=== PATIENT | male | born 1950 | race Caucasian/White ===

== ENCOUNTER 2018-08-21 12:57 | Inpatient (IN) | payer MEDICARE, BC, MEDICAID ==
[2018-08-21] MEDS ORDERED: Sodium Chloride 0.9% 10 ML Syringe FLUSH PRN (13:40)
[2018-08-21] MEDS ORDERED: Acetaminophen 325 MG/10.15 ML ML PO ONE (13:42)
--- NOTE | 2018-08-21 13:43 | EDM.PDOC ---
ED HPI GENERAL MEDICAL PROBLEM - General Chief Complaint: Respiratory Problem Stated Complaint: [facility] Time Seen by Provider: 08/21/18 13:34 Source of Information: Reports: Patient, EMS, Family, Jail Records, RN Notes Reviewed - History of Present Illness INITIAL COMMENTS - FREE TEXT/NARRATIVE: 67-year-old male has been brought here from [facility] for evaluation of high fever. This started earlier today and was over 103 at time of transfer. 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 He has had occasional cough. Have a chronic indwelling Morgan catheter. The daughter states that he is susceptible to pneumonia and [facility]dc staff state that he may have "aspirated yesterday". - Related Data Allergies Allergy/AdvReac Type Severity Reaction Status Date / Time lithium Allergy Other Verified 08/21/18 13:15 NSAIDS (Non-Steroidal Allergy Other Verified 08/21/18 13:15 Anti-Inflamma sulfamethoxazole Allergy Rash Verified 08/21/18 13:15 [From Bactrim] trimethoprim [From Bactrim] Allergy Rash Verified 08/21/18 13:15 Home Meds: Home Meds . [No Known Home Meds] 09/07/17 [History] Past Medical History HEENT History: Reports: None Cardiovascular History: Reports: None Respiratory History: Reports: None Gastrointestinal History: Reports: None Genitourinary History: Reports: None Musculoskeletal History: Reports: None Neurological History: Reports: None Psychiatric History: Reports: None Endocrine/Metabolic History: Reports: None Hematologic History: Reports: None Immunologic History: Reports: None Oncologic (Cancer) History: Reports: None Dermatologic History: Reports: None - Infectious Disease History Infectious Disease History: Reports: None - Past Surgical History Head Surgeries/Procedures: Reports: None Social & Family History - Family History Family Medical History: Noncontributory - Caffeine Use Caffeine Use: Reports: Coffee ED ROS GENERAL - Review of Systems Review Of Systems: See Below Constitutional: Reports: Fever HEENT: Denies: Sinus Problem, Throat Pain Respiratory: Reports: Shortness of Breath GI/Abdominal: Denies: Abdominal Pain : Reports: Other (Patient has indwelling Morgan catheter with cruddy looking urine) Musculoskeletal: Reports: No Symptoms Skin: Denies: Rash Neurological: Reports: Weakness (Generalized, chronic) ED EXAM, GENERAL - Physical Exam Exam: See Below General Appearance: Alert, Mild Distress, Other Eye Exam: Bilateral Eye: PERRL Throat/Mouth: Other Head: No: Facial Swelling (Onychosis somewhat dry pharynx not inflamed) Neck: Supple, Full Range of Motion, Other (No JVD) Respiratory/Chest: Respiratory Distress (Mild tachypnea) Cardiovascular: Tachycardia GI/Abdominal: Soft, Non-Tender Back Exam: No: CVA Tenderness (L), CVA Tenderness (R) Extremities: Other (there is bilat muscle wasting). No: Leg Pain Neurological: Alert, No Motor/Sensory Deficits, Other (speech is weak voice but appropriate) Skin Exam: Warm, Dry, Normal Color Course - Vital Signs Last Recorded V/S: Last Vital Signs Temp 104.9 F H 08/21/18 15:13 Pulse 101 H 08/21/18 15:13 Resp 16 08/21/18 15:13 BP 125/78 08/21/18 15:13 Pulse Ox 91 L 08/21/18 15:13 - Orders/Labs/Meds Orders: Active Orders 24 hr Category Date Time Status Peripheral IV Care [RC] . DIRECTED Care 08/21/18 13:42 Active CULTURE BLOOD [BC] Stat Lab 08/21/18 13:50 Received CULTURE BLOOD [BC] Stat Lab 08/21/18 14:25 Received Sodium Chloride 0.9% [Normal Saline] 1,000 ml Med 08/21/18 13:45 Active IV ONETIME Sodium Chloride 0.9% [Saline Flush] Med 08/21/18 13:40 Active 10 ml FLUSH ASDIRECTED PRN Peripheral IV Insertion Adult [OM.PC] Stat Oth 08/21/18 13:41 Ordered Medication Orders Sodium Chloride (Normal Saline) 1,000 mls @ 999 mls/hr IV ONETIME [facility] Last Admin: 08/21/18 14:25 Dose: 999 mls/hr Sodium Chloride (Saline Flush) 10 ml FLUSH ASDIRECTED PRN PRN Reason: Keep Vein Open Last Admin: 08/21/18 13:50 Dose: 10 ml Labs: Laboratory Tests 08/21/18 08/21/18 08/21/18 Range/Units 13:50 13:50 13:50 WBC 10.25 H (4.23-9.07) K/mm3 RBC 4.37 L (4.63-6.08) M/mm3 Hgb 13.6 L (13.7-17.5) gm/L Hct 42.1 (40.1-51.0) % MCV 96.3 H (79.0-92.2) fl MCH 31.1 (25.7-32.2) pg MCHC 32.3 (32.2-35.5) g/dl RDW Std Deviation 47.8 H (35.1-43.9) fL Plt Count 234 (163-337) K/mm3 MPV 8.3 L (9.4-12.3) fl Neutrophils % (Manual) 89 H (40-60) % Band Neutrophils % 0 (0-10) % Lymphocytes % (Manual) 6 L (20-40) % Atypical Lymphs % 0 % Monocytes % (Manual) 3 (2-10) % Eosinophils % (Manual) 2 (0.8-7.0) % Basophils % (Manual) 0 L (0.2-1.2) Platelet Estimate Adequate RBC Morph Comment Normal Sodium 144 (136-145) mEq/L Potassium 4.1 (3.5-5.1) mEq/L Chloride 107 (98-107) mEq/L Carbon Dioxide 29 (21-32) mEq/L Anion Gap 12.1 (5-15) BUN 13 (7-18) mg/dL Creatinine 1.1 (0.7-1.3) mg/dL Est Cr Clr Drug Dosing 66.95 mL/min Estimated GFR (MDRD) > 60 (>60) mL/min BUN/Creatinine Ratio 11.8 L (14-18) Glucose 93 (80-115) mg/dL Lactic Acid (0.4-2.0) mmol/L Calcium 10.3 H (8.5-10.1) mg/dL Total Bilirubin 0.2 (0.2-1.0) mg/dL AST 17 (15-37) U/L ALT 24 (16-63) U/L Alkaline Phosphatase 77 (46-116) U/L C-Reactive Protein 4.5 H* (<1.0) mg/dL Total Protein 6.8 (6.4-8.2) g/dl Albumin 3.2 L (3.4-5.0) g/dl Globulin 3.6 gm/dL Albumin/Globulin Ratio 0.9 L (1-2) Urine Color (Yellow) Urine Appearance (Clear) Urine pH (5.0-8.0) Ur Specific [place] (1.005-1.030) Urine Protein (Negative) Urine Glucose (UA) (Negative) Urine Ketones (Negative) Urine Occult Blood (Negative) Urine Nitrite (Negative) Urine Bilirubin (Negative) Urine Urobilinogen (0.2-1.0) Ur Leukocyte Esterase (Negative) Urine RBC (0-5) /hpf Urine WBC (0-5) /hpf Ur Epithelial Cells (0-5) /hpf Urine Bacteria (FEW) /hpf Urine Mucus (FEW) /hpf 08/21/18 08/21/18 Range/Units 13:50 14:30 WBC (4.23-9.07) K/mm3 RBC (4.63-6.08) M/mm3 Hgb (13.7-17.5) gm/L Hct (40.1-51.0) % MCV (79.0-92.2) fl MCH (25.7-32.2) pg MCHC (32.2-35.5) g/dl RDW Std Deviation (35.1-43.9) fL Plt Count (163-337) K/mm3 MPV (9.4-12.3) fl Neutrophils % (Manual) (40-60) % Band Neutrophils % (0-10) % Lymphocytes % (Manual) (20-40) % Atypical Lymphs % % Monocytes % (Manual) (2-10) % Eosinophils % (Manual) (0.8-7.0) % Basophils % (Manual) (0.2-1.2) Platelet Estimate RBC Morph Comment Sodium (136-145) mEq/L Potassium (3.5-5.1) mEq/L Chloride (98-107) mEq/L Carbon Dioxide (21-32) mEq/L Anion Gap (5-15) BUN (7-18) mg/dL Creatinine (0.7-1.3) mg/dL Est Cr Clr Drug Dosing mL/min Estimated GFR (MDRD) (>60) mL/min BUN/Creatinine Ratio (14-18) Glucose (80-115) mg/dL Lactic Acid 0.7 (0.4-2.0) mmol/L Calcium (8.5-10.1) mg/dL Total Bilirubin (0.2-1.0) mg/dL AST (15-37) U/L ALT (16-63) U/L Alkaline Phosphatase (46-116) U/L C-Reactive Protein (<1.0) mg/dL Total Protein (6.4-8.2) g/dl Albumin (3.4-5.0) g/dl Globulin gm/dL Albumin/Globulin Ratio (1-2) Urine Color Yellow (Yellow) Urine Appearance Slt cloudy H (Clear) Urine pH 8.0 (5.0-8.0) Ur Specific [place] 1.020 (1.005-1.030) Urine Protein Negative (Negative) Urine Glucose (UA) Negative (Negative) Urine Ketones Negative (Negative) Urine Occult Blood 2+ H (Negative) Urine Nitrite Positive H (Negative) Urine Bilirubin Negative (Negative) Urine Urobilinogen 1.0 (0.2-1.0) Ur Leukocyte Esterase 1+ H (Negative) Urine RBC 30-40 H (0-5) /hpf Urine WBC 5-10 H (0-5) /hpf Ur Epithelial Cells 0-5 (0-5) /hpf Urine Bacteria Few (FEW) /hpf Urine Mucus Few (FEW) /hpf Meds: Medications Generic Name Dose Route Start Last Admin Trade Name Freq PRN Reason Stop Dose Admin Sodium Chloride 1,000 mls @ 999 mls/hr 08/21/18 13:45 08/21/18 14:25 Normal Saline IV 999 mls/hr ONETIME [facility] Administration Sodium Chloride 10 ml 08/21/18 13:40 08/21/18 13:50 Saline Flush FLUSH 10 ml ASDIRECTED PRN Administration Keep Vein Open Discontinued Medications Generic Name Dose Route Start Last Admin Trade Name Freq PRN Reason Stop Dose Admin Acetaminophen 640 mg 08/21/18 13:42 08/21/18 14:27 Tylenol PO 08/21/18 13:43 640 mg ONETIME ONE Administration Piperacillin Sod/Tazobactam 100 mls @ 200 mls/hr 08/21/18 14:51 08/21/18 15: 10 Sod 4.5 gm/ Sodium Chloride IV 08/21/18 15:20 200 mls/hr ONETIME ONE Administration - Re-Assessments/Exams Free Text/Narrative Re-Assessment/Exam: 08/21/18 16:35 chest x-ray does not show obvious infiltrates, Dr. Watson has read the x-ray and does question the possibility of a small parahilar infiltrate , rule out pneumonia, clinical correlation necessary. His white blood count and C-reactive protein did come back elevated as expected. UTI is quite strongly infected. I do believe that is the major source of his infection. He may have pyelonephritis was sats temp of 103.8 on arrival and he also may be septic, blood cultures 2 obtained. Urine culture also will be entered. Did start him on Zosyn 4.5 g IV quite a while ago. He did get 1 L of fluid bolus. Other labs as documented. He will be admitted for further treatment. Departure - Departure Time of Disposition: 15:50 Disposition: Admitted As Inpatient 68 Condition: Serious Clinical Impression: Pyelonephritis - Discharge Information ED Communication - Discussed Case With (1) Discussed Case With (1): Admitting Provider (Dr Aguiar, decision to admit at about 15:50) - My Orders Last 24 Hours: My Active Orders 08/21/18 13:40 Sodium Chloride 0.9% [Saline Flush] 10 ml FLUSH ASDIRECTED PRN 08/21/18 13:41 Peripheral IV Insertion Adult [OM.PC] Stat 08/21/18 13:42 Peripheral IV Care [RC] . DIRECTED 08/21/18 13:45 Sodium Chloride 0.9% [Normal Saline] 1,000 ml IV ONETIME 08/21/18 13:50 CULTURE BLOOD [BC] Stat 08/21/18 14:25 CULTURE BLOOD [BC] Stat - Assessment/Plan Last 24 Hours: My Active Orders 08/21/18 13:40 Sodium Chloride 0.9% [Saline Flush] 10 ml FLUSH ASDIRECTED PRN 08/21/18 13:41 Peripheral IV Insertion Adult [OM.PC] Stat 08/21/18 13:42 Peripheral IV Care [RC] . DIRECTED 08/21/18 13:45 Sodium Chloride 0.9% [Normal Saline] 1,000 ml IV ONETIME 08/21/18 13:50 CULTURE BLOOD [BC] Stat 08/21/18 14:25 CULTURE BLOOD [BC] Stat
[2018-08-21] MEDS ORDERED: Sodium Chloride 0.9% 1,000 ML IV SCH (13:45)
--- NOTE | 2018-08-21 14:37 | CR ---
Chest: Portable view of the chest was obtained. Comparison: No previous study. Heart size and mediastinum are normal. Consolidation is seen within the left base behind the left heart. Lungs otherwise are clear. Bony structures are grossly intact. Impression: 1. Left retrocardiac consolidation. Differential includes atelectasis, chronic changes as well as pneumonia if patient has infectious symptoms. Diagnostic code #3
[2018-08-21] MEDS ORDERED: Furosemide 40 MG/4 ML VIAL IVPUSH ONE (14:45)
[2018-08-21] MEDS ORDERED: Piperacillin/Tazobactam 4.5 GM in Sodium Chloride 0.9% 100 ML IV ONE (14:51)
[2018-08-21] MEDS ORDERED: Ondansetron 4 MG/2 ML SDV IV PRN (17:51)
[2018-08-21] MEDS ORDERED: Ondansetron 4 MG Tab.DIS PO PRN (17:51)
[2018-08-21] MEDS ORDERED: Bisacodyl 5 MG Tab PO PRN (17:51)
[2018-08-21] MEDS ORDERED: Acetaminophen/HYDROcodone 325-5 MG Tab PO PRN (17:51)
[2018-08-21] MEDS ORDERED: Polyethylene Glycol 3350 Powder 17 GM Packet PO PRN (17:51)
[2018-08-21] MEDS ORDERED: Docusate Sodium 100 MG Cap PO PRN (17:51)
[2018-08-21] MEDS ORDERED: Acetaminophen 325 MG Tab PO PRN (17:51)
[2018-08-21] MEDS ORDERED: Temazepam 7.5 MG Cap PO PRN (17:51)
[2018-08-21] MEDS ORDERED: Magnesium Hydroxide 400 MG/5 ML Susp 30 ML Cup PO PRN (17:51)
[2018-08-21] MEDS: Dextrose 5%-0.9% NaCl 1,000 ML IV SCH (18:04)
[2018-08-21] MEDS: Morphine 2 MG/ML Syringe IVPUSH PRN ×2 (18:43→21:27)
[2018-08-21] MEDS ORDERED: ClonazePAM 0.5 MG Tab GTUBE PRN (19:53)
[2018-08-21] MEDS ORDERED: Albuterol 0.083% 2.5 MG/3 ML Neb Soln INH PRN (19:53)
[2018-08-21] MEDS ORDERED: Diclofenac Sodium 1% Gel 100 GM Tube TOP PRN (19:53)
[2018-08-21] MEDS ORDERED: Non-Formulary Medication 1 Each (Albuterol 2 PUFF) IH PRN (19:53)
--- NOTE | 2018-08-21 20:20 | PCM.HP ---
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 , Spasmodic torticollis, Cluster TOUSSAINT, COPD, GERD, Cervical Disc Degeneration, Dysphagia who comes in for UTI and possible PNA. Pt c/o Fever, SOB, and productive cough. He denies Chills, N/V/D, decreased appetite, constipation, abdominal pain, other GI/ symptoms. His initial workup in the ED showed a CBC remarkable for WBC 10.25, RBC 4.37, Hgb 13.6, MCV 96.3, RDW 47.8, MPV 8.3, Neut 89% with no bandemia, Lymph 6%. His chemistry is remarkable for Calcium 10.3, CRP 4.5, Albumin 3.2. UA is impressive for UTI. CXR shows left retrocardiac consolidation; Differential includes atelectasis, chronic changes as well as pneumonia if patient has infectious symptoms. Temperature of 104.9 in ED. He is subsequently admitted to the medical floor. He is a Full Code. His PCP is Dr. Enamorado. He is from [facility]. Left Neck Pain Score (Numeric/FACES): 9 - Related Data Allergies/Adverse Reactions: Allergies Allergy/AdvReac Type Severity Reaction Status Date / Time lithium Allergy Other Verified 08/21/18 17:51 NSAIDS (Non-Steroidal Allergy Other Verified 08/21/18 17:51 Anti-Inflamma sulfamethoxazole Allergy Rash Verified 08/21/18 17:51 [From Bactrim] trimethoprim [From Bactrim] Allergy Rash Verified 08/21/18 17:51 Home Medications: Home Meds Acetaminophen [Pain Relief] 650 mg GTUBE Q6H PRN 08/21/18 [History] Albuterol Sulfate 2.5 mg IH Q4H PRN 08/21/18 [History] Albuterol [Ventolin HFA] 2 puff IH Q4H PRN 08/21/18 [History] Aspirin 81 mg GTUBE DAILY 08/21/18 [History] Budesonide/Formoterol [Symbicort 160-4.5 MCG] 2 puff IH BID 08/21/18 [History] Carisoprodol 350 mg GTUBE QID 08/21/18 [History] ClonazePAM [KlonoPIN] 0.5 mg GTUBE TID PRN 08/21/18 [History] Diclofenac Sodium [Voltaren 1% Gel] 1 applic TOP QID PRN 08/21/18 [History] Famotidine [Pepcid] 20 mg GTUBE BID 08/21/18 [History] Finasteride 5 mg GTUBE DAILY 08/21/18 [History] Gabapentin 900 mg GTUBE TID 08/21/18 [History] Hydrocortisone [Hydrocortisone 1% Crm] 1 applic TOP TID PRN 08/21/18 [History] Lidocaine 4% [Xylocaine 4% Top Soln] 1 applic TOP TID 08/21/18 [History] Melatonin 15 mg GTUBE BEDTIME 08/21/18 [History] Meloxicam [Mobic] 15 mg GTUBE DAILY 08/21/18 [History] Montelukast [Singulair] 10 mg GTUBE DAILY 08/21/18 [History] Morphine [Morphine 10 MG/5 ML] 0.5 ml GTUBE Q4HR PRN 08/21/18 [History] Multivitamin [My Favorite Multiple] 30 ml GTUBE DAILY 08/21/18 [History] Nystatin [Nyata] 1 applic TOP BID 08/21/18 [History] OLANZapine [ZyPREXA] 10 mg GTUBE DAILY 08/21/18 [History] Polyethylene Glycol 3350 [MiraLAX] 17 gm GTUBE DAILY 08/21/18 [History] Thiamine HCl [Vitamin B-1] 300 mg GTUBE DAILY 08/21/18 [History] Umeclidinium Brm/Vilanterol Tr [Anoro Ellipta 62.5-25 MCG] 6.25 - 25 mcg IH DAILY 08/21/18 [History] Verapamil [Calan] 160 mg GTUBE TID 08/21/18 [History] traZODone HCl [Trazodone HCl] 100 mg GTUBE BEDTIME 08/21/18 [History] Past Medical History HEENT History: Reports: None Cardiovascular History: Reports: Hypertension Respiratory History: Reports: COPD Gastrointestinal History: Reports: GERD, Other (See Below) Other Gastrointestinal History: dysphagia Genitourinary History: Reports: Retention, Urinary Musculoskeletal History: Reports: Other (See Below) Other Musculoskeletal History: spasmodic torticollis, cervical disc degeneration , weakness Neurological History: Reports: None Other Neuro History: cluster headaches, neural disease Psychiatric History: Reports: Bipolar Endocrine/Metabolic History: Reports: None, Other (See Below) Other Endocrine/Metabolic History: diabetes insipidus Hematologic History: Reports: Anemia Immunologic History: Reports: None Oncologic (Cancer) History: Reports: None Dermatologic History: Reports: None - Infectious Disease History Infectious Disease History: Reports: None - Past Surgical History Head Surgeries/Procedures: Reports: None GI Surgical History: Reports: Other (See Below) Other GI Surgeries/Procedures: PEG tube Social & Family History - Family History Family Medical History: Noncontributory - Tobacco Use Smoking Status *Q: Unknown Ever Smoked Second Hand Smoke Exposure: No - Caffeine Use Caffeine Use: Reports: Coffee - Recreational Drug Use Recreational Drug Use: No H&P Review of Systems - Review of Systems: Review Of Systems: See Below General: Reports: Fever, Chills, Weakness. Denies: Decreased Appetite HEENT: Reports: Dysphasia. Denies: Visual Changes Pulmonary: Reports: Shortness of Breath, Cough, Sputum (does not know the color) Cardiovascular: Reports: Blood Pressure Problem. Denies: Chest Pain, Dyspnea on Exertion, Edema Gastrointestinal: Reports: No Symptoms. Denies: Abdominal Pain, Diarrhea, Decreased Appetite, Nausea, Vomiting Genitourinary: Reports: Other (Chronic indwelling catheter). Denies: Dysuria, Frequency, Burning, Pain Musculoskeletal: Reports: Neck Pain (left-sided that radiates to forehead; chronic per pt) Skin: Reports: No Symptoms Psychiatric: Reports: No Symptoms Neurological: Reports: Pre-Existing Deficit, Trouble Speaking (d/t neurological condition), Difficulty Walking (d/t neurological condition), Gait Disturbance. Denies: Confusion, Dizziness, Headache Hematologic/Lymphatic: Reports: No Symptoms Immunologic: Reports: No Symptoms Exam - Exam Exam: See Below - Vital Signs Vital Signs: Last Vital Signs Temp 98.1 F 08/21/18 17:06 Pulse 90 08/21/18 17:06 Resp 16 08/21/18 17:06 BP 137/87 08/21/18 17:06 Pulse Ox 94 L 08/21/18 17:06 Weight: 158 lb 14.4 oz - Exam Quality Assessment: Supplemental Oxygen (2L NC), DVT Prophylaxis General: Alert, Oriented, Cooperative, Mild Distress HEENT: Conjunctiva Clear, EACs Clear, EOMI, Hearing Intact, Mucosa Moist & [place] , Nares Patent, Normal Nasal Septum, Posterior Pharynx Clear, PERRLA Neck: Supple, Trachea Midline, Other (pt has h/o spasmodic torticollis and his head is tilted toward his right shoulder). No: Full Range of Motion Lungs: Normal Respiratory Effort (unable to take deep breaths; likely 2/2 neurological condition), Decreased Breath Sounds Cardiovascular: Regular Rate, Regular Rhythm, Other (distant heart sounds) GI/Abdominal Exam: Normal Bowel Sounds, Soft, Non-Tender, No Organomegaly, No Distention, No Abnormal Bruit, No Mass, Pelvis Stable (Male) Exam: Deferred Rectal (Males) Exam: Deferred Back Exam: Decreased Range of Motion, Other (head is tilted to the right side chronically) Extremities: Normal Inspection, Normal Range of Motion, Non-Tender, No Pedal Edema, Normal Capillary Refill, Other (some atrophy present bilaterally) Peripheral Pulses: 1+: Posterior Tibial (L), Posterior Tibial (R), Dorsalis Pedis (L), Dorsalis Pedis (R) Skin: Warm, Dry, Intact Neurological: Abnormal Gait. No: Normal Gait, Normal Speech, Normal Tone Neuro Extensive - Mental Status: Alert, Oriented x3, Normal Mood/Affect, Normal Cognition, Memory Intact Psychiatric: Alert, Normal Affect, Normal Mood - Patient Data Lab Results Last 24 hrs: Laboratory Results - last 24 hr 08/21/18 08/21/18 08/21/18 Range/Units 13:50 13:50 13:50 WBC 10.25 H (4.23-9.07) K/mm3 RBC 4.37 L (4.63-6.08) M/mm3 Hgb 13.6 L (13.7-17.5) gm/L Hct 42.1 (40.1-51.0) % MCV 96.3 H (79.0-92.2) fl MCH 31.1 (25.7-32.2) pg MCHC 32.3 (32.2-35.5) g/dl RDW Std Deviation 47.8 H (35.1-43.9) fL Plt Count 234 (163-337) K/mm3 MPV 8.3 L (9.4-12.3) fl Neutrophils % (Manual) 89 H (40-60) % Band Neutrophils % 0 (0-10) % Lymphocytes % (Manual) 6 L (20-40) % Atypical Lymphs % 0 % Monocytes % (Manual) 3 (2-10) % Eosinophils % (Manual) 2 (0.8-7.0) % Basophils % (Manual) 0 L (0.2-1.2) Platelet Estimate Adequate RBC Morph Comment Normal Sodium 144 (136-145) mEq/L Potassium 4.1 (3.5-5.1) mEq/L Chloride 107 (98-107) mEq/L Carbon Dioxide 29 (21-32) mEq/L Anion Gap 12.1 (5-15) BUN 13 (7-18) mg/dL Creatinine 1.1 (0.7-1.3) mg/dL Est Cr Clr Drug Dosing 66.95 mL/min Estimated GFR (MDRD) > 60 (>60) mL/min BUN/Creatinine Ratio 11.8 L (14-18) Glucose 93 (80-115) mg/dL Lactic Acid (0.4-2.0) mmol/L Calcium 10.3 H (8.5-10.1) mg/dL Total Bilirubin 0.2 (0.2-1.0) mg/dL AST 17 (15-37) U/L ALT 24 (16-63) U/L Alkaline Phosphatase 77 (46-116) U/L C-Reactive Protein 4.5 H* (<1.0) mg/dL Total Protein 6.8 (6.4-8.2) g/dl Albumin 3.2 L (3.4-5.0) g/dl Globulin 3.6 gm/dL Albumin/Globulin Ratio 0.9 L (1-2) Urine Color (Yellow) Urine Appearance (Clear) Urine pH (5.0-8.0) Ur Specific [place] (1.005-1.030) Urine Protein (Negative) Urine Glucose (UA) (Negative) Urine Ketones (Negative) Urine Occult Blood (Negative) Urine Nitrite (Negative) Urine Bilirubin (Negative) Urine Urobilinogen (0.2-1.0) Ur Leukocyte Esterase (Negative) Urine RBC (0-5) /hpf Urine WBC (0-5) /hpf Ur Epithelial Cells (0-5) /hpf Urine Bacteria (FEW) /hpf Urine Mucus (FEW) /hpf 08/21/18 08/21/18 Range/Units 13:50 14:30 WBC (4.23-9.07) K/mm3 RBC (4.63-6.08) M/mm3 Hgb (13.7-17.5) gm/L Hct (40.1-51.0) % MCV (79.0-92.2) fl MCH (25.7-32.2) pg MCHC (32.2-35.5) g/dl RDW Std Deviation (35.1-43.9) fL Plt Count (163-337) K/mm3 MPV (9.4-12.3) fl Neutrophils % (Manual) (40-60) % Band Neutrophils % (0-10) % Lymphocytes % (Manual) (20-40) % Atypical Lymphs % % Monocytes % (Manual) (2-10) % Eosinophils % (Manual) (0.8-7.0) % Basophils % (Manual) (0.2-1.2) Platelet Estimate RBC Morph Comment Sodium (136-145) mEq/L Potassium (3.5-5.1) mEq/L Chloride (98-107) mEq/L Carbon Dioxide (21-32) mEq/L Anion Gap (5-15) BUN (7-18) mg/dL Creatinine (0.7-1.3) mg/dL Est Cr Clr Drug Dosing mL/min Estimated GFR (MDRD) (>60) mL/min BUN/Creatinine Ratio (14-18) Glucose (80-115) mg/dL Lactic Acid 0.7 (0.4-2.0) mmol/L Calcium (8.5-10.1) mg/dL Total Bilirubin (0.2-1.0) mg/dL AST (15-37) U/L ALT (16-63) U/L Alkaline Phosphatase (46-116) U/L C-Reactive Protein (<1.0) mg/dL Total Protein (6.4-8.2) g/dl Albumin (3.4-5.0) g/dl Globulin gm/dL Albumin/Globulin Ratio (1-2) Urine Color Yellow (Yellow) Urine Appearance Slt cloudy H (Clear) Urine pH 8.0 (5.0-8.0) Ur Specific [place] 1.020 (1.005-1.030) Urine Protein Negative (Negative) Urine Glucose (UA) Negative (Negative) Urine Ketones Negative (Negative) Urine Occult Blood 2+ H (Negative) Urine Nitrite Positive H (Negative) Urine Bilirubin Negative (Negative) Urine Urobilinogen 1.0 (0.2-1.0) Ur Leukocyte Esterase 1+ H (Negative) Urine RBC 30-40 H (0-5) /hpf Urine WBC 5-10 H (0-5) /hpf Ur Epithelial Cells 0-5 (0-5) /hpf Urine Bacteria Few (FEW) /hpf Urine Mucus Few (FEW) /hpf Result Diagrams: 08/21/18 13:50 08/21/18 13:50 - Problem List (1) Pyelonephritis SNOMED Code(s): 20050957 ICD Code: N12 - TUBULO-INTERSTITIAL NEPHRITIS, NOT SPCF ACUTE OR CHRONIC Status: Acute Priority: High Current Visit: Yes (2) Cervical spine disease SNOMED Code(s): 473096353 ICD Code: M48.9 - SPONDYLOPATHY, UNSPECIFIED Status: Chronic Priority: Low Current Visit: Yes Problem List Initiated/Reviewed/Updated: Yes Orders Last 24hrs: Active Orders 24 hr Category Date Time Status Patient Status [ADT] Routine ADT 08/21/18 17:48 Active Blood Glucose Check, Bedside [RC] Q6HR Care 08/21/18 21:00 Ordered Blood Glucose Check, Bedside [RC] QIDACANDBED Care 08/21/18 17:48 Active Height and Weight [RC] DAILY Care 08/21/18 17:51 Active Insert Morgan Catheter [Insert Urinary Catheter] [OM.PC] Care 08/21/18 14:30 Ordered Stat Intake and Output [RC] QSHIFT Care 08/21/18 17:51 Active Urinary Catheter Assessment [RC] ASDIRECTED Care 08/21/18 14:30 Active Urinary Catheter Removal [RC] Per Unit Routine Care 08/21/18 14:30 Active VTE/DVT Education [RC] Care 08/21/18 17:48 Active Vital Signs [RC] Q4HR Care 08/21/18 17:48 Active Wound Care [RC] DAILY Care 08/21/18 18:42 Active Consult to Case Management/Cushion Mat Maker [CONS] Cons 08/21/18 17:59 Active Routine Consult to Speech Language Pathology [NANOTECHNOLOGY TECHNICIAN Evaluation Cons 08/21/18 17:45 Active and Treatment] [CONS] Routine OT Evaluation and Treatment [CONS] Routine Cons 08/21/18 17:59 Active PT Evaluation and Treatment [CONS] Routine Cons 08/21/18 17:59 Active Nothing per Oral Now Diet [DIET] Diet 08/21/18 Dinner Active BASIC METABOLIC PANEL,BMP [CHEM] AM Lab 08/26/18 05:11 Ordered BASIC METABOLIC PANEL,BMP [CHEM] AM Lab 08/22/18 05:11 Ordered BASIC METABOLIC PANEL,BMP [CHEM] AM Lab 08/23/18 05:11 Ordered BASIC METABOLIC PANEL,BMP [CHEM] AM Lab 08/24/18 05:11 Ordered BASIC METABOLIC PANEL,BMP [CHEM] AM Lab 08/25/18 05:11 Ordered C-REACTIVE PROTEIN [CHEM] AM Lab 08/26/18 05:11 Ordered C-REACTIVE PROTEIN [CHEM] AM Lab 08/22/18 05:11 Ordered C-REACTIVE PROTEIN [CHEM] AM Lab 08/23/18 05:11 Ordered C-REACTIVE PROTEIN [CHEM] AM Lab 08/24/18 05:11 Ordered C-REACTIVE PROTEIN [CHEM] AM Lab 08/25/18 05:11 Ordered CBC WITH AUTO DIFF [HEME] AM Lab 08/26/18 05:11 Ordered CBC WITH AUTO DIFF [HEME] AM Lab 08/22/18 05:11 Ordered CBC WITH AUTO DIFF [HEME] AM Lab 08/23/18 05:11 Ordered CBC WITH AUTO DIFF [HEME] AM Lab 08/24/18 05:11 Ordered CBC WITH AUTO DIFF [HEME] AM Lab 08/25/18 05:11 Ordered CULTURE BLOOD [BC] Stat Lab 08/21/18 13:50 Received CULTURE BLOOD [BC] Stat Lab 08/21/18 14:25 Received CULTURE URINE [RM] Routine Lab 08/21/18 14:30 Received MAGNESIUM [CHEM] AM Lab 08/26/18 05:11 Ordered MAGNESIUM [CHEM] AM Lab 08/22/18 05:11 Ordered MAGNESIUM [CHEM] AM Lab 08/23/18 05:11 Ordered MAGNESIUM [CHEM] AM Lab 08/24/18 05:11 Ordered MAGNESIUM [CHEM] AM Lab 08/25/18 05:11 Ordered METH-RESIST S.AUR,MRSA BY PCR [MOLEC] Routine Lab 08/21/18 20:07 Ordered Acetaminophen [Tylenol] Med 08/21/18 17:51 Active 650 mg PO Q4H PRN Acetaminophen/HYDROcodone [[place] 325-5 MG] Med 08/21/18 17:51 Active 1 tab PO Q4H PRN Albuterol Med 08/21/18 19:53 Ordered 2 puff IH Q4H PRN Albuterol [Proventil Neb Soln] Med 08/21/18 19:53 Ordered 2.5 mg INH Q4H PRN Aspirin Med 08/22/18 09:00 Ordered 81 mg GTUBE DAILY Bisacodyl [Dulcolax] Med 08/21/18 17:51 Active 5 mg PO DAILY PRN Budesonide/Formoterol Med 08/21/18 21:00 Ordered 2 puff IH BID Carisoprodol Med 08/21/18 21:00 Ordered 350 mg GTUBE QID ClonazePAM [KlonoPIN] Med 08/21/18 19:53 Ordered 0.5 mg GTUBE TID PRN Dextrose 5%-0.9% NaCl [Dextrose 5%-Normal Saline] 1,000 Med 08/21/18 18:00 Active ml IV ASDIRECTED Diclofenac Sodium [Voltaren 1% Gel] Med 08/21/18 19:53 Ordered 1 applic TOP QID PRN Docusate Sodium [Colace] Med 08/21/18 17:51 Active 100 mg PO BID PRN Docusate Sodium/Sennosides [Senna Plus] Med 08/21/18 17:51 Active 1 tab PO BID PRN Enoxaparin [Lovenox] Med 08/22/18 09:00 Active 40 mg SUBCUT DAILY Famotidine [Pepcid] Med 08/21/18 21:00 Ordered 20 mg GTUBE BID Finasteride [Proscar] Med 08/22/18 09:00 Ordered 5 mg .XX DAILY Gabapentin [Gabapentin] Med 08/21/18 21:00 Ordered 900 mg GTUBE TID Insulin Lispro [HumaLOG] Med 08/21/18 22:00 Active See Protocol SUBCUT QIDACANDBED Magnesium Hydroxide [Milk of Magnesia] Med 08/21/18 17:51 Active 30 ml PO Q12H PRN Meloxicam Med 08/22/18 09:00 Ordered 15 mg GTUBE DAILY Montelukast [Singulair] Med 08/22/18 09:00 Ordered 10 mg GTUBE DAILY Morphine Med 08/21/18 17:51 Active 2 mg IVPUSH Q2H PRN Multivitamin Med 08/22/18 09:00 Ordered 30 ml GTUBE DAILY OLANZapine Med 08/22/18 09:00 Ordered 10 mg GTUBE DAILY Ondansetron [Zofran ODT] Med 08/21/18 17:51 Active 4 mg PO Q4H PRN Ondansetron [Zofran] Med 08/21/18 17:51 Active 4 mg IV Q4H PRN Piperacillin/Tazobactam [Zosyn] 4.5 gm Med 08/21/18 21:00 Ordered Sodium Chloride 0.9% [Normal Saline] 100 ml IV Q8H Polyethylene Glycol 3350 [MiraLAX] Med 08/22/18 09:00 Ordered 17 gm GTUBE DAILY Polyethylene Glycol 3350 [MiraLAX] Med 08/21/18 17:51 Active 17 gm PO DAILY PRN Saccharomyces Boulardii [Florastor] Med 08/21/18 21:00 Active 250 mg PO BID Sodium Chloride 0.9% [Normal Saline] 1,000 ml Med 08/21/18 13:45 Active IV ONETIME Sodium Chloride 0.9% [Saline Flush] Med 08/21/18 13:40 Active 10 ml FLUSH ASDIRECTED PRN Temazepam [Restoril] Med 08/21/18 17:51 Active 7.5 mg PO BEDTIME PRN Thiamine [Vitamin B-1] Med 08/22/18 09:00 Ordered 300 mg GTUBE DAILY Umeclidinium Brm/Vilanterol Tr Med 08/22/18 09:00 Ordered 6.25 - 25 mcg IH DAILY Verapamil [Calan] Med 08/21/18 21:00 Ordered 160 mg GTUBE TID cefTRIAXone [Rocephin] Med 08/22/18 08:00 Active 2 gm IVPUSH Q24H traZODone HCl [Trazodone HCl] Med 08/21/18 21:00 Ordered 100 mg PO BEDTIME Peripheral IV Insertion Adult [OM.PC] Stat Oth 08/21/18 13:41 Ordered Resuscitation Status Routine Resus Stat 08/21/18 17:50 Ordered Medication Orders Acetaminophen (Tylenol) 650 mg PO Q4H PRN PRN Reason: Pain (Mild 1-3)/fever Hydrocodone Bitart/Acetaminophen ([place] 325-5 Mg) 1 tab PO Q4H PRN PRN Reason: Pain (moderate 4-6) Albuterol (Proventil Neb Soln) 2.5 mg INH Q4H PRN PRN Reason: Shortness of Breath Aspirin (Aspirin) 81 mg GTUBE DAILY STELLA Bisacodyl (Dulcolax) 5 mg PO DAILY PRN PRN Reason: Constipation Ceftriaxone Sodium (Rocephin) 2 gm IVPUSH Q24H STELLA Clonazepam (Klonopin) 0.5 mg GTUBE TID PRN PRN Reason: Anxiety Diclofenac Sodium (Voltaren 1% Gel) 0 gm TOP QID PRN PRN Reason: Pain Docusate Sodium (Colace) 100 mg PO BID PRN PRN Reason: Constipation Enoxaparin Sodium (Lovenox) 40 mg SUBCUT DAILY COUNTS INCLUDE 234 BEDS AT THE [facility] Famotidine (Pepcid) 20 mg GTUBE BID COUNTS INCLUDE 234 BEDS AT THE [facility] Finasteride (Proscar) 5 mg .XX DAILY COUNTS INCLUDE 234 BEDS AT THE [facility] Sodium Chloride (Normal Saline) 1,000 mls @ 999 mls/hr IV ONETIME COUNTS INCLUDE 234 BEDS AT THE [facility] Last Admin: 08/21/18 14:25 Dose: 999 mls/hr Dextrose/Sodium Chloride (Dextrose 5%-Normal Saline) 1,000 mls @ 75 mls/hr IV ASDIRECTED COUNTS INCLUDE 234 BEDS AT THE [facility] Last Admin: 08/21/18 18:04 Dose: 75 mls/hr Piperacillin Sod/Tazobactam (Sod 4.5 gm/ Sodium Chloride) 100 mls @ 25 mls/hr IV Q8H COUNTS INCLUDE 234 BEDS AT THE [facility] Insulin Human Lispro (Humalog) 0 unit SUBCUT QIDACANDBED COUNTS INCLUDE 234 BEDS AT THE [facility]; Protocol Magnesium Hydroxide (Milk Of Magnesia) 30 ml PO Q12H PRN PRN Reason: Constipation Montelukast Sodium (Singulair) 10 mg GTUBE DAILY COUNTS INCLUDE 234 BEDS AT THE [facility] Morphine Sulfate (Morphine) 2 mg IVPUSH Q2H PRN PRN Reason: Pain (severe 7-10) Stop: 08/22/18 17:53 Last Admin: 08/21/18 18:43 Dose: 2 mg Non-Formulary Medication (Albuterol) 2 puff IH Q4H PRN PRN Reason: Shortness of Breath Non-Formulary Medication (Budesonide/Formoterol) 2 puff IH BID COUNTS INCLUDE 234 BEDS AT THE [facility] Non-Formulary Medication (Carisoprodol) 350 mg GTUBE QID COUNTS INCLUDE 234 BEDS AT THE [facility] Non-Formulary Medication (Gabapentin [Gabapentin]) 900 mg GTUBE TID COUNTS INCLUDE 234 BEDS AT THE [facility] Non-Formulary Medication (Meloxicam) 15 mg GTUBE DAILY COUNTS INCLUDE 234 BEDS AT THE [facility] Non-Formulary Medication (Multivitamin) 30 ml GTUBE DAILY COUNTS INCLUDE 234 BEDS AT THE [facility] Non-Formulary Medication (Olanzapine) 10 mg GTUBE DAILY COUNTS INCLUDE 234 BEDS AT THE [facility] Non-Formulary Medication (Umeclidinium Brm/Vilanterol Tr) 6.25 - 25 mcg IH DAILY COUNTS INCLUDE 234 BEDS AT THE [facility] Ondansetron HCl (Zofran Odt) 4 mg PO Q4H PRN PRN Reason: nausea, able to take PO Ondansetron HCl (Zofran) 4 mg IV Q4H PRN PRN Reason: Nausea/Vomiting Polyethylene Glycol (Miralax) 17 gm PO DAILY PRN PRN Reason: Constipation Polyethylene Glycol (Miralax) 17 gm GTUBE DAILY COUNTS INCLUDE 234 BEDS AT THE [facility] Saccharomyces Boulardii (Florastor) 250 mg PO BID COUNTS INCLUDE 234 BEDS AT THE [facility] Senna/Docusate Sodium (Senna Plus) 1 tab PO BID PRN PRN Reason: Constipation Sodium Chloride (Saline Flush) 10 ml FLUSH ASDIRECTED PRN PRN Reason: Keep Vein Open Last Admin: 08/21/18 13:50 Dose: 10 ml Temazepam (Restoril) 7.5 mg PO BEDTIME PRN PRN Reason: Sleep Thiamine HCl (Vitamin B-1) 300 mg GTUBE DAILY COUNTS INCLUDE 234 BEDS AT THE [facility] Trazodone HCl (Trazodone Hcl) 100 mg PO BEDTIME STELLA Verapamil HCl (Calan) 160 mg GTUBE TID COUNTS INCLUDE 234 BEDS AT THE [facility] Assessment/Plan Comment:: /P: Acute: Productive cough * Differential: Bronchitis vs PNA * Risk Factors: COPD, Lives at [facility] * WBC 10.25, CRP 4.5 * CXR in ED: * Left retrocardiac consolidation. Differential includes atelectasis, chronic changes as well as pneumonia if patient has infectious symptoms. * RVP, Mycoplasma, Strep pneumo, Sputum culture pending * Blood cultures pending * RT/Duonebs/IS/Acapella * Repeat CXR in 48H * Zosyn started in ED--> Continue UTI vs Pyelonephritis * Temperature 101.8 at [facility]; 104.9 in ED * UA impressive for UTI * Zosyn started in ED--> continue * Urine culture pending * Start Rocephin Chronic: HTN PEG tube Weakness Indwelling catheter d/t Urinary retention Neurological disorder NOS- 2/2 [place] overdose? Spasmodic torticollis Cluster [place]OU[place] COPD GERD Cervical Disc Degeneration Dysphagia Plan: Transferred to Medical Floor Droplet precautions, Contact Precautions (pending MRSA) Other orders as indicated above Routine AM labs NPO--> until passes NANOTECHNOLOGY TECHNICIAN swallow evaluation (usually NDD3 w/ pudding thick) PT/OT CM/SW DVT Prophylaxis/GI Prophylaxis Code Status: Full Code; PCP: Dr. Enamorado From [facility]
[2018-08-21] MEDS ORDERED: Albuterol/Ipratropium 3.0-0.5 MG/3 ML Neb Soln NEB PRN (20:57)
[2018-08-21] MEDS ORDERED: Non-Formulary Medication 1 Each (Budesonide/Formoterol 2 PUFF) IH SCH (21:00)
[2018-08-21] MEDS ORDERED: Saccharomyces Boulardii (Probiotic) 250 MG Cap PO SCH (21:00)
[2018-08-21] MEDS ORDERED: Famotidine 20 MG Tab PO SCH (21:00)
[2018-08-21] MEDS ORDERED: traZODone 50 MG Tab PO SCH (21:00)
[2018-08-21] MEDS: Gabapentin 300 MG Cap GTUBE SCH (21:08)
[2018-08-21] MEDS: Verapamil 80 MG Tab GTUBE SCH (21:09)
[2018-08-21] MEDS: Famotidine 20 MG Tab GTUBE SCH (21:09)
[2018-08-21] MEDS: Piperacillin/Tazobactam 4.5 GM in Sodium Chloride 0.9% 100 ML IV SCH (21:18)
[2018-08-21] MEDS ORDERED: Insulin Lispro 100 Unit/ML 3 ML KwikPen SUBCUT SCH (22:00)
[2018-08-21] MEDS: Formoterol/Mometasone 200-5 MCG 8.8 GM Inhaler IH SCH (22:04)
[2018-08-22] MEDS: Insulin Lispro 100 Unit/ML 3 ML KwikPen SUBCUT SCH ×4 (00:05→17:05)
[2018-08-22] MEDS ORDERED: Acetaminophen/HYDROcodone 325-5 MG Tab GTUBE PRN (04:06)
[2018-08-22] MEDS ORDERED: Acetaminophen Soln 650 MG/20.3 ML UD Cup GTUBE PRN (04:06)
[2018-08-22] MEDS ORDERED: Bisacodyl 5 MG Tab PRN (04:07)
[2018-08-22] MEDS: Morphine 2 MG/ML Syringe IVPUSH PRN ×2 (04:08→10:17)
[2018-08-22] MEDS ORDERED: Docusate Sodium 100 MG Cap PRN (04:08)
[2018-08-22] MEDS ORDERED: Magnesium Hydroxide 400 MG/5 ML Susp 30 ML Cup GTUBE PRN (04:09)
[2018-08-22] MEDS ORDERED: Temazepam 7.5 MG Cap GTUBE PRN (04:10)
[2018-08-22] MEDS: Formoterol/Mometasone 200-5 MCG 8.8 GM Inhaler IH SCH ×2 (05:39→20:38)
[2018-08-22] MEDS: Piperacillin/Tazobactam 4.5 GM in Sodium Chloride 0.9% 100 ML IV SCH ×3 (06:10→21:45)
[2018-08-22] MEDS: Dextrose 5%-0.9% NaCl 1,000 ML IV SCH (06:15)
[2018-08-22] MEDS ORDERED: cefTRIAXone 2 GM Vial IVPUSH SCH (08:00)
[2018-08-22] MEDS ORDERED: Aspirin 81 MG Tab.Chew GTUBE SCH (09:00)
[2018-08-22] MEDS ORDERED: Saccharomyces Boulardii (Probiotic) 250 MG Cap GTUBE SCH (09:00)
[2018-08-22] MEDS ORDERED: Finasteride 5 MG Tab SCH (09:00)
[2018-08-22] MEDS ORDERED: Multivitamins,Therapeutic Tab SCH (09:00)
[2018-08-22] MEDS ORDERED: Thiamine 100 MG Tab GTUBE SCH (09:00)
[2018-08-22] MEDS ORDERED: Montelukast 10 MG Tab GTUBE SCH (09:00)
[2018-08-22] MEDS ORDERED: OLANZapine 5 MG Tab GTUBE SCH (09:00)
[2018-08-22] MEDS: cefTRIAXone 2 GM in Sodium Chloride 0.9% 100 ML IV SCH (09:03)
[2018-08-22] MEDS: Famotidine 20 MG Tab GTUBE SCH (09:14)
[2018-08-22] MEDS: Enoxaparin 40 MG/0.4 ML Syringe SUBCUT SCH (09:15)
[2018-08-22] MEDS: Gabapentin 300 MG Cap GTUBE SCH (09:15)
[2018-08-22] MEDS: Verapamil 80 MG Tab GTUBE SCH (09:15)
[2018-08-22] MEDS: UMECLIDINIUM BRM INH SCH (09:17)
[2018-08-22] MEDS: VILANTEROL TR INH SCH (09:17)
[2018-08-22] MEDS: Polyethylene Glycol 3350 Powder 17 GM Packet GTUBE SCH ×2 (09:18→09:19)
[2018-08-22] MEDS ORDERED: Acetaminophen Soln 650 MG/20.3 ML UD Cup PO PRN (09:36)
[2018-08-22] MEDS ORDERED: Bisacodyl 5 MG Tab PO PRN (09:39)
[2018-08-22] MEDS ORDERED: Docusate Sodium 100 MG Cap PO PRN (09:40)
[2018-08-22] MEDS ORDERED: Magnesium Hydroxide 400 MG/5 ML Susp 30 ML Cup PO PRN (09:42)
[2018-08-22] MEDS ORDERED: Temazepam 7.5 MG Cap PO PRN (09:46)
[2018-08-22] MEDS ORDERED: Morphine 10 MG/0.5 ML Oral Syringe PO PRN (13:25)
[2018-08-22] MEDS: Verapamil 80 MG Tab PO SCH ×3 (14:34→21:01)
[2018-08-22] MEDS: Gabapentin 300 MG Cap PO SCH ×2 (14:34→21:00)
[2018-08-22] MEDS: Morphine 10 MG/0.5 ML Oral Syringe PO PRN ×2 (14:35→21:02)
[2018-08-22] MEDS ORDERED: Magnesium Oxide 400 MG Tab PO ONE (16:07)
--- NOTE | 2018-08-22 16:19 | PCM.PN ---
- General Info Date of Service: 08/22/18 Admission Dx/Problem (Free Text): Admission Diagnosis/Problem Admission Diagnosis/Problem Urinary tract infection Subjective Update: In to see Ramu. He is sitting in a chair and was talking on the phone before I walked in. He is in good spirits today and states he is already feeling much better. I went over his lab results and that he seems to be improving, but we are still awaiting PNA workup results and sensitivities to his urine culture therefore we will keep him on the broad spectrum antibiotics for now. He states he understands. All questions and concerns were answered. No concerns from nursing. He did walk today per nursing, with assistance, but is very weak d/t his neurological disorder. He states he usually uses a wheelchair or walker. Functional Status: Reports: Pain Controlled, Tolerating Diet, Ambulating, Urinating, Incentive Spirometry - Review of Systems General: Reports: No Symptoms. Denies: Fever, Chills HEENT: Reports: No Symptoms Pulmonary: Reports: Shortness of Breath (improving), Cough, Sputum Cardiovascular: Reports: No Symptoms. Denies: Chest Pain Gastrointestinal: Reports: No Symptoms. Denies: Abdominal Pain, Diarrhea, Nausea, Vomiting Genitourinary: Reports: No Symptoms Musculoskeletal: Reports: No Symptoms Skin: Reports: No Symptoms Neurological: Reports: Pre-Existing Deficit, Trouble Speaking, Difficulty Walking, Gait Disturbance Psychiatric: Reports: No Symptoms - Patient Data Vitals - Most Recent: Last Vital Signs Temp 98.4 F 08/22/18 11:05 Pulse 56 L 08/22/18 11:05 Resp 16 08/22/18 11:05 BP 99/54 L 08/22/18 14:38 Pulse Ox 97 08/22/18 11:05 Weight - Most Recent: 160 lb 11.189 oz I&O - Last 24 Hours: Intake & Output 08/22/18 08/22/18 08/22/18 06:59 14:59 22:59 Intake Total 1260 300 Output Total 950 Balance 310 300 Lab Results Last 24 Hours: Laboratory Results - last 24 hr 08/21/18 08/21/18 08/22/18 Range/Units 13:50 18:25 00:04 WBC (4.23-9.07) K/mm3 RBC (4.63-6.08) M/mm3 Hgb (13.7-17.5) gm/L Hct (40.1-51.0) % MCV (79.0-92.2) fl MCH (25.7-32.2) pg MCHC (32.2-35.5) g/dl RDW Std Deviation (35.1-43.9) fL Plt Count (163-337) K/mm3 MPV (9.4-12.3) fl Neut % (Auto) (34.0-67.9) % Lymph % (Auto) (21.8-53.1) % [place] % (Auto) (5.3-12.2) % Eos % (Auto) (0.8-7.0) Baso % (Auto) (0.1-1.2) % Neut # (Auto) (1.78-5.38) K/mm3 Lymph # (Auto) (1.32-3.57) K/mm3 [place] # (Auto) (0.30-0.82) K/mm3 Eos # (Auto) (0.04-0.54) K/mm3 Baso # (Auto) (0.01-0.08) K/mm3 Sodium (136-145) mEq/L Potassium (3.5-5.1) mEq/L Chloride (98-107) mEq/L Carbon Dioxide (21-32) mEq/L Anion Gap (5-15) BUN (7-18) mg/dL Creatinine (0.7-1.3) mg/dL Est Cr Clr Drug Dosing mL/min Estimated GFR (MDRD) (>60) mL/min BUN/Creatinine Ratio (14-18) Glucose (80-115) mg/dL POC Glucose 131 H (80-115) mg/dL Calcium (8.5-10.1) mg/dL Magnesium (1.8-2.4) mg/dl C-Reactive Protein (<1.0) mg/dL Mycoplasma pneumon IgM Negative (NEGATIVE) MRSA (PCR) Positive H 08/22/18 08/22/18 08/22/18 Range/Units 05:55 05:55 06:09 WBC 6.37 (4.23-9.07) K/mm3 RBC 3.45 L (4.63-6.08) M/mm3 Hgb 10.6 L (13.7-17.5) gm/L Hct 33.9 L (40.1-51.0) % MCV 98.3 H (79.0-92.2) fl MCH 30.7 (25.7-32.2) pg MCHC 31.3 L (32.2-35.5) g/dl RDW Std Deviation 47.2 H (35.1-43.9) fL Plt Count 188 (163-337) K/mm3 MPV 8.8 L (9.4-12.3) fl Neut % (Auto) 75.3 H (34.0-67.9) % Lymph % (Auto) 11.5 L (21.8-53.1) % [place] % (Auto) 8.2 (5.3-12.2) % Eos % (Auto) 4.6 (0.8-7.0) Baso % (Auto) 0.2 (0.1-1.2) % Neut # (Auto) 4.81 (1.78-5.38) K/mm3 Lymph # (Auto) 0.73 L (1.32-3.57) K/mm3 [place]och # (Auto) 0.52 (0.30-0.82) K/mm3 Eos # (Auto) 0.29 (0.04-0.54) K/mm3 Baso # (Auto) 0.01 (0.01-0.08) K/mm3 Sodium 144 (136-145) mEq/L Potassium 3.6 (3.5-5.1) mEq/L Chloride 111 H (98-107) mEq/L Carbon Dioxide 28 (21-32) mEq/L Anion Gap 8.6 (5-15) BUN 16 (7-18) mg/dL Creatinine 1.1 (0.7-1.3) mg/dL Est Cr Clr Drug Dosing 66.95 mL/min Estimated GFR (MDRD) > 60 (>60) mL/min BUN/Creatinine Ratio 14.5 (14-18) Glucose 102 (80-115) mg/dL POC Glucose 94 (80-115) mg/dL Calcium 9.1 (8.5-10.1) mg/dL Magnesium 1.7 L (1.8-2.4) mg/dl C-Reactive Protein 9.6 H* (<1.0) mg/dL Mycoplasma pneumon IgM (NEGATIVE) MRSA (PCR) 12/28/18 Range/Units 11:05 WBC (4.23-9.07) K/mm3 RBC (4.63-6.08) M/mm3 Hgb (13.7-17.5) gm/L Hct (40.1-51.0) % MCV (79.0-92.2) fl MCH (25.7-32.2) pg MCHC (32.2-35.5) g/dl RDW Std Deviation (35.1-43.9) fL Plt Count (163-337) K/mm3 MPV (9.4-12.3) fl Neut % (Auto) (34.0-67.9) % Lymph % (Auto) (21.8-53.1) % [place] % (Auto) (5.3-12.2) % Eos % (Auto) (0.8-7.0) Baso % (Auto) (0.1-1.2) % Neut # (Auto) (1.78-5.38) K/mm3 Lymph # (Auto) (1.32-3.57) K/mm3 [place] # (Auto) (0.30-0.82) K/mm3 Eos # (Auto) (0.04-0.54) K/mm3 Baso # (Auto) (0.01-0.08) K/mm3 Sodium (136-145) mEq/L Potassium (3.5-5.1) mEq/L Chloride (98-107) mEq/L Carbon Dioxide (21-32) mEq/L Anion Gap (5-15) BUN (7-18) mg/dL Creatinine (0.7-1.3) mg/dL Est Cr Clr Drug Dosing mL/min Estimated GFR (MDRD) (>60) mL/min BUN/Creatinine Ratio (14-18) Glucose (80-115) mg/dL POC Glucose 105 (80-115) mg/dL Calcium (8.5-10.1) mg/dL Magnesium (1.8-2.4) mg/dl C-Reactive Protein (<1.0) mg/dL Mycoplasma pneumon IgM (NEGATIVE) MRSA (PCR) [place] Results Last 24 Hours: Microbiology 08/21/18 14:25 Aerobic Blood Culture - Preliminary Blood NO GROWTH AFTER 1 DAY Anaerobic Blood Culture - Preliminary NO GROWTH AFTER 1 DAY 12/27/18 13:50 Aerobic Blood Culture - Preliminary Blood NO GROWTH AFTER 1 DAY Anaerobic Blood Culture - Preliminary NO GROWTH AFTER 1 DAY 08/21/18 14:30 Urine Culture - Preliminary Urine, Catheterized Gram Positive Cocci Med Orders - Current: Current Medications Acetaminophen (Tylenol) 650 mg PO Q4H PRN PRN Reason: Pain (Mild 1-3)/fever Hydrocodone Bitart/Acetaminophen ([place] 325-5 Mg) 1 tab PO Q4H PRN PRN Reason: Pain (moderate 4-6) Albuterol (Proventil Neb Soln) 2.5 mg INH Q4H PRN PRN Reason: Shortness of Breath Albuterol/Ipratropium (Duoneb 3.0-0.5 Mg/3 Ml) 3 ml NEB Q4H PRN PRN Reason: Shortness Of Breath/wheezing Aspirin (Aspirin) 81 mg PO DAILY STELLA Bisacodyl (Dulcolax) 5 mg PO DAILY PRN PRN Reason: Constipation Clonazepam (Klonopin) 0.5 mg PO TID PRN PRN Reason: Anxiety Docusate Sodium (Colace) 100 mg PO BID PRN PRN Reason: Constipation Enoxaparin Sodium (Lovenox) 40 mg SUBCUT DAILY [facility] Last Admin: 08/22/18 09:15 Dose: 40 mg Famotidine (Pepcid) 20 mg PO BID [facility] Finasteride (Proscar) 5 mg PO DAILY [facility] Gabapentin (Neurontin) 900 mg PO TID [facility] Last Admin: 08/22/18 14:34 Dose: 900 mg Dextrose/Sodium Chloride (Dextrose 5%-Normal Saline) 1,000 mls @ 75 mls/hr IV ASDIRECTED [facility] Last Admin: 08/22/18 06:15 Dose: 75 mls/hr Piperacillin Sod/Tazobactam (Sod 4.5 gm/ Sodium Chloride) 100 mls @ 25 mls/hr IV Q8H [facility] Last Admin: 08/22/18 13:14 Dose: 25 mls/hr Ceftriaxone Sodium 2 gm/ (Sodium Chloride) 100 mls @ 200 mls/hr IV Q24H [facility] Last Admin: 08/22/18 09:03 Dose: 200 mls/hr Insulin Human Lispro (Humalog) 0 unit SUBCUT Q6H [facility]; Protocol Last Admin: 08/22/18 11:10 Dose: Not Given Magnesium Hydroxide (Milk Of Magnesia) 30 ml PO Q12H PRN PRN Reason: Constipation Mometasone Furoate/Formoterol Fumar (Dulera 200-5 Mcg) 2 puff IH BIDRT [facility] Last Admin: 08/22/18 05:39 Dose: 2 puff Montelukast Sodium (Singulair) 10 mg PO DAILY [facility] Morphine Sulfate (Morphine 10 Mg/0.5 Ml Oral Syringe) 10 mg PO Q4H PRN PRN Reason: Pain Last Admin: 08/22/18 14:35 Dose: 10 mg Multivitamins (Thera) 1 each PO DAILY [facility] Olanzapine (Zyprexa) 10 mg PO DAILY [facility] Ondansetron HCl (Zofran Odt) 4 mg PO Q4H PRN PRN Reason: nausea, able to take PO Ondansetron HCl (Zofran) 4 mg IV Q4H PRN PRN Reason: Nausea/Vomiting Umeclidinium Brm/Vilanterol Tr (Anoro Inhaler) 0 each INH DAILY [facility] Last Admin: 08/22/18 09:17 Dose: Not Given Meloxicam 15 Mg 0 each PO DAILY [facility] Carisoprodol 350 Mg 0 each PO QID [facility] Last Admin: 08/22/18 13:14 Dose: 1 each Polyethylene Glycol (Miralax) 17 gm PO DAILY [facility] Saccharomyces Boulardii (Florastor) 250 mg PO BID [facility] Senna/Docusate Sodium (Senna Plus) 1 tab PO BID PRN PRN Reason: Constipation Sodium Chloride (Saline Flush) 10 ml FLUSH ASDIRECTED PRN PRN Reason: Keep Vein Open Last Admin: 08/21/18 13:50 Dose: 10 ml Temazepam (Restoril) 7.5 mg PO BEDTIME PRN PRN Reason: Sleep Thiamine HCl (Vitamin B-1) 300 mg PO DAILY [facility] Trazodone HCl (Trazodone) 100 mg PO BEDTIME [facility] Verapamil HCl (Calan) 160 mg PO TID [facility] Last Admin: 08/22/18 14:40 Dose: Not Given Discontinued Medications Acetaminophen (Tylenol) 640 mg PO ONETIME ONE Stop: 08/21/18 13:43 Last Admin: 08/21/18 14:27 Dose: 640 mg Acetaminophen (Tylenol) 650 mg PO Q4H PRN PRN Reason: Pain (Mild 1-3)/fever Acetaminophen (Tylenol) 650 mg GTUBE Q4H PRN PRN Reason: Pain (Mild 1-3)/fever Hydrocodone Bitart/Acetaminophen ([place] 325-5 Mg) 1 tab PO Q4H PRN PRN Reason: Pain (moderate 4-6) Last Admin: 08/21/18 21:27 Dose: 1 tab Hydrocodone Bitart/Acetaminophen ([place] 325-5 Mg) 1 tab GTUBE Q4H PRN PRN Reason: Pain (moderate 4-6) Last Admin: 08/22/18 09:16 Dose: 1 tab Aspirin (Aspirin) 81 mg GTUBE DAILY [facility] Last Admin: 08/22/18 09:08 Dose: 81 mg Bisacodyl (Dulcolax) 5 mg PO DAILY PRN PRN Reason: Constipation Bisacodyl (Dulcolax) 5 mg .XX DAILY PRN PRN Reason: Constipation Clonazepam (Klonopin) 0.5 mg GTUBE TID PRN PRN Reason: Anxiety Last Admin: 08/21/18 21:27 Dose: 0.5 mg Diclofenac Sodium (Voltaren 1% Gel) 0 gm TOP QID PRN PRN Reason: Pain Docusate Sodium (Colace) 100 mg PO BID PRN PRN Reason: Constipation Docusate Sodium (Colace) 100 mg .XX BID PRN PRN Reason: Constipation Famotidine (Pepcid) 20 mg PO BID [facility] Famotidine (Pepcid) 20 mg GTUBE BID [facility] Last Admin: 08/22/18 09:14 Dose: 20 mg Finasteride (Proscar) 5 mg .XX DAILY [facility] Last Admin: 08/22/18 09:04 Dose: 5 mg Gabapentin (Neurontin) 900 mg GTUBE TID [facility] Last Admin: 08/22/18 09:15 Dose: 900 mg Sodium Chloride (Normal Saline) 1,000 mls @ 999 mls/hr IV ONETIME [facility] Last Admin: 08/21/18 14:25 Dose: 999 mls/hr Piperacillin Sod/Tazobactam (Sod 4.5 gm/ Sodium Chloride) 100 mls @ 200 mls/hr IV ONETIME ONE Stop: 08/21/18 15:20 Last Admin: 08/21/18 15:10 Dose: 200 mls/hr Insulin Human Lispro (Humalog) 0 unit SUBCUT QIDACANDBED [facility]; Protocol Magnesium Hydroxide (Milk Of Magnesia) 30 ml PO Q12H PRN PRN Reason: Constipation Magnesium Hydroxide (Milk Of Magnesia) 30 ml GTUBE Q12H PRN PRN Reason: Constipation Montelukast Sodium (Singulair) 10 mg GTUBE DAILY [facility] Last Admin: 08/22/18 09:15 Dose: 10 mg Morphine Sulfate (Morphine) 2 mg IVPUSH Q2H PRN PRN Reason: Pain (severe 7-10) Stop: 08/22/18 17:53 Last Admin: 08/22/18 10:17 Dose: 2 mg Morphine Sulfate (Morphine 10 Mg/0.5 Ml Oral Syringe) 10 mg PO Q4H PRN PRN Reason: Pain Multivitamins (Thera) 1 each .XX DAILY [facility] Last Admin: 08/22/18 09:13 Dose: 1 each Non-Formulary Medication (Albuterol) 2 puff IH Q4H PRN PRN Reason: Shortness of Breath Olanzapine (Zyprexa) 10 mg GTUBE DAILY [facility] Last Admin: 08/22/18 09:12 Dose: 10 mg Carisoprodol 350 Mg 0 each GTUBE QID [facility] Last Admin: 08/22/18 09:17 Dose: Not Given Meloxicam 15 Mg 0 each GTUBE DAILY [facility] Last Admin: 08/22/18 09:17 Dose: Not Given Polyethylene Glycol (Miralax) 17 gm PO DAILY PRN PRN Reason: Constipation Polyethylene Glycol (Miralax) 17 gm GTUBE DAILY [facility] Last Admin: 08/22/18 09:19 Dose: Not Given Saccharomyces Boulardii (Florastor) 250 mg PO BID [facility] Last Admin: 08/21/18 21:08 Dose: 250 mg Saccharomyces Boulardii (Florastor) 250 mg GTUBE BID [facility] Last Admin: 08/22/18 09:15 Dose: 250 mg Senna/Docusate Sodium (Senna Plus) 1 tab PO BID PRN PRN Reason: Constipation Senna/Docusate Sodium (Senna Plus) 1 tab GTUBE BID PRN PRN Reason: Constipation Temazepam (Restoril) 7.5 mg PO BEDTIME PRN PRN Reason: Sleep Last Admin: 08/21/18 21:27 Dose: 7.5 mg Temazepam (Restoril) 7.5 mg GTUBE BEDTIME PRN PRN Reason: Sleep Thiamine HCl (Vitamin B-1) 300 mg GTUBE DAILY [facility] Last Admin: 08/22/18 09:14 Dose: 300 mg Trazodone HCl (Trazodone) 100 mg PO BEDTIME [facility] Last Admin: 08/21/18 21:09 Dose: 100 mg Verapamil HCl (Calan) 160 mg GTUBE TID [facility] Last Admin: 08/22/18 09:15 Dose: 160 mg - Exam Quality Assessment: Supplemental Oxygen (1L NC), DVT Prophylaxis General: Alert, Oriented, Cooperative, No Acute Distress HEENT: Pupils Equal, Pupils Reactive, EOMI, Mucous Membr. Moist/[place] Neck: Supple, Other (neck still slightly tilted toward the right side, but improved; chronic per pt) Lungs: Normal Respiratory Effort (difficulty taking deep breaths), Decreased Breath Sounds Cardiovascular: Regular Rate, Regular Rhythm, Other (distant heart sounds) GI/Abdominal Exam: Normal Bowel Sounds, Soft, Non-Tender, No Organomegaly, No Distention, No Abnormal Bruit, No Mass, Pelvis Stable (Male) Exam: Deferred Back Exam: Decreased Range of Motion Extremities: Normal Inspection, Normal Range of Motion, Non-Tender, No Pedal Edema, Normal Capillary Refill, Other (some atrophy bilaterally) Peripheral Pulses: 1+: Posterior Tibial (L), Posterior Tibial (R), Dorsalis Pedis (L), Dorsalis Pedis (R) Skin: Warm, Dry, Intact Neurological: No New Focal Deficit Psy/Mental Status: Alert, Normal Affect, Normal Mood - Problem List & Annotations (1) Pyelonephritis SNOMED Code(s): 79857283 Code(s): N12 - TUBULO-INTERSTITIAL NEPHRITIS, NOT SPCF ACUTE OR CHRONIC Status: Acute Priority: High Current Visit: Yes (2) Cervical spine disease SNOMED Code(s): 261426023 Code(s): M48.9 - SPONDYLOPATHY, UNSPECIFIED Status: Chronic Priority: Low Current Visit: Yes - Problem List Review Problem List Initiated/Reviewed/Updated: Yes - My Orders Last 24 Hours: My Active Orders 08/26/18 05:11 BASIC METABOLIC PANEL,BMP [CHEM] AM C-REACTIVE PROTEIN [CHEM] AM CBC WITH AUTO DIFF [HEME] AM MAGNESIUM [CHEM] AM 08/21/18 17:45 Consult to Speech Language Pathology [MASON APPRENTICE Evaluation and Treatment] [CONS] Routine 08/21/18 17:48 Patient Status [ADT] Routine Blood Glucose Check, Bedside [RC] QIDACANDBED VTE/DVT Education [RC] DAILY Vital Signs [RC] Q4HR 08/21/18 17:51 Height and Weight [RC] 04 Intake and Output [RC] 04,16 Ondansetron [Zofran ODT] 4 mg PO Q4H PRN Ondansetron [Zofran] 4 mg IV Q4H PRN 08/21/18 17:59 Consult to Case Management/Water Pump Installer [CONS] Routine OT Evaluation and Treatment [CONS] Routine PT Evaluation and Treatment [CONS] Routine 08/21/18 18:00 Dextrose 5%-0.9% NaCl [Dextrose 5%-Normal Saline] 1,000 ml IV ASDIRECTED 08/21/18 18:42 Wound Care [RC] BID 08/21/18 19:53 Albuterol [Proventil Neb Soln] 2.5 mg INH Q4H PRN 08/21/18 20:55 CULTURE SPUTUM + SMEAR [RM] Routine 08/21/18 20:57 RT Aerosol Therapy [RC] ASDIRECTED VTE/DVT Education [RC] DAILY Albuterol/Ipratropium [DuoNeb 3.0-0.5 MG/3 ML] 3 ml NEB Q4H PRN 08/21/18 21:00 Blood Glucose Check, Bedside [RC] Q6HR Mometasone/Formoterol [Dulera 200-5 MCG] 2 puff IH BIDRT 08/21/18 21:40 RESPIRATORY PANEL Routine 08/21/18 22:00 Piperacillin/Tazobactam [Zosyn] 4.5 gm Sodium Chloride 0.9% [Normal Saline] 100 ml IV Q8H 08/22/18 00:00 Insulin Lispro [HumaLOG] 0 unit SUBCUT Q6H 08/22/18 08:00 cefTRIAXone [Rocephin] 2 gm Sodium Chloride 0.9% [Normal Saline] 100 ml IV Q24H 08/22/18 09:00 Enoxaparin [Lovenox] 40 mg SUBCUT DAILY Patient's Own Medication [Ptom] 0 each INH DAILY 08/22/18 09:35 ClonazePAM [KlonoPIN] 0.5 mg PO TID PRN 08/22/18 09:39 Aspirin 81 mg PO DAILY 08/22/18 09:41 Famotidine [Pepcid] 20 mg PO BID Finasteride [Proscar] 5 mg PO DAILY Gabapentin [Neurontin] 900 mg PO TID 08/22/18 09:42 Montelukast [Singulair] 10 mg PO DAILY Multivitamins,Therapeutic [Thera] 1 each PO DAILY OLANZapine [ZyPREXA] 10 mg PO DAILY 08/22/18 09:43 Patient's Own Medication [Ptom] 0 each PO DAILY Patient's Own Medication [Ptom] 0 each PO QID 08/22/18 09:44 Polyethylene Glycol 3350 [MiraLAX] 17 gm PO DAILY 08/22/18 09:45 Thiamine [Vitamin B-1] 300 mg PO DAILY Verapamil [Calan] 160 mg PO TID 08/23/18 05:11 Chest 2V [CR] AM BASIC METABOLIC PANEL,BMP [CHEM] AM C-REACTIVE PROTEIN [CHEM] AM CBC WITH AUTO DIFF [HEME] AM MAGNESIUM [CHEM] AM 08/24/18 05:11 BASIC METABOLIC PANEL,BMP [CHEM] AM C-REACTIVE PROTEIN [CHEM] AM CBC WITH AUTO DIFF [HEME] AM MAGNESIUM [CHEM] AM 08/25/18 05:11 BASIC METABOLIC PANEL,BMP [CHEM] AM C-REACTIVE PROTEIN [CHEM] AM CBC WITH AUTO DIFF [HEME] AM MAGNESIUM [CHEM] AM - Plan Plan:: /P: Acute: Productive cough, Improving * Differential: Bronchitis vs PNA * Risk Factors: COPD, Lives at [facility] * WBC 10.25--> 6.37, CRP 4.5--> 9.6 * CXR in ED: * Left retrocardiac consolidation. Differential includes atelectasis, chronic changes as well as pneumonia if patient has infectious symptoms. * RVP, Strep pneumo, Sputum culture pending * Mycoplasma negative * Blood cultures shows no growth * RT/Duonebs/IS/Acapella * Repeat CXR in 48H * Zosyn started in ED--> Continue to cover gram negative UTI vs Pyelonephritis * Temperature 101.8 at [facility]; 104.9 in ED--> 98.4 now * UA impressive for UTI * Zosyn started in ED--> continue * Urine culture shows gram positive cocci; pending sensitivities * Start Rocephin to cover gram positive Hypomagnesemia * Monitor * Replenish PRN Chronic: HTN PEG tube--> Pt is able to take medications and food PO here; this may need to be reconsidered by PCP? Weakness Indwelling catheter d/t Urinary retention Neurological disorder NOS- 2/2 [employer] overdose? 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 Enamorado From [facility] D/C Plan: * PEG tube--> Pt is able to take medications and food PO here; this may need to be reconsidered by PCP?
[2018-08-22] MEDS: ClonazePAM 0.5 MG Tab PO PRN (21:00)
[2018-08-22] MEDS: Saccharomyces Boulardii (Probiotic) 250 MG Cap PO SCH (21:01)
[2018-08-22] MEDS: Famotidine 20 MG Tab PO SCH (21:01)
[2018-08-22] MEDS: traZODone 50 MG Tab PO SCH (21:01)
[2018-08-22] MEDS: Lidocaine 4% Top Soln 50 ML Bottle TOP SCH (21:45)
[2018-08-23] MEDS: Acetaminophen/HYDROcodone 325-5 MG Tab PO PRN ×3 (00:05→18:43)
[2018-08-23] MEDS: Morphine 10 MG/0.5 ML Oral Syringe PO PRN ×4 (04:29→20:53)
[2018-08-23] MEDS: Formoterol/Mometasone 200-5 MCG 8.8 GM Inhaler IH SCH ×2 (06:07→20:47)
[2018-08-23] MEDS: Piperacillin/Tazobactam 4.5 GM in Sodium Chloride 0.9% 100 ML IV SCH ×3 (06:47→22:52)
[2018-08-23] MEDS: cefTRIAXone 2 GM in Sodium Chloride 0.9% 100 ML IV SCH (08:44)
[2018-08-23] MEDS: Polyethylene Glycol 3350 Powder 17 GM Packet PO SCH (08:48)
[2018-08-23] MEDS: Enoxaparin 40 MG/0.4 ML Syringe SUBCUT SCH (08:51)
[2018-08-23] MEDS: OLANZapine 5 MG Tab PO SCH (08:52)
[2018-08-23] MEDS: Gabapentin 300 MG Cap PO SCH ×3 (08:53→20:54)
[2018-08-23] MEDS: Verapamil 80 MG Tab PO SCH ×3 (08:54→20:54)
[2018-08-23] MEDS: Montelukast 10 MG Tab PO SCH (08:54)
[2018-08-23] MEDS: Thiamine 100 MG Tab PO SCH (08:54)
[2018-08-23] MEDS: Aspirin 81 MG Tab.Chew PO SCH (08:54)
[2018-08-23] MEDS: Finasteride 5 MG Tab PO SCH (08:57)
[2018-08-23] MEDS: Saccharomyces Boulardii (Probiotic) 250 MG Cap PO SCH ×2 (08:57→20:55)
[2018-08-23] MEDS: Famotidine 20 MG Tab PO SCH ×2 (08:57→20:54)
[2018-08-23] MEDS: Multivitamins,Therapeutic Tab PO SCH (08:58)
--- NOTE | 2018-08-23 09:04 | CR ---
Chest: 2 views of the chest were obtained. Comparison: Prior chest x-ray of 08/21/18. Continuing increased density is noted within the left retrocardiac region. Findings are similar to previous exam. Lungs otherwise are clear. Heart size and mediastinum are normal. Bony structures are unchanged. Impression: 1. Continuing increased density within the left retrocardiac region. No change is seen from prior chest x-ray. Diagnostic code #3
--- NOTE | 2018-08-23 09:22 | PCM.PN ---
- General Info Date of Service: 08/23/18 Admission Dx/Problem (Free Text): Admission Diagnosis/Problem Admission Diagnosis/Problem Urinary tract infection Subjective Update: Follow Up Functional Status: Reports: Pain Controlled, Tolerating Diet, Ambulating, Urinating. Denies: New Symptoms - Review of Systems General: Denies: Fever, Weakness, Fatigue, Malaise, Chills HEENT: Reports: No Symptoms Pulmonary: Denies: Shortness of Breath Cardiovascular: Denies: Chest Pain Gastrointestinal: Denies: Abdominal Pain, Nausea, Vomiting Musculoskeletal: Reports: Neck Pain (baseline) Skin: Denies: No Symptoms Neurological: Denies: Confusion, Weakness, Gait Disturbance Psychiatric: Denies: Depression, Anxiety, Agitation, Hallucinations Systems Review Comment:: No overnight or acute issues. He feels okay. He has no complaints except for neck pain which is chronic to him. His UA culture is pending. - Patient Data Vitals - Most Recent: Last Vital Signs Temp 36.9 C 08/23/18 04:31 Pulse 63 08/23/18 04:31 Resp 14 08/23/18 04:31 BP 115/65 08/23/18 04:31 Pulse Ox 93 L 08/23/18 06:10 Weight - Most Recent: 73.799 kg I&O - Last 24 Hours: Intake & Output 08/22/18 08/23/18 08/23/18 22:59 06:59 14:59 Intake Total 2446 1120 Output Total 950 1500 Balance 1496 -380 Lab Results Last 24 Hours: Laboratory Results - last 24 hr 08/21/18 08/22/18 08/22/18 Range/Units 21:40 11:05 17:04 WBC (4.23-9.07) K/mm3 RBC (4.63-6.08) M/mm3 Hgb (13.7-17.5) gm/L Hct (40.1-51.0) % MCV (79.0-92.2) fl MCH (25.7-32.2) pg MCHC (32.2-35.5) g/dl RDW Std Deviation (35.1-43.9) fL Plt Count (163-337) K/mm3 MPV (9.4-12.3) fl Neut % (Auto) (34.0-67.9) % Lymph % (Auto) (21.8-53.1) % [place] % (Auto) (5.3-12.2) % Eos % (Auto) (0.8-7.0) Baso % (Auto) (0.1-1.2) % Neut # (Auto) (1.78-5.38) K/mm3 Lymph # (Auto) (1.32-3.57) K/mm3 [place] # (Auto) (0.30-0.82) K/mm3 Eos # (Auto) (0.04-0.54) K/mm3 Baso # (Auto) (0.01-0.08) K/mm3 Sodium (136-145) mEq/L Potassium (3.5-5.1) mEq/L Chloride (98-107) mEq/L Carbon Dioxide (21-32) mEq/L Anion Gap (5-15) BUN (7-18) mg/dL Creatinine (0.7-1.3) mg/dL Est Cr Clr Drug Dosing mL/min Estimated GFR (MDRD) (>60) mL/min BUN/Creatinine Ratio (14-18) Glucose (80-115) mg/dL POC Glucose 105 99 (80-115) mg/dL Calcium (8.5-10.1) mg/dL Magnesium (1.8-2.4) mg/dl C-Reactive Protein (<1.0) mg/dL Adenovirus (PCR) Not detected (Not Detected) B. pertussis DNA (PCR) Not detected (Not Detected) B.parapertussis DNA PCR Not detected (Not Detected) C. pneumoniae DNA (PCR) Not detected (Not Detected) Coronavirus (PCR) Not detected (Not Detected) Human Metapneumovir PCR Not detected (Not Detected) Influenza A (RT-PCR) Not detected (Not Detected) Influenza B (RT-PCR) Not detected (Not Detected) M. pneumoniae (PCR) Not detected (Not Detected) Parainfluen 1,2,3,4 PCR Not detected (Not Detected) RSV (PCR) Not detected (Not Detected) Entero/Rhino (PCR) Not detected (Not Detected) 08/23/18 08/23/18 Range/Units 05:50 05:50 WBC 6.28 (4.23-9.07) K/mm3 RBC 3.43 L (4.63-6.08) M/mm3 Hgb 10.9 L (13.7-17.5) gm/L Hct 33.3 L (40.1-51.0) % MCV 97.1 H (79.0-92.2) fl MCH 31.8 (25.7-32.2) pg MCHC 32.7 (32.2-35.5) g/dl RDW Std Deviation 46.3 H (35.1-43.9) fL Plt Count 173 (163-337) K/mm3 MPV 8.6 L (9.4-12.3) fl Neut % (Auto) 71.7 H (34.0-67.9) % Lymph % (Auto) 11.9 L (21.8-53.1) % [place] % (Auto) 8.1 (5.3-12.2) % Eos % (Auto) 7.8 H (0.8-7.0) Baso % (Auto) 0.3 (0.1-1.2) % Neut # (Auto) 4.50 (1.78-5.38) K/mm3 Lymph # (Auto) 0.75 L (1.32-3.57) K/mm3 [place] # (Auto) 0.51 (0.30-0.82) K/mm3 Eos # (Auto) 0.49 (0.04-0.54) K/mm3 Baso # (Auto) 0.02 (0.01-0.08) K/mm3 Sodium 146 H (136-145) mEq/L Potassium 3.9 (3.5-5.1) mEq/L Chloride 112 H (98-107) mEq/L Carbon Dioxide 27 (21-32) mEq/L Anion Gap 10.9 (5-15) BUN 17 (7-18) mg/dL Creatinine 1.0 (0.7-1.3) mg/dL Est Cr Clr Drug Dosing 73.40 mL/min Estimated GFR (MDRD) > 60 (>60) mL/min BUN/Creatinine Ratio 17.0 (14-18) Glucose 91 (80-115) mg/dL POC Glucose (80-115) mg/dL Calcium 9.2 (8.5-10.1) mg/dL Magnesium 1.7 L (1.8-2.4) mg/dl C-Reactive Protein 6.9 H* (<1.0) mg/dL Adenovirus (PCR) (Not Detected) B. pertussis DNA (PCR) (Not Detected) B.parapertussis DNA PCR (Not Detected) C. pneumoniae DNA (PCR) (Not Detected) Coronavirus (PCR) (Not Detected) Human Metapneumovir PCR (Not Detected) Influenza A (RT-PCR) (Not Detected) Influenza B (RT-PCR) (Not Detected) M. pneumoniae (PCR) (Not Detected) Parainfluen 1,2,3,4 PCR (Not Detected) RSV (PCR) (Not Detected) Entero/Rhino (PCR) (Not Detected) [place] Results Last 24 Hours: Microbiology 08/21/18 14:30 Streptococcus pneumoniae Antigen (M - Final Urine 08/21/18 14:25 Aerobic Blood Culture - Preliminary Blood NO GROWTH AFTER 1 DAY Anaerobic Blood Culture - Preliminary NO GROWTH AFTER 1 DAY 08/21/18 13:50 Aerobic Blood Culture - Preliminary Blood NO GROWTH AFTER 1 DAY Anaerobic Blood Culture - Preliminary NO GROWTH AFTER 1 DAY 08/21/18 14:30 Urine Culture - Preliminary Urine, Catheterized Gram Positive Cocci Med Orders - Current: Current Medications Acetaminophen (Tylenol) 650 mg PO Q4H PRN PRN Reason: Pain (Mild 1-3)/fever Hydrocodone Bitart/Acetaminophen (Lyman 325-5 Mg) 1 tab PO Q4H PRN PRN Reason: Pain (moderate 4-6) Last Admin: 08/23/18 06:47 Dose: 1 tab Albuterol (Proventil Neb Soln) 2.5 mg INH Q4H PRN PRN Reason: Shortness of Breath Albuterol/Ipratropium (Duoneb 3.0-0.5 Mg/3 Ml) 3 ml NEB Q4H PRN PRN Reason: Shortness Of Breath/wheezing Aspirin (Aspirin) 81 mg PO DAILY [facility] Last Admin: 08/23/18 08:54 Dose: 81 mg Bisacodyl (Dulcolax) 5 mg PO DAILY PRN PRN Reason: Constipation Clonazepam (Klonopin) 0.5 mg PO TID PRN PRN Reason: Anxiety Last Admin: 08/22/18 21:00 Dose: 0.5 mg Docusate Sodium (Colace) 100 mg PO BID PRN PRN Reason: Constipation Enoxaparin Sodium (Lovenox) 40 mg SUBCUT DAILY [facility] Last Admin: 08/23/18 08:51 Dose: 40 mg Famotidine (Pepcid) 20 mg PO BID [facility] Last Admin: 08/23/18 08:57 Dose: 20 mg Finasteride (Proscar) 5 mg PO DAILY [facility] Last Admin: 08/23/18 08:57 Dose: 5 mg Gabapentin (Neurontin) 900 mg PO TID [facility] Last Admin: 08/23/18 08:53 Dose: 900 mg Piperacillin Sod/Tazobactam (Sod 4.5 gm/ Sodium Chloride) 100 mls @ 25 mls/hr IV Q8H [facility] Last Admin: 08/23/18 06:47 Dose: 25 mls/hr Ceftriaxone Sodium 2 gm/ (Sodium Chloride) 100 mls @ 200 mls/hr IV Q24H [facility] Last Admin: 08/23/18 08:44 Dose: 200 mls/hr Lidocaine HCl (Xylocaine 4% Top Soln) 0 ml TOP TID [facility] Last Admin: 08/22/18 21:45 Dose: 1 applic Magnesium Hydroxide (Milk Of Magnesia) 30 ml PO Q12H PRN PRN Reason: Constipation Magnesium Sulfate (Pharmacy To Dose - Magnesium Replacement) 0 dose .XX ASDIRECTED PRN PRN Reason: RX TO WATCH MAG LEVELS Mometasone Furoate/Formoterol Fumar (Dulera 200-5 Mcg) 2 puff IH BIDRT [facility] Last Admin: 08/23/18 06:07 Dose: 2 puff Montelukast Sodium (Singulair) 10 mg PO DAILY [facility] Last Admin: 08/23/18 08:54 Dose: 10 mg Morphine Sulfate (Morphine 10 Mg/0.5 Ml Oral Syringe) 10 mg PO Q4H PRN PRN Reason: Pain Last Admin: 08/23/18 04:29 Dose: 10 mg Multivitamins (Thera) 1 each PO DAILY [facility] Last Admin: 08/23/18 08:58 Dose: 1 each Olanzapine (Zyprexa) 10 mg PO DAILY [facility] Last Admin: 08/23/18 08:52 Dose: 10 mg Ondansetron HCl (Zofran Odt) 4 mg PO Q4H PRN PRN Reason: nausea, able to take PO Ondansetron HCl (Zofran) 4 mg IV Q4H PRN PRN Reason: Nausea/Vomiting Umeclidinium Brm/Vilanterol Tr (Anoro Inhaler) 0 each INH DAILY [facility] Last Admin: 08/22/18 09:17 Dose: Not Given Meloxicam 15 Mg 0 each PO DAILY [facility] Last Admin: 08/23/18 08:49 Dose: Not Given Carisoprodol 350 Mg 0 each PO QID [facility] Last Admin: 08/23/18 08:51 Dose: 1 each Polyethylene Glycol (Miralax) 17 gm PO DAILY [facility] Last Admin: 08/23/18 08:48 Dose: Not Given Saccharomyces Boulardii (Florastor) 250 mg PO BID [facility] Last Admin: 08/23/18 08:57 Dose: 250 mg Senna/Docusate Sodium (Senna Plus) 1 tab PO BID PRN PRN Reason: Constipation Sodium Chloride (Saline Flush) 10 ml FLUSH ASDIRECTED PRN PRN Reason: Keep Vein Open Last Admin: 08/21/18 13:50 Dose: 10 ml Temazepam (Restoril) 7.5 mg PO BEDTIME PRN PRN Reason: Sleep Thiamine HCl (Vitamin B-1) 300 mg PO DAILY [facility] Last Admin: 08/23/18 08:54 Dose: 300 mg Trazodone HCl (Trazodone) 100 mg PO BEDTIME [facility] Last Admin: 08/22/18 21:01 Dose: 100 mg Verapamil HCl (Calan) 160 mg PO TID [facility] Last Admin: 08/23/18 08:54 Dose: 160 mg Discontinued Medications Acetaminophen (Tylenol) 640 mg PO ONETIME ONE Stop: 08/21/18 13:43 Last Admin: 08/21/18 14:27 Dose: 640 mg Acetaminophen (Tylenol) 650 mg PO Q4H PRN PRN Reason: Pain (Mild 1-3)/fever Acetaminophen (Tylenol) 650 mg GTUBE Q4H PRN PRN Reason: Pain (Mild 1-3)/fever Hydrocodone Bitart/Acetaminophen (Lyman 325-5 Mg) 1 tab PO Q4H PRN PRN Reason: Pain (moderate 4-6) Last Admin: 08/21/18 21:27 Dose: 1 tab Hydrocodone Bitart/Acetaminophen (Lyman 325-5 Mg) 1 tab GTUBE Q4H PRN PRN Reason: Pain (moderate 4-6) Last Admin: 08/22/18 09:16 Dose: 1 tab Aspirin (Aspirin) 81 mg GTUBE DAILY [facility] Last Admin: 08/22/18 09:08 Dose: 81 mg Bisacodyl (Dulcolax) 5 mg PO DAILY PRN PRN Reason: Constipation Bisacodyl (Dulcolax) 5 mg .XX DAILY PRN PRN Reason: Constipation Clonazepam (Klonopin) 0.5 mg GTUBE TID PRN PRN Reason: Anxiety Last Admin: 08/21/18 21:27 Dose: 0.5 mg Diclofenac Sodium (Voltaren 1% Gel) 0 gm TOP QID PRN PRN Reason: Pain Docusate Sodium (Colace) 100 mg PO BID PRN PRN Reason: Constipation Docusate Sodium (Colace) 100 mg .XX BID PRN PRN Reason: Constipation Famotidine (Pepcid) 20 mg PO BID [facility] Famotidine (Pepcid) 20 mg GTUBE BID [facility] Last Admin: 08/22/18 09:14 Dose: 20 mg Finasteride (Proscar) 5 mg .XX DAILY [facility] Last Admin: 08/22/18 09:04 Dose: 5 mg Gabapentin (Neurontin) 900 mg GTUBE TID [facility] Last Admin: 08/22/18 09:15 Dose: 900 mg Sodium Chloride (Normal Saline) 1,000 mls @ 999 mls/hr IV ONETIME [facility] Last Admin: 08/21/18 14:25 Dose: 999 mls/hr Piperacillin Sod/Tazobactam (Sod 4.5 gm/ Sodium Chloride) 100 mls @ 200 mls/hr IV ONETIME ONE Stop: 08/21/18 15:20 Last Admin: 08/21/18 15:10 Dose: 200 mls/hr Dextrose/Sodium Chloride (Dextrose 5%-Normal Saline) 1,000 mls @ 75 mls/hr IV ASDIRECTED [facility] Last Admin: 08/22/18 06:15 Dose: 75 mls/hr Insulin Human Lispro (Humalog) 0 unit SUBCUT QIDACANDBED [facility]; Protocol Insulin Human Lispro (Humalog) 0 unit SUBCUT Q6H [facility]; Protocol Last Admin: 08/22/18 17:05 Dose: Not Given Magnesium Hydroxide (Milk Of Magnesia) 30 ml PO Q12H PRN PRN Reason: Constipation Magnesium Hydroxide (Milk Of Magnesia) 30 ml GTUBE Q12H PRN PRN Reason: Constipation Magnesium Oxide (Magnesium Oxide) 400 mg PO ONETIME ONE Stop: 08/22/18 16:08 Last Admin: 08/22/18 17:01 Dose: 400 mg Montelukast Sodium (Singulair) 10 mg GTUBE DAILY [facility] Last Admin: 08/22/18 09:15 Dose: 10 mg Morphine Sulfate (Morphine) 2 mg IVPUSH Q2H PRN PRN Reason: Pain (severe 7-10) Stop: 08/22/18 17:53 Last Admin: 08/22/18 10:17 Dose: 2 mg Morphine Sulfate (Morphine 10 Mg/0.5 Ml Oral Syringe) 10 mg PO Q4H PRN PRN Reason: Pain Multivitamins (Thera) 1 each .XX DAILY [facility] Last Admin: 08/22/18 09:13 Dose: 1 each Non-Formulary Medication (Albuterol) 2 puff IH Q4H PRN PRN Reason: Shortness of Breath Olanzapine (Zyprexa) 10 mg GTUBE DAILY [facility] Last Admin: 08/22/18 09:12 Dose: 10 mg Carisoprodol 350 Mg 0 each GTUBE QID [facility] Last Admin: 08/22/18 09:17 Dose: Not Given Meloxicam 15 Mg 0 each GTUBE DAILY [facility] Last Admin: 08/22/18 09:17 Dose: Not Given Polyethylene Glycol (Miralax) 17 gm PO DAILY PRN PRN Reason: Constipation Polyethylene Glycol (Miralax) 17 gm GTUBE DAILY [facility] Last Admin: 08/22/18 09:19 Dose: Not Given Saccharomyces Boulardii (Florastor) 250 mg PO BID [facility] Last Admin: 08/21/18 21:08 Dose: 250 mg Saccharomyces Boulardii (Florastor) 250 mg GTUBE BID [facility] Last Admin: 08/22/18 09:15 Dose: 250 mg Senna/Docusate Sodium (Senna Plus) 1 tab PO BID PRN PRN Reason: Constipation Senna/Docusate Sodium (Senna Plus) 1 tab GTUBE BID PRN PRN Reason: Constipation Temazepam (Restoril) 7.5 mg PO BEDTIME PRN PRN Reason: Sleep Last Admin: 08/21/18 21:27 Dose: 7.5 mg Temazepam (Restoril) 7.5 mg GTUBE BEDTIME PRN PRN Reason: Sleep Thiamine HCl (Vitamin B-1) 300 mg GTUBE DAILY [facility] Last Admin: 08/22/18 09:14 Dose: 300 mg Trazodone HCl (Trazodone) 100 mg PO BEDTIME [facility] Last Admin: 08/21/18 21:09 Dose: 100 mg Verapamil HCl (Calan) 160 mg GTUBE TID [facility] Last Admin: 08/22/18 09:15 Dose: 160 mg - Exam General: Alert, Oriented, Cooperative HEENT: Pupils Equal, Pupils Reactive, Mucous Membr. Moist/[place] Neck: Other (mildly tilted to the right (chronic)) Lungs: Normal Respiratory Effort, Decreased Breath Sounds Cardiovascular: Regular Rate, Regular Rhythm GI/Abdominal Exam: Normal Bowel Sounds, Soft, Non-Tender, No Organomegaly, No Distention, No Abnormal Bruit (Male) Exam: Other (indwelling daugherty catheter) Back Exam: Normal Inspection, Decreased Range of Motion Extremities: Normal Inspection, Normal Range of Motion, Non-Tender, No Pedal Edema, Normal Capillary Refill Peripheral Pulses: 2+: Dorsalis Pedis (L), Dorsalis Pedis (R) Skin: Warm, Dry, Intact Neurological: No New Focal Deficit Psy/Mental Status: Alert, Normal Mood. No: Normal Affect - Problem List Review Problem List Initiated/Reviewed/Updated: Yes - My Orders Last 24 Hours: My Active Orders 08/22/18 09:36 Acetaminophen [Tylenol] 650 mg PO Q4H PRN 08/22/18 09:37 Acetaminophen/HYDROcodone [[place] 325-5 MG] 1 tab PO Q4H PRN 08/22/18 09:39 Bisacodyl [Dulcolax] 5 mg PO DAILY PRN 08/22/18 09:40 Docusate Sodium [Colace] 100 mg PO BID PRN Docusate Sodium/Sennosides [Senna Plus] 1 tab PO BID PRN 08/22/18 09:42 Magnesium Hydroxide [Milk of Magnesia] 30 ml PO Q12H PRN 08/22/18 09:46 Saccharomyces Boulardii [Florastor] 250 mg PO BID Temazepam [Restoril] 7.5 mg PO BEDTIME PRN 08/22/18 13:55 Consult to Tub Wash Operator [CONS] Routine 08/22/18 13:56 PT Evaluation and Treatment [CONS] Routine 08/22/18 14:34 Morphine [Morphine 10 MG/0.5 ML Oral Syringe] 10 mg PO Q4H PRN 08/22/18 21:00 traZODone 100 mg PO BEDTIME 08/22/18 Lunch Regular Diet [DIET] Thickened Liquids [DIET] - Plan Plan:: /P: Acute: Bronchitis vs PNA (Radiology retrocardiac consolidation), Continues to Improve * Differential: Bronchitis vs PNA * Risk Factors: COPD, Lives at [facility] * WBC 10.25--> 6.37-->10.9, CRP 4.5--> 9.6 --> 6.9 * CXR in ED: * Left retrocardiac consolidation. Differential includes atelectasis, chronic changes as well as pneumonia if patient has infectious symptoms. * RVP and Sputum culture are both pending * Mycoplasma negative * Blood cultures and Strep Ag both show no growth * Continue RT/Duonebs/IS/Acapella * Repeat CXR in 48H * Zosyn started in ED; Continue Iv Zosyn and Rocephin UTI vs Pyelonephritis * Temperature 101.8 at [facility]; 104.9 in ED--> 98.4 now * UA impressive for UTI * Zosyn started in ED; Continue IV ZOsyn and Rocephin * Urine culture shows gram positive cocci; pending sensitivities not available until afternoon tomorrow Hypomagnesemia * Mg 1.7 --> 1.7 * 2/2 inadequate intake * Pharmacy to Replete and monitor Chronic: HTN PEG tube--> Pt is able to take medications and food PO here; this may need to be reconsidered by PCP? Weakness Indwelling catheter d/t Urinary retention Neurological disorder NOS- 2/2 [place] overdose? 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 Enamorado From [facility] D/C Plan: * PEG tube--> Pt is able to take medications and food PO here; this may need to be reconsidered by PCP? * D/c pending sensitivities of multiple organism; would not be available until tomorrow afternoon
[2018-08-23] MEDS: Diclofenac Sodium 1% Gel 100 GM Tube TOP PRN ×2 (09:54→17:02)
[2018-08-23] MEDS: Lidocaine 4% Top Soln 50 ML Bottle TOP SCH ×3 (09:54→20:56)
[2018-08-23] MEDS: ClonazePAM 0.5 MG Tab PO PRN ×2 (09:54→20:53)
[2018-08-23] MEDS: UMECLIDINIUM BRM INH SCH (12:16)
[2018-08-23] MEDS: VILANTEROL TR INH SCH (12:16)
[2018-08-23] MEDS: traZODone 50 MG Tab PO SCH (20:55)
[2018-08-24] MEDS: Diclofenac Sodium 1% Gel 100 GM Tube TOP PRN ×3 (01:29→15:38)
[2018-08-24] MEDS: Acetaminophen/HYDROcodone 325-5 MG Tab PO PRN ×3 (01:30→15:39)
[2018-08-24] MEDS: Piperacillin/Tazobactam 4.5 GM in Sodium Chloride 0.9% 100 ML IV SCH ×2 (05:11→13:07)
[2018-08-24] MEDS: Morphine 10 MG/0.5 ML Oral Syringe PO PRN ×4 (05:59→22:15)
[2018-08-24] MEDS: Formoterol/Mometasone 200-5 MCG 8.8 GM Inhaler IH SCH ×2 (06:23→20:43)
[2018-08-24] MEDS: cefTRIAXone 2 GM in Sodium Chloride 0.9% 100 ML IV SCH (08:37)
[2018-08-24] MEDS: Lidocaine 4% Top Soln 50 ML Bottle TOP SCH ×3 (08:43→20:32)
[2018-08-24] MEDS: Enoxaparin 40 MG/0.4 ML Syringe SUBCUT SCH (08:43)
[2018-08-24] MEDS: Aspirin 81 MG Tab.Chew PO SCH (08:44)
[2018-08-24] MEDS: Montelukast 10 MG Tab PO SCH (08:44)
[2018-08-24] MEDS: Verapamil 80 MG Tab PO SCH ×3 (08:44→20:31)
[2018-08-24] MEDS: Thiamine 100 MG Tab PO SCH (08:44)
[2018-08-24] MEDS: Famotidine 20 MG Tab PO SCH ×2 (08:44→20:32)
[2018-08-24] MEDS: Multivitamins,Therapeutic Tab PO SCH (08:44)
[2018-08-24] MEDS: Saccharomyces Boulardii (Probiotic) 250 MG Cap PO SCH ×2 (08:45→20:31)
[2018-08-24] MEDS: Finasteride 5 MG Tab PO SCH (08:45)
[2018-08-24] MEDS: Gabapentin 300 MG Cap PO SCH ×3 (08:45→20:31)
[2018-08-24] MEDS: OLANZapine 5 MG Tab PO SCH (08:45)
[2018-08-24] MEDS: Polyethylene Glycol 3350 Powder 17 GM Packet PO SCH (08:58)
[2018-08-24] MEDS: VILANTEROL TR INH SCH (09:05)
[2018-08-24] MEDS: UMECLIDINIUM BRM INH SCH (09:05)
[2018-08-24] MEDS: ClonazePAM 0.5 MG Tab PO PRN (09:23)
--- NOTE | 2018-08-24 09:39 | PCM.PN ---
- General Info Date of Service: 08/24/18 Functional Status: Reports: Pain Controlled, Tolerating Diet, Urinating - Review of Systems General: Reports: Weakness HEENT: Reports: No Symptoms Pulmonary: Reports: No Symptoms Cardiovascular: Reports: No Symptoms Gastrointestinal: Reports: No Symptoms Genitourinary: Reports: No Symptoms Musculoskeletal: Reports: No Symptoms Skin: Reports: No Symptoms Neurological: Reports: No Symptoms Psychiatric: Reports: No Symptoms - Patient Data Vitals - Most Recent: Last Vital Signs Temp 37.1 C 08/24/18 08:34 Pulse 58 L 08/24/18 08:34 Resp 20 08/24/18 08:34 BP 121/68 08/24/18 08:34 Pulse Ox 90 L 08/24/18 09:06 Weight - Most Recent: 71.532 kg I&O - Last 24 Hours: Intake & Output 08/23/18 08/24/18 08/24/18 22:59 06:59 14:59 Intake Total 1140 1090 Output Total 1375 1750 Balance -235 -660 Lab Results Last 24 Hours: Laboratory Results - last 24 hr 08/24/18 08/24/18 Range/Units 05:24 05:24 WBC 6.83 (4.23-9.07) K/mm3 RBC 3.58 L (4.63-6.08) M/mm3 Hgb 11.2 L (13.7-17.5) gm/L Hct 35.0 L (40.1-51.0) % MCV 97.8 H (79.0-92.2) fl MCH 31.3 (25.7-32.2) pg MCHC 32.0 L (32.2-35.5) g/dl RDW Std Deviation 47.4 H (35.1-43.9) fL Plt Count 226 (163-337) K/mm3 MPV 8.6 L (9.4-12.3) fl Neut % (Auto) 72.3 H (34.0-67.9) % Lymph % (Auto) 13.6 L (21.8-53.1) % [place] % (Auto) 7.8 (5.3-12.2) % Eos % (Auto) 5.9 (0.8-7.0) Baso % (Auto) 0.3 (0.1-1.2) % Neut # (Auto) 4.94 (1.78-5.38) K/mm3 Lymph # (Auto) 0.93 L (1.32-3.57) K/mm3 [place] # (Auto) 0.53 (0.30-0.82) K/mm3 Eos # (Auto) 0.40 (0.04-0.54) K/mm3 Baso # (Auto) 0.02 (0.01-0.08) K/mm3 Sodium 148 H (136-145) mEq/L Potassium 3.8 (3.5-5.1) mEq/L Chloride 113 H (98-107) mEq/L Carbon Dioxide 25 (21-32) mEq/L Anion Gap 13.8 (5-15) BUN 15 (7-18) mg/dL Creatinine 1.1 (0.7-1.3) mg/dL Est Cr Clr Drug Dosing 66.73 mL/min Estimated GFR (MDRD) > 60 (>60) mL/min BUN/Creatinine Ratio 13.6 L (14-18) Glucose 87 (80-115) mg/dL Calcium 9.6 (8.5-10.1) mg/dL Magnesium 1.9 (1.8-2.4) mg/dl C-Reactive Protein 4.3 H* (<1.0) mg/dL [place] Results Last 24 Hours: Microbiology 08/23/18 19:30 Gram Stain - Preliminary Sputum - Expectorated 08/21/18 14:30 Urine Culture - Preliminary Urine, Catheterized Staphylococcus Aureus Gram Positive Cocci 08/21/18 14:25 Aerobic Blood Culture - Preliminary Blood NO GROWTH AFTER 2 DAYS Anaerobic Blood Culture - Preliminary NO GROWTH AFTER 2 DAYS 08/21/18 13:50 Aerobic Blood Culture - Preliminary Blood NO GROWTH AFTER 2 DAYS Anaerobic Blood Culture - Preliminary NO GROWTH AFTER 2 DAYS 08/21/18 14:30 Streptococcus pneumoniae Antigen (M - Final Urine Med Orders - Current: Current Medications Acetaminophen (Tylenol) 650 mg PO Q4H PRN PRN Reason: Pain (Mild 1-3)/fever Hydrocodone Bitart/Acetaminophen (Christiana 325-5 Mg) 1 tab PO Q4H PRN PRN Reason: Pain (moderate 4-6) Last Admin: 08/24/18 09:22 Dose: 1 tab Albuterol (Proventil Neb Soln) 2.5 mg INH Q4H PRN PRN Reason: Shortness of Breath Albuterol/Ipratropium (Duoneb 3.0-0.5 Mg/3 Ml) 3 ml NEB Q4H PRN PRN Reason: Shortness Of Breath/wheezing Aspirin (Aspirin) 81 mg PO DAILY [facility] Last Admin: 08/24/18 08:44 Dose: 81 mg Bisacodyl (Dulcolax) 5 mg PO DAILY PRN PRN Reason: Constipation Clonazepam (Klonopin) 0.5 mg PO TID PRN PRN Reason: Anxiety Last Admin: 08/24/18 09:23 Dose: 0.5 mg Diclofenac Sodium (Voltaren 1% Gel) 0 gm TOP QID PRN PRN Reason: Pain Last Admin: 08/24/18 08:44 Dose: 1 applic Docusate Sodium (Colace) 100 mg PO BID PRN PRN Reason: Constipation Enoxaparin Sodium (Lovenox) 40 mg SUBCUT DAILY [facility] Last Admin: 08/24/18 08:43 Dose: 40 mg Famotidine (Pepcid) 20 mg PO BID [facility] Last Admin: 08/24/18 08:44 Dose: 20 mg Finasteride (Proscar) 5 mg PO DAILY [facility] Last Admin: 08/24/18 08:45 Dose: 5 mg Gabapentin (Neurontin) 900 mg PO TID [facility] Last Admin: 08/24/18 08:45 Dose: 900 mg Piperacillin Sod/Tazobactam (Sod 4.5 gm/ Sodium Chloride) 100 mls @ 25 mls/hr IV Q8H [facility] Last Admin: 08/24/18 05:11 Dose: 25 mls/hr Ceftriaxone Sodium 2 gm/ (Sodium Chloride) 100 mls @ 200 mls/hr IV Q24H [facility] Last Admin: 08/24/18 08:37 Dose: 200 mls/hr Lidocaine HCl (Xylocaine 4% Top Soln) 0 ml TOP TID [facility] Last Admin: 08/24/18 08:43 Dose: 1 applic Magnesium Hydroxide (Milk Of Magnesia) 30 ml PO Q12H PRN PRN Reason: Constipation Mometasone Furoate/Formoterol Fumar (Dulera 200-5 Mcg) 2 puff IH BIDRT [facility] Last Admin: 08/24/18 06:23 Dose: 2 puff Montelukast Sodium (Singulair) 10 mg PO DAILY [facility] Last Admin: 08/24/18 08:44 Dose: 10 mg Morphine Sulfate (Morphine 10 Mg/0.5 Ml Oral Syringe) 10 mg PO Q4H PRN PRN Reason: Pain Last Admin: 08/24/18 05:59 Dose: 10 mg Multivitamins (Thera) 1 each PO DAILY [facility] Last Admin: 08/24/18 08:44 Dose: 1 each Olanzapine (Zyprexa) 10 mg PO DAILY [facility] Last Admin: 08/24/18 08:45 Dose: 10 mg Ondansetron HCl (Zofran Odt) 4 mg PO Q4H PRN PRN Reason: nausea, able to take PO Ondansetron HCl (Zofran) 4 mg IV Q4H PRN PRN Reason: Nausea/Vomiting Umeclidinium Brm/Vilanterol Tr (Anoro Inhaler) 0 each INH DAILY [facility] Last Admin: 08/24/18 09:05 Dose: 1 each Meloxicam 15 Mg 0 each PO DAILY [facility] Last Admin: 08/24/18 08:45 Dose: Not Given Carisoprodol 350 Mg 0 each PO QID [facility] Last Admin: 08/24/18 08:46 Dose: 1 each Polyethylene Glycol (Miralax) 17 gm PO DAILY [facility] Last Admin: 08/24/18 08:58 Dose: Not Given Saccharomyces Boulardii (Florastor) 250 mg PO BID [facility] Last Admin: 08/24/18 08:45 Dose: 250 mg Senna/Docusate Sodium (Senna Plus) 1 tab PO BID PRN PRN Reason: Constipation Sodium Chloride (Saline Flush) 10 ml FLUSH ASDIRECTED PRN PRN Reason: Keep Vein Open Last Admin: 08/21/18 13:50 Dose: 10 ml Temazepam (Restoril) 7.5 mg PO BEDTIME PRN PRN Reason: Sleep Thiamine HCl (Vitamin B-1) 300 mg PO DAILY [facility] Last Admin: 08/24/18 08:44 Dose: 300 mg Trazodone HCl (Trazodone) 100 mg PO BEDTIME [facility] Last Admin: 08/23/18 20:55 Dose: 100 mg Verapamil HCl (Calan) 160 mg PO TID [facility] Last Admin: 08/24/18 08:44 Dose: 160 mg Discontinued Medications Acetaminophen (Tylenol) 640 mg PO ONETIME ONE Stop: 08/21/18 13:43 Last Admin: 08/21/18 14:27 Dose: 640 mg Acetaminophen (Tylenol) 650 mg PO Q4H PRN PRN Reason: Pain (Mild 1-3)/fever Acetaminophen (Tylenol) 650 mg GTUBE Q4H PRN PRN Reason: Pain (Mild 1-3)/fever Hydrocodone Bitart/Acetaminophen (Christiana 325-5 Mg) 1 tab PO Q4H PRN PRN Reason: Pain (moderate 4-6) Last Admin: 08/21/18 21:27 Dose: 1 tab Hydrocodone Bitart/Acetaminophen (Christiana 325-5 Mg) 1 tab GTUBE Q4H PRN PRN Reason: Pain (moderate 4-6) Last Admin: 08/22/18 09:16 Dose: 1 tab Aspirin (Aspirin) 81 mg GTUBE DAILY [facility] Last Admin: 08/22/18 09:08 Dose: 81 mg Bisacodyl (Dulcolax) 5 mg PO DAILY PRN PRN Reason: Constipation Bisacodyl (Dulcolax) 5 mg .XX DAILY PRN PRN Reason: Constipation Clonazepam (Klonopin) 0.5 mg GTUBE TID PRN PRN Reason: Anxiety Last Admin: 08/21/18 21:27 Dose: 0.5 mg Diclofenac Sodium (Voltaren 1% Gel) 0 gm TOP QID PRN PRN Reason: Pain Docusate Sodium (Colace) 100 mg PO BID PRN PRN Reason: Constipation Docusate Sodium (Colace) 100 mg .XX BID PRN PRN Reason: Constipation Famotidine (Pepcid) 20 mg PO BID [facility] Famotidine (Pepcid) 20 mg GTUBE BID [facility] Last Admin: 08/22/18 09:14 Dose: 20 mg Finasteride (Proscar) 5 mg .XX DAILY [facility] Last Admin: 08/22/18 09:04 Dose: 5 mg Gabapentin (Neurontin) 900 mg GTUBE TID [facility] Last Admin: 08/22/18 09:15 Dose: 900 mg Sodium Chloride (Normal Saline) 1,000 mls @ 999 mls/hr IV ONETIME [facility] Last Admin: 08/21/18 14:25 Dose: 999 mls/hr Piperacillin Sod/Tazobactam (Sod 4.5 gm/ Sodium Chloride) 100 mls @ 200 mls/hr IV ONETIME ONE Stop: 08/21/18 15:20 Last Admin: 08/21/18 15:10 Dose: 200 mls/hr Dextrose/Sodium Chloride (Dextrose 5%-Normal Saline) 1,000 mls @ 75 mls/hr IV ASDIRECTED [facility] Last Admin: 08/22/18 06:15 Dose: 75 mls/hr Magnesium Sulfate/Dextrose 1 (gm/ Premix) 100 mls @ 100 mls/hr IV ONETIME ONE Stop: 08/23/18 11:59 Last Admin: 08/23/18 11:50 Dose: 100 mls/hr Insulin Human Lispro (Humalog) 0 unit SUBCUT QIDACANDBED [facility]; Protocol Insulin Human Lispro (Humalog) 0 unit SUBCUT Q6H [facility]; Protocol Last Admin: 08/22/18 17:05 Dose: Not Given Magnesium Hydroxide (Milk Of Magnesia) 30 ml PO Q12H PRN PRN Reason: Constipation Magnesium Hydroxide (Milk Of Magnesia) 30 ml GTUBE Q12H PRN PRN Reason: Constipation Magnesium Oxide (Magnesium Oxide) 400 mg PO ONETIME ONE Stop: 08/22/18 16:08 Last Admin: 08/22/18 17:01 Dose: 400 mg Magnesium Sulfate (Pharmacy To Dose - Magnesium Replacement) 0 dose .XX ASDIRECTED PRN PRN Reason: RX TO WATCH MAG LEVELS Montelukast Sodium (Singulair) 10 mg GTUBE DAILY [facility] Last Admin: 08/22/18 09:15 Dose: 10 mg Morphine Sulfate (Morphine) 2 mg IVPUSH Q2H PRN PRN Reason: Pain (severe 7-10) Stop: 08/22/18 17:53 Last Admin: 08/22/18 10:17 Dose: 2 mg Morphine Sulfate (Morphine 10 Mg/0.5 Ml Oral Syringe) 10 mg PO Q4H PRN PRN Reason: Pain Multivitamins (Thera) 1 each .XX DAILY [facility] Last Admin: 08/22/18 09:13 Dose: 1 each Non-Formulary Medication (Albuterol) 2 puff IH Q4H PRN PRN Reason: Shortness of Breath Olanzapine (Zyprexa) 10 mg GTUBE DAILY [facility] Last Admin: 08/22/18 09:12 Dose: 10 mg Carisoprodol 350 Mg 0 each GTUBE QID [facility] Last Admin: 08/22/18 09:17 Dose: Not Given Meloxicam 15 Mg 0 each GTUBE DAILY [facility] Last Admin: 08/22/18 09:17 Dose: Not Given Polyethylene Glycol (Miralax) 17 gm PO DAILY PRN PRN Reason: Constipation Polyethylene Glycol (Miralax) 17 gm GTUBE DAILY [facility] Last Admin: 08/22/18 09:19 Dose: Not Given Potassium Chloride (Pharmacy To Dose - Potassium Replacement) 0 dose .XX ASDIRECTED PRN PRN Reason: RX TO WATCH K LEVELS Saccharomyces Boulardii (Florastor) 250 mg PO BID [facility] Last Admin: 08/21/18 21:08 Dose: 250 mg Saccharomyces Boulardii (Florastor) 250 mg GTUBE BID [facility] Last Admin: 08/22/18 09:15 Dose: 250 mg Senna/Docusate Sodium (Senna Plus) 1 tab PO BID PRN PRN Reason: Constipation Senna/Docusate Sodium (Senna Plus) 1 tab GTUBE BID PRN PRN Reason: Constipation Temazepam (Restoril) 7.5 mg PO BEDTIME PRN PRN Reason: Sleep Last Admin: 08/21/18 21:27 Dose: 7.5 mg Temazepam (Restoril) 7.5 mg GTUBE BEDTIME PRN PRN Reason: Sleep Thiamine HCl (Vitamin B-1) 300 mg GTUBE DAILY [facility] Last Admin: 08/22/18 09:14 Dose: 300 mg Trazodone HCl (Trazodone) 100 mg PO BEDTIME [facility] Last Admin: 08/21/18 21:09 Dose: 100 mg Verapamil HCl (Calan) 160 mg GTUBE TID [facility] Last Admin: 08/22/18 09:15 Dose: 160 mg - Exam Quality Assessment: DVT Prophylaxis General: Alert, Oriented, Cooperative, No Acute Distress HEENT: Pupils Equal, Pupils Reactive, EOMI Neck: Trachea Midline, No JVD Lungs: Normal Respiratory Effort, Decreased Breath Sounds Cardiovascular: Regular Rate, Regular Rhythm GI/Abdominal Exam: Normal Bowel Sounds, Soft, Non-Tender, No Organomegaly, No Distention (Male) Exam: Deferred Back Exam: Normal Inspection Extremities: Normal Inspection, Non-Tender, Normal Capillary Refill Skin: Warm Neurological: No New Focal Deficit, Normal Speech Psy/Mental Status: Alert, Normal Affect, Normal Mood - Problem List Review Problem List Initiated/Reviewed/Updated: Yes - Plan Plan:: /P: Acute: Bronchitis vs PNA (Radiology retrocardiac consolidation), Continues to Improve * Differential: Bronchitis vs PNA * Risk Factors: COPD, Lives at [facility] * WBC 10.25--> 6.37-->10.9, CRP 4.5--> 9.6 --> 6.9 * CXR in ED: * Left retrocardiac consolidation. Differential includes atelectasis, chronic changes as well as pneumonia if patient has infectious symptoms. * RVP and Sputum culture are both pending * Mycoplasma negative * Blood cultures and Strep Ag both show no growth * Continue RT/Duonebs/IS/Acapella * Repeat CXR in 48H * Zosyn started in ED; Continue Iv Zosyn and Rocephin UTI vs Pyelonephritis * Temperature 101.8 at [facility]; 104.9 in ED--> 98.4 now * UA impressive for UTI * Zosyn started in ED; Continue IV ZOsyn and Rocephin * Urine culture shows gram positive cocci; pending sensitivities not available until afternoon tomorrow Hypomagnesemia * Mg 1.7 --> 1.7 * 2/2 inadequate intake * Pharmacy to Replete and monitor Chronic: HTN PEG tube--> Pt is able to take medications and food PO here; this may need to be reconsidered by PCP? Weakness Indwelling catheter d/t Urinary retention Neurological disorder NOS- 2/2 Mehan overdose? 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 Enamorado From [facility] D/C Plan: * PEG tube--> Pt is able to take medications and food PO here; this may need to be reconsidered by PCP? * D/c pending sensitivities of multiple organism; would not be available until tomorrow afternoon * Empiric RX as noted above w/Zosyn?Rocephin/Vanco. * DC follow up consider neuro/pain mgt consults respectively * LOS >96 hours with current therapy, await final C/S
[2018-08-24] MEDS ORDERED: Levofloxacin/Dextrose 5%-Water 750 MG in Premix Bag 1 BAG IV SCH (20:00)
--- NOTE | 2018-08-24 20:16 | PCM.SN ---
- Free Text/Narrative Note: UC: SA, MRSA---sensitive to Synercid; Bactrim DS; Gent. Patient is reportedly allergic to Bactrim DS. Synercid does not appear on the formulary, will clarify. In the meantime will start Gent, Pharmacy to dose. UC: E Faecalis---sensitive to Levoquin, will start tonight.
[2018-08-24] MEDS: traZODone 50 MG Tab PO SCH (20:32)
[2018-08-24] MEDS ORDERED: Gentamicin 500 MG in Sodium Chloride 0.9% 100 ML IV SCH (21:00)
[2018-08-25] MEDS: Acetaminophen/HYDROcodone 325-5 MG Tab PO PRN ×2 (02:51→15:03)
[2018-08-25] MEDS: Formoterol/Mometasone 200-5 MCG 8.8 GM Inhaler IH SCH ×2 (06:28→20:45)
[2018-08-25] MEDS ORDERED: Magnesium Sulfate/Water 4 GM in Premix Bag 1 BAG IV ONE (07:33)
[2018-08-25] MEDS: Potassium Chloride 20 MEQ Tab.ER PO SCH ×2 (09:04→21:55)
[2018-08-25] MEDS: Gabapentin 300 MG Cap PO SCH ×3 (09:05→21:56)
[2018-08-25] MEDS: OLANZapine 5 MG Tab PO SCH (09:07)
[2018-08-25] MEDS: Saccharomyces Boulardii (Probiotic) 250 MG Cap PO SCH ×2 (09:07→21:55)
[2018-08-25] MEDS: Verapamil 80 MG Tab PO SCH ×3 (09:08→21:56)
[2018-08-25] MEDS: Finasteride 5 MG Tab PO SCH (09:08)
[2018-08-25] MEDS: Aspirin 81 MG Tab.Chew PO SCH (09:09)
[2018-08-25] MEDS: Multivitamins,Therapeutic Tab PO SCH (09:09)
[2018-08-25] MEDS: Thiamine 100 MG Tab PO SCH (09:10)
[2018-08-25] MEDS: Famotidine 20 MG Tab PO SCH ×2 (09:11→21:57)
[2018-08-25] MEDS: Lidocaine 4% Top Soln 50 ML Bottle TOP SCH ×3 (09:15→21:53)
[2018-08-25] MEDS: Polyethylene Glycol 3350 Powder 17 GM Packet PO SCH (09:16)
[2018-08-25] MEDS: Enoxaparin 40 MG/0.4 ML Syringe SUBCUT SCH (09:16)
[2018-08-25] MEDS: ClonazePAM 0.5 MG Tab PO PRN ×2 (09:39→21:55)
[2018-08-25] MEDS: Morphine 10 MG/0.5 ML Oral Syringe PO PRN ×3 (09:39→21:54)
[2018-08-25] MEDS: UMECLIDINIUM BRM INH SCH (10:03)
[2018-08-25] MEDS: VILANTEROL TR INH SCH (10:03)
[2018-08-25] MEDS: Montelukast 10 MG Tab PO SCH (12:41)
[2018-08-25] MEDS ORDERED: Ampicillin 2 GM in Sodium Chloride 0.9% 100 ML IV SCH (17:30)
--- NOTE | 2018-08-25 17:31 | PCM.PN ---
- General Info Date of Service: 08/25/18 Admission Dx/Problem (Free Text): Admission Diagnosis/Problem Admission Diagnosis/Problem Urinary tract infection Subjective Update: In to see Baljinder. He is sitting up in bed watching TV. No current complaints at this time. He states he is feeling better. No concerns from nursing. Will likely D/C Saturday, as that is when [facility] states they will have a bed ready for him. SANITATION LABORER swallow eval done recommending regular diet with nectar thick liquids and no straw; also recommend outpt video swallow eval on 09/01/17 and more frequent therapies at [facility]. Functional Status: Reports: Pain Controlled, Tolerating Diet, Urinating - Review of Systems General: Reports: No Symptoms. Denies: Fever, Chills HEENT: Reports: No Symptoms Pulmonary: Reports: Shortness of Breath (improving), Cough (improving), Sputum ( improving) Cardiovascular: Reports: No Symptoms. Denies: Chest Pain Gastrointestinal: Reports: No Symptoms. Denies: Abdominal Pain, Diarrhea, Nausea, Vomiting Genitourinary: Reports: No Symptoms. Denies: Dysuria, Frequency, Burning, Pain , Urgency Musculoskeletal: Reports: No Symptoms Skin: Reports: No Symptoms Neurological: Reports: No Symptoms. Denies: Confusion Psychiatric: Reports: No Symptoms. Denies: Confusion - Patient Data Vitals - Most Recent: Last Vital Signs Temp 97.9 F 08/25/18 15:02 Pulse 60 08/25/18 15:02 Resp 18 08/25/18 15:02 BP 120/79 08/25/18 15:02 Pulse Ox 94 L 08/25/18 15:02 Weight - Most Recent: 158 lb 3.2 oz I&O - Last 24 Hours: Intake & Output 08/25/18 08/25/18 08/25/18 06:59 14:59 22:59 Intake Total 700 480 580 Output Total 1300 1175 Balance -600 480 -595 Lab Results Last 24 Hours: Laboratory Results - last 24 hr 08/25/18 08/25/18 08/25/18 Range/Units 05:20 05:20 08:05 WBC 8.59 (4.23-9.07) K/mm3 RBC 3.48 L (4.63-6.08) M/mm3 Hgb 10.9 L (13.7-17.5) gm/L Hct 33.9 L (40.1-51.0) % MCV 97.4 H (79.0-92.2) fl MCH 31.3 (25.7-32.2) pg MCHC 32.2 (32.2-35.5) g/dl RDW Std Deviation 46.6 H (35.1-43.9) fL Plt Count 210 (163-337) K/mm3 MPV 8.7 L (9.4-12.3) fl Neut % (Auto) 79.3 H (34.0-67.9) % Lymph % (Auto) 9.4 L (21.8-53.1) % [place] % (Auto) 6.8 (5.3-12.2) % Eos % (Auto) 4.1 (0.8-7.0) Baso % (Auto) 0.2 (0.1-1.2) % Neut # (Auto) 6.81 H (1.78-5.38) K/mm3 Lymph # (Auto) 0.81 L (1.32-3.57) K/mm3 [place] # (Auto) 0.58 (0.30-0.82) K/mm3 Eos # (Auto) 0.35 (0.04-0.54) K/mm3 Baso # (Auto) 0.02 (0.01-0.08) K/mm3 Manual Slide Review Normal smear Sodium 147 H (136-145) mEq/L Potassium 3.6 (3.5-5.1) mEq/L Chloride 112 H (98-107) mEq/L Carbon Dioxide 27 (21-32) mEq/L Anion Gap 11.6 (5-15) BUN 13 (7-18) mg/dL Creatinine 0.9 (0.7-1.3) mg/dL Est Cr Clr Drug Dosing 81.55 mL/min Estimated GFR (MDRD) > 60 (>60) mL/min BUN/Creatinine Ratio 14.4 (14-18) Glucose 96 (80-115) mg/dL Calcium 9.0 (8.5-10.1) mg/dL Magnesium 1.6 L (1.8-2.4) mg/dl C-Reactive Protein 3.0 H* (<1.0) mg/dL Random Gentamicin 4.1 L (5.0-10.0) ug/mL [place] Results Last 24 Hours: Microbiology 08/21/18 14:25 Aerobic Blood Culture - Preliminary Blood NO GROWTH AFTER 4 DAYS Anaerobic Blood Culture - Preliminary NO GROWTH AFTER 4 DAYS 08/21/18 13:50 Aerobic Blood Culture - Preliminary Blood NO GROWTH AFTER 4 DAYS Anaerobic Blood Culture - Preliminary NO GROWTH AFTER 4 DAYS 08/23/18 19:30 Gram Stain - Final Sputum - Expectorated Sputum Culture - Preliminary Staphylococcus Aureus 08/21/18 14:30 Urine Culture - Final Urine, Catheterized Staphylococcus Aureus Enterococcus Faecalis (Mrsa) Staphylococcus Aureus Med Orders - Current: Current Medications Acetaminophen (Tylenol) 650 mg PO Q4H PRN PRN Reason: Pain (Mild 1-3)/fever Hydrocodone Bitart/Acetaminophen ([place] 325-5 Mg) 1 tab PO Q4H PRN PRN Reason: Pain (moderate 4-6) Last Admin: 08/25/18 15:03 Dose: 1 tab Albuterol (Proventil Neb Soln) 2.5 mg INH Q4H PRN PRN Reason: Shortness of Breath Albuterol/Ipratropium (Duoneb 3.0-0.5 Mg/3 Ml) 3 ml NEB Q4H PRN PRN Reason: Shortness Of Breath/wheezing Aspirin (Aspirin) 81 mg PO DAILY [facility] Last Admin: 08/25/18 09:09 Dose: 81 mg Bisacodyl (Dulcolax) 5 mg PO DAILY PRN PRN Reason: Constipation Clonazepam (Klonopin) 0.5 mg PO TID PRN PRN Reason: Anxiety Last Admin: 08/25/18 09:39 Dose: 0.5 mg Diclofenac Sodium (Voltaren 1% Gel) 0 gm TOP QID PRN PRN Reason: Pain Last Admin: 08/24/18 15:38 Dose: 1 applic Docusate Sodium (Colace) 100 mg PO BID PRN PRN Reason: Constipation Enoxaparin Sodium (Lovenox) 40 mg SUBCUT DAILY [facility] Last Admin: 08/25/18 09:16 Dose: 40 mg Famotidine (Pepcid) 20 mg PO BID [facility] Last Admin: 08/25/18 09:11 Dose: 20 mg Finasteride (Proscar) 5 mg PO DAILY [facility] Last Admin: 08/25/18 09:08 Dose: 5 mg Gabapentin (Neurontin) 900 mg PO TID [facility] Last Admin: 08/25/18 14:01 Dose: 900 mg Gentamicin Sulfate (Pharmacy To Dose - Gentamicin) 0 dose .XX ASDIRECTED PRN PRN Reason: RX TO DOSE GENT Levofloxacin/Dextrose 750 mg/ (Premix) 150 mls @ 100 mls/hr IV Q24H [facility] Last Admin: 08/24/18 20:32 Dose: 100 mls/hr Gentamicin Sulfate 500 mg/ (Sodium Chloride) 112.5 mls @ 225 mls/hr IV Q24H [facility] Last Admin: 08/24/18 22:15 Dose: 225 mls/hr Lidocaine HCl (Xylocaine 4% Top Soln) 0 ml TOP TID [facility] Last Admin: 08/25/18 15:04 Dose: 1 applic Magnesium Hydroxide (Milk Of Magnesia) 30 ml PO Q12H PRN PRN Reason: Constipation Mometasone Furoate/Formoterol Fumar (Dulera 200-5 Mcg) 2 puff IH BIDRT [facility] Last Admin: 08/25/18 06:28 Dose: 2 puff Montelukast Sodium (Singulair) 10 mg PO DAILY [facility] Last Admin: 08/25/18 12:41 Dose: Not Given Morphine Sulfate (Morphine 10 Mg/0.5 Ml Oral Syringe) 10 mg PO Q4H PRN PRN Reason: Pain Last Admin: 08/25/18 17:09 Dose: 10 mg Multivitamins (Thera) 1 each PO DAILY [facility] Last Admin: 08/25/18 09:09 Dose: 1 each Olanzapine (Zyprexa) 10 mg PO DAILY [facility] Last Admin: 08/25/18 09:07 Dose: 10 mg Ondansetron HCl (Zofran Odt) 4 mg PO Q4H PRN PRN Reason: nausea, able to take PO Ondansetron HCl (Zofran) 4 mg IV Q4H PRN PRN Reason: Nausea/Vomiting Umeclidinium Brm/Vilanterol Tr (Anoro Inhaler) 0 each INH DAILY [facility] Last Admin: 08/25/18 10:03 Dose: 1 each Meloxicam 15 Mg 0 each PO DAILY [facility] Last Admin: 08/25/18 09:15 Dose: Not Given Carisoprodol 350 Mg 0 each PO QID [facility] Last Admin: 08/25/18 17:09 Dose: 1 each Polyethylene Glycol (Miralax) 17 gm PO DAILY [facility] Last Admin: 08/25/18 09:16 Dose: Not Given Potassium Chloride (Klor-Con M20) 40 meq PO BID [facility] Stop: 08/26/18 09:01 Last Admin: 08/25/18 09:04 Dose: 40 meq Saccharomyces Boulardii (Florastor) 250 mg PO BID [facility] Last Admin: 08/25/18 09:07 Dose: 250 mg Senna/Docusate Sodium (Senna Plus) 1 tab PO BID PRN PRN Reason: Constipation Sodium Chloride (Saline Flush) 10 ml FLUSH ASDIRECTED PRN PRN Reason: Keep Vein Open Last Admin: 08/21/18 13:50 Dose: 10 ml Temazepam (Restoril) 7.5 mg PO BEDTIME PRN PRN Reason: Sleep Thiamine HCl (Vitamin B-1) 300 mg PO DAILY [facility] Last Admin: 08/25/18 09:10 Dose: 300 mg Trazodone HCl (Trazodone) 100 mg PO BEDTIME [facility] Last Admin: 08/24/18 20:32 Dose: 100 mg Verapamil HCl (Calan) 160 mg PO TID [facility] Last Admin: 08/25/18 14:01 Dose: 160 mg Discontinued Medications Acetaminophen (Tylenol) 640 mg PO ONETIME ONE Stop: 08/21/18 13:43 Last Admin: 08/21/18 14:27 Dose: 640 mg Acetaminophen (Tylenol) 650 mg PO Q4H PRN PRN Reason: Pain (Mild 1-3)/fever Acetaminophen (Tylenol) 650 mg GTUBE Q4H PRN PRN Reason: Pain (Mild 1-3)/fever Hydrocodone Bitart/Acetaminophen ([place] 325-5 Mg) 1 tab PO Q4H PRN PRN Reason: Pain (moderate 4-6) Last Admin: 08/21/18 21:27 Dose: 1 tab Hydrocodone Bitart/Acetaminophen ([place] 325-5 Mg) 1 tab GTUBE Q4H PRN PRN Reason: Pain (moderate 4-6) Last Admin: 08/22/18 09:16 Dose: 1 tab Aspirin (Aspirin) 81 mg GTUBE DAILY [facility] Last Admin: 08/22/18 09:08 Dose: 81 mg Bisacodyl (Dulcolax) 5 mg PO DAILY PRN PRN Reason: Constipation Bisacodyl (Dulcolax) 5 mg .XX DAILY PRN PRN Reason: Constipation Clonazepam (Klonopin) 0.5 mg GTUBE TID PRN PRN Reason: Anxiety Last Admin: 08/21/18 21:27 Dose: 0.5 mg Diclofenac Sodium (Voltaren 1% Gel) 0 gm TOP QID PRN PRN Reason: Pain Docusate Sodium (Colace) 100 mg PO BID PRN PRN Reason: Constipation Docusate Sodium (Colace) 100 mg .XX BID PRN PRN Reason: Constipation Famotidine (Pepcid) 20 mg PO BID [facility] Famotidine (Pepcid) 20 mg GTUBE BID [facility] Last Admin: 08/22/18 09:14 Dose: 20 mg Finasteride (Proscar) 5 mg .XX DAILY [facility] Last Admin: 08/22/18 09:04 Dose: 5 mg Gabapentin (Neurontin) 900 mg GTUBE TID [facility] Last Admin: 08/22/18 09:15 Dose: 900 mg Sodium Chloride (Normal Saline) 1,000 mls @ 999 mls/hr IV ONETIME [facility] Last Admin: 08/21/18 14:25 Dose: 999 mls/hr Piperacillin Sod/Tazobactam (Sod 4.5 gm/ Sodium Chloride) 100 mls @ 200 mls/hr IV ONETIME ONE Stop: 08/21/18 15:20 Last Admin: 08/21/18 15:10 Dose: 200 mls/hr Dextrose/Sodium Chloride (Dextrose 5%-Normal Saline) 1,000 mls @ 75 mls/hr IV ASDIRECTED [facility] Last Admin: 08/22/18 06:15 Dose: 75 mls/hr Piperacillin Sod/Tazobactam (Sod 4.5 gm/ Sodium Chloride) 100 mls @ 25 mls/hr IV Q8H [facility] Last Admin: 08/24/18 13:07 Dose: 25 mls/hr Ceftriaxone Sodium 2 gm/ (Sodium Chloride) 100 mls @ 200 mls/hr IV Q24H [facility] Last Admin: 08/24/18 08:37 Dose: 200 mls/hr Magnesium Sulfate/Dextrose 1 (gm/ Premix) 100 mls @ 100 mls/hr IV ONETIME ONE Stop: 08/23/18 11:59 Last Admin: 08/23/18 11:50 Dose: 100 mls/hr Magnesium Sulfate 4 gm/ Premix 100 mls @ 25 mls/hr IV ONETIME ONE Stop: 08/25/18 07:34 Last Admin: 08/25/18 08:59 Dose: 25 mls/hr Insulin Human Lispro (Humalog) 0 unit SUBCUT QIDACANDBED [facility]; Protocol Insulin Human Lispro (Humalog) 0 unit SUBCUT Q6H [facility]LLA; Protocol Last Admin: 08/22/18 17:05 Dose: Not Given Magnesium Hydroxide (Milk Of Magnesia) 30 ml PO Q12H PRN PRN Reason: Constipation Magnesium Hydroxide (Milk Of Magnesia) 30 ml GTUBE Q12H PRN PRN Reason: Constipation Magnesium Oxide (Magnesium Oxide) 400 mg PO ONETIME ONE Stop: 08/22/18 16:08 Last Admin: 08/22/18 17:01 Dose: 400 mg Magnesium Sulfate (Pharmacy To Dose - Magnesium Replacement) 0 dose .XX ASDIRECTED PRN PRN Reason: RX TO WATCH MAG LEVELS Montelukast Sodium (Singulair) 10 mg GTUBE DAILY [facility] Last Admin: 08/22/18 09:15 Dose: 10 mg Morphine Sulfate (Morphine) 2 mg IVPUSH Q2H PRN PRN Reason: Pain (severe 7-10) Stop: 08/22/18 17:53 Last Admin: 08/22/18 10:17 Dose: 2 mg Morphine Sulfate (Morphine 10 Mg/0.5 Ml Oral Syringe) 10 mg PO Q4H PRN PRN Reason: Pain Multivitamins (Thera) 1 each .XX DAILY [facility] Last Admin: 08/22/18 09:13 Dose: 1 each Non-Formulary Medication (Albuterol) 2 puff IH Q4H PRN PRN Reason: Shortness of Breath Olanzapine (Zyprexa) 10 mg GTUBE DAILY [facility] Last Admin: 08/22/18 09:12 Dose: 10 mg Carisoprodol 350 Mg 0 each GTUBE QID [facility] Last Admin: 08/22/18 09:17 Dose: Not Given Meloxicam 15 Mg 0 each GTUBE DAILY [facility] Last Admin: 08/22/18 09:17 Dose: Not Given Polyethylene Glycol (Miralax) 17 gm PO DAILY PRN PRN Reason: Constipation Polyethylene Glycol (Miralax) 17 gm GTUBE DAILY [facility] Last Admin: 12/28/18 09:19 Dose: Not Given Potassium Chloride (Pharmacy To Dose - Potassium Replacement) 0 dose .XX ASDIRECTED PRN PRN Reason: RX TO WATCH K LEVELS Saccharomyces Boulardii (Florastor) 250 mg PO BID [facility] Last Admin: 08/21/18 21:08 Dose: 250 mg Saccharomyces Boulardii (Florastor) 250 mg GTUBE BID [facility] Last Admin: 08/22/18 09:15 Dose: 250 mg Senna/Docusate Sodium (Senna Plus) 1 tab PO BID PRN PRN Reason: Constipation Senna/Docusate Sodium (Senna Plus) 1 tab GTUBE BID PRN PRN Reason: Constipation Temazepam (Restoril) 7.5 mg PO BEDTIME PRN PRN Reason: Sleep Last Admin: 08/21/18 21:27 Dose: 7.5 mg Temazepam (Restoril) 7.5 mg GTUBE BEDTIME PRN PRN Reason: Sleep Thiamine HCl (Vitamin B-1) 300 mg GTUBE DAILY [facility] Last Admin: 08/22/18 09:14 Dose: 300 mg Trazodone HCl (Trazodone) 100 mg PO BEDTIME [facility] Last Admin: 08/21/18 21:09 Dose: 100 mg Verapamil HCl (Calan) 160 mg GTUBE TID [facility] Last Admin: 08/22/18 09:15 Dose: 160 mg - Exam Quality Assessment: DVT Prophylaxis General: Alert, Oriented, Cooperative, No Acute Distress HEENT: Pupils Equal, Pupils Reactive, EOMI, Mucous Membr. Moist/[place] Neck: Supple Lungs: Normal Respiratory Effort, Decreased Breath Sounds Cardiovascular: Regular Rate, Regular Rhythm GI/Abdominal Exam: Normal Bowel Sounds, Soft, Non-Tender, No Organomegaly, No Distention, No Abnormal Bruit, No Mass, Pelvis Stable (Male) Exam: Deferred Back Exam: Normal Inspection Extremities: Normal Inspection, Normal Range of Motion, Non-Tender, No Pedal Edema, Normal Capillary Refill, Other (mild bilateral atrophy) Peripheral Pulses: 1+: Posterior Tibial (L), Posterior Tibial (R), Dorsalis Pedis (L), Dorsalis Pedis (R) Skin: Warm, Dry, Intact Neurological: No New Focal Deficit Psy/Mental Status: Alert, Normal Affect, Normal Mood - Problem List & Annotations (1) Pyelonephritis SNOMED Code(s): 79211887 Code(s): N12 - TUBULO-INTERSTITIAL NEPHRITIS, NOT SPCF ACUTE OR CHRONIC Status: Acute Priority: High Current Visit: Yes (2) Cervical spine disease SNOMED Code(s): 519743417 Code(s): M48.9 - SPONDYLOPATHY, UNSPECIFIED Status: Chronic Priority: Low Current Visit: Yes - Problem List Review Problem List Initiated/Reviewed/Updated: Yes - My Orders Last 24 Hours: My Active Orders 08/26/18 05:11 BASIC METABOLIC PANEL,BMP [CHEM] AM C-REACTIVE PROTEIN [CHEM] AM CBC WITH AUTO DIFF [HEME] AM MAGNESIUM [CHEM] AM - Plan Plan:: /P: Acute: Bronchitis vs PNA (Radiology retrocardiac consolidation), Continues to Improve * Differential: Bronchitis vs PNA * Risk Factors: COPD, Lives at [facility] * WBC 10.25--> 6.37-->10.9, CRP 4.5--> 9.6 --> 6.9 * CXR in ED 08/21/18: * Left retrocardiac consolidation. Differential includes atelectasis, chronic changes as well as pneumonia if patient has infectious symptoms. * Sputum culture--> few staph aureus * RVP, Mycoplasma, Strep pneumo negative * Blood cultures show no growth * Continue RT/Duonebs/IS/Acapella * SANITATION LABORER swallow eval to r/o aspiration: * Recommend Regular diet with nectar thick liquids, no straw * Video swallow eval on 09/01/17 * Recommend more frequent speech therapy at [facility] * CXR 08/23/18: * 1. Continuing increased density within the left retrocardiac region. No change is seen from prior chest x-ray. * Repeat CXR 08/26/18 * Zosyn started in ED; Continue IV Zosyn and Rocephin--> Levaquin and Gentamycin --> D/C start Ampicillin and Doxycycline according to sensitivities UTI vs Pyelonephritis, Improving * Temperature 101.[address] [facility]; 104.9 in ED--> 97.9 now * UA impressive for UTI * Urine culture--> Staph aureus, Enterococcus Faecalis, MRSA Staph Aureus * Zosyn started in ED; Continue IV Zosyn and Rocephin--> Levaquin and Gentamycin --> D/C start Ampicillin and Doxycycline according to sensitivities Hypomagnesemia * Mg 1.7 --> 1.7--> 1.6 * 2/2 inadequate intake * Pharmacy to Replete and monitor Chronic: HTN PEG tube--> Pt is able to take medications and food PO here; this may need to be reconsidered by PCP? Weakness Indwelling catheter d/t Urinary retention Neurological disorder NOS- 2/2 [place] overdose? Spasmodic torticollis Cluster [place] COPD GERD Cervical Disc Degeneration Dysphagia Plan: He is clinically stable Droplet precautions, Contact Precautions (MRSA positive) Routine AM labs Normally NDD4 w/ pudding thick--> Regular diet w/ nectar thick liquids (per SANITATION LABORER eval here) Continue PT/OT Continue all home medications for pain management CM/SW for d/c planning DVT Prophylaxis/GI Prophylaxis Other orders as indicated above Code Status: Full Code; PCP: Dr. Enamorado From [facility] LOS >96 hours with current therapy, pending [facility] placement D/C Plan: * [facility] to accept pt on Saturday d/t availability * PEG tube--> Pt is able to take medications and food PO here; this may need to be reconsidered by PCP? * PO Doxy and Ampicillin * DC follow up consider neuro/pain mgt consults respectively * Video Swallow 09/01/17; NDD4 with thin liquids for now per SANITATION LABORER * SANITATION LABORER recommends more frequent speech therapy at [facility]
[2018-08-25] MEDS: Ampicillin 2 GM in Sodium Chloride 0.9% 100 ML IV SCH (21:36)
[2018-08-25] MEDS: Diclofenac Sodium 1% Gel 100 GM Tube TOP PRN (21:54)
[2018-08-25] MEDS: traZODone 50 MG Tab PO SCH (21:57)
[2018-08-25] MEDS: Doxycycline 100 MG in Sodium Chloride 0.9% 100 ML IV SCH (21:59)
[2018-08-26] MEDS: Ampicillin 2 GM in Sodium Chloride 0.9% 100 ML IV SCH ×4 (02:36→19:59)
[2018-08-26] MEDS: Formoterol/Mometasone 200-5 MCG 8.8 GM Inhaler IH SCH ×2 (06:23→20:49)
[2018-08-26] MEDS: VILANTEROL TR INH SCH (09:08)
[2018-08-26] MEDS: UMECLIDINIUM BRM INH SCH (09:08)
[2018-08-26] MEDS: Diclofenac Sodium 1% Gel 100 GM Tube TOP PRN ×2 (09:13→22:00)
[2018-08-26] MEDS: Lidocaine 4% Top Soln 50 ML Bottle TOP SCH ×3 (09:13→21:56)
[2018-08-26] MEDS: Potassium Chloride 20 MEQ Tab.ER PO SCH (09:14)
[2018-08-26] MEDS: Multivitamins,Therapeutic Tab PO SCH (09:15)
[2018-08-26] MEDS: Saccharomyces Boulardii (Probiotic) 250 MG Cap PO SCH ×2 (09:15→21:59)
[2018-08-26] MEDS: Aspirin 81 MG Tab.Chew PO SCH (09:15)
[2018-08-26] MEDS: Famotidine 20 MG Tab PO SCH ×2 (09:17→21:59)
[2018-08-26] MEDS: Verapamil 80 MG Tab PO SCH ×3 (09:17→21:59)
[2018-08-26] MEDS: Finasteride 5 MG Tab PO SCH (09:17)
[2018-08-26] MEDS: Thiamine 100 MG Tab PO SCH (09:18)
[2018-08-26] MEDS: Gabapentin 300 MG Cap PO SCH ×3 (09:18→21:59)
[2018-08-26] MEDS: OLANZapine 5 MG Tab PO SCH (09:19)
[2018-08-26] MEDS: Enoxaparin 40 MG/0.4 ML Syringe SUBCUT SCH (09:20)
[2018-08-26] MEDS: ClonazePAM 0.5 MG Tab PO PRN ×2 (09:20→21:59)
[2018-08-26] MEDS: Montelukast 10 MG Tab PO SCH (09:20)
[2018-08-26] MEDS: Polyethylene Glycol 3350 Powder 17 GM Packet PO SCH (09:21)
--- NOTE | 2018-08-26 09:31 | CR ---
Chest: 2 views of the chest were obtained. Comparison: Prior chest x-ray of 08/23/18 and 08/21/18. Heart size and mediastinum are normal. Continuing increased density within the left retrocardiac region. Lungs otherwise are clear. Lungs are hyperinflated compatible with emphysematous change. Bony structures appear within normal limits for the patient's age. Impression: 1. Continued and increased density within the left retrocardiac region. Findings are felt to be slightly improved from prior exam. 2. Emphysematous change with no new abnormality otherwise seen. Diagnostic code #3
[2018-08-26] MEDS: Doxycycline 100 MG in Sodium Chloride 0.9% 100 ML IV SCH ×2 (09:49→21:54)
[2018-08-26] MEDS: Morphine 10 MG/0.5 ML Oral Syringe PO PRN ×2 (09:50→18:27)
--- NOTE | 2018-08-26 14:27 | PCM.PN ---
- General Info Date of Service: 08/26/18 Functional Status: Reports: Pain Controlled - Review of Systems General: Reports: Weakness, Fatigue, Malaise HEENT: Reports: No Symptoms Pulmonary: Reports: No Symptoms Cardiovascular: Reports: No Symptoms Gastrointestinal: Reports: No Symptoms Genitourinary: Reports: No Symptoms Musculoskeletal: Reports: No Symptoms Skin: Reports: No Symptoms Neurological: Reports: No Symptoms Psychiatric: Reports: No Symptoms - Patient Data Vitals - Most Recent: Last Vital Signs Temp 36.8 C 08/26/18 08:13 Pulse 59 L 08/26/18 08:13 Resp 20 08/26/18 08:13 BP 131/70 08/26/18 08:13 Pulse Ox 91 L 08/26/18 09:08 Weight - Most Recent: 69.899 kg I&O - Last 24 Hours: Intake & Output 08/25/18 08/26/18 08/26/18 22:59 06:59 14:59 Intake Total 820 780 Output Total 1175 700 Balance -355 80 Lab Results Last 24 Hours: Laboratory Results - last 24 hr 08/26/18 08/26/18 Range/Units 05:50 05:50 WBC 6.42 (4.23-9.07) K/mm3 RBC 3.47 L (4.63-6.08) M/mm3 Hgb 10.9 L (13.7-17.5) gm/L Hct 34.3 L (40.1-51.0) % MCV 98.8 H (79.0-92.2) fl MCH 31.4 (25.7-32.2) pg MCHC 31.8 L (32.2-35.5) g/dl RDW Std Deviation 47.7 H (35.1-43.9) fL Plt Count 203 (163-337) K/mm3 MPV 8.7 L (9.4-12.3) fl Neut % (Auto) 71.3 H (34.0-67.9) % Lymph % (Auto) 14.5 L (21.8-53.1) % Alfalfa % (Auto) 8.9 (5.3-12.2) % Eos % (Auto) 4.8 (0.8-7.0) Baso % (Auto) 0.3 (0.1-1.2) % Neut # (Auto) 4.58 (1.78-5.38) K/mm3 Lymph # (Auto) 0.93 L (1.32-3.57) K/mm3 Alfalfa # (Auto) 0.57 (0.30-0.82) K/mm3 Eos # (Auto) 0.31 (0.04-0.54) K/mm3 Baso # (Auto) 0.02 (0.01-0.08) K/mm3 Sodium 148 H (136-145) mEq/L Potassium 4.3 (3.5-5.1) mEq/L Chloride 114 H (98-107) mEq/L Carbon Dioxide 25 (21-32) mEq/L Anion Gap 13.3 (5-15) BUN 15 (7-18) mg/dL Creatinine 0.8 (0.7-1.3) mg/dL Est Cr Clr Drug Dosing 91.01 mL/min Estimated GFR (MDRD) > 60 (>60) mL/min BUN/Creatinine Ratio 18.8 H (14-18) Glucose 87 (80-115) mg/dL Calcium 9.3 (8.5-10.1) mg/dL Magnesium 1.9 (1.8-2.4) mg/dl C-Reactive Protein 3.2 H* (<1.0) mg/dL Triston Results Last 24 Hours: Microbiology 08/21/18 13:50 Aerobic Blood Culture - Preliminary Blood NO GROWTH AFTER 5 DAYS Anaerobic Blood Culture - Preliminary NO GROWTH AFTER 5 DAYS 08/23/18 19:30 Gram Stain - Final Sputum - Expectorated Sputum Culture - Final (Mrsa) Staphylococcus Aureus 08/21/18 14:25 Aerobic Blood Culture - Preliminary Blood NO GROWTH AFTER 4 DAYS Anaerobic Blood Culture - Preliminary NO GROWTH AFTER 4 DAYS Med Orders - Current: Current Medications Acetaminophen (Tylenol) 650 mg PO Q4H PRN PRN Reason: Pain (Mild 1-3)/fever Hydrocodone Bitart/Acetaminophen ([place] 325-5 Mg) 1 tab PO Q4H PRN PRN Reason: Pain (moderate 4-6) Last Admin: 08/25/18 15:03 Dose: 1 tab Albuterol (Proventil Neb Soln) 2.5 mg INH Q4H PRN PRN Reason: Shortness of Breath Albuterol/Ipratropium (Duoneb 3.0-0.5 Mg/3 Ml) 3 ml NEB Q4H PRN PRN Reason: Shortness Of Breath/wheezing Aspirin (Aspirin) 81 mg PO DAILY [facility] Last Admin: 08/26/18 09:15 Dose: 81 mg Bisacodyl (Dulcolax) 5 mg PO DAILY PRN PRN Reason: Constipation Clonazepam (Klonopin) 0.5 mg PO TID PRN PRN Reason: Anxiety Last Admin: 08/26/18 09:20 Dose: 0.5 mg Diclofenac Sodium (Voltaren 1% Gel) 0 gm TOP QID PRN PRN Reason: Pain Last Admin: 08/26/18 09:13 Dose: 1 applic Docusate Sodium (Colace) 100 mg PO BID PRN PRN Reason: Constipation Enoxaparin Sodium (Lovenox) 40 mg SUBCUT DAILY [facility] Last Admin: 08/26/18 09:20 Dose: 40 mg Famotidine (Pepcid) 20 mg PO BID [facility] Last Admin: 08/26/18 09:17 Dose: 20 mg Finasteride (Proscar) 5 mg PO DAILY [facility] Last Admin: 08/26/18 09:17 Dose: 5 mg Gabapentin (Neurontin) 900 mg PO TID [facility] Last Admin: 08/26/18 14:13 Dose: 900 mg Doxycycline Hyclate 100 mg/ (Sodium Chloride) 100 mls @ 100 mls/hr IV Q12HR [facility] Last Admin: 08/26/18 09:49 Dose: 100 mls/hr Ampicillin Sodium 2 gm/ Sodium (Chloride) 100 mls @ 200 mls/hr IV Q6H [facility] Last Admin: 08/26/18 14:13 Dose: 200 mls/hr Lidocaine HCl (Xylocaine 4% Top Soln) 0 ml TOP TID [facility] Last Admin: 08/26/18 14:15 Dose: 1 applic Magnesium Hydroxide (Milk Of Magnesia) 30 ml PO Q12H PRN PRN Reason: Constipation Mometasone Furoate/Formoterol Fumar (Dulera 200-5 Mcg) 2 puff IH BIDRT [facility] Last Admin: 08/26/18 06:23 Dose: 2 puff Montelukast Sodium (Singulair) 10 mg PO DAILY [facility] Last Admin: 08/26/18 09:20 Dose: 10 mg Morphine Sulfate (Morphine 10 Mg/0.5 Ml Oral Syringe) 10 mg PO Q4H PRN PRN Reason: Pain Last Admin: 08/26/18 09:50 Dose: 10 mg Multivitamins (Thera) 1 each PO DAILY [facility] Last Admin: 08/26/18 09:15 Dose: 1 each Olanzapine (Zyprexa) 10 mg PO DAILY [facility] Last Admin: 08/26/18 09:19 Dose: 10 mg Ondansetron HCl (Zofran Odt) 4 mg PO Q4H PRN PRN Reason: nausea, able to take PO Ondansetron HCl (Zofran) 4 mg IV Q4H PRN PRN Reason: Nausea/Vomiting Umeclidinium Brm/Vilanterol Tr (Anoro Inhaler) 0 each INH DAILY [facility] Last Admin: 08/26/18 09:08 Dose: 1 each Meloxicam 15 Mg 0 each PO DAILY [facility] Last Admin: 08/26/18 09:21 Dose: Not Given Carisoprodol 350 Mg 0 each PO QID [facility] Last Admin: 08/26/18 14:14 Dose: 1 each Polyethylene Glycol (Miralax) 17 gm PO DAILY [facility] Last Admin: 08/26/18 09:21 Dose: Not Given Saccharomyces Boulardii (Florastor) 250 mg PO BID [facility] Last Admin: 08/26/18 09:15 Dose: 250 mg Senna/Docusate Sodium (Senna Plus) 1 tab PO BID PRN PRN Reason: Constipation Sodium Chloride (Saline Flush) 10 ml FLUSH ASDIRECTED PRN PRN Reason: Keep Vein Open Last Admin: 08/21/18 13:50 Dose: 10 ml Temazepam (Restoril) 7.5 mg PO BEDTIME PRN PRN Reason: Sleep Thiamine HCl (Vitamin B-1) 300 mg PO DAILY [facility] Last Admin: 08/26/18 09:18 Dose: 300 mg Trazodone HCl (Trazodone) 100 mg PO BEDTIME [facility] Last Admin: 08/25/18 21:57 Dose: 100 mg Verapamil HCl (Calan) 160 mg PO TID [facility] Last Admin: 08/26/18 14:13 Dose: 160 mg Discontinued Medications Acetaminophen (Tylenol) 640 mg PO ONETIME ONE Stop: 08/21/18 13:43 Last Admin: 08/21/18 14:27 Dose: 640 mg Acetaminophen (Tylenol) 650 mg PO Q4H PRN PRN Reason: Pain (Mild 1-3)/fever Acetaminophen (Tylenol) 650 mg GTUBE Q4H PRN PRN Reason: Pain (Mild 1-3)/fever Hydrocodone Bitart/Acetaminophen ([place] 325-5 Mg) 1 tab PO Q4H PRN PRN Reason: Pain (moderate 4-6) Last Admin: 08/21/18 21:27 Dose: 1 tab Hydrocodone Bitart/Acetaminophen ([place] 325-5 Mg) 1 tab GTUBE Q4H PRN PRN Reason: Pain (moderate 4-6) Last Admin: 08/22/18 09:16 Dose: 1 tab Aspirin (Aspirin) 81 mg GTUBE DAILY [facility] Last Admin: 08/22/18 09:08 Dose: 81 mg Bisacodyl (Dulcolax) 5 mg PO DAILY PRN PRN Reason: Constipation Bisacodyl (Dulcolax) 5 mg .XX DAILY PRN PRN Reason: Constipation Clonazepam (Klonopin) 0.5 mg GTUBE TID PRN PRN Reason: Anxiety Last Admin: 08/21/18 21:27 Dose: 0.5 mg Diclofenac Sodium (Voltaren 1% Gel) 0 gm TOP QID PRN PRN Reason: Pain Docusate Sodium (Colace) 100 mg PO BID PRN PRN Reason: Constipation Docusate Sodium (Colace) 100 mg .XX BID PRN PRN Reason: Constipation Famotidine (Pepcid) 20 mg PO BID [facility] Famotidine (Pepcid) 20 mg GTUBE BID [facility] Last Admin: 08/22/18 09:14 Dose: 20 mg Finasteride (Proscar) 5 mg .XX DAILY [facility] Last Admin: 08/22/18 09:04 Dose: 5 mg Gabapentin (Neurontin) 900 mg GTUBE TID [facility] Last Admin: 08/22/18 09:15 Dose: 900 mg Gentamicin Sulfate (Pharmacy To Dose - Gentamicin) 0 dose .XX ASDIRECTED PRN PRN Reason: RX TO DOSE GENT Sodium Chloride (Normal Saline) 1,000 mls @ 999 mls/hr IV ONETIME [facility] Last Admin: 08/21/18 14:25 Dose: 999 mls/hr Piperacillin Sod/Tazobactam (Sod 4.5 gm/ Sodium Chloride) 100 mls @ 200 mls/hr IV ONETIME ONE Stop: 08/21/18 15:20 Last Admin: 08/21/18 15:10 Dose: 200 mls/hr Dextrose/Sodium Chloride (Dextrose 5%-Normal Saline) 1,000 mls @ 75 mls/hr IV ASDIRECTED [facility] Last Admin: 08/22/18 06:15 Dose: 75 mls/hr Piperacillin Sod/Tazobactam (Sod 4.5 gm/ Sodium Chloride) 100 mls @ 25 mls/hr IV Q8H [facility] Last Admin: 08/24/18 13:07 Dose: 25 mls/hr Ceftriaxone Sodium 2 gm/ (Sodium Chloride) 100 mls @ 200 mls/hr IV Q24H [facility] Last Admin: 08/24/18 08:37 Dose: 200 mls/hr Magnesium Sulfate/Dextrose 1 (gm/ Premix) 100 mls @ 100 mls/hr IV ONETIME ONE Stop: 08/23/18 11:59 Last Admin: 08/23/18 11:50 Dose: 100 mls/hr Levofloxacin/Dextrose 750 mg/ (Premix) 150 mls @ 100 mls/hr IV Q24H [facility] Last Admin: 08/24/18 20:32 Dose: 100 mls/hr Gentamicin Sulfate 500 mg/ (Sodium Chloride) 112.5 mls @ 225 mls/hr IV Q24H [facility] Last Admin: 08/24/18 22:15 Dose: 225 mls/hr Magnesium Sulfate 4 gm/ Premix 100 mls @ 25 mls/hr IV ONETIME ONE Stop: 08/25/18 07:34 Last Admin: 08/25/18 08:59 Dose: 25 mls/hr Ampicillin Sodium 2 gm/ Sodium (Chloride) 100 mls @ 200 mls/hr IV Q6H [facility] Last Admin: 08/25/18 17:53 Dose: 200 mls/hr Ampicillin Sodium 2 gm/ Sodium (Chloride) 100 mls @ 200 mls/hr IV Q6H [facility] Last Admin: 08/26/18 02:36 Dose: 200 mls/hr Insulin Human Lispro (Humalog) 0 unit SUBCUT QIDACANDBED [facility]; Protocol Insulin Human Lispro (Humalog) 0 unit SUBCUT Q6H [facility]; Protocol Last Admin: 08/22/18 17:05 Dose: Not Given Magnesium Hydroxide (Milk Of Magnesia) 30 ml PO Q12H PRN PRN Reason: Constipation Magnesium Hydroxide (Milk Of Magnesia) 30 ml GTUBE Q12H PRN PRN Reason: Constipation Magnesium Oxide (Magnesium Oxide) 400 mg PO ONETIME ONE Stop: 08/22/18 16:08 Last Admin: 08/22/18 17:01 Dose: 400 mg Magnesium Sulfate (Pharmacy To Dose - Magnesium Replacement) 0 dose .XX ASDIRECTED PRN PRN Reason: RX TO WATCH MAG LEVELS Montelukast Sodium (Singulair) 10 mg GTUBE DAILY [facility] Last Admin: 08/22/18 09:15 Dose: 10 mg Morphine Sulfate (Morphine) 2 mg IVPUSH Q2H PRN PRN Reason: Pain (severe 7-10) Stop: 08/22/18 17:53 Last Admin: 08/22/18 10:17 Dose: 2 mg Morphine Sulfate (Morphine 10 Mg/0.5 Ml Oral Syringe) 10 mg PO Q4H PRN PRN Reason: Pain Multivitamins (Thera) 1 each .XX DAILY [facility] Last Admin: 08/22/18 09:13 Dose: 1 each Non-Formulary Medication (Albuterol) 2 puff IH Q4H PRN PRN Reason: Shortness of Breath Olanzapine (Zyprexa) 10 mg GTUBE DAILY [facility] Last Admin: 08/22/18 09:12 Dose: 10 mg Carisoprodol 350 Mg 0 each GTUBE QID [facility] Last Admin: 08/22/18 09:17 Dose: Not Given Meloxicam 15 Mg 0 each GTUBE DAILY [facility] Last Admin: 08/22/18 09:17 Dose: Not Given Polyethylene Glycol (Miralax) 17 gm PO DAILY PRN PRN Reason: Constipation Polyethylene Glycol (Miralax) 17 gm GTUBE DAILY [facility] Last Admin: 08/22/18 09:19 Dose: Not Given Potassium Chloride (Pharmacy To Dose - Potassium Replacement) 0 dose .XX ASDIRECTED PRN PRN Reason: RX TO WATCH K LEVELS Potassium Chloride (Klor-Con M20) 40 meq PO BID [facility] Stop: 08/26/18 09:01 Last Admin: 08/26/18 09:14 Dose: 40 meq Saccharomyces Boulardii (Florastor) 250 mg PO BID [facility] Last Admin: 08/21/18 21:08 Dose: 250 mg Saccharomyces Boulardii (Florastor) 250 mg GTUBE BID [facility] Last Admin: 08/22/18 09:15 Dose: 250 mg Senna/Docusate Sodium (Senna Plus) 1 tab PO BID PRN PRN Reason: Constipation Senna/Docusate Sodium (Senna Plus) 1 tab GTUBE BID PRN PRN Reason: Constipation Temazepam (Restoril) 7.5 mg PO BEDTIME PRN PRN Reason: Sleep Last Admin: 08/21/18 21:27 Dose: 7.5 mg Temazepam (Restoril) 7.5 mg GTUBE BEDTIME PRN PRN Reason: Sleep Thiamine HCl (Vitamin B-1) 300 mg GTUBE DAILY [facility] Last Admin: 08/22/18 09:14 Dose: 300 mg Trazodone HCl (Trazodone) 100 mg PO BEDTIME STELLA Last Admin: 08/21/18 21:09 Dose: 100 mg Verapamil HCl (Calan) 160 mg GTUBE TID [facility] Last Admin: 08/22/18 09:15 Dose: 160 mg - Exam Quality Assessment: Supplemental Oxygen, DVT Prophylaxis General: Alert, Oriented, Cooperative, No Acute Distress HEENT: Pupils Equal, Pupils Reactive, EOMI, Mucous Membr. Moist/[place] Neck: Supple, No JVD Lungs: Normal Respiratory Effort Cardiovascular: Regular Rate GI/Abdominal Exam: Normal Bowel Sounds, Soft, Non-Tender, No Organomegaly, No Distention (Male) Exam: Deferred Back Exam: Normal Inspection Extremities: Normal Inspection, Non-Tender, Normal Capillary Refill Skin: Warm Neurological: No New Focal Deficit, Normal Speech, Normal Tone, Cranial Nerves Intact Psy/Mental Status: Alert, Normal Affect, Normal Mood - Problem List Review Problem List Initiated/Reviewed/Updated: Yes - Plan Plan:: /P: Acute: Bronchitis vs PNA (Radiology retrocardiac consolidation), Continues to Improve * Differential: Bronchitis vs PNA * Risk Factors: COPD, Lives at [facility] * WBC 10.25--> 6.37-->10.9, CRP 4.5--> 9.6 --> 6.9 * CXR in ED 08/21/18: * Left retrocardiac consolidation. Differential includes atelectasis, chronic changes as well as pneumonia if patient has infectious symptoms. * Sputum culture--> few staph aureus * RVP, Mycoplasma, Strep pneumo negative * Blood cultures show no growth * Continue RT/Duonebs/IS/Acapella * ACCOUNTING MACHINE OPERATOR swallow eval to r/o aspiration: * Recommend Regular diet with nectar thick liquids, no straw * Video swallow eval on 09/01/17 * Recommend more frequent speech therapy at [facility] * CXR 08/23/18: * 1. Continuing increased density within the left retrocardiac region. No change is seen from prior chest x-ray. * Repeat CXR 08/26/18 * Zosyn started in ED; Continue IV Zosyn and Rocephin--> Levaquin and Gentamycin --> D/C start Ampicillin and Doxycycline according to sensitivities UTI vs Pyelonephritis, Improving * Temperature 101.8 at [facility]; 104.9 in ED--> 97.9 now * UA impressive for UTI * Urine culture--> Staph aureus, Enterococcus Faecalis, MRSA Staph Aureus * Zosyn started in ED; Continue IV Zosyn and Rocephin--> Levaquin and Gentamycin --> D/C start Ampicillin and Doxycycline according to sensitivities Hypomagnesemia * Mg 1.7 --> 1.7--> 1.6 * 2/2 inadequate intake * Pharmacy to Replete and monitor Chronic: HTN PEG tube--> Pt is able to take medications and food PO here; this may need to be reconsidered by PCP? Weakness Indwelling catheter d/t Urinary retention Neurological disorder NOS- 2/2 Combs overdose? 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 Enamorado From [facility] D/C Plan: * [facility] to accept pt on Saturday d/t availability * PEG tube--> Pt is able to take medications and food PO here; this may need to be reconsidered by PCP? * PO Doxy and Ampicillin * DC follow up consider neuro/pain mgt consults respectively * Video Swallow 09/01/17; NDD4 with thin liquids for now per ACCOUNTING MACHINE OPERATOR * ACCOUNTING MACHINE OPERATOR recommends more frequent speech therapy at [facility] LOS >96 hours with current therapy, [facility]
[2018-08-26] MEDS: Acetaminophen/HYDROcodone 325-5 MG Tab PO PRN ×2 (15:05→22:00)
[2018-08-26] MEDS: traZODone 50 MG Tab PO SCH (21:58)
[2018-08-27] MEDS: Ampicillin 2 GM in Sodium Chloride 0.9% 100 ML IV SCH ×2 (02:14→08:45)
[2018-08-27] MEDS: Morphine 10 MG/0.5 ML Oral Syringe PO PRN (02:35)
[2018-08-27] MEDS: Formoterol/Mometasone 200-5 MCG 8.8 GM Inhaler IH SCH (06:34)
[2018-08-27] MEDS: UMECLIDINIUM BRM INH SCH (08:13)
[2018-08-27] MEDS: VILANTEROL TR INH SCH (08:13)
[2018-08-27] MEDS: Diclofenac Sodium 1% Gel 100 GM Tube TOP PRN (08:41)
[2018-08-27] MEDS: Saccharomyces Boulardii (Probiotic) 250 MG Cap PO SCH (08:42)
[2018-08-27] MEDS: ClonazePAM 0.5 MG Tab PO PRN (08:42)
[2018-08-27] MEDS: Lidocaine 4% Top Soln 50 ML Bottle TOP SCH (08:42)
[2018-08-27] MEDS: Gabapentin 300 MG Cap PO SCH (08:42)
[2018-08-27] MEDS: OLANZapine 5 MG Tab PO SCH (08:42)
[2018-08-27] MEDS: Thiamine 100 MG Tab PO SCH (08:43)
[2018-08-27] MEDS: Finasteride 5 MG Tab PO SCH (08:43)
[2018-08-27] MEDS: Verapamil 80 MG Tab PO SCH (08:43)
[2018-08-27] MEDS: Montelukast 10 MG Tab PO SCH (08:43)
[2018-08-27] MEDS: Famotidine 20 MG Tab PO SCH (08:43)
[2018-08-27] MEDS: Multivitamins,Therapeutic Tab PO SCH (08:43)
[2018-08-27] MEDS: Acetaminophen/HYDROcodone 325-5 MG Tab PO PRN (08:43)
[2018-08-27] MEDS: Aspirin 81 MG Tab.Chew PO SCH (08:44)
[2018-08-27] MEDS: Polyethylene Glycol 3350 Powder 17 GM Packet PO SCH (08:44)
[2018-08-27] MEDS: Enoxaparin 40 MG/0.4 ML Syringe SUBCUT SCH (08:44)
[2018-08-27] MEDS: Doxycycline 100 MG in Sodium Chloride 0.9% 100 ML IV SCH (09:28)
--- NOTE | 2018-08-27 18:56 | PCM.DCSUM1 ---
Discharge Summary - Hospital Course HPI Initial Comments: 67-year-old male has been brought here from [facility] for evaluation of high fever. This started earlier today and was over 103 at time of transfer. 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 He has had occasional cough. Have a chronic indwelling Daugherty catheter. The daughter states that he is susceptible to pneumonia and [facility]p staff state that he may have "aspirated yesterday". Diagnosis: Stroke: No - Discharge Data Discharge Date: 08/27/18 (ADMIT 08/21/18) Discharge Disposition: DC/Tfer to [facility] 03 Condition: Good - Discharge Diagnosis/Problem(s) (1) Pyelonephritis SNOMED Code(s): 50124681 ICD Code: N12 - TUBULO-INTERSTITIAL NEPHRITIS, NOT SPCF ACUTE OR CHRONIC Status: Acute Priority: High (2) Cervical spine disease SNOMED Code(s): 065888483 ICD Code: M48.9 - SPONDYLOPATHY, UNSPECIFIED Status: Chronic Priority: Low - Patient Summary/Data Operative Procedure(s) Performed: none Complications: none Consults: Consultations 08/21/18 17:45 Consult to Speech Language Pathology [[facility] [employer] Evaluation and Treatment] [CONS] Routine 08/21/18 17:59 Consult to Case Management/It Application Architect [CONS] Routine OT Evaluation and Treatment [CONS] Routine PT Evaluation and Treatment [CONS] Routine 08/22/18 13:55 Consult to Internet E Commerce Specialist [CONS] Routine 08/22/18 13:56 PT Evaluation and Treatment [CONS] Routine Labs Pending at D/C: none Planned Operative Procedure(s) after DC: none Hospital Course: I/P: Acute: Bronchitis vs PNA (Radiology retrocardiac consolidation), Continues to Improve * Differential: Bronchitis vs PNA * Risk Factors: COPD, Lives at [facility] * WBC 10.25-->6.42, CRP 4.5--> 3.2 * CXR in ED 08/21/18: * Left retrocardiac consolidation. Differential includes atelectasis, chronic changes as well as pneumonia if patient has infectious symptoms. * Sputum culture--> few MRSA * RVP, Mycoplasma, Strep pneumo negative * Blood cultures show no growth * Continue RT/Duonebs/IS/Acapella * [facility] swallow eval to r/o aspiration: * Recommend Regular diet with nectar thick liquids, no straw * Video swallow eval on 09/01/17 * Recommend more frequent speech therapy at [facility] * CXR 08/23/18: * 1. Continuing increased density within the left retrocardiac region. No change is seen from prior chest x-ray. * Repeat CXR 08/26/18: * 1. Continued and increased density within the left retrocardiac region. Findings are felt to be slightly improved from prior exam. * 2. Emphysematous change with no new abnormality otherwise seen. * Zosyn started in ED; Continue IV Zosyn and Rocephin--> Levaquin and Gentamycin --> D/C start Ampicillin and Doxycycline according to sensitivities UTI vs Pyelonephritis, Improving * Temperature 101.8 at [facility]; 104.9 in ED--> 97.9 now * UA impressive for UTI * Urine culture--> Staph aureus, Enterococcus Faecalis, MRSA Staph Aureus * Zosyn started in ED; Continue IV Zosyn and Rocephin--> Levaquin and Gentamycin --> D/C start Ampicillin and Doxycycline according to sensitivities Resolved: Hypomagnesemia * Mg 1.7 --> 1.7--> 1.6--> 1.9 * 2/2 inadequate intake * Pharmacy to Replete and monitor Chronic: HTN PEG tube--> Pt is able to take medications and food PO here; this may need to be reconsidered by PCP? Weakness Indwelling catheter d/t Urinary retention Neurological disorder NOS- 2/2 Sunbright overdose? Spasmodic torticollis Cluster TOUSSAINT COPD GERD Cervical Disc Degeneration Dysphagia Plan: He is clinically stable Droplet precautions, Contact Precautions (MRSA positive) Routine AM labs Normally NDD4 w/ pudding thick--> Regular diet w/ nectar thick liquids (per [employer] eval here) Continue PT/OT Continue all home medications for pain management CM/SW for d/c planning DVT Prophylaxis/GI Prophylaxis Other orders as indicated above Code Status: Full Code; PCP: Dr. Enamorado From [facility] D/C Plan: * [facility] to accept pt on Saturday d/t availability * PEG tube--> Pt is able to take medications and food PO here; this may need to be reconsidered by PCP? * PO Doxy and Ampicillin * DC follow up consider neuro/pain mgt consults respectively * Video Swallow 09/01/18; NDD4 with thin liquids for now per [employer] [employer] * [facility] [employer] [facility] recommends more frequent speech therapy at [facility] LOS >96 hours with current therapy, pending [facility] placement Ramu did well here after being admitted for PNA and UTI with chronic daugherty catheter 2/2 MRSA and other organisms (see above). He will be sent home with Doxycycline x 10 days and Florastor for completion of treatment. Recommend F/U with PCP in 7-10 days: recommend reassessment of need of PEG tube and frequency of daugherty catheter changes (currently monthly). Also recommend F/U with neurologist, Dr. Michelle Groves, on 10/07/18. [facility] [employer] recommends outpt video swallow, which is scheduled for 09/01/18, and more frequent speech therapy. Pt will be D/C' d to [facility] today. - Patient Instructions Diet: Usual Diet as Tolerated Activity: As Tolerated Driving: Do Not Drive Showering/Bathing: May Shower Notify Provider of: Fever, Increased Pain, Nausea and/or Vomiting - Discharge Plan *PRESCRIPTION DRUG MONITORING PROGRAM REVIEWED*: No *COPY OF PRESCRIPTION DRUG MONITORING REPORT IN PATIENT RODRIGUE: No Prescriptions/Med Rec: Doxycycline [Vibramycin] 100 mg PO BID #20 cap Saccharomyces Boulardii [Florastor] 250 mg PO BID #60 cap Home Medications: Home Meds Acetaminophen [Pain Relief] 650 mg GTUBE Q6H PRN 08/21/18 [History] Albuterol Sulfate 2.5 mg IH Q4H PRN 08/21/18 [History] Albuterol [Ventolin HFA] 2 puff IH Q4H PRN 08/21/18 [History] Aspirin 81 mg GTUBE DAILY 08/21/18 [History] Budesonide/Formoterol [Symbicort 160-4.5 MCG] 2 puff IH BID 08/21/18 [History] Carisoprodol 350 mg GTUBE QID 08/21/18 [History] ClonazePAM [KlonoPIN] 0.5 mg GTUBE TID PRN 08/21/18 [History] Diclofenac Sodium [Voltaren 1% Gel] 1 applic TOP QID PRN 08/21/18 [History] Famotidine [Pepcid] 20 mg GTUBE BID 08/21/18 [History] Finasteride 5 mg GTUBE DAILY 08/21/18 [History] Gabapentin 900 mg GTUBE TID 08/21/18 [History] Hydrocortisone [Hydrocortisone 1% Crm] 1 applic TOP TID PRN 08/21/18 [History] Lidocaine 4% [Xylocaine 4% Top Soln] 1 applic TOP TID 08/21/18 [History] Melatonin 15 mg GTUBE BEDTIME 08/21/18 [History] Meloxicam [Mobic] 15 mg GTUBE DAILY 08/21/18 [History] Montelukast [Singulair] 10 mg GTUBE DAILY 08/21/18 [History] Morphine [Morphine 10 MG/5 ML] 10 mg GTUBE Q4HR PRN 08/21/18 [History] Multivitamin [My Favorite Multiple] 30 ml GTUBE DAILY 08/21/18 [History] Nystatin [Nyata] 1 applic TOP BID 08/21/18 [History] OLANZapine [ZyPREXA] 10 mg GTUBE DAILY 08/21/18 [History] Polyethylene Glycol 3350 [MiraLAX] 17 gm GTUBE DAILY 08/21/18 [History] Thiamine HCl [Vitamin B-1] 300 mg GTUBE DAILY 08/21/18 [History] Umeclidinium Brm/Vilanterol Tr [Anoro Ellipta 62.5-25 MCG] 1 puff IH DAILY 08/21 [History] Verapamil [Calan] 160 mg GTUBE TID 08/21/18 [History] traZODone HCl [Trazodone HCl] 100 mg GTUBE BEDTIME 08/21/18 [History] Doxycycline [Vibramycin] 100 mg PO BID #20 cap 08/27/18 [Rx] Saccharomyces Boulardii [Florastor] 250 mg PO BID #60 cap 08/27/18 [Rx] Patient Handouts: Pyelonephritis, Adult, [id number]-Sijb Referrals: Michelle Groves [Other] - 10/07/18 1:00 pm (This appt. is your neurologist please arrive 15 minutes early and appt. time is central time.) Delio Enamorado MD [Primary Care Provider] - (Please call and schedule a follow-up appointment with Dr. Enamorado within 7 to 10 days of discharge. ) - Discharge Summary/Plan Comment DC Time >30 min.: Yes (40) - General Info Date of Service: 08/27/18 Admission Dx/Problem (Free Text: Admission Diagnosis/Problem Admission Diagnosis/Problem Urinary tract infection Functional Status: Reports: Pain Controlled, Tolerating Diet, Urinating - Review of Systems General: Reports: No Symptoms. Denies: Fever, Chills HEENT: Reports: No Symptoms Pulmonary: Reports: Shortness of Breath (improving), Cough (improving), Sputum ( improving) Cardiovascular: Reports: No Symptoms. Denies: Chest Pain Gastrointestinal: Reports: No Symptoms. Denies: Abdominal Pain, Diarrhea, Nausea, Vomiting Genitourinary: Reports: No Symptoms Musculoskeletal: Reports: No Symptoms Skin: Reports: No Symptoms Neurological: Reports: No Symptoms Psychiatric: Reports: No Symptoms - Patient Data Vitals - Most Recent: Last Vital Signs Temp 98.4 F 08/27/18 08:07 Pulse 59 L 08/27/18 08:07 Resp 16 08/27/18 08:07 BP 119/66 08/27/18 08:07 Pulse Ox 92 L 08/27/18 08:13 Weight - Most Recent: 151 lb 9.6 oz I&O - Last 24 hours: Intake & Output 08/27/18 08/27/18 08/27/18 06:59 14:59 22:59 Intake Total 900 120 120 Output Total 1050 Balance -150 120 120 PAUL Results - Last 24 hrs: Microbiology 08/21/18 14:25 Aerobic Blood Culture - Preliminary Blood NO GROWTH AFTER 6 DAYS Anaerobic Blood Culture - Preliminary NO GROWTH AFTER 6 DAYS 08/21/18 13:50 Aerobic Blood Culture - Preliminary Blood NO GROWTH AFTER 6 DAYS Anaerobic Blood Culture - Preliminary NO GROWTH AFTER 6 DAYS Med Orders - Current: Current Medications Discontinued Medications Acetaminophen (Tylenol) 640 mg PO ONETIME ONE Stop: 08/21/18 13:43 Last Admin: 08/21/18 14:27 Dose: 640 mg Acetaminophen (Tylenol) 650 mg PO Q4H PRN PRN Reason: Pain (Mild 1-3)/fever Acetaminophen (Tylenol) 650 mg GTUBE Q4H PRN PRN Reason: Pain (Mild 1-3)/fever Acetaminophen (Tylenol) 650 mg PO Q4H PRN PRN Reason: Pain (Mild 1-3)/fever Hydrocodone Bitart/Acetaminophen ([place] 325-5 Mg) 1 tab PO Q4H PRN PRN Reason: Pain (moderate 4-6) Last Admin: 08/21/18 21:27 Dose: 1 tab Hydrocodone Bitart/Acetaminophen ([place] 325-5 Mg) 1 tab GTUBE Q4H PRN PRN Reason: Pain (moderate 4-6) Last Admin: 08/22/18 09:16 Dose: 1 tab Hydrocodone Bitart/Acetaminophen ([place] 325-5 Mg) 1 tab PO Q4H PRN PRN Reason: Pain (moderate 4-6) Last Admin: 08/27/18 08:43 Dose: 1 tab Albuterol (Proventil Neb Soln) 2.5 mg INH Q4H PRN PRN Reason: Shortness of Breath Albuterol/Ipratropium (Duoneb 3.0-0.5 Mg/3 Ml) 3 ml NEB Q4H PRN PRN Reason: Shortness Of Breath/wheezing Aspirin (Aspirin) 81 mg GTUBE DAILY [facility] Last Admin: 08/22/18 09:08 Dose: 81 mg Aspirin (Aspirin) 81 mg PO DAILY [facility] Last Admin: 08/27/18 08:44 Dose: 81 mg Bisacodyl (Dulcolax) 5 mg PO DAILY PRN PRN Reason: Constipation Bisacodyl (Dulcolax) 5 mg .XX DAILY PRN PRN Reason: Constipation Bisacodyl (Dulcolax) 5 mg PO DAILY PRN PRN Reason: Constipation Clonazepam (Klonopin) 0.5 mg GTUBE TID PRN PRN Reason: Anxiety Last Admin: 08/21/18 21:27 Dose: 0.5 mg Clonazepam (Klonopin) 0.5 mg PO TID PRN PRN Reason: Anxiety Last Admin: 08/27/18 08:42 Dose: 0.5 mg Diclofenac Sodium (Voltaren 1% Gel) 0 gm TOP QID PRN PRN Reason: Pain Diclofenac Sodium (Voltaren 1% Gel) 0 gm TOP QID PRN PRN Reason: Pain Last Admin: 08/27/18 08:41 Dose: 1 applic Docusate Sodium (Colace) 100 mg PO BID PRN PRN Reason: Constipation Docusate Sodium (Colace) 100 mg .XX BID PRN PRN Reason: Constipation Docusate Sodium (Colace) 100 mg PO BID PRN PRN Reason: Constipation Doxycycline Hyclate (Vibramycin) 100 mg PO BID [facility] Enoxaparin Sodium (Lovenox) 40 mg SUBCUT DAILY [facility] Last Admin: 08/27/18 08:44 Dose: 40 mg Famotidine (Pepcid) 20 mg PO BID [facility] Famotidine (Pepcid) 20 mg GTUBE BID [facility] Last Admin: 08/22/18 09:14 Dose: 20 mg Famotidine (Pepcid) 20 mg PO BID [facility] Last Admin: 08/27/18 08:43 Dose: 20 mg Finasteride (Proscar) 5 mg .XX DAILY [facility] Last Admin: 08/22/18 09:04 Dose: 5 mg Finasteride (Proscar) 5 mg PO DAILY [facility] Last Admin: 08/27/18 08:43 Dose: 5 mg Gabapentin (Neurontin) 900 mg GTUBE TID [facility] Last Admin: 08/22/18 09:15 Dose: 900 mg Gabapentin (Neurontin) 900 mg PO TID [facility] Last Admin: 08/27/18 08:42 Dose: 900 mg Gentamicin Sulfate (Pharmacy To Dose - Gentamicin) 0 dose .XX ASDIRECTED PRN PRN Reason: RX TO DOSE GENT Sodium Chloride (Normal Saline) 1,000 mls @ 999 mls/hr IV ONETIME [facility] Last Admin: 08/21/18 14:25 Dose: 999 mls/hr Piperacillin Sod/Tazobactam (Sod 4.5 gm/ Sodium Chloride) 100 mls @ 200 mls/hr IV ONETIME ONE Stop: 08/21/18 15:20 Last Admin: 08/21/18 15:10 Dose: 200 mls/hr Dextrose/Sodium Chloride (Dextrose 5%-Normal Saline) 1,000 mls @ 75 mls/hr IV ASDIRECTED [facility] Last Admin: 08/22/18 06:15 Dose: 75 mls/hr Piperacillin Sod/Tazobactam (Sod 4.5 gm/ Sodium Chloride) 100 mls @ 25 mls/hr IV Q8H [facility] Last Admin: 08/24/18 13:07 Dose: 25 mls/hr Ceftriaxone Sodium 2 gm/ (Sodium Chloride) 100 mls @ 200 mls/hr IV Q24H [facility] Last Admin: 08/24/18 08:37 Dose: 200 mls/hr Magnesium Sulfate/Dextrose 1 (gm/ Premix) 100 mls @ 100 mls/hr IV ONETIME ONE Stop: 08/23/18 11:59 Last Admin: 08/23/18 11:50 Dose: 100 mls/hr Levofloxacin/Dextrose 750 mg/ (Premix) 150 mls @ 100 mls/hr IV Q24H [facility] Last Admin: 08/24/18 20:32 Dose: 100 mls/hr Gentamicin Sulfate 500 mg/ (Sodium Chloride) 112.5 mls @ 225 mls/hr IV Q24H [facility] Last Admin: 08/24/18 22:15 Dose: 225 mls/hr Magnesium Sulfate 4 gm/ Premix 100 mls @ 25 mls/hr IV ONETIME ONE Stop: 08/25/18 07:34 Last Admin: 08/25/18 08:59 Dose: 25 mls/hr Ampicillin Sodium 2 gm/ Sodium (Chloride) 100 mls @ 200 mls/hr IV Q6H [facility] Last Admin: 08/25/18 17:53 Dose: 200 mls/hr Doxycycline Hyclate 100 mg/ (Sodium Chloride) 100 mls @ 100 mls/hr IV Q12HR [facility] Last Admin: 08/27/18 09:28 Dose: 100 mls/hr Ampicillin Sodium 2 gm/ Sodium (Chloride) 100 mls @ 200 mls/hr IV Q6H [facility] Last Admin: 08/26/18 02:36 Dose: 200 mls/hr Ampicillin Sodium 2 gm/ Sodium (Chloride) 100 mls @ 200 mls/hr IV Q6H [facility] Last Admin: 08/27/18 08:45 Dose: 200 mls/hr Insulin Human Lispro (Humalog) 0 unit SUBCUT QIDACANDBED [facility]; Protocol Insulin Human Lispro (Humalog) 0 unit SUBCUT Q6H [facility]; Protocol Last Admin: 08/22/18 17:05 Dose: Not Given Lidocaine HCl (Xylocaine 4% Top Soln) 0 ml TOP TID [facility] Last Admin: 08/27/18 08:42 Dose: 1 applic Magnesium Hydroxide (Milk Of Magnesia) 30 ml PO Q12H PRN PRN Reason: Constipation Magnesium Hydroxide (Milk Of Magnesia) 30 ml GTUBE Q12H PRN PRN Reason: Constipation Magnesium Hydroxide (Milk Of Magnesia) 30 ml PO Q12H PRN PRN Reason: Constipation Magnesium Oxide (Magnesium Oxide) 400 mg PO ONETIME ONE Stop: 08/22/18 16:08 Last Admin: 08/22/18 17:01 Dose: 400 mg Magnesium Sulfate (Pharmacy To Dose - Magnesium Replacement) 0 dose .XX ASDIRECTED PRN PRN Reason: RX TO WATCH MAG LEVELS Mometasone Furoate/Formoterol Fumar (Dulera 200-5 Mcg) 2 puff IH BIDRT [facility] Last Admin: 08/27/18 06:34 Dose: 2 puff Montelukast Sodium (Singulair) 10 mg GTUBE DAILY [facility] Last Admin: 08/22/18 09:15 Dose: 10 mg Montelukast Sodium (Singulair) 10 mg PO DAILY [facility] Last Admin: 08/27/18 08:43 Dose: 10 mg Morphine Sulfate (Morphine) 2 mg IVPUSH Q2H PRN PRN Reason: Pain (severe 7-10) Stop: 08/22/18 17:53 Last Admin: 08/22/18 10:17 Dose: 2 mg Morphine Sulfate (Morphine 10 Mg/0.5 Ml Oral Syringe) 10 mg PO Q4H PRN PRN Reason: Pain Morphine Sulfate (Morphine 10 Mg/0.5 Ml Oral Syringe) 10 mg PO Q4H PRN PRN Reason: Pain Last Admin: 08/27/18 02:35 Dose: 10 mg Multivitamins (Thera) 1 each .XX DAILY [facility] Last Admin: 08/22/18 09:13 Dose: 1 each Multivitamins (Thera) 1 each PO DAILY [facility] Last Admin: 08/27/18 08:43 Dose: 1 each Non-Formulary Medication (Albuterol) 2 puff IH Q4H PRN PRN Reason: Shortness of Breath Olanzapine (Zyprexa) 10 mg GTUBE DAILY [facility] Last Admin: 08/22/18 09:12 Dose: 10 mg Olanzapine (Zyprexa) 10 mg PO DAILY [facility] Last Admin: 08/27/18 08:42 Dose: 10 mg Ondansetron HCl (Zofran Odt) 4 mg PO Q4H PRN PRN Reason: nausea, able to take PO Ondansetron HCl (Zofran) 4 mg IV Q4H PRN PRN Reason: Nausea/Vomiting Carisoprodol 350 Mg 0 each GTUBE QID [facility] Last Admin: 08/22/18 09:17 Dose: Not Given Meloxicam 15 Mg 0 each GTUBE DAILY [facility] Last Admin: 08/22/18 09:17 Dose: Not Given Umeclidinium Brm/Vilanterol Tr (Anoro Inhaler) 0 each INH DAILY [facility] Last Admin: 08/27/18 08:13 Dose: 1 each Meloxicam 15 Mg 0 each PO DAILY [facility] Last Admin: 08/27/18 08:44 Dose: Not Given Carisoprodol 350 Mg 0 each PO QID [facility] Last Admin: 08/27/18 13:13 Dose: 1 each Polyethylene Glycol (Miralax) 17 gm PO DAILY PRN PRN Reason: Constipation Polyethylene Glycol (Miralax) 17 gm GTUBE DAILY [facility] Last Admin: 08/22/18 09:19 Dose: Not Given Polyethylene Glycol (Miralax) 17 gm PO DAILY [facility] Last Admin: 08/27/18 08:44 Dose: Not Given Potassium Chloride (Pharmacy To Dose - Potassium Replacement) 0 dose .XX ASDIRECTED PRN PRN Reason: RX TO WATCH K LEVELS Potassium Chloride (Klor-Con M20) 40 meq PO BID [facility] Stop: 08/26/18 09:01 Last Admin: 08/26/18 09:14 Dose: 40 meq Saccharomyces Boulardii (Florastor) 250 mg PO BID [facility] Last Admin: 08/21/18 21:08 Dose: 250 mg Saccharomyces Boulardii (Florastor) 250 mg GTUBE BID [facility] Last Admin: 08/22/18 09:15 Dose: 250 mg Saccharomyces Boulardii (Florastor) 250 mg PO BID [facility] Last Admin: 08/27/18 08:42 Dose: 250 mg Senna/Docusate Sodium (Senna Plus) 1 tab PO BID PRN PRN Reason: Constipation Senna/Docusate Sodium (Senna Plus) 1 tab GTUBE BID PRN PRN Reason: Constipation Senna/Docusate Sodium (Senna Plus) 1 tab PO BID PRN PRN Reason: Constipation Sodium Chloride (Saline Flush) 10 ml FLUSH ASDIRECTED PRN PRN Reason: Keep Vein Open Last Admin: 08/21/18 13:50 Dose: 10 ml Temazepam (Restoril) 7.5 mg PO BEDTIME PRN PRN Reason: Sleep Last Admin: 08/21/18 21:27 Dose: 7.5 mg Temazepam (Restoril) 7.5 mg GTUBE BEDTIME PRN PRN Reason: Sleep Temazepam (Restoril) 7.5 mg PO BEDTIME PRN PRN Reason: Sleep Thiamine HCl (Vitamin B-1) 300 mg GTUBE DAILY [facility] Last Admin: 08/22/18 09:14 Dose: 300 mg Thiamine HCl (Vitamin B-1) 300 mg PO DAILY [facility] Last Admin: 08/27/18 08:43 Dose: 300 mg Trazodone HCl (Trazodone) 100 mg PO BEDTIME [facility] Last Admin: 08/21/18 21:09 Dose: 100 mg Trazodone HCl (Trazodone) 100 mg PO BEDTIME [facility] Last Admin: 08/26/18 21:58 Dose: 100 mg Verapamil HCl (Calan) 160 mg GTUBE TID [facility] Last Admin: 08/22/18 09:15 Dose: 160 mg Verapamil HCl (Calan) 160 mg PO TID [facility] Last Admin: 08/27/18 08:43 Dose: 160 mg - Exam Quality Assessment: Reports: DVT Prophylaxis General: Reports: Alert, Oriented, Cooperative, No Acute Distress HEENT: Reports: Pupils Equal, Pupils Reactive, EOMI, Mucous Membr. Moist/[place] Neck: Reports: Supple Lungs: Reports: Normal Respiratory Effort, Decreased Breath Sounds Cardiovascular: Reports: Regular Rate, Regular Rhythm GI/Abdominal Exam: Normal Bowel Sounds, Soft, Non-Tender, No Organomegaly, No Distention, No Abnormal Bruit, No Mass, Pelvis Stable (Male) Exam: Deferred Rectal (Males) Exam: Deferred Back Exam: Reports: Normal Inspection Extremities: Normal Inspection, Normal Range of Motion, Non-Tender, No Pedal Edema, Normal Capillary Refill, Other (mild bilateral atrophy) Skin: Reports: Warm, Dry, Intact Neurological: Reports: No New Focal Deficit Psy/Mental Status: Reports: Alert, Normal Affect, Normal Mood
[2018-08-27] MEDS ORDERED: Doxycycline 100 MG Cap PO SCH (21:00)
== END 2018-08-27 13:46 | DRG 698 ==
LOC: JD.ED 12:57 → JD.MS 16:16
PROVIDERS: ADMIT Internal Medicine; ATTEND Internal Medicine
DX: T83.511A Infection and inflammatory reaction due to indwelling urethral catheter, initial encounter (principal); R50.9 Fever, unspecified; R53.1 Weakness; R05 Cough; J18.9 Pneumonia, unspecified organism; E23.2 Diabetes insipidus; J44.0 Chronic obstructive pulmonary disease with (acute) lower respiratory infection; I10 Essential (primary) hypertension; R33.9 Retention of urine, unspecified; R29.90 Unspecified symptoms and signs involving the nervous system; K21.9 Gastro-esophageal reflux disease without esophagitis; M50.30 Other cervical disc degeneration, unspecified cervical region; R13.10 Dysphagia, unspecified; D64.9 Anemia, unspecified; M43.6 Torticollis; G44.009 Cluster headache syndrome, unspecified, not intractable; B95.2 Enterococcus as the cause of diseases classified elsewhere; B95.62 Methicillin resistant Staphylococcus aureus infection as the cause of diseases classified elsewhere; E83.42 Hypomagnesemia; Z88.1 Allergy status to other antibiotic agents; Z93.1 Gastrostomy status; Z88.2 Allergy status to sulfonamides; Z79.82 Long term (current) use of aspirin; Z79.899 Other long term (current) drug therapy; Z88.8 Allergy status to other drugs, medicaments and biological substances; N15.9 Renal tubulo-interstitial disease, unspecified; Y84.6 Urinary catheterization as the cause of abnormal reaction of the patient, or of later complication, without mention of misadventure at the time of the procedure
CPT/HCPCS: 36415; 71045; 80053; 81001; 83605; 85007; 85027; 86140; 86738; 87040 ×2; 87086; 87088 ×3; 87186 ×3; 87899; 96361; 96365; 99285; A9270; J2543; J7030; J7040; 71046; 71046-26; 80048; 80170; 82962; 83735; 85025; 87070; 87077; 87205; 87486; 87581; 87632; 87641; 87798; 92507-GN; 92526-GN; 92610-GN; 94640; 94667; 94668; 94760; 94761; 97110-GO; 97116-GP; 97162-GP; 97166-GO; 97530-GO; 97530-GP; 97597-GP; 99284; J0290; J0696; J1580; J1650; J1956; J2270; J3475; J3490; J7042

== ENCOUNTER 2018-09-09 15:25 | Observation (INO) | payer MEDICARE, BC, MEDICAID ==
[2018-09-09] MEDS ORDERED: Sodium Chloride 0.9% 1,000 ML IV SCH (15:45)
--- NOTE | 2018-09-09 15:50 | EDM.PDOC ---
ED HPI GENERAL MEDICAL PROBLEM - General Chief Complaint: Fever Stated Complaint: [facility] Time Seen by Provider: 09/09/18 15:33 Source of Information: Reports: Patient, Prison Records History Limitations: Reports: Physical Impairment (Dysarthric speech = normal for the patient) - History of Present Illness INITIAL COMMENTS - FREE TEXT/NARRATIVE: The patient is sent from [facility] with a report of fever to 103.1 . It is unclear when that temperature was taken, however, the patient was given Tylenol around noon. Associated with his fever was in oxygen saturation to 86% on room air at the care home. Here in the ED, the patient's temperature is measured at 100.9, with an oxygen saturation of 88% on room air. He is saturating 93% on 2 L of oxygen per nasal cannula. The patient is a chronic indwelling Morgan. He has a PEG tube for dysphagia, through which he receives all of his medications. He denies having pain anywhere , and denies having a recent cough. Medical records indicate that the patient was admitted to this hospital on 08/21 through 08/27/2017, also for a fever. There was suspicion that he might have either pneumonia and/or a urinary tract infection. He was discharged to the care home with ten-day prescriptions for doxycycline and ampicillin. Per the care home paperwork, the patient received an influenza vaccine on . The patient's PCP is Dr. Enamorado. Treatments DESIGN ENGINEERING INTERN: Reports: Other (see below) Other Treatments DESIGN ENGINEERING INTERN: tylenol Left Neck Pain Score (Numeric/FACES): 9 - Related Data Allergies Allergy/AdvReac Type Severity Reaction Status Date / Time lithium Allergy Other Verified 08/21/18 17:51 NSAIDS (Non-Steroidal Allergy Other Verified 08/21/18 17:51 Anti-Inflamma sulfamethoxazole Allergy Rash Verified 08/21/18 17:51 [From Bactrim] trimethoprim [From Bactrim] Allergy Rash Verified 08/21/18 17:51 Home Meds: Home Meds Acetaminophen [Pain Relief] 650 mg GTUBE Q6H PRN 08/21/18 [History] Albuterol Sulfate 2.5 mg IH Q4H PRN 08/21/18 [History] Albuterol [Ventolin HFA] 2 puff IH Q4H PRN 08/21/18 [History] Aspirin 81 mg GTUBE DAILY 08/21/18 [History] Budesonide/Formoterol [Symbicort 160-4.5 MCG] 2 puff IH BID 08/21/18 [History] Carisoprodol 350 mg GTUBE QID 08/21/18 [History] ClonazePAM [KlonoPIN] 0.5 mg GTUBE TID PRN 08/21/18 [History] Diclofenac Sodium [Voltaren 1% Gel] 1 applic TOP QID PRN 08/21/18 [History] Famotidine [Pepcid] 20 mg GTUBE BID 08/21/18 [History] Finasteride 5 mg GTUBE DAILY 08/21/18 [History] Gabapentin 900 mg GTUBE TID 08/21/18 [History] Hydrocortisone [Hydrocortisone 1% Crm] 1 applic TOP TID PRN 08/21/18 [History] Lidocaine 4% [Xylocaine 4% Top Soln] 1 applic TOP TID 08/21/18 [History] Melatonin 15 mg GTUBE BEDTIME 08/21/18 [History] Meloxicam [Mobic] 15 mg GTUBE DAILY 08/21/18 [History] Montelukast [Singulair] 10 mg GTUBE DAILY 08/21/18 [History] Morphine [Morphine 10 MG/5 ML] 10 mg GTUBE Q4HR PRN 08/21/18 [History] Multivitamin [My Favorite Multiple] 30 ml GTUBE DAILY 08/21/18 [History] Nystatin [Nyata] 1 applic TOP BID 08/21/18 [History] OLANZapine [ZyPREXA] 10 mg GTUBE DAILY 08/21/18 [History] Polyethylene Glycol 3350 [MiraLAX] 17 gm GTUBE DAILY 08/21/18 [History] Thiamine HCl [Vitamin B-1] 300 mg GTUBE DAILY 08/21/18 [History] Umeclidinium Brm/Vilanterol Tr [Anoro Ellipta 62.5-25 MCG] 1 puff IH DAILY 08/21 [History] Verapamil [Calan] 160 mg GTUBE TID 08/21/18 [History] traZODone HCl [Trazodone HCl] 100 mg GTUBE BEDTIME 08/21/18 [History] Doxycycline [Vibramycin] 100 mg PO BID #20 cap 08/27/18 [Rx] Saccharomyces Boulardii [Florastor] 250 mg PO BID #60 cap 08/27/18 [Rx] Past Medical History Cardiovascular History: Reports: Hypertension Respiratory History: Reports: COPD Gastrointestinal History: Reports: GERD, Other (See Below) (Dysphagia) Genitourinary History: Reports: Retention, Urinary Musculoskeletal History: Reports: Neck Pain, Chronic (Cervical DDD), Other (See Below) (Spastic torticollis) Neurological History: Reports: Other (See Below) (Cluster HAs. Motor neuron disease.) Psychiatric History: Reports: Bipolar Endocrine/Metabolic History: Reports: Other (See Below) (Diabetes insipidus) Hematologic History: Reports: Anemia - Infectious Disease History Infectious Disease History: Reports: MRSA (MRSA positive with Nasal PCR swab ) - Past Surgical History GI Surgical History: Reports: Other (See Below) (PEG tube) Social & Family History - Family History Family Medical History: Noncontributory - Tobacco Use Smoking Status *Q: Former Smoker - Caffeine Use Caffeine Use: Reports: Coffee, Soda - Alcohol Use Alcohol Use History: No - Recreational Drug Use Recreational Drug Use: No ED ROS GENERAL - Review of Systems Review Of Systems: ROS reveals no pertinent complaints other than HPI. ED EXAM, SEPSIS - Physical Exam Exam: See Below Exam Limited By: Physical Impairment (Weak, bedridden) General Appearance: No Apparent Distress, Thin, Other (Awake) Eye Exam: Bilateral Eye: EOMI, Normal Inspection Ears: Normal External Exam Nose: Normal Inspection Throat/Mouth: Normal Inspection, Normal Lips, No Airway Compromise Head: Atraumatic, Normocephalic Neck: Other (Torticollis to the right) Respiratory/Chest: No Respiratory Distress, Lungs Clear, Normal Breath Sounds, No Accessory Muscle Use. No: Crackles, Rhonchi, Wheezing Cardiovascular: Normal Peripheral Pulses, Regular Rate, Rhythm, No Edema, No Gallop, No JVD, No Murmur, No Rub Peripheral Pulses: 4+: Radial (L), Radial (R) GI/Abdominal Exam: Normal Bowel Sounds, Soft, Non-Tender, No Organomegaly, No Distention, No Abnormal Bruit, No Mass, Other (PEG in left upper quadrant clean) (Male) Exam: Deferred Rectal (Males) Exam: Deferred Extremities: No Pedal Edema, Normal Capillary Refill Neurological: Other (Generalized weakness) Skin: Warm, Dry, Intact, Normal Color, No Rash Lymphatic: Bilateral: No Adenopathy EKG INTERPRETATION EKG Date: 09/09/18 Time: 16:16 Rhythm: NSR Rate (Beats/Min): 78 [place]: Normal P-Wave: Present QRS: Wide (Nonspecific intraventricular conduction delay) ST-T: Normal QT: Normal Comparison: No Change (09/07/2017) Course - Vital Signs Last Recorded V/S: Last Vital Signs Temp 38.3 C H 09/09/18 15:32 Pulse 95 09/09/18 15:32 Resp 16 09/09/18 15:32 BP 100/63 09/09/18 15:32 Pulse Ox 88 L 09/09/18 15:32 - Orders/Labs/Meds Orders: Active Orders 24 hr Category Date Time Status Admission Status [Patient Status] [ADT] Routine ADT 09/09/18 17:51 Ordered EKG Documentation Completion [RC] STAT Care 09/09/18 15:39 Active CULTURE BLOOD [BC] Stat Lab 09/09/18 15:40 Received CULTURE BLOOD [BC] Stat Lab 09/09/18 15:50 Received CULTURE URINE [RM] Stat Lab 09/09/18 16:05 Received Sodium Chloride 0.9% [Normal Saline] 1,000 ml Med 09/09/18 15:45 Active IV ASDIRECTED Blood Culture x2 Reflex Set [OM.PC] Stat Oth 09/09/18 15:39 Ordered Medication Orders Sodium Chloride (Normal Saline) 1,000 mls @ 150 mls/hr IV ASDIRECTED STELLA Last Admin: 09/09/18 15:55 Dose: 150 mls/hr Labs: Laboratory Tests 09/09/18 09/09/18 09/09/18 Range/Units 15:40 15:40 15:40 WBC 12.52 H (4.23-9.07) K/mm3 RBC 4.22 L (4.63-6.08) M/mm3 Hgb 13.0 L (13.7-17.5) gm/L Hct 39.9 L (40.1-51.0) % MCV 94.5 H (79.0-92.2) fl MCH 30.8 (25.7-32.2) pg MCHC 32.6 (32.2-35.5) g/dl RDW Std Deviation 43.5 (35.1-43.9) fL Plt Count 223 (163-337) K/mm3 MPV 9.5 (9.4-12.3) fl Neutrophils % (Manual) 84 H (40-60) % Band Neutrophils % 0 (0-10) % Lymphocytes % (Manual) 10 L (20-40) % Atypical Lymphs % 0 % Monocytes % (Manual) 4 (2-10) % Eosinophils % (Manual) 0 L (0.8-7.0) % Basophils % (Manual) 2 H (0.2-1.2) Platelet Estimate Adequate RBC Morph Comment Normal Puncture Site ABG pH (7.35-7.45) ABG pCO2 (35.0-45.0) mmHg ABG pO2 (80.0-100.0) mmHg ABG HCO3 (22.0-26.0) meq/L ABG O2 Saturation (96.0-97.0) % ABG Base Excess (-2-2.0) Dusty Test O2 Delivery Device Oxygen Flow Rate FiO2 (21.00-100.00) % Sodium 144 (136-145) mEq/L Potassium 3.7 (3.5-5.1) mEq/L Chloride 108 H (98-107) mEq/L Carbon Dioxide 27 (21-32) mEq/L Anion Gap 12.7 (5-15) BUN 26 H (7-18) mg/dL Creatinine 1.2 (0.7-1.3) mg/dL Est Cr Clr Drug Dosing 63.00 mL/min Estimated GFR (MDRD) > 60 (>60) mL/min BUN/Creatinine Ratio 21.7 H (14-18) Glucose 118 H (80-115) mg/dL Lactic Acid 0.6 (0.4-2.0) mmol/L Calcium 10.1 (8.5-10.1) mg/dL Magnesium 1.7 L (1.8-2.4) mg/dl Total Bilirubin 0.2 (0.2-1.0) mg/dL AST 17 (15-37) U/L ALT 19 (16-63) U/L Alkaline Phosphatase 59 (46-116) U/L Troponin I < 0.017 (0.00-0.056) ng/mL Total Protein 6.6 (6.4-8.2) g/dl Albumin 3.1 L (3.4-5.0) g/dl Globulin 3.5 gm/dL Albumin/Globulin Ratio 0.9 L (1-2) Urine Color (Yellow) Urine Appearance (Clear) Urine pH (5.0-8.0) Ur Specific [place] (1.005-1.030) Urine Protein (Negative) Urine Glucose (UA) (Negative) Urine Ketones (Negative) Urine Occult Blood (Negative) Urine Nitrite (Negative) Urine Bilirubin (Negative) Urine Urobilinogen (0.2-1.0) Ur Leukocyte Esterase (Negative) Urine RBC (0-5) /hpf Urine WBC (0-5) /hpf Ur Epithelial Cells (0-5) /hpf Urine Bacteria (FEW) /hpf Urine Mucus (FEW) /hpf 09/09/18 09/09/18 Range/Units 16:05 16:50 WBC (4.23-9.07) K/mm3 RBC (4.63-6.08) M/mm3 Hgb (13.7-17.5) gm/L Hct (40.1-51.0) % MCV (79.0-92.2) fl MCH (25.7-32.2) pg MCHC (32.2-35.5) g/dl RDW Std Deviation (35.1-43.9) fL Plt Count (163-337) K/mm3 MPV (9.4-12.3) fl Neutrophils % (Manual) (40-60) % Band Neutrophils % (0-10) % Lymphocytes % (Manual) (20-40) % Atypical Lymphs % % Monocytes % (Manual) (2-10) % Eosinophils % (Manual) (0.8-7.0) % Basophils % (Manual) (0.2-1.2) Platelet Estimate RBC Morph Comment Puncture Site Rt radial ABG pH 7.42 (7.35-7.45) ABG pCO2 40.4 (35.0-45.0) mmHg ABG pO2 76.0 L (80.0-100.0) mmHg ABG HCO3 25.5 (22.0-26.0) meq/L ABG O2 Saturation 94.7 L (96.0-97.0) % ABG Base Excess 1.4 (-2-2.0) Dusty Test Positive O2 Delivery Device Nasal cannula Oxygen Flow Rate 2.0 FiO2 28.00 (21.00-100.00) % Sodium (136-145) mEq/L Potassium (3.5-5.1) mEq/L Chloride (98-107) mEq/L Carbon Dioxide (21-32) mEq/L Anion Gap (5-15) BUN (7-18) mg/dL Creatinine (0.7-1.3) mg/dL Est Cr Clr Drug Dosing mL/min Estimated GFR (MDRD) (>60) mL/min BUN/Creatinine Ratio (14-18) Glucose (80-115) mg/dL Lactic Acid (0.4-2.0) mmol/L Calcium (8.5-10.1) mg/dL Magnesium (1.8-2.4) mg/dl Total Bilirubin (0.2-1.0) mg/dL AST (15-37) U/L ALT (16-63) U/L Alkaline Phosphatase (46-116) U/L Troponin I (0.00-0.056) ng/mL Total Protein (6.4-8.2) g/dl Albumin (3.4-5.0) g/dl Globulin gm/dL Albumin/Globulin Ratio (1-2) Urine Color Yellow (Yellow) Urine Appearance Slt cloudy H (Clear) Urine pH 5.5 (5.0-8.0) Ur Specific [place] 1.020 (1.005-1.030) Urine Protein Negative (Negative) Urine Glucose (UA) Negative (Negative) Urine Ketones Negative (Negative) Urine Occult Blood Trace-lysed H (Negative) Urine Nitrite Negative (Negative) Urine Bilirubin Negative (Negative) Urine Urobilinogen 0.2 (0.2-1.0) Ur Leukocyte Esterase Trace H (Negative) Urine RBC 10-20 H (0-5) /hpf Urine WBC 10-20 H (0-5) /hpf Ur Epithelial Cells 0-5 (0-5) /hpf Urine Bacteria Few (FEW) /hpf Urine Mucus Few (FEW) /hpf Meds: Medications Generic Name Dose Route Start Last Admin Trade Name Freq PRN Reason Stop Dose Admin Sodium Chloride 1,000 mls @ 150 mls/hr 09/09/18 15:45 09/09/18 15:55 Normal Saline IV 150 mls/hr ASDIRECTED STELLA Administration - Re-Assessments/Exams Free Text/Narrative Re-Assessment/Exam: 09/09/18 16:28 Portable chest radiograph reviewed. The cardiac silhouette is within normal limits. No pulmonary vascular congestion. No pleural effusion is seen on this AP view. No focal infiltrate. No pneumothorax. There is hyperinflation, and evidence for bullae of the right lung, consistent with COPD. Formal read per the Radiologist pending. 09/09/18 17:20 The cause of the patient's fever is unclear. He has a mildly elevated WBC count of 12.52, but with 0% bandemia. His urinalysis is not consistent with a UTI. I have sent a urine culture, but with few bacteria, empiric antibiotics are not indicated. His chest x-ray shows no infiltrate. His lactic acid level is normal. His influenza swab is negative. Despite the patient's negative workup, however, given his comorbidities, I believe it would be prudent to place him into observation. 09/09/18 17:[address] Augiar at 17:25. He agreed to to place the patient into observation for a fever of unknown origin. He will watch the patient without antibiotics. Departure - Departure Time of Disposition: 17:27 Disposition: Refer to Observation Condition: Fair Clinical Impression: Fever of unknown origin - Discharge Information *PRESCRIPTION DRUG MONITORING PROGRAM REVIEWED*: Not Applicable *COPY OF PRESCRIPTION DRUG MONITORING REPORT IN PATIENT RODRIGUE: Not Applicable Referrals: Delio Enamorado MD [Primary Care Provider] - - My Orders Last 24 Hours: My Active Orders 09/09/18 15:39 EKG Documentation Completion [RC] STAT Blood Culture x2 Reflex Set [OM.PC] Stat 09/09/18 15:40 CULTURE BLOOD [BC] Stat 09/09/18 15:45 Sodium Chloride 0.9% [Normal Saline] 1,000 ml IV ASDIRECTED 09/09/18 15:50 CULTURE BLOOD [BC] Stat 09/09/18 16:05 CULTURE URINE [RM] Stat 09/09/18 17:51 Admission Status [Patient Status] [ADT] Routine - Assessment/Plan Last 24 Hours: My Active Orders 09/09/18 15:39 EKG Documentation Completion [RC] STAT Blood Culture x2 Reflex Set [OM.PC] Stat 09/09/18 15:40 CULTURE BLOOD [BC] Stat 09/09/18 15:45 Sodium Chloride 0.9% [Normal Saline] 1,000 ml IV ASDIRECTED 09/09/18 15:50 CULTURE BLOOD [BC] Stat 09/09/18 16:05 CULTURE URINE [RM] Stat 09/09/18 17:51 Admission Status [Patient Status] [ADT] Routine
--- NOTE | 2018-09-09 16:23 | CR ---
Chest: Portable view of the chest was obtained. Comparison: Prior chest x-ray of 08/26/18. Heart size is normal. Tortuous thoracic aorta is seen. Lungs are clear with no acute parenchymal change definitely being seen. Probable emphysematous change is present. Impression: 1. Probable emphysematous change. 2. Other incidental findings. Nothing acute is definitely appreciated. Diagnostic code #2
[2018-09-09] MEDS ORDERED: LORazepam 2 MG/ML SDV IV PRN (18:28)
[2018-09-09] MEDS ORDERED: Metoprolol Tartrate 5 MG/5 ML SDV IVPUSH PRN (18:28)
[2018-09-09] MEDS ORDERED: Bisacodyl 5 MG Tab PO PRN (18:28)
[2018-09-09] MEDS ORDERED: Acetaminophen 325 MG Tab PO PRN (18:28)
[2018-09-09] MEDS ORDERED: Albuterol/Ipratropium 3.0-0.5 MG/3 ML Neb Soln NEB PRN (18:28)
[2018-09-09] MEDS ORDERED: Ondansetron 4 MG/2 ML SDV IV PRN (18:28)
[2018-09-09] MEDS ORDERED: Polyethylene Glycol 3350 Powder 17 GM Packet PO PRN (18:28)
[2018-09-09] MEDS ORDERED: HYDROmorphone 1 MG/ML Syringe IVPUSH PRN (18:28)
[2018-09-09] MEDS ORDERED: hydrALAZINE 20 MG/ML SDV IVPUSH PRN (18:28)
[2018-09-09] MEDS ORDERED: Docusate Sodium 100 MG Cap PO PRN (18:28)
[2018-09-09] MEDS ORDERED: Promethazine 6.25 MG in Sodium Chloride 0.9% 50 ML IV PRN (18:28)
[2018-09-09] MEDS ORDERED: guaiFENesin/Dextromethorphan 100-10 MG/5 ML Soln 5 ML Cup PO PRN (18:34)
[2018-09-09] MEDS ORDERED: Magnesium Oxide 400 MG Tab PO ONE (19:00)
--- NOTE | 2018-09-09 19:00 | PCM.HP ---
H&P History of Present Illness - General Date of Service: 09/09/18 Admit Problem/Dx: Admission Diagnosis/Problem Admission Diagnosis/Problem Fever of unknown origin Source of Information: Patient, Old Records, Provider, RN Notes Reviewed History Limitations: Reports: Other (Speech Impairment) - History of Present Illness Initial Comments - Free Text/Narative: This is a 67 yo white male with past medical hx/o HTN, COPD, GERD, Dysphagia S/ p PEG Tube Placement, Neurogenic Bladder S/p Chronic Indwelling Catheter, Spasmodic Torticolis, Cluster TOUSSAINT, DJD/Cervical Disc Degeneration, Generalized Weakness, Griffin Induced Neurological Toxicity, Chronic Pain Syndrome, and Gait Abnormality who was brought in for evaluation of a fever w/ a temperature as high at 103.1 F at the shelter residence associated with hypoxia with an O2 sat of 86%. He received a one time does of tylenol at about noon. However on presentation to ED he was found to have a temperature of 100.9 sating at 88% . His O2 sat improved to 93% immediately after he was put on supplemental O2. Patient currently any symptoms. He is known to the hospitalist team from his recent hospitalization back in July for treatment of catheter related urinary tract infection. His initial work up in ED shows a CBC remarkable for WBC of 12.52, RBC of 4.22, Hgb of 13, Hct of 39.9, MCV of 94.5, Neutrophils of 84%, Lymphocytes of 10% and Basophils of 2%. His ABG shows a pH of 7.24, pCO2 of 40.4, pO2 of 76, HCO3 of 25.5, and O2 sat of 94.7% on 2L w/ 28% Fio2. His Chemistry is significant for Cl of 108, BUN of 26, BS of 118, Mg of 1.7, CRP of 6.6, and Albumin of 3.1. His LA and Troponin levels are wnl. His UA is negative for UTI. Patient is coming in for further evaluation fo his fever. He is full code. Left Neck Pain Score (Numeric/FACES): 9 - Related Data Allergies/Adverse Reactions: Allergies Allergy/AdvReac Type Severity Reaction Status Date / Time lithium Allergy Other Verified 09/09/18 18:52 NSAIDS (Non-Steroidal Allergy Other Verified 09/09/18 18:52 Anti-Inflamma sulfamethoxazole Allergy Rash Verified 09/09/18 18:52 [From Bactrim] trimethoprim [From Bactrim] Allergy Rash Verified 09/09/18 18:52 Home Medications: Home Meds Acetaminophen [Pain Relief] 650 mg PO Q6H PRN 08/21/18 [History] Albuterol Sulfate 2.5 mg IH Q4H PRN 08/21/18 [History] Albuterol [Ventolin HFA] 2 puff IH Q4H PRN 08/21/18 [History] Aspirin 81 mg PO DAILY 08/21/18 [History] Budesonide/Formoterol [Symbicort 160-4.5 MCG] 2 puff IH BID 08/21/18 [History] Carisoprodol 350 mg PO QID 08/21/18 [History] ClonazePAM [KlonoPIN] 0.5 mg PO TID 08/21/18 [History] Diclofenac Sodium [Voltaren 1% Gel] 2 gram TOP QID 08/21/18 [History] Famotidine [Pepcid] 20 mg PO BID 08/21/18 [History] Finasteride 5 mg PO DAILY 08/21/18 [History] Gabapentin 900 mg PO TID 08/21/18 [History] Hydrocortisone [Hydrocortisone 1% Crm] 1 applic TOP TID PRN 08/21/18 [History] Lidocaine 4% [Xylocaine 4% Top Soln] 1 applic TOP TID 08/21/18 [History] Melatonin 5 mg PO BEDTIME 08/21/18 [History] Meloxicam [Mobic] 15 mg PO DAILY 08/21/18 [History] Montelukast [Singulair] 10 mg PO DAILY 08/21/18 [History] Morphine [Morphine 10 MG/5 ML] 10 mg PO Q4HR PRN 08/21/18 [History] Nystatin [Nyata] 1 applic TOP BID 08/21/18 [History] OLANZapine [ZyPREXA] 10 mg PO DAILY 08/21/18 [History] Polyethylene Glycol 3350 [MiraLAX] 17 gm PO DAILY 08/21/18 [History] Umeclidinium Brm/Vilanterol Tr [Anoro Ellipta 62.5-25 MCG] 1 puff IH DAILY 08/21 [History] Verapamil [Calan] 160 mg PO TID 08/21/18 [History] traZODone HCl [Trazodone HCl] 100 mg PO BEDTIME 08/21/18 [History] Lactobacillus Acidophilus [Acidophilus Lactobacilli] 1 cap PO BID 09/09/18 [ History] Multivitamin/Iron/Folic Acid [Century Tablet] 1 tab PO DAILY 09/09/18 [History] Past Medical History HEENT History: Reports: None Cardiovascular History: Reports: Hypertension Respiratory History: Reports: COPD Gastrointestinal History: Reports: GERD, Other (See Below) (Dysphagia) Other Gastrointestinal History: dysphagia Genitourinary History: Reports: Retention, Urinary Musculoskeletal History: Reports: Neck Pain, Chronic (Cervical DDD), Other (See Below) (Spastic torticollis) Other Musculoskeletal History: spasmodic torticollis, cervical disc degeneration , weakness Neurological History: Reports: Other (See Below) (Cluster HAs. Motor neuron disease.) Other Neuro History: cluster headaches, neural disease Psychiatric History: Reports: Bipolar Endocrine/Metabolic History: Reports: Other (See Below) (Diabetes insipidus) Other Endocrine/Metabolic History: diabetes insipidus Hematologic History: Reports: Anemia Immunologic History: Reports: None Oncologic (Cancer) History: Reports: None Dermatologic History: Reports: None - Infectious Disease History Infectious Disease History: Reports: MRSA (MRSA positive with Nasal PCR swab ) Other Infectious Disease History: MRSA positive with Nasal PCR swab 08/21/18 - Past Surgical History GI Surgical History: Reports: Other (See Below) (PEG tube) Social & Family History - Family History Family Medical History: Noncontributory - Tobacco Use Smoking Status *Q: Former Smoker Used Tobacco, but Quit: Yes Month/Year Tobacco Last Used: 1 - Caffeine Use Caffeine Use: Reports: Coffee, Soda - Recreational Drug Use Recreational Drug Use: No H&P Review of Systems - Review of Systems: Review Of Systems: See Below General: Reports: Fever, Weakness (baseline). Denies: Chills, Malaise, Fatigue HEENT: Reports: No Symptoms, Dysphasia (baseline). Denies: Ear Pain, Eye Pain, Headaches, Rhinitis, Post Nasal Drip, Sinus Congestion, Sore Throat, Visual Changes Pulmonary: Denies: Shortness of Breath, Pleuritic Chest Pain, Cough, Sputum Cardiovascular: Denies: Chest Pain, Palpitations, Dyspnea on Exertion, Edema, Lightheadedness, Syncope Gastrointestinal: Reports: Difficulty Swallowing (baseline). Denies: Abdominal Pain, Constipation, Diarrhea, Nausea, Vomiting Genitourinary: Reports: Incontinence, Retention Musculoskeletal: Reports: Muscle Pain, Muscle Stiffness Skin: Reports: Wound (coccygeal wound). Denies: Cyanosis, Pallor, Bruising, Erythema Psychiatric: Denies: Depression, Anxiety, Agitation, Hallucinations Neurological: Reports: Pre-Existing Deficit, Difficulty Walking, Weakness, Change in Speech, Gait Disturbance. Denies: Confusion Hematologic/Lymphatic: Reports: No Symptoms Immunologic: Reports: No Symptoms Exam - Exam Exam: See Below - Vital Signs Vital Signs: Last Vital Signs Temp 37.0 C 09/09/18 18:05 Pulse 70 09/09/18 18:17 Resp 16 09/09/18 18:05 BP 119/81 09/09/18 18:17 Pulse Ox 97 09/09/18 18:17 Weight: 72.575 kg - Exam General: Alert, Cooperative, Other (speech difficulty) HEENT: Conjunctiva Clear, EOMI, Hearing Intact, Nares Patent, Normal Nasal Septum, Pupils Equal, Pupils Reactive. No: Mucosa Moist & Myra Neck: Other (neck slightly tilted to the right). No: Supple, Full Range of Motion, JVD, Thyromegaly Lungs: Normal Respiratory Effort, Decreased Breath Sounds Cardiovascular: Other (distant heart sounds) GI/Abdominal Exam: Normal Bowel Sounds, Soft, Non-Tender, No Organomegaly, No Distention, No Abnormal Bruit, No Mass, Other (PEG tube) (Male) Exam: Other (indwelling ) Rectal (Males) Exam: Deferred Back Exam: Normal Inspection, Decreased Range of Motion, Muscle Spasm, Vertebral Tenderness Extremities: Normal Inspection, Normal Range of Motion, Non-Tender, No Pedal Edema, Normal Capillary Refill Peripheral Pulses: 2+: Posterior Tibial (L), Posterior Tibial (R), Dorsalis Pedis (L), Dorsalis Pedis (R) Skin: Warm, Dry, Intact Neuro Extensive - Mental Status: Alert, Normal Mood/Affect, Normal Cognition, Nl Response to Commands, Slow Response to Commands Neuro Extensive - Motor, Sensory, Reflexes: CN II-XII Intact (very limited due to current status), Abnormal Gait Psychiatric: Alert, Normal Affect, Normal Mood - Patient Data Lab Results Last 24 hrs: Laboratory Results - last 24 hr 09/09/18 09/09/1809/09/19 Range/Units 15:40 15:40 15:40 WBC 12.52 H (4.23-9.07) K/mm3 RBC 4.22 L (4.63-6.08) M/mm3 Hgb 13.0 L (13.7-17.5) gm/L Hct 39.9 L (40.1-51.0) % MCV 94.5 H (79.0-92.2) fl MCH 30.8 (25.7-32.2) pg MCHC 32.6 (32.2-35.5) g/dl RDW Std Deviation 43.5 (35.1-43.9) fL Plt Count 223 (163-337) K/mm3 MPV 9.5 (9.4-12.3) fl Neutrophils % (Manual) 84 H (40-60) % Band Neutrophils % 0 (0-10) % Lymphocytes % (Manual) 10 L (20-40) % Atypical Lymphs % 0 % Monocytes % (Manual) 4 (2-10) % Eosinophils % (Manual) 0 L (0.8-7.0) % Basophils % (Manual) 2 H (0.2-1.2) Platelet Estimate Adequate RBC Morph Comment Normal Puncture Site ABG pH (7.35-7.45) ABG pCO2 (35.0-45.0) mmHg ABG pO2 (80.0-100.0) mmHg ABG HCO3 (22.0-26.0) meq/L ABG O2 Saturation (96.0-97.0) % ABG Base Excess (-2-2.0) Dusty Test O2 Delivery Device Oxygen Flow Rate FiO2 (21.00-100.00) % Sodium 144 (136-145) mEq/L Potassium 3.7 (3.5-5.1) mEq/L Chloride 108 H (98-107) mEq/L Carbon Dioxide 27 (21-32) mEq/L Anion Gap 12.7 (5-15) BUN 26 H (7-18) mg/dL Creatinine 1.2 (0.7-1.3) mg/dL Est Cr Clr Drug Dosing 63.00 mL/min Estimated GFR (MDRD) > 60 (>60) mL/min BUN/Creatinine Ratio 21.7 H (14-18) Glucose 118 H (80-115) mg/dL Lactic Acid 0.6 (0.4-2.0) mmol/L Calcium 10.1 (8.5-10.1) mg/dL Magnesium 1.7 L (1.8-2.4) mg/dl Total Bilirubin 0.2 (0.2-1.0) mg/dL AST 17 (15-37) U/L ALT 19 (16-63) U/L Alkaline Phosphatase 59 (46-116) U/L Troponin I < 0.017 (0.00-0.056) ng/mL Total Protein 6.6 (6.4-8.2) g/dl Albumin 3.1 L (3.4-5.0) g/dl Globulin 3.5 gm/dL Albumin/Globulin Ratio 0.9 L (1-2) Urine Color (Yellow) Urine Appearance (Clear) Urine pH (5.0-8.0) Ur Specific [place] (1.005-1.030) Urine Protein (Negative) Urine Glucose (UA) (Negative) Urine Ketones (Negative) Urine Occult Blood (Negative) Urine Nitrite (Negative) Urine Bilirubin (Negative) Urine Urobilinogen (0.2-1.0) Ur Leukocyte Esterase (Negative) Urine RBC (0-5) /hpf Urine WBC (0-5) /hpf Ur Epithelial Cells (0-5) /hpf Urine Bacteria (FEW) /hpf Urine Mucus (FEW) /hpf 09/09/18 09/09/18 Range/Units 16:05 16:50 WBC (4.23-9.07) K/mm3 RBC (4.63-6.08) M/mm3 Hgb (13.7-17.5) gm/L Hct (40.1-51.0) % MCV (79.0-92.2) fl MCH (25.7-32.2) pg MCHC (32.2-35.5) g/dl RDW Std Deviation (35.1-43.9) fL Plt Count (163-337) K/mm3 MPV (9.4-12.3) fl Neutrophils % (Manual) (40-60) % Band Neutrophils % (0-10) % Lymphocytes % (Manual) (20-40) % Atypical Lymphs % % Monocytes % (Manual) (2-10) % Eosinophils % (Manual) (0.8-7.0) % Basophils % (Manual) (0.2-1.2) Platelet Estimate RBC Morph Comment Puncture Site Rt radial ABG pH 7.42 (7.35-7.45) ABG pCO2 40.4 (35.0-45.0) mmHg ABG pO2 76.0 L (80.0-100.0) mmHg ABG HCO3 25.5 (22.0-26.0) meq/L ABG O2 Saturation 94.7 L (96.0-97.0) % ABG Base Excess 1.4 (-2-2.0) Dusty Test Positive O2 Delivery Device Nasal cannula Oxygen Flow Rate 2.0 FiO2 28.00 (21.00-100.00) % Sodium (136-145) mEq/L Potassium (3.5-5.1) mEq/L Chloride (98-107) mEq/L Carbon Dioxide (21-32) mEq/L Anion Gap (5-15) BUN (7-18) mg/dL Creatinine (0.7-1.3) mg/dL Est Cr Clr Drug Dosing mL/min Estimated GFR (MDRD) (>60) mL/min BUN/Creatinine Ratio (14-18) Glucose (80-115) mg/dL Lactic Acid (0.4-2.0) mmol/L Calcium (8.5-10.1) mg/dL Magnesium (1.8-2.4) mg/dl Total Bilirubin (0.2-1.0) mg/dL AST (15-37) U/L ALT (16-63) U/L Alkaline Phosphatase (46-116) U/L Troponin I (0.00-0.056) ng/mL Total Protein (6.4-8.2) g/dl Albumin (3.4-5.0) g/dl Globulin gm/dL Albumin/Globulin Ratio (1-2) Urine Color Yellow (Yellow) Urine Appearance Slt cloudy H (Clear) Urine pH 5.5 (5.0-8.0) Ur Specific [place] 1.020 (1.005-1.030) Urine Protein Negative (Negative) Urine Glucose (UA) Negative (Negative) Urine Ketones Negative (Negative) Urine Occult Blood Trace-lysed H (Negative) Urine Nitrite Negative (Negative) Urine Bilirubin Negative (Negative) Urine Urobilinogen 0.2 (0.2-1.0) Ur Leukocyte Esterase Trace H (Negative) Urine RBC 10-20 H (0-5) /hpf Urine WBC 10-20 H (0-5) /hpf Ur Epithelial Cells 0-5 (0-5) /hpf Urine Bacteria Few (FEW) /hpf Urine Mucus Few (FEW) /hpf Result Diagrams: 09/09/18 15:40 09/09/18 15:40 [place] Results Last 24 hrs: Microbiology 09/09/18 15:53 Influenza Type A Antigen Screen - Final Nasopharyngeal Swab NEGATIVE INFLUENZA A VIRUS AG Influenza Type B Antigen Screen - Final NEGATIVE INFLUENZA B VIRUS AG Problem List Initiated/Reviewed/Updated: Yes Orders Last 24hrs: Active Orders 24 hr Category Date Time Status Admission Status [Patient Status] [ADT] Routine ADT 09/09/18 17:51 Active EKG Documentation Completion [RC] STAT Care 09/09/18 15:39 Active Height and Weight [RC] DAILY Care 09/09/18 18:28 Active Intake and Output [RC] QSHIFT Care 09/09/18 18:28 Active Oxygen Therapy [RC] PRN Care 09/09/18 18:28 Active RT Aerosol Therapy [RC] ASDIRECTED Care 09/09/18 18:31 Active Up With Assistance [RC] ASDIRECTED Care 09/09/18 18:28 Active VTE/DVT Education [RC] PER UNIT ROUTINE Care 09/09/18 18:28 Active Vital Signs [RC] Q4H Care 09/09/18 18:28 Active Consult to Case Management/Geriatrics Physician [CONS] Cons 09/09/18 18:28 Active Routine Consult to Spiritual Care [CONS] Routine Cons 09/09/18 18:28 Active OT Evaluation and Treatment [CONS] Routine Cons 09/09/18 18:28 Active PT Evaluation and Treatment [CONS] Routine Cons 09/09/18 18:28 Active Regular Diet [DIET] Diet 09/09/18 Dinner Active BASIC METABOLIC PANEL,BMP [CHEM] AM Lab 09/10/18 05:11 Ordered C-REACTIVE PROTEIN [CHEM] AM Lab 09/10/18 05:11 Ordered C-REACTIVE PROTEIN [CHEM] Routine Lab 09/09/18 15:40 Received CBC WITH AUTO DIFF [HEME] AM Lab 09/10/18 05:11 Ordered CULTURE BLOOD [BC] Stat Lab 09/09/18 15:40 Received CULTURE BLOOD [BC] Stat Lab 09/09/18 15:50 Received CULTURE URINE [RM] Stat Lab 09/09/18 16:05 Received INFLUENZA A+B AG SCREEN [RM] Stat Lab 09/09/18 18:35 Ordered MAGNESIUM [CHEM] AM Lab 09/10/18 05:11 Ordered Acetaminophen [Tylenol] Med 09/09/18 18:28 Active 650 mg PO Q4H PRN Acetaminophen/HYDROcodone [[place] 325-5 MG] Med 09/09/18 18:28 Active 1 tab PO Q4H PRN Albuterol/Ipratropium [DuoNeb 3.0-0.5 MG/3 ML] Med 09/09/18 18:28 Active 3 ml NEB Q4H PRN Bisacodyl [Dulcolax] Med 09/09/18 18:28 Active 5 mg PO DAILY PRN Dextromethorphan/guaiFENesin [Robitussin DM] Med 09/09/18 18:34 Active 10 ml PO Q4H PRN Docusate Sodium [Colace] Med 09/09/18 18:28 Active 100 mg PO BID PRN Docusate Sodium/Sennosides [Senna Plus] Med 09/09/18 18:28 Active 1 tab PO BID PRN HYDROmorphone [Dilaudid] Med 09/09/18 18:28 Active 0.25 mg IVPUSH Q2H PRN LORazepam [Ativan] Med 09/09/18 18:28 Active 0.25 mg IV Q6H PRN Metoprolol Tartrate [Lopressor] Med 09/09/18 18:28 Active 5 mg IVPUSH Q4H PRN Ondansetron [Zofran] Med 09/09/18 18:28 Active 4 mg IV Q6H PRN Pharmacy to Dose - Magnesium R [Pharmacy to Dose - Med 09/09/18 18:30 Ordered Magnesium Replacement] 1 dose .XX ASDIRECTED Pharmacy to Dose - Potassium R [Pharmacy to Dose - Med 09/09/18 18:30 Ordered Potassium Replacement] 1 dose .XX ASDIRECTED Polyethylene Glycol 3350 [MiraLAX] Med 09/09/18 18:28 Active 17 gm PO DAILY PRN Promethazine [Phenergan] 6.25 mg Med 09/09/18 18:28 Active Sodium Chloride 0.9% [Normal Saline] 50 ml IV Q6H Sodium Chloride 0.9% [Normal Saline] 1,000 ml Med 09/09/18 15:45 Active IV ASDIRECTED hydrALAZINE [Apresoline] Med 09/09/18 18:28 Active 20 mg IVPUSH Q4H PRN Blood Culture x2 Reflex Set [OM.PC] Stat Oth 09/09/18 15:39 Ordered Precautions [COMM] Routine Oth 09/09/18 18:33 Ordered Sequential Compression Device [OM.PC] Per Unit Routine Oth 09/09/18 18:29 Ordered Resuscitation Status Routine Resus Stat 09/09/18 18:28 Ordered Medication Orders Acetaminophen (Tylenol) 650 mg PO Q4H PRN PRN Reason: Pain (Mild 1-3)/fever Hydrocodone Bitart/Acetaminophen ([place] 325-5 Mg) 1 tab PO Q4H PRN PRN Reason: Pain (moderate 4-6) Albuterol/Ipratropium (Duoneb 3.0-0.5 Mg/3 Ml) 3 ml NEB Q4H PRN PRN Reason: Shortness Of Breath/wheezing Bisacodyl (Dulcolax) 5 mg PO DAILY PRN PRN Reason: Constipation Docusate Sodium (Colace) 100 mg PO BID PRN PRN Reason: Constipation Guaifenesin/Phenylephrine HCl (Robitussin Dm) 10 ml PO Q4H PRN PRN Reason: Cough Hydralazine HCl (Apresoline) 20 mg IVPUSH Q4H PRN PRN Reason: Hypertension Hydromorphone HCl (Dilaudid) 0.25 mg IVPUSH Q2H PRN PRN Reason: Pain (severe 7-10) Sodium Chloride (Normal Saline) 1,000 mls @ 150 mls/hr IV ASDIRECTED STELLA Last Admin: 09/09/18 15:55 Dose: 150 mls/hr Promethazine HCl 6.25 mg/ (Sodium Chloride) 50.25 mls @ 100 mls/hr IV Q6H PRN PRN Reason: Nausea/Vomiting Lorazepam (Ativan) 0.25 mg IV Q6H PRN PRN Reason: Anxiety Magnesium Sulfate (Pharmacy To Dose - Magnesium Replacement) 1 dose .XX ASDIRECTED [facility] Metoprolol Tartrate (Lopressor) 5 mg IVPUSH Q4H PRN PRN Reason: Tachycardia Ondansetron HCl (Zofran) 4 mg IV Q6H PRN PRN Reason: Nausea/Vomiting Polyethylene Glycol (Miralax) 17 gm PO DAILY PRN PRN Reason: Constipation Potassium Chloride (Pharmacy To Dose - Potassium Replacement) 1 dose .XX ASDIRECTED [facility] Senna/Docusate Sodium (Senna Plus) 1 tab PO BID PRN PRN Reason: Constipation Assessment/Plan Comment:: Assessment/Plan: Acute: Fever - Had a temp of 104 F; 100.9 in ED - Suspect 2/2 Coccygeal Wound - Decubitus Ulcer Stage 2-3 6 cm - Risk Factors: bedbound and immobile - CXR no acute abnormal findings (no shortness of breath or coughing) - UA negative for UTI - No need for antibiotic - PT for wound care Coccygeal Wound - ~ 6 cm stage 2-3 Pressure Ulcer - He is mostly bed bound and immobile due neurological disease and gait abnormality - Routine nursing wound care for now - PT consult in AM Hypomagnesemia - Mg of 1.7 - 2/2 inadequate intake - Replete and monitor Chronic: HTN COPD GERD Dysphagia S/p PEG Tube Placement Neurogenic Bladder S/p Chronic Indwelling Catheter Spasmodic Torticolis Cluster TOUSSAINT DJD/Cervical Disc Degeneration Generalized Weakness Pain Syndrome Griffin Induced Neurological Toxicity Gait Abnormality Plan: Admit to OBS-soft admit Routine AM Labs PT for wound care PT/OT consult Aspiration/Fall Precautions GI/DVT PPx: H2B and SCDs SW/CM for d/c planning Code status: 1
[2018-09-09] MEDS ORDERED: ACETAMINOPHEN 650 MG PO PRN (20:39)
[2018-09-09] MEDS ORDERED: Albuterol 6.7 GM Inhaler INH PRN (20:47)
[2018-09-09] MEDS ORDERED: Albuterol 0.083% 2.5 MG/3 ML Neb Soln INH PRN (20:51)
[2018-09-09] MEDS ORDERED: Non-Formulary Medication 1 Each (Melatonin [Melatonin] 5 MG) PO SCH (21:00)
[2018-09-09] MEDS ORDERED: Non-Formulary Medication 1 Each (Budesonide/Formoterol 2 PUFF) IH SCH (21:00)
[2018-09-09] MEDS ORDERED: Diclofenac Sodium 1% Gel 100 GM Tube TOP SCH (22:15)
[2018-09-09] MEDS ORDERED: Lidocaine 4% Top Soln 50 ML Bottle TOP SCH (22:15)
[2018-09-09] MEDS ORDERED: Hydrocortisone 1% Crm 30 GM Tube TOP PRN (22:15)
[2018-09-09] MEDS ORDERED: traZODone 50 MG Tab PO SCH (22:30)
[2018-09-09] MEDS: Potassium Chloride 20 MEQ Tab.ER PO SCH (22:38)
[2018-09-09] MEDS: Gabapentin 300 MG Cap PO SCH (22:39)
[2018-09-09] MEDS: ClonazePAM 0.5 MG Tab PO SCH (22:39)
[2018-09-09] MEDS: Famotidine 20 MG Tab PO SCH (22:39)
[2018-09-09] MEDS: Verapamil 80 MG Tab PO SCH (22:40)
[2018-09-09] MEDS: Acetaminophen/HYDROcodone 325-5 MG Tab PO PRN (22:40)
[2018-09-09] MEDS: Morphine 10 MG/0.5 ML Oral Syringe PO PRN (22:53)
[2018-09-09] MEDS: Nystatin Topical Powder 15 GM Bottle TOP SCH (23:05)
[2018-09-09] MEDS: Formoterol/Mometasone 200-5 MCG 8.8 GM Inhaler IH SCH (23:27)
[2018-09-10] MEDS: Formoterol/Mometasone 200-5 MCG 8.8 GM Inhaler IH SCH (05:20)
[2018-09-10] MEDS: Potassium Chloride 20 MEQ Tab.ER PO SCH (06:05)
[2018-09-10] MEDS: Morphine 10 MG/0.5 ML Oral Syringe PO PRN (06:05)
[2018-09-10] MEDS: ClonazePAM 0.5 MG Tab PO SCH ×2 (08:11→15:03)
[2018-09-10] MEDS: Acetaminophen/HYDROcodone 325-5 MG Tab PO PRN (08:11)
[2018-09-10] MEDS: Verapamil 80 MG Tab PO SCH ×2 (08:11→15:03)
[2018-09-10] MEDS: Gabapentin 300 MG Cap PO SCH ×2 (08:13→15:04)
[2018-09-10] MEDS ORDERED: Formoterol/Mometasone 200-5 MCG 8.8 GM Inhaler IH SCH (09:00)
[2018-09-10] MEDS ORDERED: Polyethylene Glycol 3350 Powder 17 GM Packet PO SCH (09:00)
[2018-09-10] MEDS ORDERED: Finasteride 5 MG Tab PO SCH (09:00)
[2018-09-10] MEDS ORDERED: UMECLIDINIUM BRM INH SCH (09:00)
[2018-09-10] MEDS ORDERED: Montelukast 10 MG Tab PO SCH (09:00)
[2018-09-10] MEDS ORDERED: Saccharomyces Boulardii (Probiotic) 250 MG Cap PO SCH (09:00)
[2018-09-10] MEDS ORDERED: Aspirin 81 MG Tab.EC PO SCH (09:00)
[2018-09-10] MEDS ORDERED: VILANTEROL INH SCH (09:00)
[2018-09-10] MEDS ORDERED: Multivitamins,Therapeutic Tab PO SCH (09:00)
[2018-09-10] MEDS ORDERED: OLANZapine 5 MG Tab PO SCH (09:00)
[2018-09-10] MEDS: Nystatin Topical Powder 15 GM Bottle TOP SCH (10:03)
[2018-09-10] MEDS: Famotidine 20 MG Tab PO SCH (10:04)
[2018-09-10] MEDS: LIDOCAINE 4% TOP SOLUTION TOP SCH ×2 (10:04→15:03)
[2018-09-10] MEDS: DICLOFENAC SODIUM 1% GEL TOP SCH ×2 (10:04→15:03)
--- NOTE | 2018-09-10 10:50 | PCM.DCSUM1 ---
Discharge Summary - Hospital Course HPI Initial Comments: The patient is sent from [facility] with a report of fever to 103.1 . It is unclear when that temperature was taken, however, the patient was given Tylenol around noon. Associated with his fever was in oxygen saturation to 86% on room air at the [facility]. Here in the ED, the patient's temperature is measured at 100.9, with an oxygen saturation of 88% on room air. He is saturating 93% on 2 L of oxygen per nasal cannula. The patient is a chronic indwelling Daugherty. He has a PEG tube for dysphagia, through which he receives all of his medications. He denies having pain anywhere , and denies having a recent cough. Medical records indicate that the patient was admitted to this hospital on 08/21 through 08/27/2017, also for a fever. There was suspicion that he might have either pneumonia and/or a urinary tract infection. [facility] was [facility] with ten-day prescriptions for doxycycline and ampicillin. Per the [facility] paperwork, the patient received an influenza vaccine on . The patient's PCP is Dr. Enamorado. Diagnosis: Stroke: No Modified James Scale: No Symptoms at All Modified James Scale Score: 0 - Discharge Data Discharge Date: 09/10/18 (ADMIT 09/09/18) Discharge Disposition: DC/Tfer to SNF 03 Condition: Stable - Discharge Diagnosis/Problem(s) (1) Fever of unknown origin SNOMED Code(s): 9029306 ICD Code: R50.9 - FEVER, UNSPECIFIED Status: Acute Priority: High Current Visit: Yes (2) Pressure ulcer SNOMED Code(s): 726117971 ICD Code: L89.90 - PRESSURE ULCER OF UNSPECIFIED SITE, UNSPECIFIED STAGE Status: Acute Priority: High Current Visit: Yes Qualifiers: Pressure injury location: buttock Pressure injury stage: stage 2 Laterality: unspecified laterality Qualified Code(s): L89.302 - Pressure ulcer of unspecified buttock, stage 2 - Patient Summary/Data Operative Procedure(s) Performed: none Complications: none Consults: Consultations 09/09/18 18:28 Consult to Case Management/Imaging Technologist [CONS] Routine Consult to Spiritual Care [CONS] Routine OT Evaluation and Treatment [CONS] Routine PT Evaluation and Treatment [CONS] Routine 09/09/18 19:01 PT Evaluation and Treatment [CONS] Routine 09/10/18 08:15 SIDE HEMMER Evaluation and Treatment [CONS] Routine Labs Pending at D/C: Blood Culture, Urine Culture Recommended Follow-up Testing/Procedures: OP wound care by a surgeon. Planned Operative Procedure(s) after DC: none Hospital Course: Assessment/Plan: Acute: Coccygeal Wound - ~ 6 cm stage 2-3 Pressure Ulcer - He is mostly bed bound and immobile due neurological disease and gait abnormality - Routine nursing wound care for now - PT consult in AM--> recommend debridement as needed and MEDIHONEY dressing - Triple antibiotic topical when changing dressing Resolved: Fever - Had a temp of 104 F; 100.9 in ED--> 98.5 today - Suspect 2/2 Coccygeal Wound - Decubitus Ulcer Stage 2-3 6 cm - Risk Factors: bedbound and immobile - WBC 12.52--> 6.81 - Blood culture and Urine culture pending--> will update 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 Kelsea Guallpa did well here after being admitted for fever of unexplained origin. He also presented with a worsening pressure ulcer, which we suspect may have caused the fever. PT cleaned and debrided the wound this AM. No antibiotics were given while here as his workup has been benign (see above), he has not looked septic, has had no fever while here, and his WBC decreased from 12.52--> 6.81 without intervention. He is anxious to go home and states he feels fine. Therefore, will send him home today and update [facility] on blood culture results and whether he needs to be started on an antibiotic. Recommend wound care outpt and to consult surgeon for wound care. PT recommends debridement as needed and MEDIHONEY dressing. Will be sent home with prescription of triple antibiotic which should be applied to the wound during dressing changes. - Patient Instructions Diet, Other: NDD3 w/ honey thick liquids, no straw Activity: As Tolerated Driving: Do Not Drive Showering/Bathing: May Shower Wound/Incision Care: Keep Operative Site/Wound Site Clean and Dry, Change Dressing Daily Notify Provider of: Fever, Increased Pain, Swelling and Redness, Drainage - Discharge Plan *PRESCRIPTION DRUG MONITORING PROGRAM REVIEWED*: Not Applicable *COPY OF PRESCRIPTION DRUG MONITORING REPORT IN PATIENT RODRIGUE: Not Applicable Prescriptions/Med Rec: Neomycin Harman/Bacitrac Zn/Poly [Triple Antibiotic Ointment] 15 gm TP TID #1 oint...g. Home Medications: Home Meds Acetaminophen [Pain Relief] 650 mg PO Q6H PRN 08/21/18 [History] Albuterol Sulfate 2.5 mg IH Q4H PRN 08/21/18 [History] Albuterol [Ventolin HFA] 2 puff IH Q4H PRN 08/21/18 [History] Aspirin 81 mg PO DAILY 08/21/18 [History] Budesonide/Formoterol [Symbicort 160-4.5 MCG] 2 puff IH BID 08/21/18 [History] Carisoprodol 350 mg PO QID 08/21/18 [History] ClonazePAM [KlonoPIN] 0.5 mg PO TID 08/21/18 [History] Diclofenac Sodium [Voltaren 1% Gel] 2 gram TOP QID 08/21/18 [History] Famotidine [Pepcid] 20 mg PO BID 08/21/18 [History] Finasteride 5 mg PO DAILY 08/21/18 [History] Gabapentin 900 mg PO TID 08/21/18 [History] Hydrocortisone [Hydrocortisone 1% Crm] 1 applic TOP TID PRN 08/21/18 [History] Lidocaine 4% [Xylocaine 4% Top Soln] 1 applic TOP TID 08/21/18 [History] Melatonin 5 mg PO BEDTIME 08/21/18 [History] Meloxicam [Mobic] 15 mg PO DAILY 08/21/18 [History] Montelukast [Singulair] 10 mg PO DAILY 08/21/18 [History] Morphine [Morphine 10 MG/5 ML] 10 mg PO Q4HR PRN 08/21/18 [History] Nystatin [Nyata] 1 applic TOP BID 08/21/18 [History] OLANZapine [ZyPREXA] 10 mg PO DAILY 08/21/18 [History] Polyethylene Glycol 3350 [MiraLAX] 17 gm PO DAILY 08/21/18 [History] Umeclidinium Brm/Vilanterol Tr [Anoro Ellipta 62.5-25 MCG] 1 puff IH DAILY 08/21 [History] Verapamil [Calan] 160 mg PO TID 08/21/18 [History] traZODone HCl [Trazodone HCl] 100 mg PO BEDTIME 08/21/18 [History] Lactobacillus Acidophilus [Acidophilus Lactobacilli] 1 cap PO BID 09/09/18 [ History] Multivitamin/Iron/Folic Acid [Century Tablet] 1 tab PO DAILY 09/09/18 [History] Neomycin Harman/Bacitrac Zn/Poly [Triple Antibiotic Ointment] 15 gm TP TID #1 oint...g. 09/09/18 [Rx] Oxygen Therapy Mode: Nasal Cannula Oxygen Flow Rate (L/min): 0.5 Maintain SpO2% greater than: 92 Patient Handouts: Preventing Pressure Injuries, Wound Infection, [id number], Fever, Adult, [id number] Referrals: Delio Enamorado MD [Primary Care Provider] - - Discharge Summary/Plan Comment DC Time >30 min.: Yes (40) - General Info Date of Service: 09/10/18 Admission Dx/Problem (Free Text: Admission Diagnosis/Problem Admission Diagnosis/Problem Fever of unknown origin Subjective Update: In to see Ramu. He is sitting up in bed watching TV. He has no current complaints. He stated he had a fever yesterday, but feels fine and doesn't want to be here. His workup has been benign. We are awaiting urine and blood cultures. He wants to go today and since he is stable at this time (no fever while here and workup benign) we will send him back to [facility] today. Will update [facility] when we receive blood and urine cultures and advise whether or not he needs to be started on antibiotics. He is agreeable to this plan. No concerns from nursing. Functional Status: Reports: Pain Controlled, Tolerating Diet, Urinating (daugherty catheter) - Review of Systems General: Reports: Weakness (chronic). Denies: Fever, Chills HEENT: Reports: Dysphasia (chronic) Pulmonary: Reports: No Symptoms Cardiovascular: Reports: No Symptoms Gastrointestinal: Reports: Difficulty Swallowing (chronic). Denies: Abdominal Pain, Diarrhea, Nausea, Vomiting Genitourinary: Reports: Incontinence, Retention, Other (chronic indwelling daugherty catheter) Musculoskeletal: Reports: Neck Pain (h/o spasmodic torticollis) Skin: Reports: Other (coccygeal pressure ulcer) Neurological: Reports: Pre-Existing Deficit, Trouble Speaking, Difficulty Walking, Weakness, Gait Disturbance. Denies: Confusion Psychiatric: Reports: No Symptoms - Patient Data Vitals - Most Recent: Last Vital Signs Temp 97.9 F 09/10/18 07:33 Pulse 74 09/10/18 08:12 Resp 14 09/10/18 07:33 BP 103/62 09/10/18 07:33 Pulse Ox 87 L 09/10/18 09:06 Weight - Most Recent: 152 lb 11.2 oz I&O - Last 24 hours: Intake & Output 09/09/18 09/10/18 09/10/18 22:59 06:59 14:59 Intake Total 1240 Output Total 700 Balance 540 Lab Results - Last 24 hrs: Laboratory Results - last 24 hr 09/09/18 09/09/18 09/09/18 Range/Units 15:40 15:40 15:40 WBC 12.52 H (4.23-9.07) K/mm3 RBC 4.22 L (4.63-6.08) M/mm3 Hgb 13.0 L (13.7-17.5) gm/L Hct 39.9 L (40.1-51.0) % MCV 94.5 H (79.0-92.2) fl MCH 30.8 (25.7-32.2) pg MCHC 32.6 (32.2-35.5) g/dl RDW Std Deviation 43.5 (35.1-43.9) fL Plt Count 223 (163-337) K/mm3 MPV 9.5 (9.4-12.3) fl Neut % (Auto) (34.0-67.9) % Lymph % (Auto) (21.8-53.1) % [place] % (Auto) (5.3-12.2) % Eos % (Auto) (0.8-7.0) Baso % (Auto) (0.1-1.2) % Neut # (Auto) (1.78-5.38) K/mm3 Lymph # (Auto) (1.32-3.57) K/mm3 [place] # (Auto) (0.30-0.82) K/mm3 Eos # (Auto) (0.04-0.54) K/mm3 Baso # (Auto) (0.01-0.08) K/mm3 Neutrophils % (Manual) 84 H (40-60) % Band Neutrophils % 0 (0-10) % Lymphocytes % (Manual) 10 L (20-40) % Atypical Lymphs % 0 % Monocytes % (Manual) 4 (2-10) % Eosinophils % (Manual) 0 L (0.8-7.0) % Basophils % (Manual) 2 H (0.2-1.2) Platelet Estimate Adequate RBC Morph Comment Normal Puncture Site ABG pH (7.35-7.45) ABG pCO2 (35.0-45.0) mmHg ABG pO2 (80.0-100.0) mmHg ABG HCO3 (22.0-26.0) meq/L ABG O2 Saturation (96.0-97.0) % ABG Base Excess (-2-2.0) Dusty Test O2 Delivery Device Oxygen Flow Rate FiO2 (21.00-100.00) % Sodium 144 (136-145) mEq/L Potassium 3.7 (3.5-5.1) mEq/L Chloride 108 H (98-107) mEq/L Carbon Dioxide 27 (21-32) mEq/L Anion Gap 12.7 (5-15) BUN 26 H (7-18) mg/dL Creatinine 1.2 (0.7-1.3) mg/dL Est Cr Clr Drug Dosing 63.00 mL/min Estimated GFR (MDRD) > 60 (>60) mL/min BUN/Creatinine Ratio 21.7 H (14-18) Glucose 118 H (80-115) mg/dL Lactic Acid 0.6 (0.4-2.0) mmol/L Calcium 10.1 (8.5-10.1) mg/dL Magnesium 1.7 L (1.8-2.4) mg/dl Total Bilirubin 0.2 (0.2-1.0) mg/dL AST 17 (15-37) U/L ALT 19 (16-63) U/L Alkaline Phosphatase 59 (46-116) U/L Troponin I < 0.017 (0.00-0.056) ng/mL C-Reactive Protein (<1.0) mg/dL Total Protein 6.6 (6.4-8.2) g/dl Albumin 3.1 L (3.4-5.0) g/dl Globulin 3.5 gm/dL Albumin/Globulin Ratio 0.9 L (1-2) Urine Color (Yellow) Urine Appearance (Clear) Urine pH (5.0-8.0) Ur Specific [place] (1.005-1.030) Urine Protein (Negative) Urine Glucose (UA) (Negative) Urine Ketones (Negative) Urine Occult Blood (Negative) Urine Nitrite (Negative) Urine Bilirubin (Negative) Urine Urobilinogen (0.2-1.0) Ur Leukocyte Esterase (Negative) Urine RBC (0-5) /hpf Urine WBC (0-5) /hpf Ur Epithelial Cells (0-5) /hpf Urine Bacteria (FEW) /hpf Urine Mucus (FEW) /hpf 09/09/18 09/09/18 09/09/18 Range/Units 15:40 16:05 16:50 WBC (4.23-9.07) K/mm3 RBC (4.63-6.08) M/mm3 Hgb (13.7-17.5) gm/L Hct (40.1-51.0) % MCV (79.0-92.2) fl MCH (25.7-32.2) pg MCHC (32.2-35.5) g/dl RDW Std Deviation (35.1-43.9) fL Plt Count (163-337) K/mm3 MPV (9.4-12.3) fl Neut % (Auto) (34.0-67.9) % Lymph % (Auto) (21.8-53.1) % [place] % (Auto) (5.3-12.2) % Eos % (Auto) (0.8-7.0) Baso % (Auto) (0.1-1.2) % Neut # (Auto) (1.78-5.38) K/mm3 Lymph # (Auto) (1.32-3.57) K/mm3 [place] # (Auto) (0.30-0.82) K/mm3 Eos # (Auto) (0.04-0.54) K/mm3 Baso # (Auto) (0.01-0.08) K/mm3 Neutrophils % (Manual) (40-60) % Band Neutrophils % (0-10) % Lymphocytes % (Manual) (20-40) % Atypical Lymphs % % Monocytes % (Manual) (2-10) % Eosinophils % (Manual) (0.8-7.0) % Basophils % (Manual) (0.2-1.2) Platelet Estimate RBC Morph Comment Puncture Site Rt radial ABG pH 7.42 (7.35-7.45) ABG pCO2 40.4 (35.0-45.0) mmHg ABG pO2 76.0 L (80.0-100.0) mmHg ABG HCO3 25.5 (22.0-26.0) meq/L ABG O2 Saturation 94.7 L (96.0-97.0) % ABG Base Excess 1.4 (-2-2.0) Dusty Test Positive O2 Delivery Device Nasal cannula Oxygen Flow Rate 2.0 FiO2 28.00 (21.00-100.00) % Sodium (136-145) mEq/L Potassium (3.5-5.1) mEq/L Chloride (98-107) mEq/L Carbon Dioxide (21-32) mEq/L Anion Gap (5-15) BUN (7-18) mg/dL Creatinine (0.7-1.3) mg/dL Est Cr Clr Drug Dosing mL/min Estimated GFR (MDRD) (>60) mL/min BUN/Creatinine Ratio (14-18) Glucose (80-115) mg/dL Lactic Acid (0.4-2.0) mmol/L Calcium (8.5-10.1) mg/dL Magnesium (1.8-2.4) mg/dl Total Bilirubin (0.2-1.0) mg/dL AST (15-37) U/L ALT (16-63) U/L Alkaline Phosphatase (46-116) U/L Troponin I (0.00-0.056) ng/mL C-Reactive Protein 6.6 H* (<1.0) mg/dL Total Protein (6.4-8.2) g/dl Albumin (3.4-5.0) g/dl Globulin gm/dL Albumin/Globulin Ratio (1-2) Urine Color Yellow (Yellow) Urine Appearance Slt cloudy H (Clear) Urine pH 5.5 (5.0-8.0) Ur Specific [place] 1.020 (1.005-1.030) Urine Protein Negative (Negative) Urine Glucose (UA) Negative (Negative) Urine Ketones Negative (Negative) Urine Occult Blood Trace-lysed H (Negative) Urine Nitrite Negative (Negative) Urine Bilirubin Negative (Negative) Urine Urobilinogen 0.2 (0.2-1.0) Ur Leukocyte Esterase Trace H (Negative) Urine RBC 10-20 H (0-5) /hpf Urine WBC 10-20 H (0-5) /hpf Ur Epithelial Cells 0-5 (0-5) /hpf Urine Bacteria Few (FEW) /hpf Urine Mucus Few (FEW) /hpf 09/10/18 09/10/18 Range/Units 05:53 05:53 WBC 6.81 (4.23-9.07) K/mm3 RBC 3.52 L (4.63-6.08) M/mm3 Hgb 10.8 L (13.7-17.5) gm/L Hct 34.1 L (40.1-51.0) % MCV 96.9 H (79.0-92.2) fl MCH 30.7 (25.7-32.2) pg MCHC 31.7 L (32.2-35.5) g/dl RDW Std Deviation 43.3 (35.1-43.9) fL Plt Count 184 (163-337) K/mm3 MPV 9.2 L (9.4-12.3) fl Neut % (Auto) 70.4 H (34.0-67.9) % Lymph % (Auto) 15.7 L (21.8-53.1) % [place] % (Auto) 10.0 (5.3-12.2) % Eos % (Auto) 3.5 (0.8-7.0) Baso % (Auto) 0.3 (0.1-1.2) % Neut # (Auto) 4.79 (1.78-5.38) K/mm3 Lymph # (Auto) 1.07 L (1.32-3.57) K/mm3 [place] # (Auto) 0.68 (0.30-0.82) K/mm3 Eos # (Auto) 0.24 (0.04-0.54) K/mm3 Baso # (Auto) 0.02 (0.01-0.08) K/mm3 Neutrophils % (Manual) (40-60) % Band Neutrophils % (0-10) % Lymphocytes % (Manual) (20-40) % Atypical Lymphs % % Monocytes % (Manual) (2-10) % Eosinophils % (Manual) (0.8-7.0) % Basophils % (Manual) (0.2-1.2) Platelet Estimate RBC Morph Comment Puncture Site ABG pH (7.35-7.45) ABG pCO2 (35.0-45.0) mmHg ABG pO2 (80.0-100.0) mmHg ABG HCO3 (22.0-26.0) meq/L ABG O2 Saturation (96.0-97.0) % ABG Base Excess (-2-2.0) Dusty Test O2 Delivery Device Oxygen Flow Rate FiO2 (21.00-100.00) % Sodium 145 (136-145) mEq/L Potassium 4.0 (3.5-5.1) mEq/L Chloride 112 H (98-107) mEq/L Carbon Dioxide 28 (21-32) mEq/L Anion Gap 9.0 (5-15) BUN 22 H (7-18) mg/dL Creatinine 1.1 (0.7-1.3) mg/dL Est Cr Clr Drug Dosing 65.59 mL/min Estimated GFR (MDRD) > 60 (>60) mL/min BUN/Creatinine Ratio 20.0 H (14-18) Glucose 94 (80-115) mg/dL Lactic Acid (0.4-2.0) mmol/L Calcium 9.4 (8.5-10.1) mg/dL Magnesium 1.8 (1.8-2.4) mg/dl Total Bilirubin (0.2-1.0) mg/dL AST (15-37) U/L ALT (16-63) U/L Alkaline Phosphatase (46-116) U/L Troponin I (0.00-0.056) ng/mL C-Reactive Protein 10.3 H* (<1.0) mg/dL Total Protein (6.4-8.2) g/dl Albumin (3.4-5.0) g/dl Globulin gm/dL Albumin/Globulin Ratio (1-2) Urine Color (Yellow) Urine Appearance (Clear) Urine pH (5.0-8.0) Ur Specific [place] (1.005-1.030) Urine Protein (Negative) Urine Glucose (UA) (Negative) Urine Ketones (Negative) Urine Occult Blood (Negative) Urine Nitrite (Negative) Urine Bilirubin (Negative) Urine Urobilinogen (0.2-1.0) Ur Leukocyte Esterase (Negative) Urine RBC (0-5) /hpf Urine WBC (0-5) /hpf Ur Epithelial Cells (0-5) /hpf Urine Bacteria (FEW) /hpf Urine Mucus (FEW) /hpf PAUL Results - Last 24 hrs: Microbiology 09/09/18 15:53 Influenza Type A Antigen Screen - Final Nasopharyngeal Swab NEGATIVE INFLUENZA A VIRUS AG Influenza Type B Antigen Screen - Final NEGATIVE INFLUENZA B VIRUS AG Med Orders - Current: Current Medications Acetaminophen (Tylenol) 650 mg PO Q4H PRN PRN Reason: Pain (Mild 1-3)/fever Hydrocodone Bitart/Acetaminophen ([place] 325-5 Mg) 1 tab PO Q4H PRN PRN Reason: Pain (moderate 4-6) Last Admin: 09/10/18 08:11 Dose: 1 tab Albuterol (Proventil Hfa) 0 gm INH Q4H PRN PRN Reason: SHORTNESS OF BREATH Albuterol (Proventil Neb Soln) 2.5 mg INH Q4H PRN PRN Reason: SHORTNESS OF BREATH Albuterol/Ipratropium (Duoneb 3.0-0.5 Mg/3 Ml) 3 ml NEB Q4H PRN PRN Reason: Shortness Of Breath/wheezing Last Admin: 09/10/18 09:06 Dose: 3 ml Aspirin (Halfprin) 81 mg PO DAILY STELLA Last Admin: 09/10/18 08:12 Dose: 81 mg Bisacodyl (Dulcolax) 5 mg PO DAILY PRN PRN Reason: Constipation Clonazepam (Klonopin) 0.5 mg PO TID [facility] Last Admin: 09/10/18 08:11 Dose: 0.5 mg Docusate Sodium (Colace) 100 mg PO BID PRN PRN Reason: Constipation Famotidine (Pepcid) 20 mg PO BID [facility] Last Admin: 09/10/18 10:04 Dose: Not Given Finasteride (Proscar) 5 mg PO DAILY [facility] Last Admin: 09/10/18 08:10 Dose: 5 mg Gabapentin (Neurontin) 900 mg PO TID [facility] Last Admin: 09/10/18 08:13 Dose: 900 mg Guaifenesin/Phenylephrine HCl (Robitussin Dm) 10 ml PO Q4H PRN PRN Reason: Cough Hydralazine HCl (Apresoline) 20 mg IVPUSH Q4H PRN PRN Reason: Hypertension Hydrocortisone (Hydrocortisone 1% Crm) 0 gm TOP TID PRN PRN Reason: ITCHING Hydromorphone HCl (Dilaudid) 0.25 mg IVPUSH Q2H PRN PRN Reason: Pain (severe 7-10) Promethazine HCl 6.25 mg/ (Sodium Chloride) 50.25 mls @ 100 mls/hr IV Q6H PRN PRN Reason: Nausea/Vomiting Lorazepam (Ativan) 0.25 mg IV Q6H PRN PRN Reason: Anxiety Magnesium Sulfate (Pharmacy To Dose - Magnesium Replacement) 0 dose .XX ASDIRECTED PRN PRN Reason: RX TO WATCH MAG Metoprolol Tartrate (Lopressor) 5 mg IVPUSH Q4H PRN PRN Reason: Tachycardia Mometasone Furoate/Formoterol Fumar (Dulera 200-5 Mcg) 2 puff IH BID [facility] Last Admin: 09/10/18 09:06 Dose: 2 puff Montelukast Sodium (Singulair) 10 mg PO DAILY [facility] Last Admin: 09/10/18 08:13 Dose: 10 mg Morphine Sulfate (Morphine 10 Mg/0.5 Ml Oral Syringe) 10 mg PO Q4H PRN PRN Reason: PAIN Last Admin: 09/10/18 06:05 Dose: 10 mg Multivitamins (Thera) 1 each PO DAILY [facility] Last Admin: 09/10/18 08:13 Dose: 1 each Neomycin/Polymyxin/Bacitracin (Neosporin Oint) 15 gm TOP TID [facility] Nystatin (Nystop) 0 gm TOP BID [facility] Last Admin: 09/10/18 10:03 Dose: Not Given Olanzapine (Zyprexa) 10 mg PO DAILY [facility] Last Admin: 09/10/18 08:13 Dose: 10 mg Ondansetron HCl (Zofran) 4 mg IV Q6H PRN PRN Reason: Nausea/Vomiting Carisoprodol 350 Mg 0 each PO QID [facility] Last Admin: 09/10/18 08:16 Dose: Not Given Meloxicam 15 Mg 0 each PO DAILY [facility] Last Admin: 09/10/18 10:04 Dose: Not Given Umeclidinium Brm/Vilanterol (Anoro Ellipta) Inhaler 0 each INH DAILY [facility] Last Admin: 09/10/18 09:09 Dose: Not Given Diclofenac Sodium 1% (Gel) 0 each TOP QID [facility] Last Admin: 09/10/18 10:04 Dose: Not Given Lidocaine 4% Top (Solution) 0 each TOP TID [facility] Last Admin: 09/10/18 10:04 Dose: Not Given Polyethylene Glycol (Miralax) 17 gm PO DAILY [facility] Last Admin: 09/10/18 08:10 Dose: Not Given Potassium Chloride (Pharmacy To Dose - Potassium Replacement) 0 dose .XX ASDIRECTED PRN PRN Reason: RX TO WATCH K Saccharomyces Boulardii (Florastor) 250 mg PO BID [facility] Last Admin: 09/10/18 08:13 Dose: 250 mg Senna/Docusate Sodium (Senna Plus) 1 tab PO BID PRN PRN Reason: Constipation Trazodone HCl (Trazodone) 100 mg PO BEDTIME [facility] Last Admin: 09/09/18 22:39 Dose: 100 mg Verapamil HCl (Calan) 160 mg PO TID [facility] Last Admin: 09/10/18 08:11 Dose: 160 mg Discontinued Medications Diclofenac Sodium (Voltaren 1% Gel) 2 gm TOP QID [facility] Last Admin: 09/09/18 23:04 Dose: Not Given Sodium Chloride (Normal Saline) 1,000 mls @ 150 mls/hr IV ASDIRECTED [facility] Last Admin: 09/09/18 15:55 Dose: 150 mls/hr Lidocaine HCl (Xylocaine 4% Top Soln) 0 ml TOP TID [facility] Last Admin: 09/09/18 23:05 Dose: Not Given Magnesium Oxide (Magnesium Oxide) 400 mg PO ONETIME ONE Stop: 09/09/18 19:01 Last Admin: 09/09/18 22:41 Dose: 400 mg Mometasone Furoate/Formoterol Fumar (Dulera 200-5 Mcg) 2 puff IH BIDRT [facility] Last Admin: 09/10/18 05:20 Dose: Not Given Non-Formulary Medication (Acetaminophen [Pain Relief]) 650 mg PO Q6H PRN PRN Reason: Headache Non-Formulary Medication (Melatonin [Melatonin]) 5 mg PO BEDTIME [facility] Last Admin: 09/10/18 02:54 Dose: Not Given Polyethylene Glycol (Miralax) 17 gm PO DAILY PRN PRN Reason: Constipation Potassium Chloride (Klor-Con M20) 40 meq PO Q4H [facility] Stop: 09/09/18 23:01 Last Admin: 09/10/18 06:05 Dose: 40 meq - Exam Quality Assessment: Reports: Supplemental Oxygen (0.5 NC), DVT Prophylaxis General: Reports: Alert, Oriented, Cooperative, No Acute Distress HEENT: Reports: Pupils Equal, Pupils Reactive, EOMI, Mucous Membr. Moist/[place] Neck: Reports: Supple, Other (tilted to right; h/o torticollis) Lungs: Reports: Normal Respiratory Effort, Decreased Breath Sounds Cardiovascular: Reports: Regular Rate, Regular Rhythm, Other (distant heart sounds) GI/Abdominal Exam: Normal Bowel Sounds, Soft, Non-Tender, No Organomegaly, No Distention, No Abnormal Bruit, No Mass, Pelvis Stable (Male) Exam: Deferred Rectal (Males) Exam: Deferred Back Exam: Reports: Normal Inspection, Decreased Range of Motion Extremities: Normal Inspection, Normal Range of Motion, Non-Tender, No Pedal Edema, Normal Capillary Refill Skin: Reports: Warm, Dry, Intact Wound/Incisions: Reports: Healing Well, Dressing Dry and Intact Neurological: Reports: No New Focal Deficit Psy/Mental Status: Reports: Alert, Normal Affect, Normal Mood
[2018-09-10] MEDS ORDERED: Bacitracin/Neomycin/Polymyxin B Oint 15 GM Tube TOP SCH (15:00)
== END 2018-09-10 14:18 ==
LOC: JD.ED 15:25 → SUPCPDRO 15:25 → JD.MS 17:51
PROVIDERS: ADMIT Internal Medicine; ATTEND Internal Medicine
DX: R50.9 Fever, unspecified (principal); L89.302 Pressure ulcer of unspecified buttock, stage 2; E83.42 Hypomagnesemia; I10 Essential (primary) hypertension; J44.9 Chronic obstructive pulmonary disease, unspecified; K21.9 Gastro-esophageal reflux disease without esophagitis; Z87.891 Personal history of nicotine dependence; Z79.899 Other long term (current) drug therapy
CPT/HCPCS: 36415; 36600; 71045; 71045-26; 80048; 80053; 81001; 82803; 83605; 83735; 84484; 85007; 85025; 85027; 86140; 87040; 87086; 87804; 93005; 94640; 94761; 96360; 96361; 97116-GP; 97161-GP; 97167-GO; 97530-GO; 97597-GP; 99283; 99285-25; A9270-GY; G0378; J7040; J7620-GY

== ENCOUNTER 2020-10-28 09:13 | Inpatient (IN) | payer MEDICARE, MEDICAID ==
[2020-10-28] MEDS ORDERED: Sodium Chloride 0.9% 10 ML Syringe FLUSH PRN (10:00)
[2020-10-28] MEDS ORDERED: HYDROmorphone 0.5 MG/0.5 ML Syringe IVPUSH ONE (10:02)
--- NOTE | 2020-10-28 11:13 | CR ---
Chest: Portable view of the chest was obtained. Comparison: Prior chest x-rays of 04/07/19 and 02/16/19. Increased parenchymal density is seen within the left lower lung. Right lung is clear. Heart size and mediastinum are normal. Bony structures show nothing acute. Impression: 1. Focal area of presumed pneumonia within the left lower lung. 2. No other acute abnormality is appreciated. Diagnostic code #3
[2020-10-28] MEDS ORDERED: Cefepime 2 GM in Premix Bag 1 BAG IV ONE (11:43)
[2020-10-28] MEDS ORDERED: Acetaminophen 325 MG Tab PO ONE (11:45)
--- NOTE | 2020-10-28 13:17 | CT ---
Head CT Technique: Multiple axial sections through the brain were obtained. Intravenous contrast was not utilized. Reconstructed coronal and sagittal images were obtained. Comparison: No prior intracranial imaging is available. Findings: Ventricles along the basal cisterns and sulci over convexities are mildly prominent. Mild areas of diminished density are noted within the periventricular white matter which most likely represent small vessel ischemic demyelination change. Low density is noted within a portion of the lower brainstem measuring 1.0 cm. This most likely represents a small area of demyelination. No other abnormal parenchymal densities are seen. No evidence of intracranial hemorrhage is seen. No midline shift or mass-effect is seen. Bone window settings were reviewed. Visualized mastoid sinuses and paranasal sinuses show nothing acute. No acute calvarial finding is appreciated. Impression: 1. Senescent change as noted above. 2. No definite acute abnormality is appreciated on noncontrast head CT exam. Diagnostic code #2
--- NOTE | 2020-10-28 14:57 | PCM.HP.2 ---
H&P History of Present Illness - General Date of Service: 10/28/20 Admit Problem/Dx: Admission Diagnosis/Problem Admission Diagnosis/Problem Pneumonia Source of Information: Patient, Old Records, Provider, RN Notes Reviewed, Significant Other History Limitations: Reports: Language Barrier - History of Present Illness Initial Comments - Free Text/Narative: This is a 70 yo elderly white male with past medical hx/o Hypertension, COPD, GERD, Dysphagia on soft Diet, Speech Disorder, Hx/o PEG Tube placement, Neurologic Bladder S/p Chronic Indwelling Catheter, Spasmodic Torticolis, Cluster TOUSSAINT, DJD/Cervical Disc Degeneration, Generalized Weakness and Cale Induced Neurological Toxicity, Chronic Pain Syndrome, Hx/o Opioid Addiction and Gait Abnormality who [place] us [place] the [place] for evaluation of a fever with a temperature as high as 103 F. He was also found tachycardic with a HR of 143 associated with some chills and altered mentation. Patient carries a hx/o aspiration syndrome. The [place] staff felt he might have aspirated. Patient was on RA sating adequately. His initial work up in ED shows a CBC remarkable for WBC of 16.84, Hgb of 12.5, Hct of 39.8, MCV of 93.9, MCHC of 31.4, RDW of 44.5, MPV of 9.2, Neutrophils of 93.8%, Lymphocytes of 1.9%, Monocytes of 3.9%, and Eosinophils of 0.1%. His chemistry is significant for AG of 16.5, BUN of 21, and CRP of 3.3. His LA is wnl. His covid test is negative. His chest x-ray report read as focal area of presumed pneumonia within the let lower lung. His Head CT scan report read as no definite acute abnormality. Sepsis was activated in ED and he received initial treatment prior to coming in to the floor. - Related Data Allergies/Adverse Reactions: Allergies Allergy/AdvReac Type Severity Reaction Status Date / Time lithium Allergy Other Verified 10/28/20 09:29 NSAIDS (Non-Steroidal Allergy Other Verified 10/28/20 09:29 Anti-Inflamma sulfamethoxazole Allergy Rash Verified 10/28/20 09:29 [From Bactrim] trimethoprim [From Bactrim] Allergy Rash Verified 10/28/20 09:29 Home Medications: Home Meds Acetaminophen [Pain Relief] 650 mg PO Q6H PRN 08/21/18 [History] Albuterol Sulfate 2.5 mg IH BID 08/21/18 [History] Aspirin 81 mg PO DAILY 08/21/18 [History] Diclofenac Sodium [Voltaren 1% Gel] 2 gram TOP BID 08/21/18 [History] Finasteride 5 mg PO DAILY 08/21/18 [History] Hydrocortisone [Hydrocortisone 1% Crm] 1 applic TOP TID PRN 08/21/18 [History] Melatonin 5 mg PO BEDTIME PRN 08/21/18 [History] Meloxicam [Mobic] 15 mg PO DAILY 08/21/18 [History] Montelukast [Singulair] 10 mg PO DAILY 08/21/18 [History] Nystatin [Nyata] 1 applic TOP BID 08/21/18 [History] OLANZapine [ZyPREXA] 10 mg PO DAILY 08/21/18 [History] Umeclidinium Brm/Vilanterol Tr [Anoro Ellipta 62.5-25 MCG] 1 puff IH DAILY 08/21/18 [History] Verapamil [Calan] 160 mg PO TID 08/21/18 [History] carisoprodoL [Carisoprodol] 350 mg PO TID 08/21/18 [History] polyethylene glycoL 3350 [MiraLAX] 17 gm PO DAILY PRN 08/21/18 [History] Lactobacillus Acidophilus [Acidophilus Lactobacilli] 1 cap PO BID 09/09/18 [History] Multivitamin/Iron/Folic Acid [Century Tablet] 1 tab PO DAILY 09/09/18 [History] Acetaminophen/oxyCODONE [Percocet 325-5 MG] 1 tab PO Q6H 04/07/19 [History] Albuterol/Ipratropium [DuoNeb 3.0-0.5 MG/3 ML] 3 ml NEB Q6H PRN #25 neb 04/07/19 [Rx] Tamsulosin HCl [Flomax] 0.8 mg PO DAILY 04/07/19 [History] rOPINIRole [Requip] 0.5 mg PO DAILY 04/07/19 [History] Acetaminophen [Tylenol] 650 mg PO BID 10/28/20 [History] Gabapentin [Neurontin] 300 mg PO TID 10/28/20 [History] Lidocaine 4% [LMX 4 Crm] 0 gm TOP DAILY 10/28/20 [History] Magnesium Oxide 400 mg PO DAILY 10/28/20 [History] Non-Formulary Medication [NF Drug] 2 puff IN BID 10/28/20 [History] Non-Formulary Medication [NF Drug] 2 puff IN QID PRN 10/28/20 [History] Omeprazole 20 mg PO DAILY 10/28/20 [History] Sennosides/Docusate Sodium [Senna Plus Tablet] 1 each PO DAILY 10/28/20 [ History] Sodium Chloride/Aloe Vera [[place] Nasal Gel [place]] 22 ml NS ASDIRECTED PRN 10/28/20 [History] bisacodyL [Bisacodyl] 10 mg PO DAILY PRN 10/28/20 [History] guaiFENesin [Mucinex] 400 mg PO TID 10/28/20 [History] Past Medical History HEENT History: Reports: None Cardiovascular History: Reports: Hypertension Respiratory History: Reports: COPD Gastrointestinal History: Reports: GERD, Other (See Below) Other Gastrointestinal History: dysphagia Genitourinary History: Reports: Retention, Urinary Musculoskeletal History: Reports: Neck Pain, Chronic, Other (See Below) Other Musculoskeletal History: spasmodic torticollis, cervical disc degeneration, weakness Neurological History: Reports: Other (See Below) Other Neuro History: cluster headaches, neural disease Psychiatric History: Reports: Anxiety, Bipolar Endocrine/Metabolic History: Reports: Other (See Below) Other Endocrine/Metabolic History: diabetes insipidus Hematologic History: Reports: Anemia Immunologic History: Reports: None Oncologic (Cancer) History: Reports: None Dermatologic History: Reports: None - Infectious Disease History Infectious Disease History: Reports: MRSA Other Infectious Disease History: MRSA positive with Nasal PCR swab 08/21/18 - Past Surgical History GI Surgical History: Reports: Other (See Below) Other GI Surgeries/Procedures: Pt. has a PEG tube. Social & Family History - Family History Family Medical History: No Pertinent Family History - Tobacco Use Tobacco Use Status *Q: Former Tobacco User Used Tobacco, but Quit: Yes Month/Year Tobacco Last Used: 08/2016 - Caffeine Use Caffeine Use: Reports: Coffee - Recreational Drug Use Recreational Drug Use: No H&P Review of Systems - Review of Systems: Review Of Systems: See Below General: Reports: Fever, Chills HEENT: Denies: Sinus Congestion, Sore Throat Pulmonary: Reports: Cough. Denies: Shortness of Breath Cardiovascular: Denies: Chest Pain, Lightheadedness, Blood Pressure Problem Gastrointestinal: Denies: Abdominal Pain, Nausea, Vomiting Musculoskeletal: Reports: Back Pain, Joint Pain. Denies: Muscle Pain, Muscle St iffness Skin: Denies: Cyanosis, Mottled, Pallor, Erythema Psychiatric: Denies: Depression, Anxiety Neurological: Reports: Difficulty Walking, Weakness, Gait Disturbance. Denies: Confusion Hematologic/Lymphatic: Reports: No Symptoms Immunologic: Reports: No Symptoms Exam - Exam Exam: See Below - Vital Signs Vital Signs: Last Vital Signs Temp 36.8 C 10/28/20 14:25 Pulse 84 10/28/20 14:25 Resp 20 10/28/20 14:25 BP 118/68 10/28/20 14:25 Pulse Ox 100 10/28/20 14:25 - Exam Quality Assessment: No: Supplemental Oxygen General: Alert, Oriented, Cooperative, Other (speech disorder) HEENT: Conjunctiva Clear, EOMI, Hearing Intact, Nares Patent, Normal Nasal Septum, Posterior Pharynx Clear, Pupils Equal, Pupils Reactive, TMs Clear. No: Mucosa Moist & [place] Neck: Supple, Trachea Midline, Other (has baseline torticolis). No: Full Range of Motion Lungs: Normal Respiratory Effort, Decreased Breath Sounds Cardiovascular: Tachycardia GI/Abdominal Exam: Normal Bowel Sounds, Soft, Non-Tender, No Organomegaly, No Distention, No Abnormal Bruit (Male) Exam: Other (indwelling daugherty catheter) Rectal (Males) Exam: Deferred Back Exam: Normal Inspection, Full Range of Motion, Decreased Range of Motion Extremities: Normal Inspection, Normal Range of Motion, Non-Tender, Normal Capillary Refill Peripheral Pulses: 2+: Dorsalis Pedis (L), Dorsalis Pedis (R) Skin: Warm, Dry, Intact Neuro Extensive - Mental Status: Oriented x3, Normal Cognition, Memory Intact Neuro Extensive - Motor, Sensory, Reflexes: CN II-XII Intact, Abnormal Gait Psychiatric: Alert, Normal Affect, Normal Mood - Patient Data Lab Results Last 24 hrs: Laboratory Results - last 24 hr 10/28/20 10/28/20 10/28/20 Range/Units 10:10 10:10 10:10 WBC 16.84 H (4.23-9.07) K/mm3 RBC 4.24 L (4.63-6.08) M/mm3 Hgb 12.5 L D (13.7-17.5) gm/dl Hct 39.8 L (40.1-51.0) % MCV 93.9 H (79.0-92.2) fl MCH 29.5 (25.7-32.2) pg MCHC 31.4 L (32.2-35.5) g/dl RDW Std Deviation 44.5 H (35.1-43.9) fL Plt Count 214 (163-337) K/mm3 MPV 9.2 L (9.4-12.3) fl Neut % (Auto) 93.8 H (34.0-67.9) % Lymph % (Auto) 1.9 L (21.8-53.1) % [place] % (Auto) 3.9 L (5.3-12.2) % Eos % (Auto) 0.1 L (0.8-7.0) Baso % (Auto) 0.1 (0.1-1.2) % Neut # (Auto) 15.81 H (1.78-5.38) K/mm3 Lymph # (Auto) 0.32 L (1.32-3.57) K/mm3 [place] # (Auto) 0.65 (0.30-0.82) K/mm3 Eos # (Auto) 0.02 L (0.04-0.54) K/mm3 Baso # (Auto) 0.01 (0.01-0.08) K/mm3 Manual Slide Review Abnormal smear Sodium 143 (136-145) mEq/L Potassium 4.5 (3.5-5.1) mEq/L Chloride 105 (98-107) mEq/L Carbon Dioxide 26 (21-32) mEq/L Anion Gap 16.5 H (5-15) BUN 21 H (7-18) mg/dL Creatinine 1.1 (0.7-1.3) mg/dL Est Cr Clr Drug Dosing TNP Estimated GFR (MDRD) > 60 (>60) mL/min BUN/Creatinine Ratio 19.1 H (14-18) Glucose 92 (80-115) mg/dL Lactic Acid (0.4-2.0) mmol/L Calcium 9.9 (8.5-10.1) mg/dL Ferritin (26-388) ng/ml Total Bilirubin 0.5 (0.2-1.0) mg/dL AST 17 (15-37) U/L ALT 26 (16-63) U/L Alkaline Phosphatase 72 (46-116) U/L Lactate Dehydrogenase 153 (85-227) U/L C-Reactive Protein 3.3 H* (<1.0) mg/dL Total Protein 6.9 (6.4-8.2) g/dl Albumin 3.4 (3.4-5.0) g/dl Globulin 3.5 gm/dL Albumin/Globulin Ratio 1.0 (1-2) SARS-CoV-2 RNA (SERGIO) (NEGATIVE) 10/28/20 10/28/20 10/28/20 Range/Units 10:10 10:29 11:49 WBC (4.23-9.07) K/mm3 RBC (4.63-6.08) M/mm3 Hgb (13.7-17.5) gm/dl Hct (40.1-51.0) % MCV (79.0-92.2) fl MCH (25.7-32.2) pg MCHC (32.2-35.5) g/dl RDW Std Deviation (35.1-43.9) fL Plt Count (163-337) K/mm3 MPV (9.4-12.3) fl Neut % (Auto) (34.0-67.9) % Lymph % (Auto) (21.8-53.1) % [place] % (Auto) (5.3-12.2) % Eos % (Auto) (0.8-7.0) Baso % (Auto) (0.1-1.2) % Neut # (Auto) (1.78-5.38) K/mm3 Lymph # (Auto) (1.32-3.57) K/mm3 [place] # (Auto) (0.30-0.82) K/mm3 Eos # (Auto) (0.04-0.54) K/mm3 Baso # (Auto) (0.01-0.08) K/mm3 Manual Slide Review Sodium (136-145) mEq/L Potassium (3.5-5.1) mEq/L Chloride (98-107) mEq/L Carbon Dioxide (21-32) mEq/L Anion Gap (5-15) BUN (7-18) mg/dL Creatinine (0.7-1.3) mg/dL Est Cr Clr Drug Dosing Estimated GFR (MDRD) (>60) mL/min BUN/Creatinine Ratio (14-18) Glucose (80-115) mg/dL Lactic Acid 0.7 (0.4-2.0) mmol/L Calcium (8.5-10.1) mg/dL Ferritin 106 (26-388) ng/ml Total Bilirubin (0.2-1.0) mg/dL AST (15-37) U/L ALT (16-63) U/L Alkaline Phosphatase (46-116) U/L Lactate Dehydrogenase (85-227) U/L C-Reactive Protein (<1.0) mg/dL Total Protein (6.4-8.2) g/dl Albumin (3.4-5.0) g/dl Globulin gm/dL Albumin/Globulin Ratio (1-2) SARS-CoV-2 RNA (SERGIO) Negative (NEGATIVE) 10/28/20 Range/Units 13:24 WBC (4.23-9.07) K/mm3 RBC (4.63-6.08) M/mm3 Hgb (13.7-17.5) gm/dl Hct (40.1-51.0) % MCV (79.0-92.2) fl MCH (25.7-32.2) pg MCHC (32.2-35.5) g/dl RDW Std Deviation (35.1-43.9) fL Plt Count (163-337) K/mm3 MPV (9.4-12.3) fl Neut % (Auto) (34.0-67.9) % Lymph % (Auto) (21.8-53.1) % [place] % (Auto) (5.3-12.2) % Eos % (Auto) (0.8-7.0) Baso % (Auto) (0.1-1.2) % Neut # (Auto) (1.78-5.38) K/mm3 Lymph # (Auto) (1.32-3.57) K/mm3 [place] # (Auto) (0.30-0.82) K/mm3 Eos # (Auto) (0.04-0.54) K/mm3 Baso # (Auto) (0.01-0.08) K/mm3 Manual Slide Review Sodium (136-145) mEq/L Potassium (3.5-5.1) mEq/L Chloride (98-107) mEq/L Carbon Dioxide (21-32) mEq/L Anion Gap (5-15) BUN (7-18) mg/dL Creatinine (0.7-1.3) mg/dL Est Cr Clr Drug Dosing Estimated GFR (MDRD) (>60) mL/min BUN/Creatinine Ratio (14-18) Glucose (80-115) mg/dL Lactic Acid 1.5 (0.4-2.0) mmol/L Calcium (8.5-10.1) mg/dL Ferritin (26-388) ng/ml Total Bilirubin (0.2-1.0) mg/dL AST (15-37) U/L ALT (16-63) U/L Alkaline Phosphatase (46-116) U/L Lactate Dehydrogenase (85-227) U/L C-Reactive Protein (<1.0) mg/dL Total Protein (6.4-8.2) g/dl Albumin (3.4-5.0) g/dl Globulin gm/dL Albumin/Globulin Ratio (1-2) SARS-CoV-2 RNA (SERGIO) (NEGATIVE) Result Diagrams: 10/29/20 06:12 10/29/20 06:12 Sepsis Event Note - Evaluation Sepsis Screening Result: No Definite Risk - Focused Exam Vital Signs: Vital Signs Temp Temp Pulse Pulse Resp BP BP 10/28/20 14:25 36.8 C 84 20 118/68 10/28/20 09:24 38.0 C 129 H 20 121/72 Pulse Ox 10/28/20 14:25 100 10/28/20 09:24 95 Problem List Initiated/Reviewed/Updated: Yes Orders Last 24hrs: Active Orders 24 hr Category Date Time Status Admission Status [Patient Status] [ADT] Routine ADT 10/28/20 13:38 Active Admission Status [Patient Status] [ADT] Routine ADT 10/28/20 13:39 Active Oxygen Therapy [RC] ASDIRECTED Care 10/28/20 10:01 Active Peripheral IV Care [RC] . DIRECTED Care 10/28/20 10:01 Active CULTURE BLOOD [BC] Stat Lab 10/28/20 10:29 Received CULTURE BLOOD [BC] Stat Lab 10/28/20 10:35 Received Sodium Chloride 0.9% [Saline Flush] Med 10/28/20 10:00 Active 10 ml FLUSH ASDIRECTED PRN Peripheral IV Insertion Adult [OM.PC] Stat Oth 10/28/20 10:01 Ordered Medication Orders Sodium Chloride (Saline Flush) 10 ml FLUSH ASDIRECTED PRN PRN Reason: Keep Vein Open Last Admin: 10/28/20 10:10 Dose: 10 ml Documented by: REEMA Assessment/Plan Comment:: This is a 70 yo elderly white male with past medical hx/o Hypertension, COPD, GERD, Dysphagia on soft Diet, Speech Disorder, Hx/o PEG Tube placement, Neurologic Bladder S/p Chronic Indwelling Catheter, Spasmodic Torticolis, Cluster TOUSSAINT, DJD/Cervical Disc Degeneration, Generalized Weakness and Cale Induced Neurological Toxicity, Chronic Pain Syndrome, Hx/o Opioid Addiction and Gait Abnormality who comes to use from the [place] for evaluation of a fever with a temperature as high as 103. Assessment: Acute: Metabolic Encephalopathy from Aspiration Pneumonia Sepsis secondary to Aspiration Aspiration Pneumonia from underlying chronic dysphagia Dysphagia on soft diet Fever with a Temp as high as 103 F Leukocytosis with WBC of 16.84 Macrocytic Hypochromic Anemia with Hgb o 12.5 grams Elevated AG of 16.5 Elevated CRP of 3.3 Chronic:Hypertension, COPD, GERD, Dysphagia on soft Diet, Speech Disorder, Hx/o PEG Tube placement, Neurologic Bladder S/p Chronic Indwelling Catheter, Spasmodic Torticolis, Cluster TOUSSAINT, DJD/Cervical Disc Degeneration, Generalized Weakness and Cale Induced Neurological Toxicity, Chronic Pain Syndrome, Hx/o Opioid Addiction and Gait Abnormality Plan: Admit to [facility]. Continue Sepsis work up/treatment, Aspiration precaution. Soft diet. PRN anti-emetic agents. He received IV Cefepime in ED. Blood culture ordered in ED. We will order UA and Sputum Cx with gram stain. IS and FV as directed. IV fluids for hydration. Inflammatory markers. DVT/GI prophylaxis. PT/OT for deconditioning/generalized weakness. Code status is full - Mortality Measure Prognosis:: Good
--- NOTE | 2020-10-28 15:09 | EDM.PDOC ---
ED HPI GENERAL MEDICAL PROBLEM - General Chief Complaint: Respiratory Problem Stated Complaint: FEVER AND CHILLS Time Seen by Provider: 10/28/20 09:50 Source of Information: Reports: Patient, Old Records, RN Notes Reviewed, Significant Other - History of Present Illness INITIAL COMMENTS - FREE TEXT/NARRATIVE: 70 yr old male has been sent from the [place] with cough, dyspnea, fever. Pt is a very vague historian but apparently this has all just started in the last day or 2. He arrives with fever, occasional cough, tachypnea. Also complaining of R sided Mar. No current chest pain, Abd pain, nausea or vomiting. 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 - Related Data Allergies Allergy/AdvReac Type Severity Reaction Status Date / Time lithium Allergy Other Verified 10/28/20 09:29 NSAIDS (Non-Steroidal Allergy Other Verified 10/28/20 09:29 Anti-Inflamma sulfamethoxazole Allergy Rash Verified 10/28/20 09:29 [From Bactrim] trimethoprim [From Bactrim] Allergy Rash Verified 10/28/20 09:29 Home Meds: Home Meds Acetaminophen [Pain Relief] 650 mg PO Q6H PRN 08/21/18 [History] Albuterol Sulfate 2.5 mg IH BID 08/21/18 [History] Aspirin 81 mg PO DAILY 08/21/18 [History] Diclofenac Sodium [Voltaren 1% Gel] 2 gram TOP BID 08/21/18 [History] Finasteride 5 mg PO DAILY 08/21/18 [History] Hydrocortisone [Hydrocortisone 1% Crm] 1 applic TOP TID PRN 08/21/18 [History] Melatonin 5 mg PO BEDTIME PRN 08/21/18 [History] Meloxicam [Mobic] 15 mg PO DAILY 08/21/18 [History] Montelukast [Singulair] 10 mg PO DAILY 08/21/18 [History] Nystatin [Nyata] 1 applic TOP BID 08/21/18 [History] OLANZapine [ZyPREXA] 10 mg PO DAILY 08/21/18 [History] Umeclidinium Brm/Vilanterol Tr [Anoro Ellipta 62.5-25 MCG] 1 puff IH DAILY 08/21/18 [History] Verapamil [Calan] 160 mg PO TID 08/21/18 [History] carisoprodoL [Carisoprodol] 350 mg PO TID 08/21/18 [History] polyethylene glycoL 3350 [MiraLAX] 17 gm PO DAILY PRN 08/21/18 [History] Lactobacillus Acidophilus [Acidophilus Lactobacilli] 1 cap PO BID 09/09/18 [History] Multivitamin/Iron/Folic Acid [Century Tablet] 1 tab PO DAILY 09/09/18 [History] Acetaminophen/oxyCODONE [Percocet 325-5 MG] 1 tab PO Q6H 04/07/19 [History] Albuterol/Ipratropium [DuoNeb 3.0-0.5 MG/3 ML] 3 ml NEB Q6H PRN #25 neb 04/07/19 [Rx] Tamsulosin HCl [Flomax] 0.8 mg PO DAILY 04/07/19 [History] rOPINIRole [Requip] 0.5 mg PO DAILY 04/07/19 [History] Acetaminophen [Tylenol] 650 mg PO BID 10/28/20 [History] Gabapentin [Neurontin] 300 mg PO TID 10/28/20 [History] Lidocaine 4% [LMX 4 Crm] 0 gm TOP DAILY 10/28/20 [History] Magnesium Oxide 400 mg PO DAILY 10/28/20 [History] Non-Formulary Medication [NF Drug] 2 puff IN BID 10/28/20 [History] Non-Formulary Medication [NF Drug] 2 puff IN QID PRN 10/28/20 [History] Omeprazole 20 mg PO DAILY 10/28/20 [History] Sennosides/Docusate Sodium [Senna Plus Tablet] 1 each PO DAILY 10/28/20 [History] Sodium Chloride/Aloe Vera [Inez Saline Nasal Gel [place]] 22 ml NS ASDIRECTED PRN 10/28/20 [History] bisacodyL [Bisacodyl] 10 mg PO DAILY PRN 10/28/20 [History] guaiFENesin [Mucinex] 400 mg PO TID 10/28/20 [History] Past Medical History HEENT History: Reports: None Cardiovascular History: Reports: Hypertension Respiratory History: Reports: COPD Gastrointestinal History: Reports: GERD, Other (See Below) Other Gastrointestinal History: dysphagia Genitourinary History: Reports: Retention, Urinary Musculoskeletal History: Reports: Neck Pain, Chronic, Other (See Below) Other Musculoskeletal History: spasmodic torticollis, cervical disc degeneration, weakness Neurological History: Reports: Other (See Below) Other Neuro History: cluster headaches, neural disease Psychiatric History: Reports: Anxiety, Bipolar Endocrine/Metabolic History: Reports: Other (See Below) Other Endocrine/Metabolic History: diabetes insipidus Hematologic History: Reports: Anemia Immunologic History: Reports: None Oncologic (Cancer) History: Reports: None Dermatologic History: Reports: None - Infectious Disease History Infectious Disease History: Reports: MRSA Other Infectious Disease History: MRSA positive with Nasal PCR swab 08/21/18 - Past Surgical History GI Surgical History: Reports: Other (See Below) Other GI Surgeries/Procedures: Pt. has a PEG tube. Social & Family History - Family History Family Medical History: No Pertinent Family History - Tobacco Use Tobacco Use Status *Q: Former Tobacco User Used Tobacco, but Quit: Yes Month/Year Tobacco Last Used: 08/2016 - Caffeine Use Caffeine Use: Reports: Coffee - Recreational Drug Use Recreational Drug Use: No ED ROS GENERAL - Review of Systems Review Of Systems: See Below Constitutional: Reports: Fever, Chills. Denies: Diaphoresis HEENT: Denies: Throat Pain Respiratory: Reports: Shortness of Breath, Cough Cardiovascular: Denies: Chest Pain GI/Abdominal: Denies: Abdominal Pain, Diarrhea, Vomiting : Reports: No Symptoms Musculoskeletal: Denies: Leg Pain Skin: Denies: Rash Neurological: Reports: Headache. Denies: Trouble Speaking ED EXAM, GENERAL - Physical Exam Exam: See Below General Appearance: Alert, No Apparent Distress Eye Exam: Bilateral Eye: PERRL Head: Atraumatic Neck: Supple Respiratory/Chest: Respiratory Distress (mild tachypnea), Rhonchi (L sided). N o: Rales Cardiovascular: Tachycardia GI/Abdominal: Soft, Non-Tender Back Exam: No: CVA Tenderness (L), CVA Tenderness (R) Extremities: No: Pedal Edema, Leg Pain, Increased Warmth, Redness Neurological: Alert, No Motor/Sensory Deficits Skin Exam: Warm, Dry, Normal Color Course - Vital Signs Last Recorded V/S: Last Vital Signs Temp 98.2 F 10/28/20 14:25 Pulse 78 10/28/20 17:00 Resp 20 10/28/20 14:25 BP 118/68 10/28/20 14:25 Pulse Ox 98 03/05/21 17:00 - Orders/Labs/Meds Orders: Active Orders 24 hr Category Date Time Status Oxygen Therapy [RC] ASDIRECTED Care 10/28/20 10:01 Active Peripheral IV Care [RC] . DIRECTED Care 10/28/20 10:01 Active CULTURE BLOOD [BC] Stat Lab 10/28/20 10:29 Received CULTURE BLOOD [BC] Stat Lab 10/28/20 10:35 Received Sodium Chloride 0.9% [Saline Flush] Med 10/28/20 10:00 Active 10 ml FLUSH ASDIRECTED PRN Peripheral IV Insertion Adult [OM.PC] Stat Oth 10/28/20 10:01 Ordered Medication Orders Acetaminophen (Tylenol) 650 mg RECTAL Q4H PRN PRN Reason: Pain (mild 1-3) Acetaminophen (Tylenol) 650 mg PO Q6H PRN PRN Reason: Headache Hydrocodone Bitart/Acetaminophen (Treece 325-5 Mg) 1 tab PO Q4H PRN PRN Reason: Pain (moderate 4-6) Last Admin: 10/28/20 16:53 Dose: 1 tab Documented by: CELENA Albuterol (Proventil Hfa) 0 gm INH Q4H PRN PRN Reason: Shortness of Breath Albuterol (Proventil Neb Soln) 2.5 mg NEB Q4H PRN PRN Reason: Shortness of Breath Albuterol/Ipratropium (Duoneb 3.0-0.5 Mg/3 Ml) 3 ml NEB Q4H PRN PRN Reason: Shortness Of Breath/wheezing Aspirin (Aspirin) 81 mg PO DAILY [facility] Diclofenac Sodium (Voltaren 1% Gel) 2 gm TOP QID [facility] Last Admin: 10/28/20 17:04 Dose: 1 applic Documented by: CELENA Enoxaparin Sodium (Lovenox) 30 mg SUBCUT DAILY [facility] Finasteride (Proscar) 5 mg PO DAILY [facility] Guaifenesin (Mucinex) 600 mg PO TID [facility] Hydrocortisone (Hydrocortisone 1% Crm) 0 gm TOP TID PRN PRN Reason: Itching Hydromorphone HCl (Dilaudid) 0.25 mg IVPUSH Q2H PRN PRN Reason: Pain (severe 7-10) Promethazine HCl 12.5 mg/ (Sodium Chloride) 50.5 mls @ 100 mls/hr IV Q6H PRN PRN Reason: Nausea/Vomiting Ketorolac Tromethamine (Toradol) 30 mg IV Q6H PRN PRN Reason: Pain (moderate 4-6) Melatonin (Melatonin) 6 mg PO BEDTIME [facility] Meloxicam (Mobic) 15 mg PO DAILY [facility] Montelukast Sodium (Singulair) 10 mg PO DAILY [facility] Multivitamins (Thera) 1 each PO DAILY [facility] Nystatin (Nystop) 0 gm TOP BID [facility] Olanzapine (Zyprexa) 10 mg PO DAILY [facility] Ondansetron HCl (Zofran) 4 mg IV Q6H PRN PRN Reason: Nausea/Vomiting Oxycodone/Acetaminophen (Percocet 325-5 Mg) 1 tab PO Q6H [facility] Carisoprodol 350 Mg Patient's Own Med 0 each PO TID [facility] Polyethylene Glycol (Miralax) 17 gm PO DAILY [facility] Ropinirole HCl (Requip) 0.5 mg PO DAILY [facility] Saccharomyces Boulardii (Florastor) 250 mg PO BID [facility] Senna/Docusate Sodium (Senna Plus) 1 tab PO BID PRN PRN Reason: Constipation Sodium Chloride (Saline Flush) 10 ml FLUSH ASDIRECTED PRN PRN Reason: Keep Vein Open Last Admin: 10/28/20 10:10 Dose: 10 ml Documented by: REEMA Tamsulosin HCl (Flomax) 0.4 mg PO DAILY [facility] Verapamil HCl (Calan) 160 mg PO TID [facility] Zolpidem Tartrate (Ambien) 5 mg PO BEDTIME PRN PRN Reason: Sleep Labs: Laboratory Tests 10/28/20 10/28/20 10/28/20 Range/Units 10:10 10:10 10:10 WBC 16.84 H (4.23-9.07) K/mm3 RBC 4.24 L (4.63-6.08) M/mm3 Hgb 12.5 L D (13.7-17.5) gm/dl Hct 39.8 L (40.1-51.0) % MCV 93.9 H (79.0-92.2) fl MCH 29.5 (25.7-32.2) pg MCHC 31.4 L (32.2-35.5) g/dl RDW Std Deviation 44.5 H (35.1-43.9) fL Plt Count 214 (163-337) K/mm3 MPV 9.2 L (9.4-12.3) fl Neut % (Auto) 93.8 H (34.0-67.9) % Lymph % (Auto) 1.9 L (21.8-53.1) % Mora % (Auto) 3.9 L (5.3-12.2) % Eos % (Auto) 0.1 L (0.8-7.0) Baso % (Auto) 0.1 (0.1-1.2) % Neut # (Auto) 15.81 H (1.78-5.38) K/mm3 Lymph # (Auto) 0.32 L (1.32-3.57) K/mm3 Mora # (Auto) 0.65 (0.30-0.82) K/mm3 Eos # (Auto) 0.02 L (0.04-0.54) K/mm3 Baso # (Auto) 0.01 (0.01-0.08) K/mm3 Manual Slide Review Abnormal smear Sodium 143 (136-145) mEq/L Potassium 4.5 (3.5-5.1) mEq/L Chloride 105 (98-107) mEq/L Carbon Dioxide 26 (21-32) mEq/L Anion Gap 16.5 H (5-15) BUN 21 H (7-18) mg/dL Creatinine 1.1 (0.7-1.3) mg/dL Est Cr Clr Drug Dosing TNP Estimated GFR (MDRD) > 60 (>60) mL/min BUN/Creatinine Ratio 19.1 H (14-18) Glucose 92 (80-115) mg/dL Lactic Acid (0.4-2.0) mmol/L Calcium 9.9 (8.5-10.1) mg/dL Ferritin (26-388) ng/ml Total Bilirubin 0.5 (0.2-1.0) mg/dL AST 17 (15-37) U/L ALT 26 (16-63) U/L Alkaline Phosphatase 72 (46-116) U/L Lactate Dehydrogenase 153 (85-227) U/L C-Reactive Protein 3.3 H* (<1.0) mg/dL Total Protein 6.9 (6.4-8.2) g/dl Albumin 3.4 (3.4-5.0) g/dl Globulin 3.5 gm/dL Albumin/Globulin Ratio 1.0 (1-2) SARS-CoV-2 RNA (SERGIO) (NEGATIVE) 10/28/20 10/28/20 10/28/20 Range/Units 10:10 10:29 11:49 WBC (4.23-9.07) K/mm3 RBC (4.63-6.08) M/mm3 Hgb (13.7-17.5) gm/dl Hct (40.1-51.0) % MCV (79.0-92.2) fl MCH (25.7-32.2) pg MCHC (32.2-35.5) g/dl RDW Std Deviation (35.1-43.9) fL Plt Count (163-337) K/mm3 MPV (9.4-12.3) fl Neut % (Auto) (34.0-67.9) % Lymph % (Auto) (21.8-53.1) % Mora % (Auto) (5.3-12.2) % Eos % (Auto) (0.8-7.0) Baso % (Auto) (0.1-1.2) % Neut # (Auto) (1.78-5.38) K/mm3 Lymph # (Auto) (1.32-3.57) K/mm3 Mora # (Auto) (0.30-0.82) K/mm3 Eos # (Auto) (0.04-0.54) K/mm3 Baso # (Auto) (0.01-0.08) K/mm3 Manual Slide Review Sodium (136-145) mEq/L Potassium (3.5-5.1) mEq/L Chloride (98-107) mEq/L Carbon Dioxide (21-32) mEq/L Anion Gap (5-15) BUN (7-18) mg/dL Creatinine (0.7-1.3) mg/dL Est Cr Clr Drug Dosing Estimated GFR (MDRD) (>60) mL/min BUN/Creatinine Ratio (14-18) Glucose (80-115) mg/dL Lactic Acid 0.7 (0.4-2.0) mmol/L Calcium (8.5-10.1) mg/dL Ferritin 106 (26-388) ng/ml Total Bilirubin (0.2-1.0) mg/dL AST (15-37) U/L ALT (16-63) U/L Alkaline Phosphatase (46-116) U/L Lactate Dehydrogenase (85-227) U/L C-Reactive Protein (<1.0) mg/dL Total Protein (6.4-8.2) g/dl Albumin (3.4-5.0) g/dl Globulin gm/dL Albumin/Globulin Ratio (1-2) SARS-CoV-2 RNA (SERGIO) Negative (NEGATIVE) 10/28/20 Range/Units 13:24 WBC (4.23-9.07) K/mm3 RBC (4.63-6.08) M/mm3 Hgb (13.7-17.5) gm/dl Hct (40.1-51.0) % MCV (79.0-92.2) fl MCH (25.7-32.2) pg MCHC (32.2-35.5) g/dl RDW Std Deviation (35.1-43.9) fL Plt Count (163-337) K/mm3 MPV (9.4-12.3) fl Neut % (Auto) (34.0-67.9) % Lymph % (Auto) (21.8-53.1) % Mora % (Auto) (5.3-12.2) % Eos % (Auto) (0.8-7.0) Baso % (Auto) (0.1-1.2) % Neut # (Auto) (1.78-5.38) K/mm3 Lymph # (Auto) (1.32-3.57) K/mm3 Mora # (Auto) (0.30-0.82) K/mm3 Eos # (Auto) (0.04-0.54) K/mm3 Baso # (Auto) (0.01-0.08) K/mm3 Manual Slide Review Sodium (136-145) mEq/L Potassium (3.5-5.1) mEq/L Chloride (98-107) mEq/L Carbon Dioxide (21-32) mEq/L Anion Gap (5-15) BUN (7-18) mg/dL Creatinine (0.7-1.3) mg/dL Est Cr Clr Drug Dosing Estimated GFR (MDRD) (>60) mL/min BUN/Creatinine Ratio (14-18) Glucose (80-115) mg/dL Lactic Acid 1.5 (0.4-2.0) mmol/L Calcium (8.5-10.1) mg/dL Ferritin (26-388) ng/ml Total Bilirubin (0.2-1.0) mg/dL AST (15-37) U/L ALT (16-63) U/L Alkaline Phosphatase (46-116) U/L Lactate Dehydrogenase (85-227) U/L C-Reactive Protein (<1.0) mg/dL Total Protein (6.4-8.2) g/dl Albumin (3.4-5.0) g/dl Globulin gm/dL Albumin/Globulin Ratio (1-2) SARS-CoV-2 RNA (SERGIO) (NEGATIVE) Meds: Medications Generic Name Dose Route Start Last Admin Trade Name Freq PRN Reason Stop Dose Admin Acetaminophen 650 mg 10/28/20 15:40 Tylenol RECTAL Q4H PRN Pain (mild 1-3) Acetaminophen 650 mg 10/28/20 15:42 Tylenol PO Q6H PRN Headache Hydrocodone Bitart/Acetaminophen 1 tab 10/28/20 15:40 10/28/20 16:53 Treece 325-5 Mg PO 1 tab Q4H PRN Administration Pain (moderate 4-6) Albuterol 0 gm 10/28/20 15:42 Proventil Hfa INH Q4H PRN Shortness of Breath Albuterol 2.5 mg 10/28/20 15:42 Proventil Neb Soln NEB Q4H PRN Shortness of Breath Albuterol/Ipratropium 3 ml 10/28/20 15:40 Duoneb 3.0-0.5 Mg/3 Ml NEB Q4H PRN Shortness Of Breath/wheezing Aspirin 81 mg 10/29/20 09:00 Aspirin PO DAILY [facility] Diclofenac Sodium 2 gm 10/28/20 17:00 10/28/20 17:04 Voltaren 1% Gel TOP 1 applic QID STELLA Administration Enoxaparin Sodium 30 mg 10/29/20 09:00 Lovenox SUBCUT DAILY [facility] Finasteride 5 mg 10/29/20 09:00 Proscar PO DAILY [facility] Guaifenesin 600 mg 10/28/20 21:00 Mucinex PO TID [facility] Hydrocortisone 0 gm 10/28/20 15:42 Hydrocortisone 1% Crm TOP TID PRN Itching Hydromorphone HCl 0.25 mg 10/28/20 15:40 Dilaudid IVPUSH Q2H PRN Pain (severe 7-10) Promethazine HCl 12.5 mg/ 50.5 mls @ 100 mls/hr 10/28/20 15:40 Sodium Chloride IV Q6H PRN Nausea/Vomiting Ketorolac Tromethamine 30 mg 10/28/20 15:40 Toradol IV Q6H PRN Pain (moderate 4-6) Melatonin 6 mg 10/28/20 21:00 Melatonin PO BEDTIME [facility] Meloxicam 15 mg 10/29/20 09:00 Mobic PO DAILY [facility] Montelukast Sodium 10 mg 10/29/20 09:00 Singulair PO DAILY [facility] Multivitamins 1 each 10/29/20 09:00 Thera PO DAILY [facility] Nystatin 0 gm 10/28/20 21:00 Nystop TOP BID [facility] Olanzapine 10 mg 10/29/20 09:00 Zyprexa PO DAILY [facility] Ondansetron HCl 4 mg 10/28/20 15:40 Zofran IV Q6H PRN Nausea/Vomiting Oxycodone/Acetaminophen 1 tab 10/28/20 15:45 Percocet 325-5 Mg PO Q6H [facility] Carisoprodol 350 Mg 0 each 10/28/20 21:00 Patient's Own Med PO TID [facility] Polyethylene Glycol 17 gm 10/29/20 09:00 Miralax PO DAILY [facility] Ropinirole HCl 0.5 mg 10/29/20 09:00 Requip PO DAILY [facility] Saccharomyces Boulardii 250 mg 10/28/20 21:00 Florastor PO BID [facility] Senna/Docusate Sodium 1 tab 10/28/20 15:40 Senna Plus PO BID PRN Constipation Sodium Chloride 10 ml 10/28/20 10:00 10/28/20 10:10 Saline Flush FLUSH 10 ml ASDIRECTED PRN Administration Keep Vein Open Tamsulosin HCl 0.4 mg 10/29/20 09:00 Flomax PO DAILY [facility] Verapamil HCl 160 mg 10/28/20 21:00 Calan PO TID [facility] Zolpidem Tartrate 5 mg 10/28/20 21:00 Ambien PO BEDTIME PRN Sleep Discontinued Medications Generic Name Dose Route Start Last Admin Trade Name Jennifer PRN Reason Stop Dose Admin Acetaminophen 975 mg 10/28/20 11:45 10/28/20 11:56 Tylenol PO 10/28/20 11:46 975 mg NOW ONE Administration Albuterol/Ipratropium 3 ml 10/28/20 15:42 Duoneb 3.0-0.5 Mg/3 Ml NEB Q6H PRN Shortness of Breath Hydromorphone HCl 0.5 mg 10/28/20 10:02 10/28/20 10:09 Dilaudid IVPUSH 10/28/20 10:03 0.5 mg ONETIME ONE Administration Cefepime HCl 2 gm/ Premix 50 mls @ 100 mls/hr 10/28/20 11:43 10/28/20 11:57 IV 10/28/20 12:12 100 mls/hr ONETIME ONE Administration - Re-Assessments/Exams Free Text/Narrative Re-Assessment/Exam: 10/28/20 19:45. CXR shows L lower lobe infiltrate. WBC 16,840. CRP 3.3. Covid neg. He did meet sepsis alert criteria so lactic acid was added to his initial lab work. The Lactic acid came back at 0.7. Blood culture had been ordered. he was given cefepime 2 grams IV prior to turning his care over to Dr Aguiar Hospitalist. 10/28/20 19:48. He did keep complaining of R Mar, is reported to have had a fall about a week ago so head CT was done which did not show any acute abnormality. Departure - Departure Time of Disposition: 13:00 Disposition: Admitted As Inpatient 68 Condition: Serious Clinical Impression: Pneumonia Qualifiers: Pneumonia type: due to unspecified organism Laterality: left Lung location: lower lobe of lung Qualified Code(s): J18.9 - Pneumonia, unspecified organism COPD (chronic obstructive pulmonary disease) Qualifiers: COPD type: unspecified COPD Qualified Code(s): J44.9 - Chronic obstructive pu lmonary disease, unspecified - Discharge Information Sepsis Event Note (ED) - Evaluation Sepsis Screening Result: No Definite Risk - Focused Exam Vital Signs: Vital Signs Temp Pulse Resp BP Pulse Ox 10/28/20 09:24 100.4 F 129 H 20 121/72 95 - My Orders Last 24 Hours: My Active Orders 10/28/20 10:00 Sodium Chloride 0.9% [Saline Flush] 10 ml FLUSH ASDIRECTED PRN 10/28/20 10:01 Oxygen Therapy [RC] ASDIRECTED Peripheral IV Care [RC] . DIRECTED Peripheral IV Insertion Adult [OM.PC] Stat 10/28/20 10:29 CULTURE BLOOD [BC] Stat 10/28/20 10:35 CULTURE BLOOD [BC] Stat - Assessment/Plan Last 24 Hours: My Active Orders 10/28/20 10:00 Sodium Chloride 0.9% [Saline Flush] 10 ml FLUSH ASDIRECTED PRN 10/28/20 10:01 Oxygen Therapy [RC] ASDIRECTED Peripheral IV Care [RC] . DIRECTED Peripheral IV Insertion Adult [OM.PC] Stat 10/28/20 10:29 CULTURE BLOOD [BC] Stat 10/28/20 10:35 CULTURE BLOOD [BC] Stat
[2020-10-28] MEDS ORDERED: Polyethylene Glycol 3350 Powder 17 GM Packet PO PRN (15:40)
[2020-10-28] MEDS ORDERED: Acetaminophen 650 MG Supp RECTAL PRN (15:40)
[2020-10-28] MEDS ORDERED: Albuterol/Ipratropium 3.0-0.5 MG/3 ML Neb Soln NEB PRN ×2 (15:40→15:42)
[2020-10-28] MEDS ORDERED: Ketorolac 30 MG/ML SDV IV PRN (15:40)
[2020-10-28] MEDS ORDERED: HYDROmorphone 0.5 MG/0.5 ML Syringe IVPUSH PRN (15:40)
[2020-10-28] MEDS ORDERED: Promethazine 12.5 MG in Sodium Chloride 0.9% 50 ML IV PRN (15:40)
[2020-10-28] MEDS ORDERED: Ondansetron 4 MG/2 ML SDV IV PRN (15:40)
[2020-10-28] MEDS ORDERED: Hydrocortisone 1% Crm 30 GM Tube TOP PRN (15:42)
[2020-10-28] MEDS ORDERED: Acetaminophen 325 MG Tab PO PRN (15:42)
[2020-10-28] MEDS ORDERED: Albuterol 0.083% 2.5 MG/3 ML Neb Soln NEB PRN (15:42)
[2020-10-28] MEDS: Acetaminophen/HYDROcodone 325-5 MG Tab PO PRN ×2 (16:53→23:08)
[2020-10-28] MEDS: Diclofenac Sodium 1% Gel 100 GM Tube TOP SCH ×2 (17:04→22:22)
[2020-10-28] MEDS: Saccharomyces Boulardii (Probiotic) 250 MG Cap PO SCH (21:40)
[2020-10-28] MEDS: guaiFENesin 600 MG Tab.ER PO SCH (21:40)
[2020-10-28] MEDS: Verapamil 80 MG Tab PO SCH (21:40)
[2020-10-28] MEDS: Melatonin 3 MG Tab PO SCH (21:40)
[2020-10-28] MEDS: CARISOPRODOL 350 MG PO SCH (22:21)
[2020-10-28] MEDS: Nystatin Topical Powder 15 GM Bottle TOP SCH (22:22)
[2020-10-29] MEDS: Acetaminophen/HYDROcodone 325-5 MG Tab PO PRN ×2 (03:27→09:42)
[2020-10-29] MEDS: Tiotropium BR/Olodaterol HCL 4 GM Inhalation Spray 2.5mcg/1 dose; 10 doses INH SCH (08:13)
--- NOTE | 2020-10-29 08:20 | PCM.PN ---
- General Info Date of Service: 10/29/20 Admission Dx/Problem (Free Text): Admission Diagnosis/Problem Admission Diagnosis/Problem Pneumonia Subjective Update: No overnight or acute issues. He feels okay by giving me the thumbs up except he is wanting his pain medication for his neck. He is afebrile but WBC remains elevated. His Blood culture so far is negative. His CRP has gone considerably to 15.0. Functional Status: Reports: Pain Controlled, Tolerating Diet, Ambulating, Urinating, Incentive Spirometry. Denies: New Symptoms - Review of Systems General: Denies: Fever, Weakness, Fatigue, Malaise, Chills Pulmonary: Denies: Shortness of Breath, Cough Cardiovascular: Denies: Chest Pain Gastrointestinal: Denies: Abdominal Pain, Vomiting Genitourinary: Denies: No Symptoms, Frequency Musculoskeletal: Reports: Neck Pain Skin: Denies: Cyanosis, Jaundice, Mottled, Pallor Neurological: Reports: Difficulty Walking, Gait Disturbance. Denies: Confusion, Weakness Psychiatric: Denies: Confusion, Depression, Anxiety - Patient Data Vitals - Most Recent: Last Vital Signs Temp 36.6 C 10/29/20 06:01 Pulse 54 L 10/29/20 06:01 Resp 14 10/29/20 06:01 BP 121/65 10/29/20 06:01 Pulse Ox 97 10/29/20 06:01 Weight - Most Recent: 57.697 kg I&O - Last 24 Hours: Intake & Output 10/28/20 10/29/20 10/29/20 22:59 06:59 14:59 Intake Total 540 200 Output Total 150 Balance 540 50 Lab Results Last 24 Hours: Laboratory Results - last 24 hr 10/28/20 10/28/20 10/28/20 Range/Units 10:10 10:10 10:10 WBC 16.84 H (4.23-9.07) K/mm3 RBC 4.24 L (4.63-6.08) M/mm3 Hgb 12.5 L D (13.7-17.5) gm/dl Hct 39.8 L (40.1-51.0) % MCV 93.9 H (79.0-92.2) fl MCH 29.5 (25.7-32.2) pg MCHC 31.4 L (32.2-35.5) g/dl RDW Std Deviation 44.5 H (35.1-43.9) fL Plt Count 214 (163-337) K/mm3 MPV 9.2 L (9.4-12.3) fl Neut % (Auto) 93.8 H (34.0-67.9) % Lymph % (Auto) 1.9 L (21.8-53.1) % [place] % (Auto) 3.9 L (5.3-12.2) % Eos % (Auto) 0.1 L (0.8-7.0) Baso % (Auto) 0.1 (0.1-1.2) % Neut # (Auto) 15.81 H (1.78-5.38) K/mm3 Lymph # (Auto) 0.32 L (1.32-3.57) K/mm3 [place] # (Auto) 0.65 (0.30-0.82) K/mm3 Eos # (Auto) 0.02 L (0.04-0.54) K/mm3 Baso # (Auto) 0.01 (0.01-0.08) K/mm3 Manual Slide Review Abnormal smear Sodium 143 (136-145) mEq/L Potassium 4.5 (3.5-5.1) mEq/L Chloride 105 (98-107) mEq/L Carbon Dioxide 26 (21-32) mEq/L Anion Gap 16.5 H (5-15) BUN 21 H (7-18) mg/dL Creatinine 1.1 (0.7-1.3) mg/dL Est Cr Clr Drug Dosing TNP Estimated GFR (MDRD) > 60 (>60) mL/min BUN/Creatinine Ratio 19.1 H (14-18) Glucose 92 (80-115) mg/dL Lactic Acid (0.4-2.0) mmol/L Calcium 9.9 (8.5-10.1) mg/dL Magnesium (1.8-2.4) mg/dl Ferritin (26-388) ng/ml Total Bilirubin 0.5 (0.2-1.0) mg/dL AST 17 (15-37) U/L ALT 26 (16-63) U/L Alkaline Phosphatase 72 (46-116) U/L Lactate Dehydrogenase 153 (85-227) U/L C-Reactive Protein 3.3 H* (<1.0) mg/dL Total Protein 6.9 (6.4-8.2) g/dl Albumin 3.4 (3.4-5.0) g/dl Globulin 3.5 gm/dL Albumin/Globulin Ratio 1.0 (1-2) SARS-CoV-2 RNA (SERGIO) (NEGATIVE) 10/28/20 10/28/20 10/28/20 Range/Units 10:10 10:29 11:49 WBC (4.23-9.07) K/mm3 RBC (4.63-6.08) M/mm3 Hgb (13.7-17.5) gm/dl Hct (40.1-51.0) % MCV (79.0-92.2) fl MCH (25.7-32.2) pg MCHC (32.2-35.5) g/dl RDW Std Deviation (35.1-43.9) fL Plt Count (163-337) K/mm3 MPV (9.4-12.3) fl Neut % (Auto) (34.0-67.9) % Lymph % (Auto) (21.8-53.1) % [place] % (Auto) (5.3-12.2) % Eos % (Auto) (0.8-7.0) Baso % (Auto) (0.1-1.2) % Neut # (Auto) (1.78-5.38) K/mm3 Lymph # (Auto) (1.32-3.57) K/mm3 [place] # (Auto) (0.30-0.82) K/mm3 Eos # (Auto) (0.04-0.54) K/mm3 Baso # (Auto) (0.01-0.08) K/mm3 Manual Slide Review Sodium (136-145) mEq/L Potassium (3.5-5.1) mEq/L Chloride (98-107) mEq/L Carbon Dioxide (21-32) mEq/L Anion Gap (5-15) BUN (7-18) mg/dL Creatinine (0.7-1.3) mg/dL Est Cr Clr Drug Dosing Estimated GFR (MDRD) (>60) mL/min BUN/Creatinine Ratio (14-18) Glucose (80-115) mg/dL Lactic Acid 0.7 (0.4-2.0) mmol/L Calcium (8.5-10.1) mg/dL Magnesium (1.8-2.4) mg/dl Ferritin 106 (26-388) ng/ml Total Bilirubin (0.2-1.0) mg/dL AST (15-37) U/L ALT (16-63) U/L Alkaline Phosphatase (46-116) U/L Lactate Dehydrogenase (85-227) U/L C-Reactive Protein (<1.0) mg/dL Total Protein (6.4-8.2) g/dl Albumin (3.4-5.0) g/dl Globulin gm/dL Albumin/Globulin Ratio (1-2) SARS-CoV-2 RNA (SERGIO) Negative (NEGATIVE) 10/28/20 10/29/20 10/29/20 Range/Units 13:24 06:12 06:12 WBC 16.84 H (4.23-9.07) K/mm3 RBC 3.60 L (4.63-6.08) M/mm3 Hgb 11.0 L D (13.7-17.5) gm/dl Hct 34.0 L (40.1-51.0) % MCV 94.4 H (79.0-92.2) fl MCH 30.6 (25.7-32.2) pg MCHC 32.4 (32.2-35.5) g/dl RDW Std Deviation 46.1 H (35.1-43.9) fL Plt Count 192 (163-337) K/mm3 MPV 9.4 (9.4-12.3) fl Neut % (Auto) 89.1 H (34.0-67.9) % Lymph % (Auto) 6.7 L (21.8-53.1) % [place] % (Auto) 2.9 L (5.3-12.2) % Eos % (Auto) 1.1 (0.8-7.0) Baso % (Auto) 0.2 (0.1-1.2) % Neut # (Auto) 15.03 H (1.78-5.38) K/mm3 Lymph # (Auto) 1.12 L (1.32-3.57) K/mm3 [place] # (Auto) 0.48 (0.30-0.82) K/mm3 Eos # (Auto) 0.18 (0.04-0.54) K/mm3 Baso # (Auto) 0.03 (0.01-0.08) K/mm3 Manual Slide Review Abnormal smear Sodium 140 (136-145) mEq/L Potassium 4.3 (3.5-5.1) mEq/L Chloride 106 (98-107) mEq/L Carbon Dioxide 27 (21-32) mEq/L Anion Gap 11.3 (5-15) BUN 25 H (7-18) mg/dL Creatinine 1.0 (0.7-1.3) mg/dL Est Cr Clr Drug Dosing 57.70 Estimated GFR (MDRD) > 60 (>60) mL/min BUN/Creatinine Ratio 25.0 H (14-18) Glucose 95 (80-115) mg/dL Lactic Acid 1.5 (0.4-2.0) mmol/L Calcium 9.6 (8.5-10.1) mg/dL Magnesium 1.9 (1.8-2.4) mg/dl Ferritin (26-388) ng/ml Total Bilirubin (0.2-1.0) mg/dL AST (15-37) U/L ALT (16-63) U/L Alkaline Phosphatase (46-116) U/L Lactate Dehydrogenase (85-227) U/L C-Reactive Protein 15.0 H* (<1.0) mg/dL Total Protein (6.4-8.2) g/dl Albumin (3.4-5.0) g/dl Globulin gm/dL Albumin/Globulin Ratio (1-2) SARS-CoV-2 RNA (SERGIO) (NEGATIVE) Med Orders - Current: Current Medications Acetaminophen (Tylenol) 650 mg RECTAL Q4H PRN PRN Reason: Pain (mild 1-3) Acetaminophen (Tylenol) 650 mg PO Q6H PRN PRN Reason: Headache Hydrocodone Bitart/Acetaminophen ([place] 325-5 Mg) 1 tab PO Q4H PRN PRN Reason: Pain (moderate 4-6) Last Admin: 10/29/20 03:27 Dose: 1 tab Documented by: Albuterol (Proventil Hfa) 0 gm INH Q4H PRN PRN Reason: Shortness of Breath Albuterol (Proventil Neb Soln) 2.5 mg NEB Q4H PRN PRN Reason: Shortness of Breath Albuterol/Ipratropium (Duoneb 3.0-0.5 Mg/3 Ml) 3 ml NEB Q4H PRN PRN Reason: Shortness Of Breath/wheezing Aspirin (Aspirin) 81 mg PO DAILY [facility] Diclofenac Sodium (Voltaren 1% Gel) 2 gm TOP QID [facility] Last Admin: 10/28/20 22:22 Dose: 1 applic Documented by: Enoxaparin Sodium (Lovenox) 30 mg SUBCUT DAILY [facility] Finasteride (Proscar) 5 mg PO DAILY [facility] Guaifenesin (Mucinex) 600 mg PO TID [facility] Last Admin: 10/28/20 21:40 Dose: 600 mg Documented by: Hydrocortisone (Hydrocortisone 1% Crm) 0 gm TOP TID PRN PRN Reason: Itching Hydromorphone HCl (Dilaudid) 0.25 mg IVPUSH Q2H PRN PRN Reason: Pain (severe 7-10) Last Admin: 10/28/20 21:39 Dose: 0.25 mg Documented by: Promethazine HCl 12.5 mg/ (Sodium Chloride) 50.5 mls @ 100 mls/hr IV Q6H PRN PRN Reason: Nausea/Vomiting Ketorolac Tromethamine (Toradol) 30 mg IV Q6H PRN PRN Reason: Pain (moderate 4-6) Melatonin (Melatonin) 6 mg PO BEDTIME [facility] Last Admin: 10/28/20 21:40 Dose: 6 mg Documented by: Meloxicam (Mobic) 15 mg PO DAILY [facility] Montelukast Sodium (Singulair) 10 mg PO DAILY [facility] Multivitamins (Thera) 1 each PO DAILY [facility] Nystatin (Nystop) 0 gm TOP BID [facility] Last Admin: 10/28/20 22:22 Dose: Not Given Documented by: Olanzapine (Zyprexa) 10 mg PO DAILY [facility] Ondansetron HCl (Zofran) 4 mg IV Q6H PRN PRN Reason: Nausea/Vomiting Oxycodone/Acetaminophen (Percocet 325-5 Mg) 1 tab PO Q6H [facility] Carisoprodol 350 Mg Patient's Own Med 0 each PO TID [facility] Last Admin: 10/28/20 22:21 Dose: 350 each Documented by: Polyethylene Glycol (Miralax) 17 gm PO DAILY [facility] Ropinirole HCl (Requip) 0.5 mg PO DAILY [facility] Saccharomyces Boulardii (Florastor) 250 mg PO BID [facility] Last Admin: 10/28/20 21:40 Dose: 250 mg Documented by: Senna/Docusate Sodium (Senna Plus) 1 tab PO BID PRN PRN Reason: Constipation Sodium Chloride (Saline Flush) 10 ml FLUSH ASDIRECTED PRN PRN Reason: Keep Vein Open Last Admin: 10/28/20 10:10 Dose: 10 ml Documented by: Tamsulosin HCl (Flomax) 0.4 mg PO DAILY [facility] Verapamil HCl (Calan) 160 mg PO TID [facility] Last Admin: 10/28/20 21:40 Dose: 160 mg Documented by: Zolpidem Tartrate (Ambien) 5 mg PO BEDTIME PRN PRN Reason: Sleep Discontinued Medications Acetaminophen (Tylenol) 975 mg PO NOW ONE Stop: 10/28/20 11:46 Last Admin: 10/28/20 11:56 Dose: 975 mg Documented by: Albuterol/Ipratropium (Duoneb 3.0-0.5 Mg/3 Ml) 3 ml NEB Q6H PRN PRN Reason: Shortness of Breath Hydromorphone HCl (Dilaudid) 0.5 mg IVPUSH ONETIME ONE Stop: 10/28/20 10:03 Last Admin: 10/28/20 10:09 Dose: 0.5 mg Documented by: Cefepime HCl 2 gm/ Premix 50 mls @ 100 mls/hr IV ONETIME ONE Stop: 10/28/20 12:12 Last Admin: 10/28/20 11:57 Dose: 100 mls/hr Documented by: - Exam Quality Assessment: No: Supplemental Oxygen General: Alert, Oriented, Cooperative, No Acute Distress HEENT: Pupils Equal, Pupils Reactive, EOMI, Mucous Membr. Moist/[place], Other (baseline speech disorder) Neck: Other (neck leans to the right) Lungs: Normal Respiratory Effort, Decreased Breath Sounds Cardiovascular: Regular Rate, Regular Rhythm GI/Abdominal Exam: Normal Bowel Sounds, Soft, Non-Tender, No Organomegaly, No Distention, No Abnormal Bruit, No Mass (Male) Exam: Other (daugherty catheter) Back Exam: Normal Inspection, Full Range of Motion Extremities: Normal Inspection, Normal Range of Motion, Non-Tender, No Pedal Edema, Normal Capillary Refill Peripheral Pulses: 2+: Dorsalis Pedis (L), Dorsalis Pedis (R) Skin: Warm, Dry, Intact Neurological: No New Focal Deficit Psy/Mental Status: Alert, Normal Affect, Normal Mood - Patient Data Lab Results Last 24 hrs: Laboratory Results - last 24 hr 10/28/20 10/28/20 10/28/20 Range/Units 10:10 10:10 10:10 WBC 16.84 H (4.23-9.07) K/mm3 RBC 4.24 L (4.63-6.08) M/mm3 Hgb 12.5 L D (13.7-17.5) gm/dl Hct 39.8 L (40.1-51.0) % MCV 93.9 H (79.0-92.2) fl MCH 29.5 (25.7-32.2) pg MCHC 31.4 L (32.2-35.5) g/dl RDW Std Deviation 44.5 H (35.1-43.9) fL Plt Count 214 (163-337) K/mm3 MPV 9.2 L (9.4-12.3) fl Neut % (Auto) 93.8 H (34.0-67.9) % Lymph % (Auto) 1.9 L (21.8-53.1) % [place] % (Auto) 3.9 L (5.3-12.2) % Eos % (Auto) 0.1 L (0.8-7.0) Baso % (Auto) 0.1 (0.1-1.2) % Neut # (Auto) 15.81 H (1.78-5.38) K/mm3 Lymph # (Auto) 0.32 L (1.32-3.57) K/mm3 [place] # (Auto) 0.65 (0.30-0.82) K/mm3 Eos # (Auto) 0.02 L (0.04-0.54) K/mm3 Baso # (Auto) 0.01 (0.01-0.08) K/mm3 Manual Slide Review Abnormal smear Sodium 143 (136-145) mEq/L Potassium 4.5 (3.5-5.1) mEq/L Chloride 105 (98-107) mEq/L Carbon Dioxide 26 (21-32) mEq/L Anion Gap 16.5 H (5-15) BUN 21 H (7-18) mg/dL Creatinine 1.1 (0.7-1.3) mg/dL Est Cr Clr Drug Dosing TNP Estimated GFR (MDRD) > 60 (>60) mL/min BUN/Creatinine Ratio 19.1 H (14-18) Glucose 92 (80-115) mg/dL Lactic Acid (0.4-2.0) mmol/L Calcium 9.9 (8.5-10.1) mg/dL Magnesium (1.8-2.4) mg/dl Ferritin (26-388) ng/ml Total Bilirubin 0.5 (0.2-1.0) mg/dL AST 17 (15-37) U/L ALT 26 (16-63) U/L Alkaline Phosphatase 72 (46-116) U/L Lactate Dehydrogenase 153 (85-227) U/L C-Reactive Protein 3.3 H* (<1.0) mg/dL Total Protein 6.9 (6.4-8.2) g/dl Albumin 3.4 (3.4-5.0) g/dl Globulin 3.5 gm/dL Albumin/Globulin Ratio 1.0 (1-2) SARS-CoV-2 RNA (SERGIO) (NEGATIVE) 10/28/20 10/28/20 10/28/20 Range/Units 10:10 10:29 11:49 WBC (4.23-9.07) K/mm3 RBC (4.63-6.08) M/mm3 Hgb (13.7-17.5) gm/dl Hct (40.1-51.0) % MCV (79.0-92.2) fl MCH (25.7-32.2) pg MCHC (32.2-35.5) g/dl RDW Std Deviation (35.1-43.9) fL Plt Count (163-337) K/mm3 MPV (9.4-12.3) fl Neut % (Auto) (34.0-67.9) % Lymph % (Auto) (21.8-53.1) % [place] % (Auto) (5.3-12.2) % Eos % (Auto) (0.8-7.0) Baso % (Auto) (0.1-1.2) % Neut # (Auto) (1.78-5.38) K/mm3 Lymph # (Auto) (1.32-3.57) K/mm3 [place] # (Auto) (0.30-0.82) K/mm3 Eos # (Auto) (0.04-0.54) K/mm3 Baso # (Auto) (0.01-0.08) K/mm3 Manual Slide Review Sodium (136-145) mEq/L Potassium (3.5-5.1) mEq/L Chloride (98-107) mEq/L Carbon Dioxide (21-32) mEq/L Anion Gap (5-15) BUN (7-18) mg/dL Creatinine (0.7-1.3) mg/dL Est Cr Clr Drug Dosing Estimated GFR (MDRD) (>60) mL/min BUN/Creatinine Ratio (14-18) Glucose (80-115) mg/dL Lactic Acid 0.7 (0.4-2.0) mmol/L Calcium (8.5-10.1) mg/dL Magnesium (1.8-2.4) mg/dl Ferritin 106 (26-388) ng/ml Total Bilirubin (0.2-1.0) mg/dL AST (15-37) U/L ALT (16-63) U/L Alkaline Phosphatase (46-116) U/L Lactate Dehydrogenase (85-227) U/L C-Reactive Protein (<1.0) mg/dL Total Protein (6.4-8.2) g/dl Albumin (3.4-5.0) g/dl Globulin gm/dL Albumin/Globulin Ratio (1-2) SARS-CoV-2 RNA (SERGIO) Negative (NEGATIVE) 10/28/20 10/29/20 10/29/20 Range/Units 13:24 06:12 06:12 WBC 16.84 H (4.23-9.07) K/mm3 RBC 3.60 L (4.63-6.08) M/mm3 Hgb 11.0 L D (13.7-17.5) gm/dl Hct 34.0 L (40.1-51.0) % MCV 94.4 H (79.0-92.2) fl MCH 30.6 (25.7-32.2) pg MCHC 32.4 (32.2-35.5) g/dl RDW Std Deviation 46.1 H (35.1-43.9) fL Plt Count 192 (163-337) K/mm3 MPV 9.4 (9.4-12.3) fl Neut % (Auto) 89.1 H (34.0-67.9) % Lymph % (Auto) 6.7 L (21.8-53.1) % [place] % (Auto) 2.9 L (5.3-12.2) % Eos % (Auto) 1.1 (0.8-7.0) Baso % (Auto) 0.2 (0.1-1.2) % Neut # (Auto) 15.03 H (1.78-5.38) K/mm3 Lymph # (Auto) 1.12 L (1.32-3.57) K/mm3 [place] # (Auto) 0.48 (0.30-0.82) K/mm3 Eos # (Auto) 0.18 (0.04-0.54) K/mm3 Baso # (Auto) 0.03 (0.01-0.08) K/mm3 Manual Slide Review Abnormal smear Sodium 140 (136-145) mEq/L Potassium 4.3 (3.5-5.1) mEq/L Chloride 106 (98-107) mEq/L Carbon Dioxide 27 (21-32) mEq/L Anion Gap 11.3 (5-15) BUN 25 H (7-18) mg/dL Creatinine 1.0 (0.7-1.3) mg/dL Est Cr Clr Drug Dosing 57.70 Estimated GFR (MDRD) > 60 (>60) mL/min BUN/Creatinine Ratio 25.0 H (14-18) Glucose 95 (80-115) mg/dL Lactic Acid 1.5 (0.4-2.0) mmol/L Calcium 9.6 (8.5-10.1) mg/dL Magnesium 1.9 (1.8-2.4) mg/dl Ferritin (26-388) ng/ml Total Bilirubin (0.2-1.0) mg/dL AST (15-37) U/L ALT (16-63) U/L Alkaline Phosphatase (46-116) U/L Lactate Dehydrogenase (85-227) U/L C-Reactive Protein 15.0 H* (<1.0) mg/dL Total Protein (6.4-8.2) g/dl Albumin (3.4-5.0) g/dl Globulin gm/dL Albumin/Globulin Ratio (1-2) SARS-CoV-2 RNA (SERGIO) (NEGATIVE) Result Diagrams: 10/29/20 06:12 10/29/20 06:12 Sepsis Event Note - Evaluation Sepsis Screening Result: No Definite Risk - Focused Exam Vital Signs: Vital Signs Temp Pulse Resp BP Pulse Ox 10/29/20 06:01 36.6 C 54 L 14 121/65 97 10/29/20 00:56 36.7 C 54 L 14 103/53 L 100 - Problem List Review Problem List Initiated/Reviewed/Updated: Yes - My Orders Last 24 Hours: My Active Orders 10/28/20 15:40 Cardiac Monitoring [RC] CONTINUOUS Height and Weight [RC] UPON Intake and Output [RC] 0400,1600 Oxygen Therapy [RC] PRN Pulse Oximetry [RC] PRN Up With Assistance [RC] ASDIRECTED Up ad [place] [RC] ASDIRECTED VTE/DVT Education [RC] PER UNIT ROUTINE Vital Signs [RC] Q4HR Consult to Case Management/Painter Plate [CONS] Routine Consult to Spiritual Care [CONS] Routine OT Evaluation and Treatment [CONS] Routine PT Evaluation and Treatment [CONS] Routine Respiratory Care Assess and Treatment [CONS] Routine FOUNTAIN DISPENSER Evaluation and Treatment [CONS] Routine CULTURE SPUTUM + SMEAR [RM] Stat Acetaminophen [Tylenol] 650 mg RECTAL Q4H PRN Acetaminophen/HYDROcodone [[place] 325-5 MG] 1 tab PO Q4H PRN Albuterol/Ipratropium [DuoNeb 3.0-0.5 MG/3 ML] 3 ml NEB Q4H PRN Docusate Sodium/Sennosides [Senna Plus] 1 tab PO BID PRN HYDROmorphone [Dilaudid] 0.25 mg IVPUSH Q2H PRN Ketorolac [Toradol] 30 mg IV Q6H PRN Ondansetron [Zofran] 4 mg IV Q6H PRN Promethazine [Phenergan] 12.5 mg Sodium Chloride 0.9% [Normal Saline] 50 ml IV Q6H Resuscitation Status Routine 10/28/20 15:41 RT Aerosol Therapy [RC] ASDIRECTED 10/28/20 15:42 Acetaminophen [TylenoL] 650 mg PO Q6H PRN Albuterol [Proventil HFA] 0 gm INH Q4H PRN Albuterol [Proventil Neb Soln] 2.5 mg NEB Q4H PRN Hydrocortisone [Hydrocortisone 1% Crm] 0 gm TOP TID PRN 10/28/20 15:44 RT Aerosol Therapy [RC] ASDIRECTED 10/28/20 15:45 Acetaminophen/oxyCODONE [Percocet 325-5 MG] 1 tab PO Q6H 10/28/20 Dinner Soft Diet [DIET] Diclofenac Sodium [Voltaren 1% Gel] 2 gm TOP QID 10/28/20 21:00 Melatonin 6 mg PO BEDTIME Nystatin [Nystop] 0 gm TOP BID Patient's Own Medication [Ptom] 0 each PO TID Saccharomyces Boulardii [Florastor] 250 mg PO BID Verapamil [Calan] 160 mg PO TID Zolpidem [Ambien] 5 mg PO BEDTIME PRN guaiFENesin [Mucinex] 600 mg PO TID 10/29/20 03:16 CULTURE URINE [RM] Stat 10/29/20 09:00 Aspirin 81 mg PO DAILY Enoxaparin [Lovenox] 30 mg SUBCUT DAILY Finasteride [Proscar] 5 mg PO DAILY Meloxicam [Mobic] 15 mg PO DAILY Montelukast [Singulair] 10 mg PO DAILY Multivitamins,Therapeutic [Thera] 1 each PO DAILY OLANZapine [ZyPREXA] 10 mg PO DAILY Tamsulosin [Flomax] 0.4 mg PO DAILY Tiotropium BR/Olodaterol HCL [Stiolto Respimat] 0 gm INH DAILY polyethylene glycoL 3350 [MiraLAX] 17 gm PO DAILY rOPINIRole [Requip] 0.5 mg PO DAILY 10/30/20 05:11 BASIC METABOLIC PANEL,BMP [CHEM] AM C-REACTIVE PROTEIN [CHEM] AM CBC WITH AUTO DIFF [HEME] AM MAGNESIUM [CHEM] AM 10/31/20 05:11 BASIC METABOLIC PANEL,BMP [CHEM] AM C-REACTIVE PROTEIN [CHEM] AM CBC WITH AUTO DIFF [HEME] AM MAGNESIUM [CHEM] AM 11/01/20 05:11 BASIC METABOLIC PANEL,BMP [CHEM] AM CBC WITH AUTO DIFF [HEME] AM MAGNESIUM [CHEM] AM 11/02/20 05:11 BASIC METABOLIC PANEL,BMP [CHEM] AM CBC WITH AUTO DIFF [HEME] AM MAGNESIUM [CHEM] AM 11/03/20 05:11 BASIC METABOLIC PANEL,BMP [CHEM] AM CBC WITH AUTO DIFF [HEME] AM MAGNESIUM [CHEM] AM 11/04/20 05:11 BASIC METABOLIC PANEL,BMP [CHEM] AM CBC WITH AUTO DIFF [HEME] AM MAGNESIUM [CHEM] AM - Plan Plan:: This is a 70 yo elderly white male with past medical hx/o Hypertension, COPD, GERD, Dysphagia on soft Diet, Speech Disorder, Hx/o PEG Tube placement, 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 Assessment: Acute: Metabolic Encephalopathy from Aspiration Pneumonia, resolved Sepsis secondary to Aspiration Aspiration Pneumonia from underlying chronic dysphagia; chest x-ray report read as focal area of presumed pneumonia within the let lower lung Dysphagia on soft diet Fever with a Temp as high as 103 F Leukocytosis with WBC of 16.84 Macrocytic Hypochromic Anemia with Hgb o 12.5 grams Elevated AG of 16.5 Elevated CRP of 3.3 Chronic:Hypertension, COPD, GERD, Dysphagia on soft Diet, Speech Disorder, Hx/o PEG Tube placement, Neurologic Bladder S/p Chronic Indwelling Catheter, Spasmodic Torticolis, Cluster TOUSSAINT, DJD/Cervical Disc Degeneration, Generalized We akness and [place] Induced Neurological Toxicity, Chronic Pain Syndrome, Hx/o Opioid Addiction and Gait Abnormality Plan: He is doing better. No more fever. Continue current treatment and aspiration precaution. Soft diet. PRN anti-emetic agents. IV antibiotic with Zosyn. UA and Sputum Cx with gram stain pending. IS and FV as directed. Inflammatory marker to monitor response to treatment. DVT/GI prophylaxis. PT/OT for deconditioning/generalized weakness. Code status is full
[2020-10-29] MEDS: Multivitamins,Therapeutic Tab PO SCH (08:53)
[2020-10-29] MEDS: Verapamil 80 MG Tab PO SCH ×3 (08:54→20:12)
[2020-10-29] MEDS: rOPINIRole 0.25 MG Tab PO SCH (08:55)
[2020-10-29] MEDS: Meloxicam 7.5 MG Tab PO SCH (08:55)
[2020-10-29] MEDS: Aspirin 81 MG Tab.Chew PO SCH (08:56)
[2020-10-29] MEDS: guaiFENesin 600 MG Tab.ER PO SCH ×3 (08:56→20:11)
[2020-10-29] MEDS: Polyethylene Glycol 3350 Powder 17 GM Packet PO SCH (08:57)
[2020-10-29] MEDS: Tamsulosin 0.4 MG Cap.ER PO SCH (08:58)
[2020-10-29] MEDS: Finasteride 5 MG Tab PO SCH (08:58)
[2020-10-29] MEDS: Saccharomyces Boulardii (Probiotic) 250 MG Cap PO SCH ×2 (08:58→20:11)
[2020-10-29] MEDS: OLANZapine 5 MG Tab PO SCH (08:59)
[2020-10-29] MEDS: CARISOPRODOL 350 MG PO SCH ×3 (09:00→20:14)
[2020-10-29] MEDS: Diclofenac Sodium 1% Gel 100 GM Tube TOP SCH ×4 (09:00→20:13)
[2020-10-29] MEDS: Enoxaparin 30 MG/0.3 ML Syringe SUBCUT SCH (09:01)
[2020-10-29] MEDS: Montelukast 10 MG Tab PO SCH (09:01)
[2020-10-29] MEDS: Nystatin Topical Powder 15 GM Bottle TOP SCH ×2 (09:02→22:21)
[2020-10-29] MEDS ORDERED: Sodium Chloride 0.65% Nasal Spray 45 ML Bottle NAS PRN (12:10)
[2020-10-29] MEDS ORDERED: Non-Formulary Medication 1 Each PRN (12:10)
[2020-10-29] MEDS ORDERED: Bisacodyl 5 MG Tab PO PRN (12:10)
[2020-10-29] MEDS ORDERED: Piperacillin/Tazobactam 4.5 GM in Sodium Chloride 0.9% 100 ML IV ONE (12:30)
[2020-10-29] MEDS ORDERED: Lidocaine 4% 1 each Patch TOP SCH (13:00)
[2020-10-29] MEDS: Gabapentin 300 MG Cap PO SCH ×2 (14:06→20:12)
[2020-10-29] MEDS: Acetaminophen/oxyCODONE 325-5 MG Tab PO SCH ×3 (14:07→23:43)
[2020-10-29] MEDS: Albuterol 6.7 GM Inhaler INH PRN (16:42)
[2020-10-29] MEDS: Piperacillin/Tazobactam 4.5 GM in Sodium Chloride 0.9% 100 ML IV SCH (20:11)
[2020-10-29] MEDS: Acetaminophen 325 MG Tab PO SCH (20:12)
[2020-10-29] MEDS: Melatonin 3 MG Tab PO SCH (20:12)
[2020-10-29] MEDS: Albuterol 6.7 GM Inhaler INH SCH (20:36)
[2020-10-29] MEDS: Zolpidem 5 MG Tab PO PRN (22:52)
[2020-10-30] MEDS: Piperacillin/Tazobactam 4.5 GM in Sodium Chloride 0.9% 100 ML IV SCH ×3 (03:11→20:25)
[2020-10-30] MEDS: Acetaminophen/oxyCODONE 325-5 MG Tab PO SCH ×4 (05:09→23:45)
--- NOTE | 2020-10-30 06:54 | PCM.PN ---
- General Info Date of Service: 10/30/20 Admission Dx/Problem (Free Text): Admission Diagnosis/Problem Admission Diagnosis/Problem Pneumonia Subjective Update: No overnight or acute issues. He has no complaints except for a headache. He is afebrile but WBC is now down to 14K. His Blood culture so far is negative for 2 days. His CRP is down to 8.3. Repeat chest x-ray report read as slight increased density within the mid and lower lung which has improved from prior exam. Functional Status: Reports: Pain Controlled, Tolerating Diet, Ambulating, Urinating, Incentive Spirometry. Denies: New Symptoms - Review of Systems General: Denies: Fever, Weakness, Fatigue, Malaise HEENT: Reports: Headaches. Denies: Contact Lenses Pulmonary: Denies: Shortness of Breath, Cough Cardiovascular: Denies: Chest Pain Gastrointestinal: Denies: Abdominal Pain, Nausea, Vomiting Genitourinary: Denies: Dysuria, Burning Musculoskeletal: Reports: Neck Pain Skin: Denies: Cyanosis, Jaundice Neurological: Denies: Confusion, Difficulty Walking, Gait Disturbance Psychiatric: Denies: Depression, Anxiety - Patient Data Vitals - Most Recent: Last Vital Signs Temp 36.8 C 10/29/20 11:36 Pulse 60 10/29/20 16:30 Resp 14 10/29/20 16:30 BP 121/68 10/29/20 16:30 Pulse Ox 99 10/29/20 20:37 Weight - Most Recent: 56.744 kg I&O - Last 24 Hours: Intake & Output 10/29/20 10/29/20 10/30/20 14:59 22:59 06:59 Intake Total 1620 900 Output Total 800 800 Balance 820 100 Lab Results Last 24 Hours: Laboratory Results - last 24 hr 10/29/20 10/29/20 10/30/20 Range/Units 06:12 06:12 04:51 WBC 16.84 H 14.22 H (4.23-9.07) K/mm3 RBC 3.60 L 3.60 L (4.63-6.08) M/mm3 Hgb 11.0 L D 10.6 L (13.7-17.5) gm/dl Hct 34.0 L 33.8 L (40.1-51.0) % MCV 94.4 H 93.9 H (79.0-92.2) fl MCH 30.6 29.4 (25.7-32.2) pg MCHC 32.4 31.4 L (32.2-35.5) g/dl RDW Std Deviation 46.1 H 44.3 H (35.1-43.9) fL Plt Count 192 199 (163-337) K/mm3 MPV 9.4 9.4 (9.4-12.3) fl Neut % (Auto) 89.1 H 89.1 H (34.0-67.9) % Lymph % (Auto) 6.7 L 5.8 L (21.8-53.1) % [place] % (Auto) 2.9 L 3.9 L (5.3-12.2) % Eos % (Auto) 1.1 1.0 (0.8-7.0) Baso % (Auto) 0.2 0.1 (0.1-1.2) % Neut # (Auto) 15.03 H 12.66 H (1.78-5.38) K/mm3 Lymph # (Auto) 1.12 L 0.83 L (1.32-3.57) K/mm3 [place] # (Auto) 0.48 0.56 (0.30-0.82) K/mm3 Eos # (Auto) 0.18 0.14 (0.04-0.54) K/mm3 Baso # (Auto) 0.03 0.01 (0.01-0.08) K/mm3 Manual Slide Review Abnormal smear Sodium 140 (136-145) mEq/L Potassium 4.3 (3.5-5.1) mEq/L Chloride 106 (98-107) mEq/L Carbon Dioxide 27 (21-32) mEq/L Anion Gap 11.3 (5-15) BUN 25 H (7-18) mg/dL Creatinine 1.0 (0.7-1.3) mg/dL Est Cr Clr Drug Dosing 57.70 mL/min Estimated GFR (MDRD) > 60 (>60) mL/min BUN/Creatinine Ratio 25.0 H (14-18) Glucose 95 (80-115) mg/dL Calcium 9.6 (8.5-10.1) mg/dL Magnesium 1.9 (1.8-2.4) mg/dl C-Reactive Protein 15.0 H* (<1.0) mg/dL 10/30/20 Range/Units 04:51 WBC (4.23-9.07) K/mm3 RBC (4.63-6.08) M/mm3 Hgb (13.7-17.5) gm/dl Hct (40.1-51.0) % MCV (79.0-92.2) fl MCH (25.7-32.2) pg MCHC (32.2-35.5) g/dl RDW Std Deviation (35.1-43.9) fL Plt Count (163-337) K/mm3 MPV (9.4-12.3) fl Neut % (Auto) (34.0-67.9) % Lymph % (Auto) (21.8-53.1) % [place] % (Auto) (5.3-12.2) % Eos % (Auto) (0.8-7.0) Baso % (Auto) (0.1-1.2) % Neut # (Auto) (1.78-5.38) K/mm3 Lymph # (Auto) (1.32-3.57) K/mm3 [place] # (Auto) (0.30-0.82) K/mm3 Eos # (Auto) (0.04-0.54) K/mm3 Baso # (Auto) (0.01-0.08) K/mm3 Manual Slide Review Sodium 142 (136-145) mEq/L Potassium 4.0 (3.5-5.1) mEq/L Chloride 106 (98-107) mEq/L Carbon Dioxide 27 (21-32) mEq/L Anion Gap 13.0 (5-15) BUN 21 H (7-18) mg/dL Creatinine 1.1 (0.7-1.3) mg/dL Est Cr Clr Drug Dosing 52.82 mL/min Estimated GFR (MDRD) > 60 (>60) mL/min BUN/Creatinine Ratio 19.1 H (14-18) Glucose 89 (80-115) mg/dL Calcium 9.6 (8.5-10.1) mg/dL Magnesium 1.8 (1.8-2.4) mg/dl C-Reactive Protein 8.3 H* (<1.0) mg/dL [place] Results Last 24 Hours: Microbiology 10/28/20 10:35 Aerobic Blood Culture - Preliminary Blood NO GROWTH AFTER 1 DAY Anaerobic Blood Culture - Preliminary NO GROWTH AFTER 1 DAY 10/28/20 10:29 Aerobic Blood Culture - Preliminary Blood NO GROWTH AFTER 1 DAY Anaerobic Blood Culture - Preliminary NO GROWTH AFTER 1 DAY Med Orders - Current: Current Medications Acetaminophen (Tylenol) 650 mg RECTAL Q4H PRN PRN Reason: Pain (mild 1-3) Acetaminophen (Tylenol) 650 mg PO Q6H PRN PRN Reason: Headache Acetaminophen (Tylenol) 650 mg PO BID [facility] Last Admin: 10/29/20 20:12 Dose: 650 mg Documented by: Hydrocodone Bitart/Acetaminophen ([place] 325-5 Mg) 1 tab PO Q4H PRN PRN Reason: Pain (moderate 4-6) Last Admin: 10/29/20 09:42 Dose: 1 tab Documented by: Albuterol (Proventil Hfa) 0 gm INH Q4H PRN PRN Reason: Shortness of Breath Last Admin: 10/29/20 16:42 Dose: 2 puff Documented by: Albuterol (Proventil Neb Soln) 2.5 mg NEB Q4H PRN PRN Reason: Shortness of Breath Albuterol (Proventil Hfa) 0 gm INH BID [facility] Last Admin: 10/29/20 20:36 Dose: 2 puff Documented by: Albuterol/Ipratropium (Duoneb 3.0-0.5 Mg/3 Ml) 3 ml NEB Q4H PRN PRN Reason: Shortness Of Breath/wheezing Aspirin (Aspirin) 81 mg PO DAILY [facility] Last Admin: 10/29/20 08:56 Dose: 81 mg Documented by: Bisacodyl (Dulcolax) 10 mg PO DAILY PRN PRN Reason: Constipation Diclofenac Sodium (Voltaren 1% Gel) 2 gm TOP QID [facility] Last Admin: 10/29/20 20:13 Dose: 1 applic Documented by: Enoxaparin Sodium (Lovenox) 30 mg SUBCUT DAILY [facility] Last Admin: 10/29/20 09:01 Dose: 30 mg Documented by: Finasteride (Proscar) 5 mg PO DAILY [facility] Last Admin: 10/29/20 08:58 Dose: 5 mg Documented by: Gabapentin (Neurontin) 300 mg PO TID [facility] Last Admin: 10/29/20 20:12 Dose: 300 mg Documented by: Guaifenesin (Mucinex) 600 mg PO TID [facility] Last Admin: 10/29/20 20:11 Dose: 600 mg Documented by: Hydrocortisone (Hydrocortisone 1% Crm) 0 gm TOP TID PRN PRN Reason: Itching Hydromorphone HCl (Dilaudid) 0.25 mg IVPUSH Q2H PRN PRN Reason: Pain (severe 7-10) Last Admin: 10/28/20 21:39 Dose: 0.25 mg Documented by: Promethazine HCl 12.5 mg/ (Sodium Chloride) 50.5 mls @ 100 mls/hr IV Q6H PRN PRN Reason: Nausea/Vomiting Piperacillin Sod/Tazobactam (Sod 4.5 gm/ Sodium Chloride) 100 mls @ 25 mls/hr IV Q8H [facility] Last Admin: 10/30/20 03:11 Dose: 25 mls/hr Documented by: Magnesium Oxide (Magnesium Oxide) 400 mg PO DAILY [facility] Melatonin (Melatonin) 6 mg PO BEDTIME [facility] Last Admin: 10/29/20 20:12 Dose: 6 mg Documented by: Meloxicam (Mobic) 15 mg PO DAILY [facility] Last Admin: 10/29/20 08:55 Dose: 15 mg Documented by: Miscellaneous Information (Remove Patch) 0 ea TRDERM Q24H [facility] Last Admin: 10/30/20 03:11 Dose: Not Given Documented by: Montelukast Sodium (Singulair) 10 mg PO DAILY [facility] Last Admin: 10/29/20 09:01 Dose: 10 mg Documented by: Multivitamins (Thera) 1 each PO DAILY [facility] Last Admin: 10/29/20 08:53 Dose: 1 each Documented by: Nystatin (Nystop) 0 gm TOP BID [facility] Last Admin: 10/29/20 22:21 Dose: Not Given Documented by: Olanzapine (Zyprexa) 10 mg PO DAILY [facility] Last Admin: 10/29/20 08:59 Dose: 10 mg Documented by: Ondansetron HCl (Zofran) 4 mg IV Q6H PRN PRN Reason: Nausea/Vomiting Oxycodone/Acetaminophen (Percocet 325-5 Mg) 1 tab PO Q6HR [facility] Last Admin: 10/30/20 05:09 Dose: 1 tab Documented by: Pantoprazole Sodium (Protonix) 40 mg PO DAILY [facility] Carisoprodol 350 Mg Patient's Own Med 0 each PO TID [facility] Last Admin: 10/29/20 20:14 Dose: 350 each Documented by: Polyethylene Glycol (Miralax) 17 gm PO DAILY [facility] Last Admin: 10/29/20 08:57 Dose: Not Given Documented by: Ropinirole HCl (Requip) 0.5 mg PO DAILY [facility] Last Admin: 10/29/20 08:55 Dose: 0.5 mg Documented by: Saccharomyces Boulardii (Florastor) 250 mg PO BID [facility] Last Admin: 10/29/20 20:11 Dose: 250 mg Documented by: Senna/Docusate Sodium (Senna Plus) 1 tab PO DAILY [facility] Sodium Chloride (Saline Flush) 10 ml FLUSH ASDIRECTED PRN PRN Reason: Keep Vein Open Last Admin: 10/28/20 10:10 Dose: 10 ml Documented by: Sodium Chloride ([place] Nasal [place]) 0 ml SABI ASDIRECTED PRN PRN Reason: Dryness Tamsulosin HCl (Flomax) 0.4 mg PO DAILY [facility] Last Admin: 10/29/20 08:58 Dose: 0.4 mg Documented by: Verapamil HCl (Calan) 160 mg PO TID [facility] Last Admin: 10/29/20 20:12 Dose: 160 mg Documented by: Zolpidem Tartrate (Ambien) 5 mg PO BEDTIME PRN PRN Reason: Sleep Last Admin: 10/29/20 22:52 Dose: 5 mg Documented by: Discontinued Medications Acetaminophen (Tylenol) 975 mg PO NOW ONE Stop: 10/28/20 11:46 Last Admin: 10/28/20 11:56 Dose: 975 mg Documented by: Albuterol/Ipratropium (Duoneb 3.0-0.5 Mg/3 Ml) 3 ml NEB Q6H PRN PRN Reason: Shortness of Breath Hydromorphone HCl (Dilaudid) 0.5 mg IVPUSH ONETIME ONE Stop: 10/28/20 10:03 Last Admin: 10/28/20 10:09 Dose: 0.5 mg Documented by: Cefepime HCl 2 gm/ Premix 50 mls @ 100 mls/hr IV ONETIME ONE Stop: 10/28/20 12:12 Last Admin: 10/28/20 11:57 Dose: 100 mls/hr Documented by: Piperacillin Sod/Tazobactam (Sod 4.5 gm/ Sodium Chloride) 100 mls @ 200 mls/hr IV ONETIME ONE Stop: 10/29/20 12:59 Last Admin: 10/29/20 12:48 Dose: 200 mls/hr Documented by: Ketorolac Tromethamine (Toradol) 30 mg IV Q6H PRN PRN Reason: Pain (moderate 4-6) Lidocaine (Aspercreme 4%) 1 each TOP Q24H [facility] Last Admin: 10/29/20 13:38 Dose: Not Given Documented by: Non-Formulary Medication (Nf Drug) each .XX QID PRN PRN Reason: Shortness of Breath Senna/Docusate Sodium (Senna Plus) 1 tab PO BID PRN PRN Reason: Constipation - Exam General: Alert, Oriented, Cooperative, No Acute Distress HEENT: Pupils Equal, Pupils Reactive, EOMI, Mucous Membr. Moist/Irene, Other (has speech disorder) Neck: Supple, Other (neck leans to his right side) Lungs: Normal Respiratory Effort, Decreased Breath Sounds Cardiovascular: Regular Rate, Regular Rhythm GI/Abdominal Exam: Normal Bowel Sounds, Soft, Non-Tender, No Organomegaly, No Distention, No Abnormal Bruit (Male) Exam: Deferred Back Exam: Normal Inspection, Full Range of Motion Extremities: Normal Inspection, Normal Range of Motion, Non-Tender, No Pedal Edema, Normal Capillary Refill Peripheral Pulses: 2+: Dorsalis Pedis (L), Dorsalis Pedis (R) Skin: Warm, Dry, Intact Wound/Incisions: Erythema Psy/Mental Status: Alert, Normal Affect, Normal Mood - Patient Data Lab Results Last 24 hrs: Laboratory Results - last 24 hr 10/29/20 10/29/20 10/30/20 Range/Units 06:12 06:12 04:51 WBC 16.84 H 14.22 H (4.23-9.07) K/mm3 RBC 3.60 L 3.60 L (4.63-6.08) M/mm3 Hgb 11.0 L D 10.6 L (13.7-17.5) gm/dl Hct 34.0 L 33.8 L (40.1-51.0) % MCV 94.4 H 93.9 H (79.0-92.2) fl MCH 30.6 29.4 (25.7-32.2) pg MCHC 32.4 31.4 L (32.2-35.5) g/dl RDW Std Deviation 46.1 H 44.3 H (35.1-43.9) fL Plt Count 192 199 (163-337) K/mm3 MPV 9.4 9.4 (9.4-12.3) fl Neut % (Auto) 89.1 H 89.1 H (34.0-67.9) % Lymph % (Auto) 6.7 L 5.8 L (21.8-53.1) % [place] % (Auto) 2.9 L 3.9 L (5.3-12.2) % Eos % (Auto) 1.1 1.0 (0.8-7.0) Baso % (Auto) 0.2 0.1 (0.1-1.2) % Neut # (Auto) 15.03 H 12.66 H (1.78-5.38) K/mm3 Lymph # (Auto) 1.12 L 0.83 L (1.32-3.57) K/mm3 [place] # (Auto) 0.48 0.56 (0.30-0.82) K/mm3 Eos # (Auto) 0.18 0.14 (0.04-0.54) K/mm3 Baso # (Auto) 0.03 0.01 (0.01-0.08) K/mm3 Manual Slide Review Abnormal smear Sodium 140 (136-145) mEq/L Potassium 4.3 (3.5-5.1) mEq/L Chloride 106 (98-107) mEq/L Carbon Dioxide 27 (21-32) mEq/L Anion Gap 11.3 (5-15) BUN 25 H (7-18) mg/dL Creatinine 1.0 (0.7-1.3) mg/dL Est Cr Clr Drug Dosing 57.70 mL/min Estimated GFR (MDRD) > 60 (>60) mL/min BUN/Creatinine Ratio 25.0 H (14-18) Glucose 95 (80-115) mg/dL Calcium 9.6 (8.5-10.1) mg/dL Magnesium 1.9 (1.8-2.4) mg/dl C-Reactive Protein 15.0 H* (<1.0) mg/dL 10/30/20 Range/Units 04:51 WBC (4.23-9.07) K/mm3 RBC (4.63-6.08) M/mm3 Hgb (13.7-17.5) gm/dl Hct (40.1-51.0) % MCV (79.0-92.2) fl MCH (25.7-32.2) pg MCHC (32.2-35.5) g/dl RDW Std Deviation (35.1-43.9) fL Plt Count (163-337) K/mm3 MPV (9.4-12.3) fl Neut % (Auto) (34.0-67.9) % Lymph % (Auto) (21.8-53.1) % [place] % (Auto) (5.3-12.2) % Eos % (Auto) (0.8-7.0) Baso % (Auto) (0.1-1.2) % Neut # (Auto) (1.78-5.38) K/mm3 Lymph # (Auto) (1.32-3.57) K/mm3 [place] # (Auto) (0.30-0.82) K/mm3 Eos # (Auto) (0.04-0.54) K/mm3 Baso # (Auto) (0.01-0.08) K/mm3 Manual Slide Review Sodium 142 (136-145) mEq/L Potassium 4.0 (3.5-5.1) mEq/L Chloride 106 (98-107) mEq/L Carbon Dioxide 27 (21-32) mEq/L Anion Gap 13.0 (5-15) BUN 21 H (7-18) mg/dL Creatinine 1.1 (0.7-1.3) mg/dL Est Cr Clr Drug Dosing 52.82 mL/min Estimated GFR (MDRD) > 60 (>60) mL/min BUN/Creatinine Ratio 19.1 H (14-18) Glucose 89 (80-115) mg/dL Calcium 9.6 (8.5-10.1) mg/dL Magnesium 1.8 (1.8-2.4) mg/dl C-Reactive Protein 8.3 H* (<1.0) mg/dL Result Diagrams: 11/01/20 04:38 11/01/20 04:38 [place] Results Last 24 hrs: Microbiology 10/28/20 10:35 Aerobic Blood Culture - Preliminary Blood NO GROWTH AFTER 1 DAY Anaerobic Blood Culture - Preliminary NO GROWTH AFTER 1 DAY 10/28/20 10:29 Aerobic Blood Culture - Preliminary Blood NO GROWTH AFTER 1 DAY Anaerobic Blood Culture - Preliminary NO GROWTH AFTER 1 DAY Sepsis Event Note - Evaluation Sepsis Screening Result: No Definite Risk - Focused Exam Vital Signs: Vital Signs Pulse Ox 10/29/20 20:37 99 - Problem List Review Problem List Initiated/Reviewed/Updated: Yes - My Orders Last 24 Hours: My Active Orders 10/29/20 09:00 Aspirin 81 mg PO DAILY Enoxaparin [Lovenox] 30 mg SUBCUT DAILY Finasteride [Proscar] 5 mg PO DAILY Meloxicam [Mobic] 15 mg PO DAILY Montelukast [Singulair] 10 mg PO DAILY Multivitamins,Therapeutic [Thera] 1 each PO DAILY OLANZapine [ZyPREXA] 10 mg PO DAILY Tamsulosin [Flomax] 0.4 mg PO DAILY Tiotropium BR/Olodaterol HCL [Stiolto Respimat] 0 gm INH DAILY polyethylene glycoL 3350 [MiraLAX] 17 gm PO DAILY rOPINIRole [Requip] 0.5 mg PO DAILY 10/29/20 12:10 Sodium Chloride 0.65% [[place]ain Nasal [place]] 0 ml SABI ASDIRECTED PRN bisacodyL [Dulcolax] 10 mg PO DAILY PRN 10/29/20 14:00 Acetaminophen/oxyCODONE [Percocet 325-5 MG] 1 tab PO Q6HR 10/29/20 15:00 Gabapentin [Neurontin] 300 mg PO TID 10/29/20 20:00 Piperacillin/Tazobactam [Piperacil-Tazobact] 4.5 gm Sodium Chloride 0.9% [Normal Saline] 100 ml IV Q8H 10/29/20 21:00 Acetaminophen [TylenoL] 650 mg PO BID Albuterol [Proventil HFA] 0 gm INH BID 10/30/20 01:00 Remove Patch 0 ea TRDERM Q24H 10/30/20 04:51 CBC WITH AUTO DIFF [HEME] AM 10/30/20 07:00 Chest 1V Frontal [CR] Routine 10/30/20 09:00 Docusate Sodium/Sennosides [Senna Plus] 1 tab PO DAILY Magnesium Oxide 400 mg PO DAILY Pantoprazole [ProTONIX] 40 mg PO DAILY 10/31/20 05:11 BASIC METABOLIC PANEL,BMP [CHEM] AM C-REACTIVE PROTEIN [CHEM] AM CBC WITH AUTO DIFF [HEME] AM MAGNESIUM [CHEM] AM 11/01/20 05:11 BASIC METABOLIC PANEL,BMP [CHEM] AM CBC WITH AUTO DIFF [HEME] AM MAGNESIUM [CHEM] AM 11/02/20 05:11 BASIC METABOLIC PANEL,BMP [CHEM] AM CBC WITH AUTO DIFF [HEME] AM MAGNESIUM [CHEM] AM 11/03/20 05:11 BASIC METABOLIC PANEL,BMP [CHEM] AM CBC WITH AUTO DIFF [HEME] AM MAGNESIUM [CHEM] AM 11/04/20 05:11 BASIC METABOLIC PANEL,BMP [CHEM] AM CBC WITH AUTO DIFF [HEME] AM MAGNESIUM [CHEM] AM - Plan Plan:: This is a 70 yo elderly white male with past medical hx/o Hypertension, COPD, GERD, Dysphagia on soft Diet, Speech Disorder, Hx/o PEG Tube placement, Neurologic Bladder S/p Chronic Indwelling Catheter, Spasmodic Torticolis, Cluster TOUSSAINT, DJD/Cervical Disc Degeneration, Generalized Weakness and [place] Induced Neurological Toxicity, Chronic Pain Syndrome, Hx/o Opioid Addiction and Gait Abnormality who comes to us from the [place] for evaluation of a fever with a temperature as high as 103. Assessment: Acute: Metabolic Encephalopathy from Aspiration Pneumonia, resolved Sepsis secondary to Aspiration Aspiration Pneumonia from underlying chronic dysphagia; chest x-ray report read as focal area of presumed pneumonia within the let lower lung Dysphagia on soft diet Fever with a Temp as high as 103 F; now 36.7 C Leukocytosis with WBC of 16.84; now 14.22K Macrocytic Hypochromic Anemia with Hgb o 12.5 grams; now 10.6 grams Elevated AG of 16.5, resolved Elevated CRP of 3.3; now 8.3 Chronic:Hypertension, COPD, GERD, Dysphagia on soft Diet, Speech Disorder, Hx/o PEG Tube placement, Neurologic Bladder S/p Chronic Indwelling Catheter, Spasmodic Torticolis, Cluster TOUSSAINT, DJD/Cervical Disc Degeneration, Generalized Weakness and [place] Induced Neurological Toxicity, Chronic Pain Syndrome, Hx/o Opioid Addiction and Gait Abnormality Plan: He continues to improve clinically. No fever. Continue current treatment and aspiration precaution. Soft diet. PRN anti-emetic agents. IV antibiotic with Zosyn. UA and Sputum Cx with gram stain pending. IS and FV as directed. Inflammatory marker to monitor response to treatment. DVT/GI prophylaxis. PT/OT for deconditioning/generalized weakness. Code status is full. Possible discharge in 1-2 days.
[2020-10-30] MEDS: Montelukast 10 MG Tab PO SCH (08:17)
[2020-10-30] MEDS: Gabapentin 300 MG Cap PO SCH ×3 (08:17→20:25)
[2020-10-30] MEDS: Acetaminophen 325 MG Tab PO SCH ×2 (08:18→20:25)
[2020-10-30] MEDS: Meloxicam 7.5 MG Tab PO SCH (08:19)
[2020-10-30] MEDS: Multivitamins,Therapeutic Tab PO SCH (08:20)
[2020-10-30] MEDS: rOPINIRole 0.25 MG Tab PO SCH (08:20)
[2020-10-30] MEDS: CARISOPRODOL 350 MG PO SCH ×3 (08:20→20:26)
[2020-10-30] MEDS: Finasteride 5 MG Tab PO SCH (08:21)
[2020-10-30] MEDS: Albuterol 6.7 GM Inhaler INH SCH ×2 (08:22→20:54)
[2020-10-30] MEDS: Tiotropium BR/Olodaterol HCL 4 GM Inhalation Spray 2.5mcg/1 dose; 10 doses INH SCH (08:22)
[2020-10-30] MEDS: Magnesium Oxide 400 MG Tab PO SCH (08:23)
[2020-10-30] MEDS: Saccharomyces Boulardii (Probiotic) 250 MG Cap PO SCH ×2 (08:23→20:25)
[2020-10-30] MEDS: Verapamil 80 MG Tab PO SCH ×3 (08:24→20:26)
[2020-10-30] MEDS: Aspirin 81 MG Tab.Chew PO SCH (08:24)
[2020-10-30] MEDS: Pantoprazole 40 MG Tab.CR PO SCH (08:24)
[2020-10-30] MEDS: Enoxaparin 30 MG/0.3 ML Syringe SUBCUT SCH (08:25)
[2020-10-30] MEDS: Tamsulosin 0.4 MG Cap.ER PO SCH (08:25)
[2020-10-30] MEDS: guaiFENesin 600 MG Tab.ER PO SCH ×3 (08:25→20:25)
[2020-10-30] MEDS: Diclofenac Sodium 1% Gel 100 GM Tube TOP SCH ×4 (08:25→20:26)
[2020-10-30] MEDS: OLANZapine 5 MG Tab PO SCH (08:25)
[2020-10-30] MEDS: Polyethylene Glycol 3350 Powder 17 GM Packet PO SCH (08:26)
[2020-10-30] MEDS: Nystatin Topical Powder 15 GM Bottle TOP SCH ×2 (08:26→20:27)
[2020-10-30] MEDS ORDERED: Lidocaine 4% 1 each Patch TOP SCH (09:30)
--- NOTE | 2020-10-30 10:44 | CR ---
Chest: Frontal portable view chest was obtained. Comparison: Prior chest x-ray of 10/28/20. Decreasing left-sided parenchymal infiltrate is seen from prior exam. Slight residual density is noted in this area. Lungs otherwise are clear. Emphysematous change is noted. Heart size and mediastinum are normal. No gross osseous abnormality is seen. Impression: 1. Slight increased density within the left mid and lower lung which has improved from prior exam. 2. Emphysematous change with no other acute abnormality being seen. Diagnostic code #2
[2020-10-30] MEDS: Lidocaine 4% 1 each Patch TOP SCH (12:20)
[2020-10-30] MEDS: Melatonin 3 MG Tab PO SCH (20:26)
[2020-10-30] MEDS: Zolpidem 5 MG Tab PO PRN (22:36)
[2020-10-31] MEDS: Piperacillin/Tazobactam 4.5 GM in Sodium Chloride 0.9% 100 ML IV SCH ×3 (04:15→20:28)
[2020-10-31] MEDS: Acetaminophen/oxyCODONE 325-5 MG Tab PO SCH ×4 (05:06→23:32)
[2020-10-31] MEDS: Tiotropium BR/Olodaterol HCL 4 GM Inhalation Spray 2.5mcg/1 dose; 10 doses INH SCH ×2 (07:44→08:55)
[2020-10-31] MEDS: Albuterol 6.7 GM Inhaler INH SCH ×3 (07:45→20:10)
[2020-10-31] MEDS: Aspirin 81 MG Tab.Chew PO SCH (08:20)
[2020-10-31] MEDS: Verapamil 80 MG Tab PO SCH ×3 (08:20→20:29)
[2020-10-31] MEDS: Acetaminophen 325 MG Tab PO SCH ×2 (08:20→20:30)
[2020-10-31] MEDS: Gabapentin 300 MG Cap PO SCH ×3 (08:21→20:29)
[2020-10-31] MEDS: Multivitamins,Therapeutic Tab PO SCH (08:21)
[2020-10-31] MEDS: Pantoprazole 40 MG Tab.CR PO SCH (08:21)
[2020-10-31] MEDS: Magnesium Oxide 400 MG Tab PO SCH (08:22)
[2020-10-31] MEDS: rOPINIRole 0.25 MG Tab PO SCH (08:22)
[2020-10-31] MEDS: Finasteride 5 MG Tab PO SCH (08:22)
[2020-10-31] MEDS: Tamsulosin 0.4 MG Cap.ER PO SCH (08:22)
[2020-10-31] MEDS: Montelukast 10 MG Tab PO SCH (08:23)
[2020-10-31] MEDS: guaiFENesin 600 MG Tab.ER PO SCH ×3 (08:23→20:29)
[2020-10-31] MEDS: Saccharomyces Boulardii (Probiotic) 250 MG Cap PO SCH ×2 (08:23→20:29)
[2020-10-31] MEDS: OLANZapine 5 MG Tab PO SCH (08:23)
[2020-10-31] MEDS: Meloxicam 7.5 MG Tab PO SCH (08:23)
[2020-10-31] MEDS: Polyethylene Glycol 3350 Powder 17 GM Packet PO SCH (08:23)
[2020-10-31] MEDS: Acetaminophen/HYDROcodone 325-5 MG Tab PO PRN (08:24)
[2020-10-31] MEDS: Enoxaparin 30 MG/0.3 ML Syringe SUBCUT SCH (08:24)
[2020-10-31] MEDS: CARISOPRODOL 350 MG PO SCH ×3 (08:34→20:33)
[2020-10-31] MEDS: Nystatin Topical Powder 15 GM Bottle TOP SCH ×2 (08:34→20:33)
[2020-10-31] MEDS: Diclofenac Sodium 1% Gel 100 GM Tube TOP SCH ×4 (08:36→20:33)
--- NOTE | 2020-10-31 10:11 | PCM.PN ---
- General Info Date of Service: 10/31/20 Admission Dx/Problem (Free Text): Admission Diagnosis/Problem Admission Diagnosis/Problem Pneumonia Subjective Update: In to see Ramu. He is laying in bed. He reports he feels very good. He continues on 2.5 L of oxygen. He has been mildly bradycardic but asymptomatic. Labs continue to improve with no leukocytosis. Electrolytes remain good and renal function continues with a GFR greater than 60. We will continue current treatment plan with likely discharge tomorrow. No other nursing or patient concerns. Functional Status: Reports: Pain Controlled - Review of Systems General: Reports: No Symptoms. Denies: Fever, Weakness, Fatigue, Malaise, Chills HEENT: Reports: No Symptoms. Denies: Headaches, Sore Throat Pulmonary: Reports: No Symptoms. Denies: Shortness of Breath, Pleuritic Chest Pain, Cough, Sputum, Wheezing Cardiovascular: Reports: No Symptoms. Denies: Chest Pain, Palpitations Gastrointestinal: Reports: No Symptoms. Denies: Abdominal Pain, Constipation, Diarrhea, Nausea, Vomiting Genitourinary: Reports: No Symptoms. Denies: Pain Musculoskeletal: Reports: No Symptoms Skin: Reports: No Symptoms. Denies: Cyanosis Neurological: Reports: Pre-Existing Deficit, Difficulty Walking, Weakness, Gait Disturbance. Denies: Confusion Psychiatric: Reports: No Symptoms - Patient Data Vitals - Most Recent: Last Vital Signs Temp 97.7 F 10/31/20 07:50 Pulse 57 L 10/31/20 07:50 Resp 16 10/31/20 07:50 BP 117/63 10/31/20 07:50 Pulse Ox 96 10/31/20 07:50 Weight - Most Recent: 127 lb 1.6 oz I&O - Last 24 Hours: Intake & Output 10/30/20 10/31/20 10/31/20 22:59 06:59 14:59 Intake Total 1742 550 Output Total 725 750 Balance 1017 -200 Lab Results Last 24 Hours: Laboratory Results - last 24 hr 10/31/20 10/31/20 Range/Units 06:28 06:28 WBC 7.64 (4.23-9.07) K/mm3 RBC 3.49 L (4.63-6.08) M/mm3 Hgb 10.3 L (13.7-17.5) gm/dl Hct 33.0 L (40.1-51.0) % MCV 94.6 H (79.0-92.2) fl MCH 29.5 (25.7-32.2) pg MCHC 31.2 L (32.2-35.5) g/dl RDW Std Deviation 45.1 H (35.1-43.9) fL Plt Count 187 (163-337) K/mm3 MPV 9.3 L (9.4-12.3) fl Neut % (Auto) 80.5 H (34.0-67.9) % Lymph % (Auto) 11.1 L (21.8-53.1) % Mcminn % (Auto) 5.2 L (5.3-12.2) % Eos % (Auto) 2.6 (0.8-7.0) Baso % (Auto) 0.5 (0.1-1.2) % Neut # (Auto) 6.14 H (1.78-5.38) K/mm3 Lymph # (Auto) 0.85 L (1.32-3.57) K/mm3 [place]minn # (Auto) 0.40 (0.30-0.82) K/mm3 Eos # (Auto) 0.20 (0.04-0.54) K/mm3 Baso # (Auto) 0.04 (0.01-0.08) K/mm3 Sodium 144 (136-145) mEq/L Potassium 4.3 (3.5-5.1) mEq/L Chloride 108 H (98-107) mEq/L Carbon Dioxide 26 (21-32) mEq/L Anion Gap 14.3 (5-15) BUN 18 (7-18) mg/dL Creatinine 1.1 (0.7-1.3) mg/dL Est Cr Clr Drug Dosing 52.41 mL/min Estimated GFR (MDRD) > 60 (>60) mL/min BUN/Creatinine Ratio 16.4 (14-18) Glucose 90 (80-115) mg/dL Calcium 9.8 (8.5-10.1) mg/dL Magnesium 2.0 (1.8-2.4) mg/dl C-Reactive Protein 8.5 H* (<1.0) mg/dL [place] Results Last 24 Hours: Microbiology 10/29/20 03:16 Urine Culture - Final Urine, Catheterized NO GROWTH AFTER 2 DAYS 10/28/20 10:35 Aerobic Blood Culture - Preliminary Blood NO GROWTH AFTER 2 DAYS Anaerobic Blood Culture - Preliminary NO GROWTH AFTER 2 DAYS 10/28/20 10:29 Aerobic Blood Culture - Preliminary Blood NO GROWTH AFTER 2 DAYS Anaerobic Blood Culture - Preliminary NO GROWTH AFTER 2 DAYS Med Orders - Current: Current Medications Acetaminophen (Tylenol) 650 mg RECTAL Q4H PRN PRN Reason: Pain (mild 1-3) Acetaminophen (Tylenol) 650 mg PO Q6H PRN PRN Reason: Headache Last Admin: 10/30/20 14:10 Dose: 650 mg Documented by: Acetaminophen (Tylenol) 650 mg PO BID [facility] Last Admin: 10/31/20 08:20 Dose: 650 mg Documented by: Hydrocodone Bitart/Acetaminophen ([place] 325-5 Mg) 1 tab PO Q4H PRN PRN Reason: Pain (moderate 4-6) Last Admin: 10/31/20 08:24 Dose: 1 tab Documented by: Albuterol (Proventil Hfa) 0 gm INH Q4H PRN PRN Reason: Shortness of Breath Last Admin: 10/29/20 16:42 Dose: 2 puff Documented by: Albuterol (Proventil Neb Soln) 2.5 mg NEB Q4H PRN PRN Reason: Shortness of Breath Albuterol (Proventil Hfa) 0 gm INH BID [facility] Last Admin: 10/31/20 08:56 Dose: Not Given Documented by: Albuterol/Ipratropium (Duoneb 3.0-0.5 Mg/3 Ml) 3 ml NEB Q4H PRN PRN Reason: Shortness Of Breath/wheezing Aspirin (Aspirin) 81 mg PO DAILY [facility] Last Admin: 10/31/20 08:20 Dose: 81 mg Documented by: Bisacodyl (Dulcolax) 10 mg PO DAILY PRN PRN Reason: Constipation Diclofenac Sodium (Voltaren 1% Gel) 2 gm TOP QID [facility] Last Admin: 10/31/20 08:36 Dose: 1 applic Documented by: Enoxaparin Sodium (Lovenox) 40 mg SUBCUT DAILY [facility] Finasteride (Proscar) 5 mg PO DAILY [facility] Last Admin: 10/31/20 08:22 Dose: 5 mg Documented by: Gabapentin (Neurontin) 300 mg PO TID [facility] Last Admin: 10/31/20 08:21 Dose: 300 mg Documented by: Guaifenesin (Mucinex) 600 mg PO TID [facility] Last Admin: 10/31/20 08:23 Dose: 600 mg Documented by: Hydrocortisone (Hydrocortisone 1% Crm) 0 gm TOP TID PRN PRN Reason: Itching Hydromorphone HCl (Dilaudid) 0.25 mg IVPUSH Q2H PRN PRN Reason: Pain (severe 7-10) Last Admin: 10/28/20 21:39 Dose: 0.25 mg Documented by: Promethazine HCl 12.5 mg/ (Sodium Chloride) 50.5 mls @ 100 mls/hr IV Q6H PRN PRN Reason: Nausea/Vomiting Piperacillin Sod/Tazobactam (Sod 4.5 gm/ Sodium Chloride) 100 mls @ 25 mls/hr IV Q8H [facility] Last Admin: 10/31/20 04:15 Dose: 25 mls/hr Documented by: Lidocaine (Aspercreme 4%) 1 each TOP Q24H [facility] Last Admin: 10/30/20 12:20 Dose: 1 each Documented by: Magnesium Oxide (Magnesium Oxide) 400 mg PO DAILY [facility] Last Admin: 10/31/20 08:22 Dose: 400 mg Documented by: Melatonin (Melatonin) 6 mg PO BEDTIME [facility] Last Admin: 10/30/20 20:26 Dose: 6 mg Documented by: Meloxicam (Mobic) 15 mg PO DAILY [facility] Last Admin: 10/31/20 08:23 Dose: 15 mg Documented by: Miscellaneous Information (Remove Patch) 0 ea TRDERM Q24H [facility] Last Admin: 10/30/20 23:45 Dose: 1 ea Documented by: Montelukast Sodium (Singulair) 10 mg PO DAILY [facility] Last Admin: 10/31/20 08:23 Dose: 10 mg Documented by: Multivitamins (Thera) 1 each PO DAILY [facility] Last Admin: 10/31/20 08:21 Dose: 1 each Documented by: Nystatin (Nystop) 0 gm TOP BID [facility] Last Admin: 10/31/20 08:34 Dose: Not Given Documented by: Olanzapine (Zyprexa) 10 mg PO DAILY [facility] Last Admin: 10/31/20 08:23 Dose: 10 mg Documented by: Ondansetron HCl (Zofran) 4 mg IV Q6H PRN PRN Reason: Nausea/Vomiting Oxycodone/Acetaminophen (Percocet 325-5 Mg) 1 tab PO Q6HR [facility] Last Admin: 10/31/20 05:06 Dose: 1 tab Documented by: Pantoprazole Sodium (Protonix) 40 mg PO DAILY [facility] Last Admin: 10/31/20 08:21 Dose: 40 mg Documented by: Carisoprodol 350 Mg Patient's Own Med 0 each PO TID [facility] Last Admin: 10/31/20 08:34 Dose: 350 each Documented by: Polyethylene Glycol (Miralax) 17 gm PO DAILY [facility] Last Admin: 10/31/20 08:23 Dose: Not Given Documented by: Ropinirole HCl (Requip) 0.5 mg PO DAILY [facility] Last Admin: 10/31/20 08:22 Dose: 0.5 mg Documented by: Saccharomyces Boulardii (Florastor) 250 mg PO BID [facility] Last Admin: 10/31/20 08:23 Dose: 250 mg Documented by: Senna/Docusate Sodium (Senna Plus) 1 tab PO DAILY [facility] Last Admin: 10/31/20 08:19 Dose: Not Given Documented by: Sodium Chloride (Saline Flush) 10 ml FLUSH ASDIRECTED PRN PRN Reason: Keep Vein Open Last Admin: 10/28/20 10:10 Dose: 10 ml Documented by: Sodium Chloride ([place] Nasal Conifer) 0 ml SABI ASDIRECTED PRN PRN Reason: Dryness Tamsulosin HCl (Flomax) 0.4 mg PO DAILY [facility] Last Admin: 10/31/20 08:22 Dose: 0.4 mg Documented by: Verapamil HCl (Calan) 160 mg PO TID [facility] Last Admin: 10/31/20 08:20 Dose: 160 mg Documented by: Zolpidem Tartrate (Ambien) 5 mg PO BEDTIME PRN PRN Reason: Sleep Last Admin: 10/30/20 22:36 Dose: 5 mg Documented by: Discontinued Medications Acetaminophen (Tylenol) 975 mg PO NOW ONE Stop: 10/28/20 11:46 Last Admin: 10/28/20 11:56 Dose: 975 mg Documented by: Albuterol/Ipratropium (Duoneb 3.0-0.5 Mg/3 Ml) 3 ml NEB Q6H PRN PRN Reason: Shortness of Breath Enoxaparin Sodium (Lovenox) 30 mg SUBCUT DAILY [facility] Last Admin: 10/31/20 08:24 Dose: 30 mg Documented by: Hydromorphone HCl (Dilaudid) 0.5 mg IVPUSH ONETIME ONE Stop: 10/28/20 10:03 Last Admin: 10/28/20 10:09 Dose: 0.5 mg Documented by: Cefepime HCl 2 gm/ Premix 50 mls @ 100 mls/hr IV ONETIME ONE Stop: 10/28/20 12:12 Last Admin: 10/28/20 11:57 Dose: 100 mls/hr Documented by: Piperacillin Sod/Tazobactam (Sod 4.5 gm/ Sodium Chloride) 100 mls @ 200 mls/hr IV ONETIME ONE Stop: 10/29/20 12:59 Last Admin: 10/29/20 12:48 Dose: 200 mls/hr Documented by: Ketorolac Tromethamine (Toradol) 30 mg IV Q6H PRN PRN Reason: Pain (moderate 4-6) Lidocaine (Aspercreme 4%) 1 each TOP Q24H [facility] Last Admin: 10/29/20 13:38 Dose: Not Given Documented by: Lidocaine (Aspercreme 4%) 1 each TOP Q24H [facility] Last Admin: 10/30/20 11:25 Dose: Not Given Documented by: Miscellaneous Information (Remove Patch) 0 ea TRDERM Q24H [facility] Last Admin: 10/30/20 03:11 Dose: Not Given Documented by: Miscellaneous Information (Remove Patch) 0 ea TRDERM Q24H [facility] Non-Formulary Medication (Nf Drug) each .XX QID PRN PRN Reason: Shortness of Breath Senna/Docusate Sodium (Senna Plus) 1 tab PO BID PRN PRN Reason: Constipation - Exam Quality Assessment: Supplemental Oxygen (2.5L), Urine Catheter (chronic ), DVT Prophylaxis General: Alert, Oriented, Cooperative, No Acute Distress HEENT: Pupils Equal, Pupils Reactive, Mucous Membr. Moist/[place] Neck: Supple, Trachea Midline Lungs: Clear to Auscultation, Normal Respiratory Effort, Decreased Breath Sounds Cardiovascular: Regular Rate, Regular Rhythm GI/Abdominal Exam: Normal Bowel Sounds, Soft, Non-Tender, No Distention (Male) Exam: Deferred Extremities: Normal Inspection, Normal Range of Motion, Non-Tender, No Pedal Edema, Normal Capillary Refill Skin: Warm, Dry, Intact Neurological: No New Focal Deficit Psy/Mental Status: Alert - Patient Data Lab Results Last 24 hrs: Laboratory Results - last 24 hr 10/31/20 10/31/20 Range/Units 06:28 06:28 WBC 7.64 (4.23-9.07) K/mm3 RBC 3.49 L (4.63-6.08) M/mm3 Hgb 10.3 L (13.7-17.5) gm/dl Hct 33.0 L (40.1-51.0) % MCV 94.6 H (79.0-92.2) fl MCH 29.5 (25.7-32.2) pg MCHC 31.2 L (32.2-35.5) g/dl RDW Std Deviation 45.1 H (35.1-43.9) fL Plt Count 187 (163-337) K/mm3 MPV 9.3 L (9.4-12.3) fl Neut % (Auto) 80.5 H (34.0-67.9) % Lymph % (Auto) 11.1 L (21.8-53.1) % Mcminn % (Auto) 5.2 L (5.3-12.2) % Eos % (Auto) 2.6 (0.8-7.0) Baso % (Auto) 0.5 (0.1-1.2) % Neut # (Auto) 6.14 H (1.78-5.38) K/mm3 Lymph # (Auto) 0.85 L (1.32-3.57) K/mm3 [place]minn # (Auto) 0.40 (0.30-0.82) K/mm3 Eos # (Auto) 0.20 (0.04-0.54) K/mm3 Baso # (Auto) 0.04 (0.01-0.08) K/mm3 Sodium 144 (136-145) mEq/L Potassium 4.3 (3.5-5.1) mEq/L Chloride 108 H (98-107) mEq/L Carbon Dioxide 26 (21-32) mEq/L Anion Gap 14.3 (5-15) BUN 18 (7-18) mg/dL Creatinine 1.1 (0.7-1.3) mg/dL Est Cr Clr Drug Dosing 52.41 mL/min Estimated GFR (MDRD) > 60 (>60) mL/min BUN/Creatinine Ratio 16.4 (14-18) Glucose 90 (80-115) mg/dL Calcium 9.8 (8.5-10.1) mg/dL Magnesium 2.0 (1.8-2.4) mg/dl C-Reactive Protein 8.5 H* (<1.0) mg/dL Result Diagrams: 10/31/20 06:28 10/31/20 06:28 [place] Results Last 24 hrs: Microbiology 10/29/20 03:16 Urine Culture - Final Urine, Catheterized NO GROWTH AFTER 2 DAYS 10/28/20 10:35 Aerobic Blood Culture - Preliminary Blood NO GROWTH AFTER 2 DAYS Anaerobic Blood Culture - Preliminary NO GROWTH AFTER 2 DAYS 10/28/20 10:29 Aerobic Blood Culture - Preliminary Blood NO GROWTH AFTER 2 DAYS Anaerobic Blood Culture - Preliminary NO GROWTH AFTER 2 DAYS Sepsis Event Note - Evaluation Sepsis Screening Result: No Definite Risk - Focused Exam Vital Signs: Vital Signs Temp Pulse Resp BP Pulse Ox 10/31/20 07:50 97.7 F 57 L 16 117/63 96 10/31/20 04:21 97.5 F 49 L 14 109/59 L 100 - Problem List & Annotations (1) Aspiration pneumonia SNOMED Code(s): 042872851 Code(s): J69.0 - PNEUMONITIS DUE TO INHALATION OF FOOD AND VOMIT Status: Acute Priority: High Current Visit: Yes Qualifiers: Aspiration pneumonia type: unspecified Laterality: left Lung location: lower lobe of lung Qualified Code(s): J69.0 - Pneumonitis due to inhalation of food and vomit (2) Dysphagia SNOMED Code(s): 36029625, 554618922 Code(s): R13.10 - DYSPHAGIA, UNSPECIFIED Status: Chronic Priority: High Current Visit: Yes Qualifiers: Dysphagia type: unspecified Qualified Code(s): R13.10 - Dysphagia, unspecified (3) Anemia SNOMED Code(s): 046673901 Code(s): D64.9 - ANEMIA, UNSPECIFIED Status: Chronic Priority: Low Current Visit: No Qualifiers: Anemia type: unspecified type Qualified Code(s): D64.9 - Anemia, unspecified (4) Metabolic encephalopathy SNOMED Code(s): 71199956 Code(s): G93.41 - METABOLIC ENCEPHALOPATHY Status: Resolved Priority: High Current Visit: Yes (5) Sepsis SNOMED Code(s): 13057712 Code(s): A41.9 - SEPSIS, UNSPECIFIED ORGANISM Status: Resolved Priority: High Current Visit: Yes Qualifiers: Sepsis type: sepsis due to unspecified organism Severe sepsis acute organ dysfunction type: encephalopathy Severe sepsis shock status: without septic shock (6) High anion gap metabolic acidosis SNOMED Code(s): 26436234 Code(s): E87.2 - ACIDOSIS Status: Resolved Priority: High Current Visit: Yes (7) HTN (hypertension) SNOMED Code(s): 61651670 Code(s): I10 - ESSENTIAL (PRIMARY) HYPERTENSION Status: Chronic Priority: Medium Current Visit: No Qualifiers: Hypertension type: unspecified Qualified Code(s): I10 - Essential (primary) hypertension (8) GERD (gastroesophageal reflux disease) SNOMED Code(s): 083944781 Code(s): K21.9 - GASTRO-ESOPHAGEAL REFLUX DISEASE WITHOUT ESOPHAGITIS Stat us: Chronic Priority: Low Current Visit: No Qualifiers: Esophagitis presence: esophagitis presence not specified Qualified Code(s): K21.9 - Gastro-esophageal reflux disease without esophagitis (9) Neurogenic bladder SNOMED Code(s): 664418927 Code(s): N31.9 - NEUROMUSCULAR DYSFUNCTION OF BLADDER, UNSPECIFIED Status: Chronic Priority: Low Current Visit: No (10) Morgan catheter in place on admission SNOMED Code(s): 572945448 Code(s): Z97.8 - PRESENCE OF OTHER SPECIFIED DEVICES Status: Chronic Priority: Medium Current Visit: No (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 SNOMED Code(s): 17280436 Code(s): G24.3 - SPASMODIC TORTICOLLIS Status: Chronic Priority: Medium Current Visit: No (12) Cluster headache syndrome SNOMED Code(s): 874577888 Code(s): G44.009 - CLUSTER HEADACHE SYNDROME, UNSPECIFIED, NOT INTRACTABLE Status: Chronic Priority: Low Current Visit: No Qualifiers: Headache chronicity pattern: unspecified pattern Intractability: not intractable Qualified Code(s): G44.009 - Cluster headache syndrome, unspecified, not intractable (13) DJD (degenerative joint disease) SNOMED Code(s): 665231255 Code(s): M19.90 - UNSPECIFIED OSTEOARTHRITIS, UNSPECIFIED SITE Status: Chronic Priority: Low Current Visit: No Qualifiers: Osteoarthritis location: unspecified site Osteoarthritis type: unspecified Qualified Code(s): M19.90 - Unspecified osteoarthritis, unspecified site (14) Generalized weakness SNOMED Code(s): 40091154 Code(s): R53.1 - WEAKNESS Status: Chronic Priority: Medium Current Visit: No (15) Chronic pain syndrome SNOMED Code(s): 442639950 Code(s): G89.4 - CHRONIC PAIN SYNDROME Status: Chronic Priority: Medium Current Visit: No (16) Hx of opioid abuse SNOMED Code(s): 294475403 Code(s): F11.11 - OPIOID ABUSE, IN REMISSION Status: Chronic Priority: Low Current Visit: No (17) Gait abnormality SNOMED Code(s): 55186231 Code(s): R26.9 - UNSPECIFIED ABNORMALITIES OF GAIT AND MOBILITY Status: C hronic Priority: Low Current Visit: No (18) COPD (chronic obstructive pulmonary disease) SNOMED Code(s): 48167458 Code(s): J44.9 - CHRONIC OBSTRUCTIVE PULMONARY DISEASE, UNSPECIFIED Status: Chronic Priority: Low Current Visit: No Qualifiers: COPD type: unspecified COPD Qualified Code(s): J44.9 - Chronic obstructive pulmonary disease, unspecified (19) Fever SNOMED Code(s): 298445604 Code(s): R50.9 - FEVER, UNSPECIFIED Status: Resolved Priority: High Current Visit: Yes Qualifiers: Fever type: unspecified Qualified Code(s): R50.9 - Fever, unspecified - Problem List Review Problem List Initiated/Reviewed/Updated: Yes - Plan Plan:: This is a 70 yo elderly white male with past medical hx/o Hypertension, COPD, GERD, Dysphagia on soft Diet, Speech Disorder, Hx/o PEG Tube placement, Neurologic Bladder S/p Chronic Indwelling Catheter, Spasmodic Torticolis, Cluster TOUSSAINT, DJD/Cervical Disc Degeneration, Generalized Weakness and [place] Induced Neurological Toxicity, Chronic Pain Syndrome, Hx/o Opioid Addiction and Gait Abnormality who comes to use from the [place] for evaluation of a fever with a temperature as high as 103. Assessment: Acute: Aspiration Pneumonia from underlying chronic dysphagia; chest x-ray report read as focal area of presumed pneumonia within the let lower lung Dysphagia on soft diet Macrocytic Hypochromic Anemia with Hgb o 12.5 grams; now 10.6 grams-->10.3 Elevated CRP of 3.3; now 8.3-->8.5 Resolved: Metabolic Encephalopathy from Aspiration Pneumonia, resolved Sepsis secondary to Aspiration, Resolved Fever with a Temp as high as 103 F; now WNL Leukocytosis with WBC of 16.84; now 14.22K-->7.64 Elevated AG of 16.5, resolved Chronic:Hypertension, COPD, GERD, Dysphagia on soft Diet, Speech Disorder, Hx/o PEG Tube placement, Neurologic Bladder S/p Chronic Indwelling Catheter, Spasmodic Torticolis, Cluster TOUSSAINT, DJD/Cervical Disc Degeneration, Generalized Weakness and [place] Induced Neurological Toxicity, Chronic Pain Syndrome, Hx/o Opioid Addiction and Gait Abnormality Plan: He continues to improve clinically. No fever. Continue current treatment and aspiration precaution. Soft diet. PRN anti-emetic agents. IV antibiotic with Zosyn. IS and FV as directed. Inflammatory marker to monitor response to claudia tment. DVT/GI prophylaxis. PT/OT for deconditioning/generalized weakness. Code status is full. Possible discharge tomorrow.
[2020-10-31] MEDS: Lidocaine 4% 1 each Patch TOP SCH (12:41)
[2020-10-31] MEDS: Melatonin 3 MG Tab PO SCH (20:29)
[2020-10-31] MEDS: Zolpidem 5 MG Tab PO PRN (23:32)
[2020-11-01] MEDS: Piperacillin/Tazobactam 4.5 GM in Sodium Chloride 0.9% 100 ML IV SCH (05:25)
[2020-11-01] MEDS: Acetaminophen/oxyCODONE 325-5 MG Tab PO SCH ×2 (05:25→12:26)
[2020-11-01] MEDS: Albuterol 6.7 GM Inhaler INH PRN (07:57)
[2020-11-01] MEDS: Tiotropium BR/Olodaterol HCL 4 GM Inhalation Spray 2.5mcg/1 dose; 10 doses INH SCH ×2 (07:58→08:24)
[2020-11-01] MEDS: Albuterol 6.7 GM Inhaler INH SCH (08:23)
[2020-11-01] MEDS ORDERED: Enoxaparin 40 MG/0.4 ML Syringe SUBCUT SCH (09:00)
[2020-11-01] MEDS: Montelukast 10 MG Tab PO SCH (09:32)
[2020-11-01] MEDS: Saccharomyces Boulardii (Probiotic) 250 MG Cap PO SCH (09:32)
[2020-11-01] MEDS: Pantoprazole 40 MG Tab.CR PO SCH (09:33)
[2020-11-01] MEDS: Gabapentin 300 MG Cap PO SCH ×2 (09:34→14:56)
[2020-11-01] MEDS: rOPINIRole 0.25 MG Tab PO SCH (09:34)
[2020-11-01] MEDS: Magnesium Oxide 400 MG Tab PO SCH (09:34)
[2020-11-01] MEDS: Meloxicam 7.5 MG Tab PO SCH (09:35)
[2020-11-01] MEDS: CARISOPRODOL 350 MG PO SCH ×2 (09:37→14:56)
[2020-11-01] MEDS: guaiFENesin 600 MG Tab.ER PO SCH ×2 (09:38→14:56)
[2020-11-01] MEDS: Acetaminophen 325 MG Tab PO SCH (09:39)
[2020-11-01] MEDS: Verapamil 80 MG Tab PO SCH ×2 (09:42→14:56)
[2020-11-01] MEDS: Tamsulosin 0.4 MG Cap.ER PO SCH (09:42)
[2020-11-01] MEDS: Finasteride 5 MG Tab PO SCH (09:43)
[2020-11-01] MEDS: Aspirin 81 MG Tab.Chew PO SCH (09:43)
[2020-11-01] MEDS: Multivitamins,Therapeutic Tab PO SCH (09:44)
[2020-11-01] MEDS: OLANZapine 5 MG Tab PO SCH (09:44)
[2020-11-01] MEDS: Polyethylene Glycol 3350 Powder 17 GM Packet PO SCH (09:47)
[2020-11-01] MEDS: Nystatin Topical Powder 15 GM Bottle TOP SCH (09:47)
[2020-11-01] MEDS: Diclofenac Sodium 1% Gel 100 GM Tube TOP SCH ×2 (09:47→13:43)
[2020-11-01] MEDS: Acetaminophen/HYDROcodone 325-5 MG Tab PO PRN ×2 (09:52→14:56)
[2020-11-01] MEDS ORDERED: Piperacillin/Tazobactam 4.5 GM in Sodium Chloride 0.9% 100 ML IV ONE (10:45)
--- NOTE | 2020-11-01 10:47 | PCM.DCSUM1 ---
Discharge Summary - Hospital Course HPI Initial Comments: This is a 70 yo elderly white male with past medical hx/o Hypertension, COPD, GERD, Dysphagia on soft Diet, Speech Disorder, Hx/o PEG Tube placement, Neurologic Bladder S/p Chronic Indwelling Catheter, Spasmodic Torticolis, Cluster TOUSSAINT, DJD/Cervical Disc Degeneration, Generalized Weakness and Smock Induced Neurological Toxicity, Chronic Pain Syndrome, Hx/o Opioid Addiction and Gait Abnormality who comes to us from the [place] for evaluation of a fever with a t emperature as high as 103 F. He was also found tachycardic with a HR of 143 associated with some chills and altered mentation. Patient carries a hx/o aspiration syndrome. The PA staff felt he might have aspirated. Patient was on RA sating adequately. His initial work up in ED shows a CBC remarkable for WBC of 16.84, Hgb of 12.5, Hct of 39.8, MCV of 93.9, MCHC of 31.4, RDW of 44.5, MPV of 9.2, Neutrophils of 93.8%, Lymphocytes of 1.9%, Monocytes of 3.9%, and Eosinophils of 0.1%. His chemistry is significant for AG of 16.5, BUN of 21, and CRP of 3.3. His LA is wnl. His covid test is negative. His chest x-ray report read as focal area of presumed pneumonia within the let lower lung. His Head CT scan report read as no definite acute abnormality. Sepsis was activated in ED and he received initial treatment prior to coming in to the floor. Diagnosis: Stroke: No - Discharge Data Discharge Date: 11/01/20 (Admit date: 10/28/20) Discharge Disposition: DC/Tfer to SNF 03 Condition: Good - Referral to Home Health Primary Care Physician: Delio Enamorado MD - Discharge Diagnosis/Problem(s) (1) Aspiration pneumonia SNOMED Code(s): 903768267 ICD Code: J69.0 - PNEUMONITIS DUE TO INHALATION OF FOOD AND VOMIT Status: Acute Priority: High Current Visit: Yes Qualifiers: Aspiration pneumonia type: unspecified Laterality: left Lung location: lower lobe of lung Qualified Code(s): J69.0 - Pneumonitis due to inhalation of food and vomit (2) Dysphagia SNOMED Code(s): 63705211, 620095299 ICD Code: R13.10 - DYSPHAGIA, UNSPECIFIED Status: Chronic Priority: High Current Visit: Yes Qualifiers: Dysphagia type: unspecified Qualified Code(s): R13.10 - Dysphagia, unspecified (3) Anemia SNOMED Code(s): 136203124 ICD Code: D64.9 - ANEMIA, UNSPECIFIED Status: Chronic Priority: Low Current Visit: No Qualifiers: Anemia type: unspecified type Qualified Code(s): D64.9 - Anemia, unspecified (4) Metabolic encephalopathy SNOMED Code(s): 20329485 ICD Code: G93.41 - METABOLIC ENCEPHALOPATHY Status: Resolved Priority: High Current Visit: Yes (5) Sepsis SNOMED Code(s): 09148978 ICD Code: A41.9 - SEPSIS, UNSPECIFIED ORGANISM Status: Resolved Priority: High Current Visit: Yes Qualifiers: Sepsis type: sepsis due to unspecified organism Severe sepsis acute organ dysfunction type: encephalopathy Severe sepsis shock status: without septic shock (6) High anion gap metabolic acidosis SNOMED Code(s): 06682771 ICD Code: E87.2 - ACIDOSIS Status: Resolved Priority: High Current Visit: Yes (7) HTN (hypertension) SNOMED Code(s): 60531620 ICD Code: I10 - ESSENTIAL (PRIMARY) HYPERTENSION Status: Chronic Priority: Medium Current Visit: No Qualifiers: Hypertension type: unspecified Qualified Code(s): I10 - Essential (primary) hypertension (8) GERD (gastroesophageal reflux disease) SNOMED Code(s): 221920347 ICD Code: K21.9 - GASTRO-ESOPHAGEAL REFLUX DISEASE WITHOUT ESOPHAGITIS Status: Chronic Priority: Low Current Visit: No Qualifiers: Esophagitis presence: esophagitis presence not specified Qualified Code(s): K21.9 - Gastro-esophageal reflux disease without esophagitis (9) Neurogenic bladder SNOMED Code(s): 188572064 ICD Code: N31.9 - NEUROMUSCULAR DYSFUNCTION OF BLADDER, UNSPECIFIED Status: Chronic Priority: Low Current Visit: No (10) Morgan catheter in place on admission SNOMED Code(s): 201727012 ICD Code: Z97.8 - PRESENCE OF OTHER SPECIFIED DEVICES Status: Chronic Priority: Medium Current Visit: No (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 SNOMED Code(s): 94672247 ICD Code: G24.3 - SPASMODIC TORTICOLLIS Status: Chronic Priority: Medium Current Visit: No (12) Cluster headache syndrome SNOMED Code(s): 819915921 ICD Code: G44.009 - CLUSTER HEADACHE SYNDROME, UNSPECIFIED, NOT INTRACTABLE Status: Chronic Priority: Low Current Visit: No Qualifiers: Headache chronicity pattern: unspecified pattern Intractability: not intractable Qualified Code(s): G44.009 - Cluster headache syndrome, unspecified, not intractable (13) DJD (degenerative joint disease) SNOMED Code(s): 802669939 ICD Code: M19.90 - UNSPECIFIED OSTEOARTHRITIS, UNSPECIFIED SITE Status: Chronic Priority: Low Current Visit: No Qualifiers: Osteoarthritis location: unspecified site Osteoarthritis type: unspecified Qualified Code(s): M19.90 - Unspecified osteoarthritis, unspecified site (14) Generalized weakness SNOMED Code(s): 68646030 ICD Code: R53.1 - WEAKNESS Status: Chronic Priority: Medium Current Visit: No (15) Chronic pain syndrome SNOMED Code(s): 322733499 ICD Code: G89.4 - CHRONIC PAIN SYNDROME Status: Chronic Priority: Medium Current Visit: No (16) Hx of opioid abuse SNOMED Code(s): 284875211 ICD Code: F11.11 - OPIOID ABUSE, IN REMISSION Status: Chronic Priority: Low Current Visit: No (17) Gait abnormality SNOMED Code(s): 11779709 ICD Code: R26.9 - UNSPECIFIED ABNORMALITIES OF GAIT AND MOBILITY Status: Chronic Priority: Low Current Visit: No (18) COPD (chronic obstructive pulmonary disease) SNOMED Code(s): 41641027 ICD Code: J44.9 - CHRONIC OBSTRUCTIVE PULMONARY DISEASE, UNSPECIFIED Status: Chronic Priority: Low Current Visit: No Qualifiers: COPD type: unspecified COPD Qualified Code(s): J44.9 - Chronic obstructive pulmonary disease, unspecified (19) Fever SNOMED Code(s): 227984283 ICD Code: R50.9 - FEVER, UNSPECIFIED Status: Resolved Priority: High Current Visit: Yes Qualifiers: Fever type: unspecified Qualified Code(s): R50.9 - Fever, unspecified - Patient Summary/Data Consults: Consultations 10/28/20 15:40 Consult to Case Management/Gear Technician [CONS] Routine Consult to Spiritual Care [CONS] Routine OT Evaluation and Treatment [CONS] Routine PT Evaluation and Treatment [CONS] Routine Respiratory Care Assess and Treatment [CONS] Routine RECORDAK OPERATOR Evaluation and Treatment [CONS] Routine Labs Pending at D/C: None Recommended Follow-up Testing/Procedures: Follow-up with primary care provider within 7-10 days of discharge -Recommend repeat CBC, CMP, Magnesium and consider repeat CXR at that appointment. Hospital Course: This is a 70-year-old male who presents to ED due to fever and respiratory distress. Patient does have a chronic Morgan catheter and baseline oxygen use of 2.5 L. He is at high risk for aspiration due to his chronic underlying dysphagia. He is usually on a soft diet and nectar thickened liquids. In the ED he was noted to be septic and septic protocol was started. He was started on IV Zosyn after a chest x-ray revealed a focal area of presumed pneumonia within the left lower lobe of the lung. He is also noted to be quite confused which was believed to be a [place] encephalopathy secondary to his aspiration pneumonia. Head CT was obtained in the ED and was negative for any acute findings. This did resolve as his treatment progressed. Leukocytosis did resolve and his fevers resolved as well. He received IV fluids and this led to worsening of his anemia. Hemoglobin was 12.5 on admission and this trended down to 10.1. UA was obtained and was negative. Blood cultures were negative. Morgan catheter did remain in place throughout his stay with good output. He was assessed by PT/OT who recommended return to SNF and that he was at prior level of function. He evaluated by our speech-language pathologist. She did agree with prior recommendations of mechanical soft diet and nectar thickened liquids. Prior to discharge he was transitioned to 875/125 mg p.o. Augmentin. He was instructed to take his first dose tonight, 11/01/2020, and continue twice daily thereafter. All other home medications were continued. He should continue to wear his oxygen as prior. Recommend follow-up with primary care provider within 7 to 10 days of discharge, sooner if needed. Recommend repeat CBC, CMP, and magnesium at that visit. Consider repeat chest x-ray at that visit as well. He was instructed to return the emergency room or contact his primary care provider should symptoms return or worsen. Discharged back to [facility] today. - Patient Instructions Diet: Mechanical Soft Diet, Other: [place] thickened liquids Activity: As Tolerated Driving: Do Not Drive Notify Provider of: Fever, Increased Pain, Nausea and/or Vomiting Other/Special Instructions: Follow-up with primary care provider within 7-10 days of discharge, sooner if needed. Continue to wear your oxygen as per before. Continue soft diet with nectar thickened liquids as before. Should symptoms return or worsen, contact your primary care provider or return to the Emergency Department. - Discharge Plan *PRESCRIPTION DRUG MONITORING PROGRAM REVIEWED*: No *COPY OF PRESCRIPTION DRUG MONITORING REPORT IN PATIENT RODRIGUE: No Prescriptions/Med Rec: Amoxicillin/Clavulanate K [Augmentin 875-125 MG] 1 tab PO BID #7 tablet Home Medications: Home Meds Acetaminophen [Pain Relief] 650 mg PO Q6H PRN 08/21/18 [History] Albuterol Sulfate 2.5 mg IH BID 08/21/18 [History] Aspirin 81 mg PO DAILY 08/21/18 [History] Diclofenac Sodium [Voltaren 1% Gel] 2 gram TOP BID 08/21/18 [History] Finasteride 5 mg PO DAILY 08/21/18 [History] Hydrocortisone [Hydrocortisone 1% Crm] 1 applic TOP TID PRN 08/21/18 [History] Melatonin 5 mg PO BEDTIME PRN 08/21/18 [History] Meloxicam [Mobic] 15 mg PO DAILY 08/21/18 [History] Montelukast [Singulair] 10 mg PO DAILY 08/21/18 [History] Nystatin [Nyata] 1 applic TOP BID 08/21/18 [History] OLANZapine [ZyPREXA] 10 mg PO DAILY 08/21/18 [History] Umeclidinium Brm/Vilanterol Tr [Anoro Ellipta 62.5-25 MCG] 1 puff IH DAILY 08/21/18 [History] Verapamil [Calan] 160 mg PO TID 08/21/18 [History] carisoprodoL [Carisoprodol] 350 mg PO TID 08/21/18 [History] polyethylene glycoL 3350 [MiraLAX] 17 gm PO DAILY PRN 08/21/18 [History] Lactobacillus Acidophilus [Acidophilus Lactobacilli] 1 cap PO BID 09/09/18 [Hist ory] Multivitamin/Iron/Folic Acid [[place]ury Tablet] 1 tab PO DAILY 09/09/18 [History] Acetaminophen/oxyCODONE [Percocet 325-5 MG] 1 tab PO Q6H 04/07/19 [History] Albuterol/Ipratropium [DuoNeb 3.0-0.5 MG/3 ML] 3 ml NEB Q6H PRN #25 neb 04/07/19 [Rx] Tamsulosin HCl [Flomax] 0.8 mg PO DAILY 04/07/19 [History] rOPINIRole [Requip] 0.5 mg PO DAILY 04/07/19 [History] Acetaminophen [Tylenol] 650 mg PO BID 10/28/20 [History] Gabapentin [Neurontin] 300 mg PO TID 10/28/20 [History] Lidocaine 4% [LMX 4] 0 gm TOP DAILY 10/28/20 [History] Magnesium Oxide 400 mg PO DAILY 10/28/20 [History] Non-Formulary Medication [NF Drug] 2 puff IN BID 10/28/20 [History] Non-Formulary Medication [NF Drug] 2 puff IN QID PRN 10/28/20 [History] Omeprazole 20 mg PO DAILY 10/28/20 [History] Sennosides/Docusate Sodium [Senna Plus Tablet] 1 each PO DAILY 10/28/20 [History] Sodium Chloride/Aloe Vera [[place] Saline Nasal Gel Silver Star] 22 ml NS ASDIRECTED PRN 10/28/20 [History] bisacodyL [Bisacodyl] 10 mg PO DAILY PRN 10/28/20 [History] guaiFENesin [Mucinex] 400 mg PO TID 10/28/20 [History] Amoxicillin/Clavulanate K [Augmentin 875-125 MG] 1 tab PO BID #7 tablet 11/01/20 [Rx] Oxygen Therapy Mode: Nasal Cannula Oxygen Flow Rate (L/min): 2.5 Patient Handouts: Aspiration Precautions, Adult, Sepsis, Diagnosis, Adult, Community-Acquired Pneumonia, Adult, [id number] Forms: ED Department Discharge Referrals: Delio Enamorado MD [Primary Care Provider] - - Discharge Summary/Plan Comment DC Time >30 min.: Yes (45 mins ) - General Info Date of Service: 11/01/20 Admission Dx/Problem (Free Text: Admission Diagnosis/Problem Admission Diagnosis/Problem Pneumonia Functional Status: Reports: Pain Controlled, Tolerating Diet, Urinating. De nies: New Symptoms - Review of Systems General: Reports: No Symptoms. Denies: Fever, Weakness, Fatigue, Malaise, Chills HEENT: Reports: No Symptoms. Denies: Headaches, Sore Throat Pulmonary: Reports: Cough (occasional ). Denies: Shortness of Breath, Sputum Cardiovascular: Reports: No Symptoms. Denies: Chest Pain, Palpitations, Dyspnea on Exertion Gastrointestinal: Reports: No Symptoms. Denies: Abdominal Pain, Constipation, Diarrhea, Nausea, Vomiting Genitourinary: Reports: No Symptoms. Denies: Pain Musculoskeletal: Reports: No Symptoms Skin: Reports: No Symptoms. Denies: Cyanosis Neurological: Reports: Pre-Existing Deficit, Trouble Speaking (baseline ), Difficulty Walking, Weakness, Gait Disturbance. Denies: Confusion, Change in Speech Psychiatric: Reports: No Symptoms - Patient Data Vitals - Most Recent: Last Vital Signs Temp 98.4 F 11/01/20 09:25 Pulse 59 L 11/01/20 09:25 Resp 14 11/01/20 09:25 BP 126/89 11/01/20 09:25 Pulse Ox 94 L 11/01/20 09:25 Weight - Most Recent: 127 lb 6.4 oz I&O - Last 24 hours: Intake & Output 10/31/20 11/01/20 11/01/20 22:59 06:59 14:59 Intake Total 880 400 Output Total 650 900 Balance 230 -500 Lab Results - Last 24 hrs: Laboratory Results - last 24 hr 11/01/20 11/01/20 Range/Units 04:38 04:38 WBC 5.21 (4.23-9.07) K/mm3 RBC 3.42 L (4.63-6.08) M/mm3 Hgb 10.1 L (13.7-17.5) gm/dl Hct 32.5 L (40.1-51.0) % MCV 95.0 H (79.0-92.2) fl MCH 29.5 (25.7-32.2) pg MCHC 31.1 L (32.2-35.5) g/dl RDW Std Deviation 45.8 H (35.1-43.9) fL Plt Count 190 (163-337) K/mm3 MPV 9.6 (9.4-12.3) fl Neut % (Auto) 66.2 (34.0-67.9) % Lymph % (Auto) 22.1 (21.8-53.1) % [place] % (Auto) 6.7 (5.3-12.2) % Eos % (Auto) 4.2 (0.8-7.0) Baso % (Auto) 0.8 (0.1-1.2) % Neut # (Auto) 3.45 (1.78-5.38) K/mm3 Lymph # (Auto) 1.15 L (1.32-3.57) K/mm3 [place] # (Auto) 0.35 (0.30-0.82) K/mm3 Eos # (Auto) 0.22 (0.04-0.54) K/mm3 Baso # (Auto) 0.04 (0.01-0.08) K/mm3 Sodium 146 H (136-145) mEq/L Potassium 4.5 (3.5-5.1) mEq/L Chloride 108 H (98-107) mEq/L Carbon Dioxide 29 (21-32) mEq/L Anion Gap 13.5 (5-15) BUN 21 H (7-18) mg/dL Creatinine 1.2 (0.7-1.3) mg/dL Est Cr Clr Drug Dosing 48.04 mL/min Estimated GFR (MDRD) > 60 (>60) mL/min BUN/Creatinine Ratio 17.5 (14-18) Glucose 81 (80-115) mg/dL Calcium 9.5 (8.5-10.1) mg/dL Magnesium 2.0 (1.8-2.4) mg/dl PAUL Results - Last 24 hrs: Microbiology 10/28/20 10:35 Aerobic Blood Culture - Preliminary Blood NO GROWTH AFTER 3 DAYS Anaerobic Blood Culture - Preliminary NO GROWTH AFTER 3 DAYS 10/28/20 10:29 Aerobic Blood Culture - Preliminary Blood NO GROWTH AFTER 3 DAYS Anaerobic Blood Culture - Preliminary NO GROWTH AFTER 3 DAYS 10/29/20 03:16 Urine Culture - Final Urine, Catheterized NO GROWTH AFTER 2 DAYS Med Orders - Current: Current Medications Acetaminophen (Tylenol) 650 mg RECTAL Q4H PRN PRN Reason: Pain (mild 1-3) Acetaminophen (Tylenol) 650 mg PO Q6H PRN PRN Reason: Headache Last Admin: 10/30/20 14:10 Dose: 650 mg Documented by: Acetaminophen (Tylenol) 650 mg PO BID [facility] Last Admin: 11/01/20 09:39 Dose: 650 mg Documented by: Hydrocodone Bitart/Acetaminophen ([place] 325-5 Mg) 1 tab PO Q4H PRN PRN Reason: Pain (moderate 4-6) Last Admin: 11/01/20 09:52 Dose: 1 tab Documented by: Albuterol (Proventil Hfa) 0 gm INH Q4H PRN PRN Reason: Shortness of Breath Last Admin: 11/01/20 07:57 Dose: 2 puff Documented by: Albuterol (Proventil Neb Soln) 2.5 mg NEB Q4H PRN PRN Reason: Shortness of Breath Albuterol (Proventil Hfa) 0 gm INH BID [facility] Last Admin: 11/01/20 08:23 Dose: Not Given Documented by: Albuterol/Ipratropium (Duoneb 3.0-0.5 Mg/3 Ml) 3 ml NEB Q4H PRN PRN Reason: Shortness Of Breath/wheezing Aspirin (Aspirin) 81 mg PO DAILY [facility] Last Admin: 11/01/20 09:43 Dose: 81 mg Documented by: Bisacodyl (Dulcolax) 10 mg PO DAILY PRN PRN Reason: Constipation Diclofenac Sodium (Voltaren 1% Gel) 2 gm TOP QID [facility] Last Admin: 11/01/20 09:47 Dose: 1 applic Documented by: Enoxaparin Sodium (Lovenox) 40 mg SUBCUT DAILY [facility] Last Admin: 11/01/20 09:45 Dose: 40 mg Documented by: Finasteride (Proscar) 5 mg PO DAILY [facility] Last Admin: 11/01/20 09:43 Dose: 5 mg Documented by: Gabapentin (Neurontin) 300 mg PO TID [facility] Last Admin: 11/01/20 09:34 Dose: 300 mg Documented by: Guaifenesin (Mucinex) 600 mg PO TID [facility] Last Admin: 11/01/20 09:38 Dose: 600 mg Documented by: Hydrocortisone (Hydrocortisone 1% Crm) 0 gm TOP TID PRN PRN Reason: Itching Hydromorphone HCl (Dilaudid) 0.25 mg IVPUSH Q2H PRN PRN Reason: Pain (severe 7-10) Last Admin: 10/28/20 21:39 Dose: 0.25 mg Documented by: Promethazine HCl 12.5 mg/ (Sodium Chloride) 50.5 mls @ 100 mls/hr IV Q6H PRN PRN Reason: Nausea/Vomiting Piperacillin Sod/Tazobactam (Sod 4.5 gm/ Sodium Chloride) 100 mls @ 25 mls/hr IV Q8H [facility] Last Admin: 11/01/20 05:25 Dose: 25 mls/hr Documented by: Lidocaine (Aspercreme 4%) 1 each TOP Q24H [facility] Last Admin: 10/31/20 12:41 Dose: 1 each Documented by: Magnesium Oxide (Magnesium Oxide) 400 mg PO DAILY [facility] Last Admin: 11/01/20 09:34 Dose: 400 mg Documented by: Melatonin (Melatonin) 6 mg PO BEDTIME [facility] Last Admin: 10/31/20 20:29 Dose: 6 mg Documented by: Meloxicam (Mobic) 15 mg PO DAILY [facility] Last Admin: 11/01/20 09:35 Dose: 15 mg Documented by: Miscellaneous Information (Remove Patch) 0 ea TRDERM Q24H [facility] Last Admin: 11/01/20 00:00 Dose: Not Given Documented by: Montelukast Sodium (Singulair) 10 mg PO DAILY [facility] Last Admin: 11/01/20 09:32 Dose: 10 mg Documented by: Multivitamins (Thera) 1 each PO DAILY [facility] Last Admin: 11/01/20 09:44 Dose: 1 each Documented by: Nystatin (Nystop) 0 gm TOP BID [facility] Last Admin: 11/01/20 09:47 Dose: Not Given Documented by: Olanzapine (Zyprexa) 10 mg PO DAILY [facility] Last Admin: 11/01/20 09:44 Dose: 10 mg Documented by: Ondansetron HCl (Zofran) 4 mg IV Q6H PRN PRN Reason: Nausea/Vomiting Oxycodone/Acetaminophen (Percocet 325-5 Mg) 1 tab PO Q6HR [facility] Last Admin: 11/01/20 05:25 Dose: 1 tab Documented by: Pantoprazole Sodium (Protonix) 40 mg PO DAILY [facility] Last Admin: 11/01/20 09:33 Dose: 40 mg Documented by: Carisoprodol 350 Mg Patient's Own Med 0 each PO TID [facility] Last Admin: 11/01/20 09:37 Dose: 1 each Documented by: Polyethylene Glycol (Miralax) 17 gm PO DAILY [facility] Last Admin: 11/01/20 09:47 Dose: Not Given Documented by: Ropinirole HCl (Requip) 0.5 mg PO DAILY [facility] Last Admin: 11/01/20 09:34 Dose: 0.5 mg Documented by: Saccharomyces Boulardii (Florastor) 250 mg PO BID [facility] Last Admin: 11/01/20 09:32 Dose: 250 mg Documented by: Senna/Docusate Sodium (Senna Plus) 1 tab PO DAILY [facility] Last Admin: 11/01/20 09:31 Dose: 1 tab Documented by: Sodium Chloride (Saline Flush) 10 ml FLUSH ASDIRECTED PRN PRN Reason: Keep Vein Open Last Admin: 10/28/20 10:10 Dose: 10 ml Documented by: Sodium Chloride ([place] Nasal Silver Star) 0 ml SABI ASDIRECTED PRN PRN Reason: Dryness Tamsulosin HCl (Flomax) 0.4 mg PO DAILY [facility] Last Admin: 11/01/20 09:42 Dose: 0.4 mg Documented by: Verapamil HCl (Calan) 160 mg PO TID [facility] Last Admin: 11/01/20 09:42 Dose: 160 mg Documented by: Zolpidem Tartrate (Ambien) 5 mg PO BEDTIME PRN PRN Reason: Sleep Last Admin: 10/31/20 23:32 Dose: 5 mg Documented by: Discontinued Medications Acetaminophen (Tylenol) 975 mg PO NOW ONE Stop: 10/28/20 11:46 Last Admin: 10/28/20 11:56 Dose: 975 mg Documented by: Albuterol/Ipratropium (Duoneb 3.0-0.5 Mg/3 Ml) 3 ml NEB Q6H PRN PRN Reason: Shortness of Breath Enoxaparin Sodium (Lovenox) 30 mg SUBCUT DAILY [facility] Last Admin: 10/31/20 08:24 Dose: 30 mg Documented by: Hydromorphone HCl (Dilaudid) 0.5 mg IVPUSH ONETIME ONE Stop: 10/28/20 10:03 Last Admin: 10/28/20 10:09 Dose: 0.5 mg Documented by: Cefepime HCl 2 gm/ Premix 50 mls @ 100 mls/hr IV ONETIME ONE Stop: 10/28/20 12:12 Last Admin: 10/28/20 11:57 Dose: 100 mls/hr Documented by: Piperacillin Sod/Tazobactam (Sod 4.5 gm/ Sodium Chloride) 100 mls @ 200 mls/hr IV ONETIME ONE Stop: 10/29/20 12:59 Last Admin: 10/29/20 12:48 Dose: 200 mls/hr Documented by: Ketorolac Tromethamine (Toradol) 30 mg IV Q6H PRN PRN Reason: Pain (moderate 4-6) Lidocaine (Aspercreme 4%) 1 each TOP Q24H [facility] Last Admin: 10/29/20 13:38 Dose: Not Given Documented by: Lidocaine (Aspercreme 4%) 1 each TOP Q24H [facility] Last Admin: 10/30/20 11:25 Dose: Not Given Documented by: Miscellaneous Information (Remove Patch) 0 ea TRDERM Q24H [facility] Last Admin: 10/30/20 03:11 Dose: Not Given Documented by: Miscellaneous Information (Remove Patch) 0 ea TRDERM Q24H [facility] Non-Formulary Medication (Nf Drug) each .XX QID PRN PRN Reason: Shortness of Breath Senna/Docusate Sodium (Senna Plus) 1 tab PO BID PRN PRN Reason: Constipation - Exam Quality Assessment: Reports: Supplemental Oxygen (2.5L - baseline ), Urine Catheter (chronic ), DVT Prophylaxis General: Reports: Alert, Oriented, Cooperative, No Acute Distress HEENT: Reports: Pupils Equal, Pupils Reactive, Mucous Membr. Moist/[place] Neck: Reports: Supple, Trachea Midline Lungs: Reports: Normal Respiratory Effort, Decreased Breath Sounds Cardiovascular: Reports: Regular Rate, Regular Rhythm GI/Abdominal Exam: Normal Bowel Sounds, Soft, Non-Tender, No Distention (Male) Exam: Deferred Rectal (Males) Exam: Deferred Back Exam: Reports: Decreased Range of Motion Extremities: Normal Inspection, Non-Tender, No Pedal Edema, Normal Capillary Refill, Limited Range of Motion Skin: Reports: Warm, Dry, Intact Neurological: Reports: No New Focal Deficit Psy/Mental Status: Reports: Alert
[2020-11-01] MEDS: Lidocaine 4% 1 each Patch TOP SCH (12:27)
== END 2020-11-01 15:10 | DRG 871 ==
LOC: JD.ED 09:13 → JD.MS 13:38
PROVIDERS: ADMIT Internal Medicine; ATTEND Internal Medicine
DX: J18.9 Pneumonia, unspecified organism (principal); J44.0 Chronic obstructive pulmonary disease with (acute) lower respiratory infection; A41.9 Sepsis, unspecified organism; J69.0 Pneumonitis due to inhalation of food and vomit; G93.41 Metabolic encephalopathy; R13.10 Dysphagia, unspecified; D64.9 Anemia, unspecified; G89.29 Other chronic pain; I10 Essential (primary) hypertension; F31.9 Bipolar disorder, unspecified; F41.9 Anxiety disorder, unspecified; E23.2 Diabetes insipidus; K21.9 Gastro-esophageal reflux disease without esophagitis; Z86.14 Personal history of Methicillin resistant Staphylococcus aureus infection; Z93.1 Gastrostomy status; Z88.1 Allergy status to other antibiotic agents; N31.9 Neuromuscular dysfunction of bladder, unspecified; Z96.0 Presence of urogenital implants; G24.3 Spasmodic torticollis; G44.009 Cluster headache syndrome, unspecified, not intractable; M19.90 Unspecified osteoarthritis, unspecified site; G89.4 Chronic pain syndrome; F11.11 Opioid abuse, in remission; J44.9 Chronic obstructive pulmonary disease, unspecified; M47.812 Spondylosis without myelopathy or radiculopathy, cervical region; Z20.822 Contact with and (suspected) exposure to COVID-19; Z79.82 Long term (current) use of aspirin; Z79.899 Other long term (current) drug therapy; Z88.8 Allergy status to other drugs, medicaments and biological substances; Z88.2 Allergy status to sulfonamides; Z88.6 Allergy status to analgesic agent; R33.9 Retention of urine, unspecified; M54.2 Cervicalgia; Z87.891 Personal history of nicotine dependence
CPT/HCPCS: 36415; 70450; 71045; 80053; 82728; 83605 ×2; 83615; 85025; 86140; 87040 ×2; 96365; 96375; 99285; A9270; J0692; J1170; U0002; 51702; 80048; 83735; 87086; 92610-GN; 94640; 94762; 97162-GP; 97166-GO; 99223; 99233; 99239; 99284; J1650; J2543

== ENCOUNTER 2021-09-25 13:10 | Emergency (ER) | payer MEDICARE, MEDICAID ==
[2021-09-25] MEDS ORDERED: Levofloxacin 750 MG Tab PO ONE (14:29)
[2021-09-25] MEDS ORDERED: Lidocaine 2% Jelly 10 ML Urojet MUCMEM ONE (14:56)
== END 2021-09-25 16:40 | disposition home or self-care (01) ==
LOC: JD.ED 13:10
DX: Z46.6 Encounter for fitting and adjustment of urinary device (principal); I10 Essential (primary) hypertension; J44.9 Chronic obstructive pulmonary disease, unspecified; K21.9 Gastro-esophageal reflux disease without esophagitis; Z87.891 Personal history of nicotine dependence; Z79.899 Other long term (current) drug therapy; Z79.82 Long term (current) use of aspirin; Z88.8 Allergy status to other drugs, medicaments and biological substances; Z88.0 Allergy status to penicillin; Z88.1 Allergy status to other antibiotic agents
CPT/HCPCS: 51702; 99283; A9270

== ENCOUNTER 2022-09-12 07:24 | Emergency (ER) | payer MEDICARE, MEDICAID ==
[2022-09-12] MEDS ORDERED: Phenylephrine 0.5% Nasal Spray 15 ML Bot NASBOTH ONE (08:05)
[2022-09-12] MEDS ORDERED: LORazepam 1 MG Tab PO ONE (10:58)
== END 2022-09-12 12:30 | disposition other institution (70) ==
LOC: JD.ED 07:24
DX: R04.0 Epistaxis (principal); I10 Essential (primary) hypertension; J44.9 Chronic obstructive pulmonary disease, unspecified; Z79.82 Long term (current) use of aspirin; Z79.899 Other long term (current) drug therapy
CPT/HCPCS: 30903; 99284; A9270; 99283

== ENCOUNTER 2024-12-03 08:14 | Inpatient (IN) | payer MEDICARE, MEDICAID ==
[2024-12-03] MEDS ORDERED: Sodium Chloride 0.9% 10 ML Syringe FLUSH PRN (08:33)
[2024-12-03] MEDS: Sodium Chloride 0.9% 1,000 ML IV ONE ×2 (08:38→10:04)
[2024-12-03 08:58] LABS: HEMATOCRIT 26.7 % (42.0-52.0); HEMOGLOBIN 8.3 gm/dl (14.0-18.0); MEAN CORPUSCULAR HEMOGLOBIN 30.5 pg (28.0-32.0); MEAN CORPUSCULAR HGB CONC 31.1 g/dl (32.0-36.0); MEAN CORPUSCULAR VOLUME 98.2 fl (83.0-99.0); MEAN PLATELET VOLUME 9.2 fl (9.4-12.4); PLATELET COUNT,PLT 345 K/mm3 (150-400); RED BLOOD CELL COUNT 2.72 M/mm3 (4.52-5.90); WHITE BLOOD CELL COUNT,WBC 17.08 K/mm3 (3.9-11.3)
[2024-12-03] MEDS: Pantoprazole 40 MG Vial IVPUSH ONE (09:08)
[2024-12-03] MEDS: Tranexamic Acid 1,000 MG/10 ML Vial IVPUSH ONE (09:08)
[2024-12-03 09:19] LABS: INR 1.12; PROTHROMBIN TIME 11.8 SECONDS (9.7-12.0)
[2024-12-03 09:24] LABS: A/G RATIO 0.6 (1-2); ALANINE AMINOTRANSFERASE,ALT 16 U/L (16-63); ALBUMIN 1.9 g/dl (3.4-5.0); ALKALINE PHOSPHATASE 69 U/L (46-116); ANION GAP 12.7 (5-15); ASPARTATE AMNIOTRANSFERASE,AST 13 U/L (15-37); BILIRUBIN TOTAL 0.2 mg/dL (0.2-1.0); BLOOD UREA NITROGEN,BUN 37 mg/dL (7-18); BUN/CREATININE RATIO 23.1 (14-18); C-REACTIVE PROTEIN 7.62 mg/dL (<0.30); CALCIUM 8.7 mg/dL (8.5-10.1); CARBON DIOXIDE,CO2 29 mEq/L (21-32); CHLORIDE,CL 108 mEq/L (98-107); CREATININE 1.6 mg/dL (0.7-1.3); ESTIMATED GFR 46 mL/min (>60); GLUCOSE RANDOM 148 mg/dL (70-99); LIPASE 15 U/L (16-77); POTASSIUM,K 5.7 mEq/L (3.5-5.1); PROTEIN TOTAL,TP 5.2 g/dl (6.4-8.2); SODIUM,NA 144 mEq/L (136-145)
[2024-12-03] MEDS: cefTRIAXone 2 GM Vial IVPUSH ONE (09:29)
[2024-12-03 09:32] LABS: LACTIC ACID 5.2 mmol/L (0.4-2.0)
[2024-12-03 09:40] LABS: BAND PERCENT MAN 0 % (0-10); BASOPHILS PERCENT MAN 0 (0.2-1.2); EOSINOPHILS PERCENT MAN 0 % (0.8-7.0); LYMPHOCYTES PERCENT MAN 13 % (20-40); MONOCYTES PERCENT MAN 2 % (2-10)
[2024-12-03 09:41] LABS: PLATELET COUNT ESTIMATE ADEQUATE
[2024-12-03 09:58] LABS: APPEARANCE,URINE SLT CLOUDY (Clear); BILIRUBIN,URINE NEGATIVE (Negative); COLOR,URINE YELLOW (Yellow); GLUCOSE,URINE NEGATIVE (Negative); KETONES,URINE NEGATIVE (Negative); LEUKOCYTE ESTERASE,URINE 1+ (Negative); NITRITE,URINE POSITIVE (Negative); OCCULT BLOOD,URINE 1+ (Negative); PROTEIN,URINE 3+ (Negative); UROBILINOGEN,URINE 0.2 (0.2-1.0)
[2024-12-03 10:10] LABS: EPITHELIAL CELLS,URINE 0-5 /hpf (0-5); WBC,URINE 20-30 /hpf (0-5)
[2024-12-03 10:11] LABS: BACTERIA,URINE FEW /hpf (FEW); MUCUS,URINE RARE /hpf (FEW)
[2024-12-03] MEDS: HYDROmorphone 0.5 MG/0.5 ML Syringe IVPUSH ONE (10:26)
[2024-12-03] MEDS ORDERED: Sodium Chloride 0.9% 1,000 ML IV SCH (10:30)
[2024-12-03] MEDS: Lactated Ringers 1,000 ML IV SCH (11:10)
[2024-12-03] MEDS: Iopamidol 612 MG/ML 100 ML Bottle IVPUSH ONE (11:34)
[2024-12-03] MEDS: Sodium Chloride 0.9% 10 ML Syringe FLUSH ONE (11:34)
[2024-12-03] MEDS: Sodium Chloride 0.9% 500 ML ONE (12:43)
[2024-12-03 13:25] LABS: O2 SATURATION ARTERIAL 97.9 % (96.0-97.0)
[2024-12-03 13:26] LABS: BASE EXCESS ARTERIAL -1.2 (-2-2.0); BICARBONATE,ARTERIAL 23.6 meq/L (22.0-26.0)
[2024-12-03 16:49] LABS: HEMATOCRIT 24.7 % (42.0-52.0)
[2024-12-03] MEDS: VANCOmycin 1.5 GM/300 ML 1.5 GM in Premix Bag 1 BAG IV ONE (17:27)
[2024-12-03] MEDS: Pantoprazole 40 MG Vial IVPUSH SCH (17:27)
[2024-12-03] MEDS: Albuterol 0.083% 2.5 MG/3 ML Neb Soln NEB SCH (20:01)
[2024-12-03] MEDS: Sennosides/Docusate Sodium 50-8.6 MG Tab PO SCH (20:18)
[2024-12-03] MEDS: guaiFENesin 100 MG/5 ML Soln 10 ML UD Cup PO SCH (20:18)
[2024-12-03] MEDS: OLANZapine 5 MG Tab PO SCH (20:18)
[2024-12-03] MEDS: Cyclobenzaprine 10 MG Tab PO SCH (20:18)
[2024-12-03] MEDS: Melatonin 3 MG Tab PO SCH (20:18)
[2024-12-03] MEDS: Pantoprazole 40 MG in Sodium Chloride 0.9% 100 ML IV SCH (20:19)
[2024-12-03] MEDS: Doxycycline 100 MG in Sodium Chloride 0.9% 100 ML IV SCH (20:19)
[2024-12-03] MEDS: Venlafaxine 75 MG Cap.ER PO SCH (20:19)
[2024-12-03] MEDS ORDERED: Non-Formulary Medication 1 Each (Carisoprodol 350 MG Tablet) PO SCH (21:00)
[2024-12-04 04:43] LABS: BASOPHILS ABSOLUTE AUTO 0.1 K/mm3 (0.0-0.2); BASOPHILS PERCENT AUTO 0.3 % (0.0-1.0); EOSINOPHILS PERCENT AUTO 0.1 % (0.0-6.0); IMMATURE GRAN ABSOLUTE AUTO 0.06 K/mm3 (0.00-0.05); IMMATURE GRAN PERCENT AUTO 0.4 % (0.0-0.4); LYMPHOCYTES ABSOLUTE AUTO 1.3 K/mm3 (1.0-4.8); LYMPHOCYTES PERCENT AUTO 8.2 % (24.0-44.0); MEAN CORPUSCULAR HEMOGLOBIN 29.7 pg (28.0-32.0); MEAN CORPUSCULAR HGB CONC 32.4 g/dl (32.0-36.0); MEAN CORPUSCULAR VOLUME 91.7 fl (83.0-99.0); MEAN PLATELET VOLUME 9.2 fl (9.4-12.4); MONOCYTES ABSOLUTE AUTO 0.9 K/mm3 (0.0-0.8); MONOCYTES PERCENT AUTO 6.1 % (0.0-8.0); NEUTROPHILS ABSOLUTE AUTO 13.2 K/mm3 (1.8-7.7); NEUTROPHILS PERCENT AUTO 84.9 % (41.0-71.0); PLATELET COUNT,PLT 237 K/mm3 (150-400); RED BLOOD CELL COUNT 2.29 M/mm3 (4.52-5.90); WHITE BLOOD CELL COUNT,WBC 15.49 K/mm3 (3.9-11.3)
[2024-12-04 05:34] LABS: A/G RATIO 0.6 (1-2); ALBUMIN 1.8 g/dl (3.4-5.0); ANION GAP 12.3 (5-15); BILIRUBIN TOTAL 0.2 mg/dL (0.2-1.0); BUN/CREATININE RATIO 44.5 (14-18); C-REACTIVE PROTEIN 7.15 mg/dL (<0.30); CALCIUM 8.6 mg/dL (8.5-10.1); CREATININE 1.1 mg/dL (0.7-1.3); EST CRCL DRUG DOSING (CG) 56.75 mL/min; POTASSIUM,K 4.3 mEq/L (3.5-5.1); PROTEIN TOTAL,TP 4.8 g/dl (6.4-8.2)
[2024-12-04 05:54] LABS: HEMOGLOBIN 6.8 gm/dl (14.0-18.0)
[2024-12-04] MEDS: Sodium Chloride 0.9% 500 ML ONE (06:59)
[2024-12-04] MEDS: Gabapentin 300 MG Cap PO SCH (09:15)
[2024-12-04] MEDS: Aspirin 81 MG Tab.EC PO SCH (09:15)
[2024-12-04] MEDS: Famotidine 20 MG Tab PO SCH (09:15)
[2024-12-04] MEDS: Bisacodyl 5 MG Tab PO SCH (09:16)
[2024-12-04] MEDS: cefTRIAXone 2 GM Vial IVPUSH SCH (09:17)
[2024-12-04] MEDS: VANCOmycin 750 MG/150 ML 750 MG in Premix Bag 1 BAG IV SCH (09:43)
[2024-12-04] MEDS: Metoprolol Tartrate 5 MG/5 ML SDV IVPUSH ONE (17:50)
[2024-12-04] MEDS: Verapamil 80 MG Tab PO ONE (17:50)
[2024-12-04] MEDS ORDERED: Verapamil 180 MG Tab.ER PO ONE (18:00)
[2024-12-04 18:18] LABS: HEMATOCRIT 23.3 % (42.0-52.0); HEMOGLOBIN 7.7 gm/dl (14.0-18.0)
[2024-12-04] MEDS: Norepinephrine 4 MG/4 ML SDV ONE (18:38)
[2024-12-04] MEDS ORDERED: EPINEPHrine 1:10,000 1 MG/10 ML Syringe ONE (18:49)
[2024-12-04] MEDS ORDERED: Vasopressin 100 UNIT in Dextrose 5% in Water 245 ML IV SCH (19:15)
[2024-12-04 19:49] LABS: BASOPHILS ABSOLUTE AUTO 0.1 K/mm3 (0.0-0.2); BASOPHILS PERCENT AUTO 0.2 % (0.0-1.0); HEMATOCRIT 26.4 % (42.0-52.0); HEMOGLOBIN 8.7 gm/dl (14.0-18.0); IMMATURE GRAN ABSOLUTE AUTO 0.28 K/mm3 (0.00-0.05); IMMATURE GRAN PERCENT AUTO 1.4 % (0.0-0.4); LYMPHOCYTES ABSOLUTE AUTO 1.3 K/mm3 (1.0-4.8); LYMPHOCYTES PERCENT AUTO 6.3 % (24.0-44.0); MEAN PLATELET VOLUME 9.2 fl (9.4-12.4); MONOCYTES ABSOLUTE AUTO 1.2 K/mm3 (0.0-0.8); MONOCYTES PERCENT AUTO 5.7 % (0.0-8.0); NEUTROPHILS ABSOLUTE AUTO 17.5 K/mm3 (1.8-7.7); NEUTROPHILS PERCENT AUTO 86.4 % (41.0-71.0); PLATELET COUNT,PLT 167 K/mm3 (150-400); RED BLOOD CELL COUNT 2.81 M/mm3 (4.52-5.90); WHITE BLOOD CELL COUNT,WBC 20.21 K/mm3 (3.9-11.3)
[2024-12-04] MEDS: Sodium Chloride 0.9% 100 ML ONE (20:03)
[2024-12-04] MEDS: Sodium Chloride 0.9% 250 ML ONE (20:03)
[2024-12-04] MEDS: Dextrose 5% in Water 250 ML ONE (20:04)
[2024-12-04 20:24] LABS: A/G RATIO 0.6 (1-2); ALBUMIN 1.2 g/dl (3.4-5.0); ANION GAP 16.6 (5-15); BILIRUBIN TOTAL 0.1 mg/dL (0.2-1.0); BUN/CREATININE RATIO 36.2 (14-18); CALCIUM 7.3 mg/dL (8.5-10.1); CREATININE 1.3 mg/dL (0.7-1.3); EST CRCL DRUG DOSING (CG) 48.02 mL/min; POTASSIUM,K 4.6 mEq/L (3.5-5.1); PROTEIN TOTAL,TP 3.4 g/dl (6.4-8.2)
[2024-12-04] MEDS: Sodium Chloride 0.9% 1,000 ML ONE ×2 (20:47→20:48)
[2024-12-04] MEDS ORDERED: Azithromycin 500 MG in Sodium Chloride 0.9% 250 ML IV SCH (21:00)
[2024-12-04] MEDS: rOPINIRole 0.25 MG Tab PO SCH (21:04)
[2024-12-04] MEDS: Non-Formulary Medication 1 Each (Omeprazole 20 MG Cap.Cr) PO SCH (22:08)
[2024-12-05 00:07] LABS: HEMOGLOBIN 8.9 gm/dl (14.0-18.0)
[2024-12-05 05:38] LABS: BASOPHILS ABSOLUTE AUTO 0.1 K/mm3 (0.0-0.2); BASOPHILS PERCENT AUTO 0.3 % (0.0-1.0); EOSINOPHILS PERCENT AUTO 0.1 % (0.0-6.0); HEMOGLOBIN 8.1 gm/dl (14.0-18.0); IMMATURE GRAN ABSOLUTE AUTO 0.15 K/mm3 (0.00-0.05); IMMATURE GRAN PERCENT AUTO 0.8 % (0.0-0.4); LYMPHOCYTES ABSOLUTE AUTO 1.3 K/mm3 (1.0-4.8); LYMPHOCYTES PERCENT AUTO 6.5 % (24.0-44.0); MEAN CORPUSCULAR HEMOGLOBIN 30.5 pg (28.0-32.0); MEAN CORPUSCULAR HGB CONC 33.8 g/dl (32.0-36.0); MEAN PLATELET VOLUME 9.4 fl (9.4-12.4); MONOCYTES ABSOLUTE AUTO 0.9 K/mm3 (0.0-0.8); MONOCYTES PERCENT AUTO 4.7 % (0.0-8.0); NEUTROPHILS ABSOLUTE AUTO 17.2 K/mm3 (1.8-7.7); NEUTROPHILS PERCENT AUTO 87.6 % (41.0-71.0); PLATELET COUNT,PLT 188 K/mm3 (150-400); RED BLOOD CELL COUNT 2.66 M/mm3 (4.52-5.90); WHITE BLOOD CELL COUNT,WBC 19.62 K/mm3 (3.9-11.3)
[2024-12-05 05:39] LABS: MEAN CORPUSCULAR VOLUME 90.2 fl (83.0-99.0)
[2024-12-05 05:44] LABS: A/G RATIO 0.6 (1-2); ALBUMIN 1.6 g/dl (3.4-5.0); ANION GAP 11.1 (5-15); BILIRUBIN TOTAL 0.3 mg/dL (0.2-1.0); C-REACTIVE PROTEIN 2.32 mg/dL (<0.30); CALCIUM 7.9 mg/dL (8.5-10.1); CREATININE 1.1 mg/dL (0.7-1.3); EST CRCL DRUG DOSING (CG) 56.75 mL/min; POTASSIUM,K 4.1 mEq/L (3.5-5.1); PROTEIN TOTAL,TP 4.1 g/dl (6.4-8.2)
[2024-12-05] MEDS ORDERED: Verapamil 180 MG Tab.ER PO SCH (09:00)
[2024-12-05] MEDS: Verapamil 80 MG Tab PO SCH (09:53)
[2024-12-05] MEDS: Finasteride 5 MG Tab PO SCH (11:00)
[2024-12-05 11:15] LABS: HEMATOCRIT 21.7 % (42.0-52.0)
[2024-12-05 11:17] LABS: HEMOGLOBIN 7.2 gm/dl (14.0-18.0)
[2024-12-05] MEDS: Lactated Ringers 1,000 ML IV SCH (11:17)
[2024-12-05] MEDS: Acetaminophen 325 MG Tab PO PRN (12:22)
[2024-12-05] MEDS: Sodium Chloride 0.9% 250 ML ONE (13:31)
[2024-12-05] MEDS: Pantoprazole 80 MG in Sodium Chloride 0.9% 100 ML IV SCH (13:33)
[2024-12-06 00:21] LABS: HEMATOCRIT 25.4 % (42.0-52.0); HEMOGLOBIN 8.6 gm/dl (14.0-18.0)
[2024-12-06 05:31] LABS: A/G RATIO 0.7 (1-2); ALBUMIN 1.7 g/dl (3.4-5.0); ANION GAP 10.6 (5-15); BILIRUBIN TOTAL 0.3 mg/dL (0.2-1.0); C-REACTIVE PROTEIN 0.94 mg/dL (<0.30); CALCIUM 8.1 mg/dL (8.5-10.1); EST CRCL DRUG DOSING (CG) 62.43 mL/min; POTASSIUM,K 3.6 mEq/L (3.5-5.1); PROTEIN TOTAL,TP 4.1 g/dl (6.4-8.2)
[2024-12-06 05:48] LABS: BASOPHILS PERCENT AUTO 0.3 % (0.0-1.0); EOSINOPHILS ABSOLUTE AUTO 0.2 K/mm3 (0.0-0.4); HEMATOCRIT 24.8 % (42.0-52.0); HEMOGLOBIN 8.3 gm/dl (14.0-18.0); IMMATURE GRAN ABSOLUTE AUTO 0.12 K/mm3 (0.00-0.05); IMMATURE GRAN PERCENT AUTO 1.1 % (0.0-0.4); LYMPHOCYTES ABSOLUTE AUTO 1.5 K/mm3 (1.0-4.8); LYMPHOCYTES PERCENT AUTO 13.2 % (24.0-44.0); MEAN CORPUSCULAR HEMOGLOBIN 28.5 pg (28.0-32.0); MEAN CORPUSCULAR HGB CONC 33.5 g/dl (32.0-36.0); MEAN PLATELET VOLUME 8.9 fl (9.4-12.4); MONOCYTES ABSOLUTE AUTO 0.8 K/mm3 (0.0-0.8); MONOCYTES PERCENT AUTO 6.6 % (0.0-8.0); NEUTROPHILS ABSOLUTE AUTO 8.7 K/mm3 (1.8-7.7); NEUTROPHILS PERCENT AUTO 76.8 % (41.0-71.0); PLATELET COUNT,PLT 137 K/mm3 (150-400); RED BLOOD CELL COUNT 2.91 M/mm3 (4.52-5.90); WHITE BLOOD CELL COUNT,WBC 11.28 K/mm3 (3.9-11.3)
[2024-12-06 05:51] LABS: MEAN CORPUSCULAR VOLUME 85.2 fl (83.0-99.0)
[2024-12-07] MEDS: Albuterol 6.7 GM Inhaler INH PRN (06:56)
[2024-12-07 06:57] LABS: HEMATOCRIT 23.8 % (42.0-52.0); HEMOGLOBIN 7.8 gm/dl (14.0-18.0); MEAN CORPUSCULAR HEMOGLOBIN 29.2 pg (28.0-32.0); MEAN CORPUSCULAR HGB CONC 32.8 g/dl (32.0-36.0); MEAN CORPUSCULAR VOLUME 89.1 fl (83.0-99.0); MEAN PLATELET VOLUME 9.3 fl (9.4-12.4); NRBC ABSOLUTE 0.02 (0.00-0.02); NRBC PERCENT 0.1 % (0.0-0.2); PLATELET COUNT,PLT 199 K/mm3 (150-400); RED BLOOD CELL COUNT 2.67 M/mm3 (4.52-5.90); WHITE BLOOD CELL COUNT,WBC 13.98 K/mm3 (3.9-11.3)
[2024-12-07 07:12] LABS: A/G RATIO 0.7 (1-2); ALBUMIN 1.8 g/dl (3.4-5.0); ANION GAP 15.8 (5-15); BILIRUBIN TOTAL 0.3 mg/dL (0.2-1.0); CALCIUM 8.4 mg/dL (8.5-10.1); EST CRCL DRUG DOSING (CG) 62.43 mL/min; POTASSIUM,K 3.8 mEq/L (3.5-5.1); PROTEIN TOTAL,TP 4.4 g/dl (6.4-8.2)
[2024-12-07] MEDS ORDERED: Propofol 200 MG/20 ML SDV ONE (07:13)
[2024-12-07] MEDS ORDERED: ePHEDrine 50 MG/ML SDV ONE (07:15)
[2024-12-07] MEDS ORDERED: Lidocaine 1% 6 ML ONE (07:15)
[2024-12-07] MEDS ORDERED: Succinylcholine 200 MG/10 ML MDV ONE (07:35)
[2024-12-07] MEDS ORDERED: EPINEPHrine 1 MG/ML SDV ONE (08:00)
== END 2024-12-07 10:19 | disposition expired | DRG 871 ==
LOC: JD.ED 08:14 → JD.ICU 10:15 → UNDOADMIN 11:05 → UNDODISIN 12-07 10:19
PROVIDERS: ADMIT Family Medicine; ATTEND Internal Medicine
PROC: 3E03329 Introduction of Other Anti-infective into Peripheral Vein, Percutaneous Approach (ICD-10-PCS; principal; 2024-12-03)
PROC: 3E033XZ Introduction of Vasopressor into Peripheral Vein, Percutaneous Approach (ICD-10-PCS; 2024-12-03)
PROC: 4A033R1 Measurement of Arterial Saturation, Peripheral, Percutaneous Approach (ICD-10-PCS; 2024-12-03)
PROC: 30233N1 Transfusion of Nonautologous Red Blood Cells into Peripheral Vein, Percutaneous Approach (ICD-10-PCS; 2024-12-03)
PROC: 0T2BX0Z Change Drainage Device in Bladder, External Approach (ICD-10-PCS; 2024-12-03)
PROC: 30233N1 Transfusion of Nonautologous Red Blood Cells into Peripheral Vein, Percutaneous Approach (ICD-10-PCS; 2024-12-04)
PROC: 30233N1 Transfusion of Nonautologous Red Blood Cells into Peripheral Vein, Percutaneous Approach (ICD-10-PCS; 2024-12-05)
PROC: 0DB98ZX Excision of Duodenum, Via Natural or Artificial Opening Endoscopic, Diagnostic (ICD-10-PCS; 2024-12-07)
DX: I95.89 Other hypotension (principal); A41.9 Sepsis, unspecified organism; J18.9 Pneumonia, unspecified organism; J44.9 Chronic obstructive pulmonary disease, unspecified; R65.21 Severe sepsis with septic shock; J96.01 Acute respiratory failure with hypoxia; J69.0 Pneumonitis due to inhalation of food and vomit; Z66 Do not resuscitate; Z88.6 Allergy status to analgesic agent; K28.4 Chronic or unspecified gastrojejunal ulcer with hemorrhage; N39.0 Urinary tract infection, site not specified; K31.1 Adult hypertrophic pyloric stenosis; J44.0 Chronic obstructive pulmonary disease with (acute) lower respiratory infection; I31.39 Other pericardial effusion (noninflammatory); D62 Acute posthemorrhagic anemia; I24.89 Other forms of acute ischemic heart disease; I10 Essential (primary) hypertension; K21.9 Gastro-esophageal reflux disease without esophagitis; F41.9 Anxiety disorder, unspecified; F31.9 Bipolar disorder, unspecified; K31.89 Other diseases of stomach and duodenum; M62.838 Other muscle spasm; R57.8 Other shock; L89.302 Pressure ulcer of unspecified buttock, stage 2; N31.9 Neuromuscular dysfunction of bladder, unspecified; K59.09 Other constipation; G62.9 Polyneuropathy, unspecified; Z88.8 Allergy status to other drugs, medicaments and biological substances; Z88.2 Allergy status to sulfonamides; Z88.1 Allergy status to other antibiotic agents; Z79.82 Long term (current) use of aspirin; Z79.52 Long term (current) use of systemic steroids; Z79.899 Other long term (current) drug therapy; Z79.51 Long term (current) use of inhaled steroids; Z99.81 Dependence on supplemental oxygen
CPT/HCPCS: 36415; 36430; 71045; 74177; 80053; 81001; 82272; 83605; 83690; 83735; 85007; 85027; 85610; 86140; 86850; 86900; 86901; 86922 ×2; 87040 ×2; 87086; 87428; 93005; 96361; 96374; 96375; 99285; J0696; J2470; J7030 ×2; P9016; 00731; 36600; 51702; 80202; 82803; 84484; 85014; 85018; 85025; 87641; 88305; 93010; 93306; 94640; 94761; 97110-GP; 97162-GP; 97530-GP; 99100; 99140; 99223; 99233; A9270-GY; J0171; J0330; J2003; J2704; J3372; J3490; J7120; Q9967